=== PATIENT | male | born 1940 | race Caucasian/White ===

== ENCOUNTER → 2017-10-16 15:21 | Outpatient (CLI) | payer MEDICARE, OTHER, SELFPAY ==
--- NOTE | 2017-10-16 | DI.RAD.S_ITS ---
PROCEDURE: XR LUMBAR SPINE 2-3V INDICATIONS: LOW BACK PAIN TECHNIQUE: 3 views of the lumbar spine were acquired. COMPARISON: [facility], CT, THORAX WITHOUT CONTRAST, 01/26/2013, 11:38. FINDINGS: Bones: 5 nonrib-bearing, lumbar type vertebral bodies are seen. Grade 1 anterolisthesis is seen at the L5-S1 level, with associated bilateral pars defects are present moderate disc space narrowing seen at L4-L5 and at least moderate disc space narrowing at L5-S1. The other lumbar disc spaces are relatively well-preserved. Endplate irregularity and sclerosis are seen, which are most prominent at L4-L5 and L5-S1. Lower lumbar spine facet arthropathy is seen. Mild levoconvex scoliotic curvature is noted. No suspicious lytic or blastic lesions are seen. No displaced fractures are seen. Soft tissues: Overlying bowel gas pattern is normal. No suspicious soft tissue calcifications. IMPRESSION: Grade 1 anterolisthesis at L5-S1, with associated bilateral pars defects. Focal or lumbar spine degenerative changes. Dictated by: Emir Monteiro M.D. on 10/16/2017 at 15:01 Approved by: Emir Monteiro M.D. on 10/16/2017 at 15:04
== END ==
PROVIDERS: Family Provider Family Medicine; PCP Family Medicine; Visit Provider Chiropractor
DX: M43.17 Spondylolisthesis, lumbosacral region (principal); M54.5 Low back pain
CPT/HCPCS: 72100

== ENCOUNTER → 2018-02-17 13:58 | Outpatient (CLI) | payer MEDICARE, OTHER, SELFPAY | PROVIDERS: PCP Family Medicine; Visit Provider Internal Medicine Rheumatology | DX: E11.9 Type 2 diabetes mellitus without complications (principal); Z79.52 Long term (current) use of systemic steroids; Z87.891 Personal history of nicotine dependence | CPT/HCPCS: 77080 ==

== ENCOUNTER → 2018-10-07 08:36 | Outpatient (CLI) | payer MEDICARE, OTHER, SELFPAY | PROVIDERS: Family Provider Family Medicine; PCP Family Medicine; Visit Provider Ophthalmology | DX: E08.9 Diabetes mellitus due to underlying condition without complications (principal); M35.3 Polymyalgia rheumatica | CPT/HCPCS: 87070; 87077; 87186; 87205 ==

== ENCOUNTER → 2019-04-02 09:21 | Outpatient (CLI) | payer MEDICARE, OTHER, SELFPAY ==
--- NOTE | 2019-04-02 10:15 | DI.CT.S_ITS ---
PROCEDURE: CT ABDOMEN PELVIS W CON INDICATIONS: Nausea with vomiting TECHNIQUE: After the administration of oral and intravenous contrast, 5 mm thick sections acquired from the diaphragms to the symphysis. 5 mm thick coronal and sagittal reformats were performed. For radiation dose reduction, the following was used: automated exposure control, adjustment of mA and/or kV according to patient size. COMPARISON: None. FINDINGS: Image quality: Excellent. ABDOMEN: Lung bases: Lung bases are clear. Heart size is normal. Solid organs: Liver is normal in size and enhancement. Gallbladder is normal. Biliary system is non-dilated. Pancreas enhances normally. Spleen is normal in size and enhancement. No adrenal nodules. Kidneys are normal in size and enhancement, without hydronephrosis. Peritoneum and bowel: Stomach, small bowel, and colon loops are normal in caliber and wall thickness. No free fluid or air. Nodes and vessels: A few moderately prominent lymph nodes are present scattered base of the mesentery. No matted, clumped, or bulky adenopathy visible. No retroperitoneal adenopathy.. Aorta and inferior vena cava are normal in caliber. Moderate to heavy atheromatous changes. Miscellaneous: No ventral hernias. PELVIS: Genitourinary: Bladder wall thickness is normal. There is marked prostatomegaly which measures 4.9 x 5.1 x 6.3 cm. Miscellaneous: No inguinal hernias or adenopathy. Bones: Bilateral L5 pars defects and severe degenerative disc change at L5-S1 result in grade 1 anterolisthesis. No suspicious bony lesions. No vertebral body compression fractures. IMPRESSION: 1. No CT evidence of acute process. 2. Mildly prominent mesenteric lymph nodes are most likely reactive. No pathologic adenopathy identified. 3. Marked prostatomegaly. Dictated by: Scarlet Ricks M.D. on 04/02/2019 at 14:45 Approved by: Scarlet Ricks M.D. on 04/02/2019 at 14:54
== END ==
PROVIDERS: Family Provider Family Medicine; PCP Family Medicine; Visit Provider Family Medicine
DX: R11.2 Nausea with vomiting, unspecified (principal); N40.0 Benign prostatic hyperplasia without lower urinary tract symptoms
CPT/HCPCS: 74177; Q9967

== ENCOUNTER → 2019-11-18 13:48 | Outpatient (CLI) | payer MEDICARE, OTHER, SELFPAY ==
--- NOTE | 2019-11-18 | DI.MRI.S_ITS ---
PROCEDURE: MR LUMBAR SPINE WO CON INDICATIONS: Lumbago with sciatica, right side TECHNIQUE: Noncontrast sagittal T1 spin echo and T2 fast echo, sagittal STIR, axial T1 and T2 fast spin echo through the lumbar spine. In cases with scoliosis, additional coronal T2 fast spin echo may be performed. COMPARISON: [facility], CR, XR LUMBAR SPINE 2-3V, 10/16/2017, 15:28. FINDINGS: Image quality: Degraded by motion artifact. Alignment and Curvature: 5 lumbar type vertebral bodies are present by plain film. There is loss of normal lumbar lordosis. There is mild grade 1 retrolisthesis of L1 on L2, L2 on L3, L3 on L4, and L4 on L5. Mild grade 1 anterolisthesis of L5 on S1. Bone Marrow: Marrow is of normal overall signal. No acute vertebral body compression fractures. There are bilateral L5-S1 pars interarticularis defects. There is mild reactive signal within the endplates adjacent to the L1-L2, L2-L3, L3-L4, L4-L5, and L5-S1 intervertebral discs. Spinal Cord: Conus medullaris terminates at the upper L1 level. Visualized cord demonstrates normal signal and size. Paraspinous Soft Tissues: No paravertebral masses. L1-L2: Moderate disc desiccation. Mild disc height loss. Mild diffuse disc bulge. Mild facet and ligamentum flavum hypertrophy. Mild canal stenosis. Mild bilateral foraminal stenosis. L2-L3: Moderate disc height loss and desiccation. Mild diffuse disc bulge. Mild facet and ligamentum flavum hypertrophy. Mild epidural lipomatosis. Mild canal stenosis. Mild bilateral foraminal stenosis. L3-L4: Moderate disc desiccation. Moderate diffuse disc bulge. Mild facet and ligamentum flavum hypertrophy. Mild epidural lipomatosis. Severe canal stenosis. Moderate foraminal stenosis bilaterally. L4-L5: Moderate disc desiccation. Moderate diffuse disc bulge with superimposed right posterolateral protrusion. Moderate facet and ligamentum flavum hypertrophy. Moderate canal stenosis. Moderate left and severe right foraminal stenosis. Right L4 nerve root compression. L5-S1: Severe disc height loss and desiccation. Mild diffuse disc bulge. Mild bilateral facet hypertrophy. No significant canal stenosis. Severe bilateral foraminal stenosis with bilateral L5 nerve root compression. IMPRESSION: 1. Multilevel degenerative disc and facet disease, as well as ligamentum flavum hypertrophy and epidural lipomatosis. 2. Grade 1 isthmic spondylolisthesis at L5-S1. 3. Multilevel canal stenosis, worst at L3-L4 where there is severe canal stenosis. Moderate canal stenosis at L4-L5. 4. Multilevel foraminal stenoses, worst at L4-L5 and L5-S1 where there is associated intraforaminal nerve root compression. Recommend correlation with clinical symptoms to ascertain relevance of these findings. Dictated by: Jasen Carmichael M.D. on 11/18/2019 at 16:44 Approved by: Jasen Carmichael M.D. on 11/18/2019 at 16:48
== END ==
PROVIDERS: Family Provider Family Medicine; PCP Family Medicine; Referring Provider Family Medicine; Visit Provider Family Medicine
DX: M51.16 Intervertebral disc disorders with radiculopathy, lumbar region (principal); M51.17 Intervertebral disc disorders with radiculopathy, lumbosacral region; M43.17 Spondylolisthesis, lumbosacral region; M48.061 Spinal stenosis, lumbar region without neurogenic claudication; M48.07 Spinal stenosis, lumbosacral region; E88.2 Lipomatosis, not elsewhere classified
CPT/HCPCS: 72148

== ENCOUNTER 2019-11-19 10:17 | Inpatient (IN) | payer MEDICARE, OTHER, SELFPAY ==
[2019-11-19 10:35] VITALS: BP 120/75; PULSE 97; RESP 22; TEMP 36.2; O2SAT 94
[2019-11-19 10:45] VITALS: BMI 32.6
[2019-11-19 11:48] LABS: Add Manual Diff / Slide Review NO; Basophils Absolute Auto 0 /uL (0-100); Basophils Percent Auto 0.3 % (0-2); Eosinophils Absolute Auto 0 /uL (0-450); Eosinophils Percent Auto 0.2 % (2-4); Hemoglobin 15.7 g/dL (13.5-17.5); Lymphocytes Absolute Auto 600 /uL (1100-4500); Lymphocytes Percent Auto 4.7 % (25-40); Mean Corpuscular HGB Conc 33.5 % (30-36); Mean Corpuscular Hemoglobin 30.5 PG (26-34); Mean Corpuscular Volume 91.2 fL (80-100); Monocytes Absolute Auto 500 /uL (0-900); Monocytes Percent Auto 3.8 % (3-14); Neutrophils Absolute Auto 11600 /uL (1500-7000); Platelet Count 200 X10^3/uL (150-400); Red Blood Cell Count 5.16 X10^6/uL (4.5-5.9); Red Cell Distribution Width 14.5 % (11.6-14.8); White Blood Cell Count 12.7 X10^3/uL (4.5-11.0)
[2019-11-19 12:00] LABS: BUN Creatinine Ratio 21.3 (6-22); Blood Urea Nitrogen 27 mg/dL (9-20); Calcium 9.9 mg/dL (8.4-10.2); Carbon Dioxide 31 mmol/L (22-32); Chloride 96 mmol/L (98-107); Estimated Glomerular Filt Rate 54.7 mL/min (>60); Glucose 216 mg/dL (80-110); HEMOLYSIS 48 (0-50); Sodium 136 mmol/L (137-145)
[2019-11-19] MEDS: MORPHINE 2 MG/ML INJ IV ×2 (12:03→18:07)
[2019-11-19] MEDS: LACTATED RINGERS 500 ML 1000 ML IV (12:03)
[2019-11-19] MEDS: LACTATED RINGERS 1,000 ML 150 ML IV ×2 (13:20→19:46)
--- NOTE | 2019-11-19 13:26 | P.HP_ITS ---
History of Present Illness History of Present Illness Date Patient Seen: 11/19/19 Time Patient Seen: 13:26 Date of Onset of Symptoms: 11/19/19 Chief complaint: radicular back pain hypotention & dehydration Narrative: Patient is a 79-year-old male patient of mine well known to me who presents in clinic today in severe pain and hypotensive. He had an appointment for follow-up of MRI. Patient has been having history of pain for the last 6 weeks or so period is progressively getting worse. Progressing [place] not mobile while. Not eating period and becoming more and more immobile. Patient was seen last week in clinic and was with mildly low blood pressure but felt okay otherwise. At that time he had no definitive neurologic signs. He was having pain which was 8/10. Mostly in his right buttock down into his leg and around into the anterior leg. He had no other significant new changes. He had no bowel or bladder changes. No numbness. He had no motor changes but hurts so bad he would not move much period was becoming a little bit confused in that he was not drinking and tramadol did seem to be helping. At that time we had increased tramadol does and had been following period is had no fevers chills or other change. Patient continued similar findings his MRI showed multiple pinch nerves plus central canal stenosis. He has not made any progress he has not been drinking fluids. He is progressively uncontrolled pain and becoming less functional at home. In clinic today at a blood pressure of 85/60 and was diaphoretic. He had had no chest pain. No shortness of breath. He continued only with only complaint being buttock pain down his which was extended down his leg. Due to the fact that his pressure was so low he was clearly dehydrated and was otherwise not feeling functional he was brought to the hospital for evaluation. Patient was with history of diffuse pain which had responded secondary to prednisone has been diagnosed with polymyalgia rheumatica. Patient was tried on 40 mg of prednisone 2 weeks ago which made no difference. We had recently started weaning his prednisone. Patient had labs done last week which showed a mildly elevated white count probably secondary to his prednisone. Other lab function was normal. He has had no change in bowel movements no blood in his stool. No urinary frequency or urgency or change. No extremity numbness. No headaches. No visual symptoms. No shortness of breath no chest pain. Basically has not been doing much otherwise though. 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 Social history negative smoker, occasional alcohol mostly social Patient History Medical History Back pain (Acute) Diabetes mellitus (Acute) GERD (gastroesophageal reflux disease) (Acute) High cholesterol (Acute) Hypertension (Acute) PMR (polymyalgia rheumatica) (Acute) Surgical History History of appendectomy (Acute) Status post total left knee replacement (Acute) Family & Social History Social History: household members spouse Safety & Behavioral: Feels Safe in Current Yes Environment Been Physically Hurt or No Threatened By a Person Suicidal Ideation Description None Suicide Plan Description No Plan Tobacco & Substance use: Smoking Status Former smoker alcohol intake current alcohol intake frequency 3 or more drinks per day Substance Use Type does not use Meds Home Medications and Allergies Home Medications Medication Instructions Recorded Confirmed Type ASPIRIN (Aspirin Low Dose) 81 mg PO QDAY #0 02/24/10 11/19/19 History OMEPRAZOLE 20 mg PO QDAY #0 02/24/10 11/19/19 History Pravastatin Sodium (Pravachol) 20 mg PO PM #0 02/24/10 11/19/19 History doxazosin 8 mg PO DAILY 11/19/19 11/19/19 History insulin glargine [Lantus Solostar 15 unit SUBCUT BID 11/19/19 11/19/19 History U-100 Insulin] losartan 100 mg PO DAILY 11/19/19 11/19/19 History metoprolol tartrate 75 mg PO BEDTIME 11/19/19 11/19/19 History prednisone 15 mg PO DAILY 11/19/19 11/19/19 History tramadol 100 mg PO Q6H PRN 11/19/19 11/19/19 History Allergies Allergy/AdvReac Type Severity Reaction Status Date / Time No Known Drug Allergies Allergy Verified 11/19/19 11:24 Review of Systems Review of Systems ROS: Yes All systems reviewed with the patient and are negative except as otherwise documented Exam Vital Signs (past 8 hours): Oxygen Delivery Method Room Air Narrative Exam Narrative: Alert diaphoretic male lying in bed with right leg up because that is the only way he can get his back pain comfortable. Skin diaphoretic pale HEENT exam eyes appear normal. Mucous membranes dry neck supple without adenopathy. No JVD or bruits. Lungs are clear. Heart regular rate and rhythm without murmurs clicks rubs or gallops abdomen is soft positive bowel sounds nontender. Extremities show trace edema bilaterally. Good pulses. Negative straight leg raise. Neurologic exam shows cranial nerves 2-12 are intact motor is 5/5. Reflexes 1+ knee not obtainable ankle jerks bilaterally. Motor appears to be 5/5 otherwise difficult to get him to really do much with his lower extremities because of pain psychologically fatigued in appearance but otherwise no change. Objective Labs Result Diagrams: 11/19/19 10:45 11/19/19 10:45 Labs: Laboratory Results - last 24 hr 11/19/19 11/19/19 11/19/19 10:45 10:45 10:45 WBC 12.7 H RBC 5.16 Hgb 15.7 Hct 47.0 MCV 91.2 MCH 30.5 MCHC 33.5 RDW 14.5 Plt Count 200 Neut % (Auto) 91.0 H Lymph % (Auto) 4.7 L [place] % (Auto) 3.8 Eos % (Auto) 0.2 L Baso % (Auto) 0.3 Neut # (Auto) 72646 H Lymph # (Auto) 600 L [place] # (Auto) 500 Eos # (Auto) 0 Baso # (Auto) 0 Sodium 136 L Potassium 4.0 Chloride 96 L Carbon Dioxide 31 BUN 27 H Creatinine 1.27 H Estimated GFR 54.7 L BUN/Creatinine Ratio 21.3 Glucose 216 H Calcium 9.9 Nasal Screen MRSA (PCR) Negative for mrsa Assessment & Plan Assessment & Plan narrative: Back pain with radiculopathy. MRI shows pretty significant L4-L5 abnormality although he has multiple areas under impinged but that would sit mostly with his right side. He does have severe central canal stenosis. Discussed with Dr. Monroe. He was consulted. Due to the inability to control pain and severe disease on MRI may need surgical evaluation. Will see what Dr. Hansen feels. I did not feel like today would be a good day for that I would like him to get hydrated. Get some sugars and a little better control. I think otherwise his low to medium risk candidate mostly this with age. Will control pain with narcotics for now. Dehydration. Moderate. Will continue hydration recheck in 2-3 hours. Cert ainly improved after bolus. Will follow. Hypotension. Resolving. Probably secondary to dehydration and pain. Will follow. Hypertension. Medication seems to be doing well will make no change hopefully with treatment dehydration Type 2 diabetes. Will restart is 15 b.i.d. and sliding scale. Polymyalgia rheumatica. Patient has been on 15 mg for a few days of prednisone will go to 20 just for stress dose and restart wean after he is discharged. BPH continue usual medicine. History of CVA stable His code status full. GI prophylaxis already on PPI DVT prophylaxis is Lovenox. Disposition. Will correct dehydration and hypertension otherwise will leave up to Dr. Monroe in his discretions. Hopefully will get some treatment which will get us out of this [place] in which were in. Patient should not be here more than 2- 3 days
[2019-11-19 13:52] LABS: COVID19 -Nasal RAPID Negative (Negative)
[2019-11-19] MEDS: OXYCODONE/ACETAMINOPHEN 5/325 TABLET 2 TAB PO (14:30)
[2019-11-19] MEDS: ENOXAPARIN 40 MG/0.4 ML SYRINGE SUBCUT (14:31)
--- NOTE | 2019-11-19 15:16 | PC.ADMIT ---
[email or web address] [facility] Admission Note: The patient,Octavio Salmon,79 y/o, was given written information regarding hospital policies, unit procedures and contact persons. Patient's smoking status: Former smoker. Vital Signs - 8 hr 11/19/19 10:35 Temperature 97.2 F L Pulse Rate 97 H Respiratory Rate 22 Blood Pressure 120/75 Pulse Oximetry [address] Gallo's office. Rec'd pt to rm 230 at 1035 via w/c. Pt c/o back pain radiating to r leg 10/18. Completed admission assessment. Oriented pt and to room, routine, fall risk, use of call light. Instructed pt to wait for assist before getting OOB. He is AO x3 and making needs known with clear, logical speech. Called to Dr. Gallo and reported pain score, requesting orders. Orders received and implemented.
[2019-11-19 15:46] VITALS: BP 153/86; PULSE 96; RESP 20; TEMP 36.4; O2SAT 94
[2019-11-19] MEDS: PRAVASTATIN 20 MG TABLET PO (16:33)
[2019-11-19] MEDS: INSULIN ASPART 100 UNIT/ML INSULN PEN SUBCUT ×2 (16:33→20:28)
[2019-11-19] MEDS: ACETAMINOPHEN 325 MG TABLET 650 MG PO ×2 (17:29→23:53)
[2019-11-19 19:00] VITALS: BP 133/66; PULSE 91; RESP 17; TEMP 36.6; O2SAT 92
[2019-11-19] MEDS: INSULIN GLARGINE 100 UNIT/ML 3ML PEN 15 UNIT SUBCUT (20:28)
[2019-11-19 20:33] VITALS: BP 133/77; PULSE 98
[2019-11-19] MEDS: METOPROLOL IR 25 MG TABLET 75 MG PO (20:33)
--- NOTE | 2019-11-19 22:18 | PC.NURSE ---
Patient AO x3 throughout shift. Patient needing 1 PRN pain medication administration for pain in back which radiates to right leg. Patient up multiple times, ambulating to restroom with good urine output. Patient eating/drinking well, but understands he is NPO after midnight due to surgery in AM. Patient currently resting in bed, sleeping, in no distress.
[2019-11-20] VITALS (47 sets, daily range): BP systolic 77–183; BP diastolic 56–99; PULSE 81–152; RESP 8–38; TEMP 35.9–36.8; O2SAT 84–98; BMI 32.6
--- NOTE | 2019-11-20 | DI.RAD.S_ITS ---
PROCEDURE: XR LUMBAR SPINE 2-3V INDICATIONS: L45- MICRO D, L5-S1 TLIF TECHNIQUE: 2 views of the lumbar spine were acquired. COMPARISON: [facility], , XR LUMBAR SPINE 2-3V, 10/16/2017, 15:28. FINDINGS: Spot fluoroscopic intraoperative views demonstrating L5-S1 posterior spinal fixation with interbody cage graft. There is expected intraoperative alignment. Dictated by: Apollo Zimmer M.D. on 11/20/2019 at 12:29 Approved by: Apollo Zimmer M.D. on 11/20/2019 at 12:29
[2019-11-20] MEDS: LACTATED RINGERS 1,000 ML 125 ML IV ×2 (04:01→08:54)
[2019-11-20 05:20] LABS: BUN Creatinine Ratio 22.2 (6-22); Blood Urea Nitrogen 22 mg/dL (9-20); Calcium 9.5 mg/dL (8.4-10.2); Carbon Dioxide 38 mmol/L (22-32); Chloride 98 mmol/L (98-107); Estimated Glomerular Filt Rate > 60.0 mL/min (>60); Glucose 130 mg/dL (80-110); HEMOLYSIS < 15 (0-50); Potassium 3.9 mmol/L (3.4-5.1); Sodium 135 mmol/L (137-145)
[2019-11-20] MEDS: ACETAMINOPHEN 325 MG TABLET 650 MG PO (06:16)
[2019-11-20] MEDS: PANTOPRAZOLE 20 MG TABLET PO (06:16)
--- NOTE | 2019-11-20 07:23 | PM.PN.1 ---
Subjective Subjective Date Patient Seen: 11/20/19 Time Patient Seen: 07:23 Interval history: Feeling better this morning after hydration. Preparing for surgery. Uneventful night otherwise. Has been NPO. Exam Vital Signs (past 8 hours): - 11/20/19 00:00 11/20/19 00:15 11/20/19 04:44 Temperature 97.2 F L 97.7 F Pulse Rate 81 91 H Respiratory Rate 16 18 Blood Pressure 111/87 161/92 H Pulse Oximetry 97 97 97 11/20/19 07:13 Temperature 98.1 F Pulse Rate 86 Respiratory Rate 20 Blood Pressure 164/99 H Pulse Oximetry 95 Oxygen Delivery Method Room Air Oxygen Flow Rate 0 Narrative Exam Narrative: GENERAL: Alert and oriented, appearing stated age and lying with his right leg up as that is the only way to get his back into a comfortable position HEENT: Head normocephalic/atraumatic. Pupils equal, round, and reactive to light and accomodation. Extraocular muscles intact. Tympanic membranes clear. Nasal mucosa moist, septum midline. Oral mucosa moist, no lesions. Neck soft and supple, no lymphadenopathy. LUNGS: Clear to ausculation bilaterally, no wheezes, rhonchi or rales. CV: Normal S1 and S2 with regular rate and rhythm, no audible murmurs, rubs or gallops. ABDOMEN: Soft, non-tender, non-distended, no organomegaly. Positive bowel sounds. EXTREMITIES: Trace edema bilaterally. NEURO: Cranial nerves II through XII grossly intact. Strength difficult to assess secondary to pain. PSYCH: Alert and oriented x 3. SKIN: No concerning lesions. Dry, pale. Objective Labs Result Diagrams: 11/19/19 10:45 11/20/19 04:43 Labs: Laboratory Results - last 24 hr 11/19/19 11/19/19 11/19/19 10:45 10:45 10:45 WBC 12.7 H RBC 5.16 Hgb 15.7 Hct 47.0 MCV 91.2 MCH 30.5 MCHC 33.5 RDW 14.5 Plt Count 200 Neut % (Auto) 91.0 H Lymph % (Auto) 4.7 L [place] % (Auto) 3.8 Eos % (Auto) 0.2 L Baso % (Auto) 0.3 Neut # (Auto) 08696 H Lymph # (Auto) 600 L [place] # (Auto) 500 Eos # (Auto) 0 Baso # (Auto) 0 Sodium 136 L Potassium 4.0 Chloride 96 L Carbon Dioxide 31 BUN 27 H Creatinine 1.27 H Estimated GFR 54.7 L BUN/Creatinine Ratio 21.3 Glucose 216 H Calcium 9.9 Nasal Screen MRSA (PCR) Negative for mrsa COVID-19 PCR 11/19/19 11/20/19 13:20 04:43 WBC RBC Hgb Hct MCV MCH MCHC RDW Plt Count Neut % (Auto) Lymph % (Auto) [place] % (Auto) Eos % (Auto) Baso % (Auto) Neut # (Auto) Lymph # (Auto) [place] # (Auto) Eos # (Auto) Baso # (Auto) Sodium 135 L Potassium 3.9 Chloride 98 Carbon Dioxide 38 H BUN 22 H Creatinine 0.99 Estimated GFR > 60.0 BUN/Creatinine Ratio 22.2 H Glucose 130 H Calcium 9.5 Nasal Screen MRSA (PCR) COVID-19 PCR Negative Assessment & Plan Assessment & Plan narrative: HD#2 1. 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 -Dr. Monroe consulting. -Due to the inability to control pain and severe disease on MRI, needs surgical evaluation. PLAN: Neurosurgery and pain control. 2. Dehydration, moderate, improved. PLAN: Continue IVF. 3. Hypotension, resolved, likely secondary to dehydration and pain. 4. Hypertension, chronic PLAN: Continue home losartan and metoprolol. 5. Type 2 diabetes. PLAN: Continue insulin glargine 15 b.i.d. and sliding scale. 6. Polymyalgia rheumatica. PLAN: Continue prednisone 20 mg po qd and restart wean after he is discharged. 7. BPH PLAN: Continue usual medicine. 8. History of CVA, stable Code status full. GI prophylaxis already on PPI DVT prophylaxis is Lovenox. Disposition. Per Dr. Monroe depending on how surgery goes.
--- NOTE | 2019-11-20 07:31 | SUR.OPER ---
Prone on spine table, head in foam head support, padded chest and pelvic supports, gel pad at knees, lower legs supported by pillows; nipples, genitalia and toes free of pressure, arms secured on foam padded arm boards at <90 degrees abduction. Tape over blanket at thigh secured to table.
[2019-11-20] MEDS: LACTATED RINGERS 1,000 ML 42 ML IV ×2 (07:35→13:35)
[2019-11-20] MEDS: CEFAZOLIN 2 GM/100 ML FROZ.PIGGY IV ×2 (07:52→16:00)
--- NOTE | 2019-11-20 07:53 | PM.CN ---
History of Present Illness Consult details Date Patient Seen: 11/19/19 Time Patient Seen: 11:53 Chief complaint: radicular back pain hypotention & dehydration Reason for consult: progressive weakness to right leg, inability to walk or stand Requesting provider: Octavio Gallo Narrative: Mr. Salmon is a 79 yo M with chronic back pain and acute onset progressive pain and weakness to his right leg. He has been having difficulty standing and walking over the last week. Patient was admitted yesterday through the ED. He was found to have weakness to his RLE and poor balance and difficulty standing or walking. Orthopedics is consulted for additional treatment recommendation. Meds Home Medications and Allergies Home Medications Medication Instructions Recorded Confirmed Type ASPIRIN (Aspirin Low Dose) 81 mg PO QDAY #0 02/24/10 11/19/19 History OMEPRAZOLE 20 mg PO QDAY #0 02/24/10 11/19/19 History Pravastatin Sodium (Pravachol) 20 mg PO PM #0 02/24/10 11/19/19 History doxazosin 8 mg PO DAILY 11/19/19 11/19/19 History insulin glargine [Lantus Solostar 15 unit SUBCUT BID 11/19/19 11/19/19 History U-100 Insulin] losartan 100 mg PO DAILY 11/19/19 11/19/19 History metoprolol tartrate 75 mg PO BEDTIME 11/19/19 11/19/19 History prednisone 15 mg PO DAILY 11/19/19 11/19/19 History tramadol 100 mg PO Q6H PRN 11/19/19 11/19/19 History Allergies Allergy/AdvReac Type Severity Reaction Status Date / Time No Known Drug Allergies Allergy Verified 11/20/19 07:18 Review of Systems Review of Systems ROS: Yes All systems reviewed with the patient and are negative except as otherwise documented Exam Vital Signs (past 8 hours): - 11/20/19 00:00 11/20/19 00:15 11/20/19 04:44 Temperature 97.2 F L 97.7 F Pulse Rate 81 91 H Respiratory Rate 16 18 Blood Pressure 111/87 161/92 H Pulse Oximetry 97 97 97 11/20/19 07:13 Temperature 98.1 F Pulse Rate 86 Respiratory Rate 20 Blood Pressure 164/99 H Pulse Oximetry 95 Oxygen Delivery Method Room Air Oxygen Flow Rate 0 Neuro General: patient alert, patient awake and patient oriented x3 Other: Decreased motor strength 4-/5 in R TA, EHL, gastroc. 4+/5 in hip flexion, quadriceps. + straight leg raise to RLE. Sensiblity decreased to RLE in L4, L5 dermatome Objective Labs Result Diagrams: 11/19/19 10:45 11/20/19 04:43 Labs: Laboratory Results - last 24 hr 11/19/19 11/19/19 11/19/19 10:45 10:45 10:45 WBC 12.7 H RBC 5.16 Hgb 15.7 Hct 47.0 MCV 91.2 MCH 30.5 MCHC 33.5 RDW 14.5 Plt Count 200 Neut % (Auto) 91.0 H Lymph % (Auto) 4.7 L [place] % (Auto) 3.8 Eos % (Auto) 0.2 L Baso % (Auto) 0.3 Neut # (Auto) 82932 H Lymph # (Auto) 600 L [place] # (Auto) 500 Eos # (Auto) 0 Baso # (Auto) 0 Sodium 136 L Potassium 4.0 Chloride 96 L Carbon Dioxide 31 BUN 27 H Creatinine 1.27 H Estimated GFR 54.7 L BUN/Creatinine Ratio 21.3 Glucose 216 H Calcium 9.9 Nasal Screen MRSA (PCR) Negative for mrsa COVID-19 PCR 11/19/19 11/20/19 13:20 04:43 WBC RBC Hgb Hct MCV MCH MCHC RDW Plt Count Neut % (Auto) Lymph % (Auto) [place] % (Auto) Eos % (Auto) Baso % (Auto) Neut # (Auto) Lymph # (Auto) [place] # (Auto) Eos # (Auto) Baso # (Auto) Sodium 135 L Potassium 3.9 Chloride 98 Carbon Dioxide 38 H BUN 22 H Creatinine 0.99 Estimated GFR > 60.0 BUN/Creatinine Ratio 22.2 H Glucose 130 H Calcium 9.5 Nasal Screen MRSA (PCR) COVID-19 PCR Negative Assessment & Plan Assessment & Plan narrative: 79 yo M with chronic back pain, acute progressive weakness to his RLE with inability to walk or stand with high risk of falling due to significant right leg weakness. Patient's MRI shows L5-S1 spondylolisthesis, foramen stenosis, L4-5 shows herniated/extruded disc migrated cephalad with nerve root compression and significant central stenosis. I discussed risks and benefits of treatment options with patient and his . RIsks for surgery was discussed. Surgery risks include but not limited to bleeding, infection, nerve/dura/bladder/bowel/blood vessel injury, need for additional procedure, even . Pt understands and would like to proceed with surgery. I scheduled him for L5-S1 TLIF, L4-5 microdisectomy.
[2019-11-20] MEDS: BUPIVACAINE LIPOSOME 266 MG/20 ML VIAL INJ (08:34)
[2019-11-20] MEDS: BUPIVACAINE 0.25% W/ EPI 30 ML VIAL INJ (08:34)
--- NOTE | 2019-11-20 10:55 | PM.OP.1 ---
Operative Date/Time/Diagnoses Date of procedure: 11/20/19 Time of procedure: 08:04 Pre-op diagnosis: 1. L5-S1 spondylolisthesis 2. L4-5, L5-S1 spinal stenosis 3. Right leg radiculopathy Post-op diagnosis: same Procedure & Clinicians Procedure: 1. L5-S1 Postero-lateral and posterior interbody fusion 2. L5-S1 interbody cage placement. 3. L5-S1 decompressive laminectomy with bilateral facetecomies 4. L5-S1 Posterior non-segmental instrumentation 5. L4-5 hemilaminectomy and microdiscectomy 6. Edgar of bone marrow from iliac crest 7. Utilization of microsurgical technique and operating microscope Same procedure as scheduled: Yes Indications: Patient has been having chronic back pain and worsening lumbar radiculopathy. Patient has acute worsening of his radiculopathy and back pain started 6 weeks ago. Patient failed multiple conservative management with progressive weakness and inability to walk. After admitting through the emergency room and discussed the risks and benefits of treatment options patient was scheduled for urgent surgical treatment. Patient has been having difficulty performing activity of daily living. After discussing risks benefits of treatment options, patient elected proceed with surgery. Surgeon: Reji Monroe Cracking Still Operator: Salma Perez Click Yes if Unassisted: No Anesthesia Type: General Operative Notes Closure Type: primary Specimen(s): none sent Prosthetic devices, grafts, tissues, transplants, or devices: Globus revolve screws, Rise cage Applied: catheter Estimated Blood Loss (mL): 50 Blood products transfused: none Procedure in detail: Patient was seen in the preoperative area. Risks and benefits of the surgery was discussed with the patient. Informed consent was obtained from the patient and placed in the chart. Surgical site was marked. Patient was taken to the operative room. General anesthesia was administered. Prophylactic antibiotic was given to the patient less than 30 min before the incision was made. Patient was placed into a prone position on the Charles table. Patient's back was then prepped and draped in the sterile fashion. Time-out was performed at this time. Using AP and lateral C-arm imaging the interval between L4-5 L5-S1 was identified and marked on patient's back. A 2 inch incision 2 in from midline was made on the right side first. The fascia was incised in line with skin incision. Globus MARS retractors was placed inside the incision and docked onto the L5 lamina. Using microsurgical technique and operating microscope, a L5 laminectomy and L5-S1 facetectomy was performed using a Kerrison rongeur. The disc space at L5-S1 was identified. And a total diskectomy was performed at L5-S1 level. The endplates were decorticated using a rasp and shaver. The total diskectomy and decortication was performed at L5-S1 level in order to to accomplish a L5-S1 fusion. Patient was found have severe L5 nerve root compression due to significant foraminal stenosis which was fully decompressed after the laminectomy facetectomy was completed. L5-S1 level was found to be grossly unstable prior to the decompression was further destabilized after the laminectomy and facetectomy was completed and required a fusion procedure at the same time. The local bone from the laminectomy and facetectomy was saved for local bone grafting. After the total diskectomy and decortication was completed, Trifecta bone graft material was combined with local bone that was harvested earlier. At this time, a separate skin is incision was made over the iliac crest. A Jamshidi needle was inserted into the iliac crest through a separate skin incision. 5 cc of bone marrow aspiration was obtained through the separate skin incision using a Jamshidi needle from the iliac crest. The bone marrow aspiration was combined with local bone and the Trifecta bone grafting material. The bone grafting material was placed into the L5-S1 interbody space along with a expandable cage. The cage was expanded to its maximum height using the torque limiting screwdriver. At this time the MARS retractor was redirected over the L4 lamina. Using microsurgical technique and operating microscope, a L4-5 heminectomy was performed using the Kerrison rongeur. The ligamentum flavum was also resected at the side of the hemilaminectomy for further decompression of the epidural space. Patient was found have several pieces of large extruded disc fragment into the epidural space. The extruded disc fragments was causing severe central and lateral recess stenosis. The disc is also causing severe compression on to the right L4-L5 nerve roots. The disc fragments was removed using micro curette and micropituitary. After the microdiskectomy was completed the area of medial lateral superior inferior to the area of the hemilaminectomy was inspected. No other impinging structure was identified after the microdiskectomy was completed. At this time a mirror image incision was made on the left side. The fascia was incised in line with the skin incision. Globus MARS retractor was inserted and docked onto the L5-S1 posterolateral gutter. Using the power drill, posterior-lateral decortication was performed at L5-S1 level until bleeding cortical bone was identified. The remaining bone grafting material was placed into the L5-S1 posterior lateral gutter he order to accomplish posterolateral fusion at the L5-S1 level. Using the double C-arm technique, pedicle screws were placed into the L5 and S1 pedicles bilaterally. This was done by placing the Jamshidi needle into the pedicles, then placing the guidewires over the Jamshidi needle, and finally placing the cannulated screws over the guidewires bilaterally. After the pedicle screws were placed, 2 titanium rods was locked into the heads of the pedicle screws using locking caps and torque limiting screwdriver. Threaded well driller was used to reduce patient's spondylolisthesis. An adequate reduction was accomplished using the hardware and maintained using the hardware. After all the hardware was placed, and confirmed with AP and lateral C-arm imaging, the wound was then irrigated with sterile normal saline and packed with Ray-Orin gauze for 3 min to accomplish hemostasis. After the gauze was removed the deep fascia was closed with #1 Vicryl suture. The subcutaneous layer was closed with 2-0 Vicryl. The skin was closed with skin min. Patient tolerated the procedure well. There were no complications. Complications: none Post-operative Condition: stable Disposition: PACU Plan for aftercare: Admit to inpatient hospital
[2019-11-20] MEDS: fentaNYL 100 MCG/2 ML INJ IV ×2 (11:24→11:44)
--- NOTE | 2019-11-20 11:49 | SUR.PHASEI ---
Pt noted Afib with RVR. Denies chest pain and SOB. Dr Muñoz notified and at bedside. EKG done. Will update Dr Monroe. Report given to CHRIS Hernandez.
--- NOTE | 2019-11-20 12:05 | SUR.PHASEI ---
Addendum entered by Mary Arredondo R.N. 11/20/19 13:59: Patient taken up to room 230 in bed in stable condition and on monitors. Report given to receiving RN Apollo. Patient remains on amiodarone gtt per orders. Patient's in room with patient. Left patient in room with receiving RN and STRING LASTER at bedside and patient in stable condition. Addendum entered by Mary Arredondo R.N. 11/20/19 12:57: Rapid response called as patient continues to have heart rate in the 140's and no orders have been received. (see note by Alexa Willams RN for more details about calling physicians). PACU team, Pharmacy, RT and other teams present (see rapid response paperwork). Dr. Sosa (hospital liaison for Dr. Velasquez) and evaluated patient. Received orders for 150mg of amiodarone over 10 minutes, given per orders. Heart rate came down to low 100's after amiodarone. Received order for Nitro as needed for chest pain. Dr. Sosa ordered EKG for ten minutes after amiodarone completed. Amiodarone completed per orders (see emar) and EKG completed. Received order for patient to resume amiodarone protocol for the second and third doses. Started per orders. Patient stable in AFIB CVR. Medicated for pain per orders. Denies needs at this time. Continues to deny any chest pain or shortness of breath. Dr. Sosa states patient may resume amiodarone gtt on the floor and that she would check back with patient this evening. Original Note: Received patient from previous nurse Keyla. Patient resting peacefully in bed, but noted to be in AFIB RVR in the 130-140's. EKG already ordered by Dr. Jean Baptiste from previous nurse. EKG confirms AFIB RVR. Julee Willams RN showed Dr. Shin EKG and called Dr. Monroe for orders, was told to call Dr. Velasquez for orders. CHRIS Ladd attempting to call Dr. Velasquez at this time. Patient denies need for pain medication. Able to move all extremities.
--- NOTE | 2019-11-20 12:08 | SUR.PHASEI ---
This nurse provided Anesthesia with copy of EKG to receive orders for rapid Afib rate of 140s. Per anesthesiology, give IV labetalol if pt is not hypotensive. BP is 111 systolic. Nurse will hold labetalol for now. Contacted surgeon, Dr. Monroe, who tells this nurse to contact admitting hospitalist. Dr Monroe states, I'm just on consult. You need to contact the hospitalist. Asked Dr Monroe if nurse needed to contact hospitalist, and Dr Monroe states, yes. This nurse called Dr Joe, who is not personal lines account manager and then was told to call Dr. Sosa. This nurse called Dr Sosa's office, and Dr Sosa is involved in a procedure and is unavailable at this time and will call back. Notified PACU lead.
--- NOTE | 2019-11-20 12:27 | SUR.PHASEI ---
2605 Dr Sosa returning phone call from this nurse regarding afib with rate of 140s. Per Dr Sosa, apply cool cloths to patient to see if patient's HR will come down. Explained to Dr Sosa that nursing staff had already attempted vagal maneuvers with no change in rate. Dr Sosa will come to PACU. Notified primary nurse and lead nurse in PACU of conversation. Rapid Response team at side.
--- NOTE | 2019-11-20 12:29 | SUR.PHASEI ---
Dr العراقي to PACU.
[2019-11-20] MEDS: AMIODARONE 150 MG/100 ML PIGGYBACK 600 MG IV (12:35)
[2019-11-20] MEDS: OXYCODONE/ACETAMINOPHEN 5/325 TABLET 2 TAB PO (12:51)
[2019-11-20] MEDS: AMIODARONE 360 MG/200 ML PIGGYBACK 33.33 MG IV (13:03)
--- NOTE | 2019-11-20 13:14 | CM.DANOTE ---
Discharge Planning/Care Management DCP: assessment: Initiated: chart review only. Pt has not yet returned to the floor from PACU. Pt is a 79 year old male who admitted to care of Dr. Gallo: PCP. Payer: Medicare and [employer]. Dr. Gallo consulted orthopedic surgeon Dr. Monroe who took pt to surgery this morning after Dr. Gallo had medically cleared pt for same. L5-S1 TLIF and L4-5 microdistectomy were performed. A Rapid Response was called for pt as he was recovering in PACU with Dr. Monroe deferring to Dr. Gallo. Dr. Sosa, computer systems consultant for Dr. Gallo arrived and care is noted as per WASHING MACHINE STRIPER notes. Pt is expected to return sometime today to his room 230 in the ICU setting and is being treated for A-Fib. P: DCP team to follow up tomorrow to meet with pt and for continuation of the DCP assessment process. PT and OT will be ordered when pt is stable for these therapies. Advanced directive, confirm from FAMILY Start: 11/19/19 12:01 Freq: Q24H Status: Active Protocol: Document 11/19/19 12:01 JLN (Rec: 11/19/19 13:31 JLN [id number]) Advance Directive, confirm on record Time 11:00 Person contacted Niya Salmon Copy received No CM Discharge Assessment Start: 11/20/19 13:13 Freq: Status: Active Protocol: Document 11/20/19 13:13 ITV (Rec: 11/20/19 13:14 ITV [id number]) Discharge Planning Assessment Advance Directives on File No History Provided By Medical Record Household Members spouse Review Status In Process
[2019-11-20] MEDS: SODIUM CHLORIDE 0.9% 1,000 ML 100 ML IV (14:45)
--- NOTE | 2019-11-20 14:46 | PC.NURSE ---
Rec'd pt to 230 from PACU at 1350. Pt is drowsy but oriented and appears comfortable. Quickly dozes back to sleep with decreased stimuli. Afib on bedside monitor rates up to 120 on amio gtt infusing to RFA PIV. at bedside. Reoriented to room and routine. Pt is requesting something to eat/drink. BG 189. Noted transfer orders and previous orders for home meds and SS insulin were dc'd on transfer. Called to Dr. Sosa to request clarification of orders. Awaiting orders.
--- NOTE | 2019-11-20 15:30 | PT-IP ANOTE ---
checked with nurse and stated that pt is not ready for PT at this time and to check in tomorrow. stated that pt's HR is not stable at this time. also informed nurse that pt's bedrest order should be changed.
--- NOTE | 2019-11-20 18:04 | PM.EVENT ---
Event Note Date Patient Seen: 11/20/19 Time Patient Seen: 12:30 Event Note: Called to bedside by nurse after rapid response called status post neurosurgery. Patient had felt unwell, blood pressure was 90/60s and he went into new-onset Afib with RVR into the 130s. Initial vagal maneuvers were unsuccessful and patient was administered 150 mg of IV amiodorone at 12:35. Heart rate normalized but he remained in Afib. At this point, the unwell feeling had passed and he denied any dyspnea or chest pain. Pain was controlled. He finished his recovery in the PACU and was transferred back to the ICU. It is now 6:23 pm; over the last 3 hours, his blood pressure has been 122/64, 133/69, and 120/82. He remains in atrial fibrillation with a ventricular rate of 110 to 130. He is on 3 L of oxygen per nasal cannula. Denies dyspnea or chest pain. Had consult with Dr. Willingham, [facility] regarding patient's new-onset atrial fibrillation with rapid ventricular rate in setting of postoperative hypotension. Dr. Willingham was reassured that his pressure is now normal even though he continues in atrial fibrillation with rapid ventricular rate. He thinks that this is likely a postoperative change only and will resolve in the next few days. He advised continuing amiodrone drip, holding patient's home losartan, and restarting metoprolol but at a low dose of 12.5 mg and then titrate dose as needed. Recommended echo.
[2019-11-20] MEDS: OXYCODONE IR 5 MG TABLET PO (18:20)
[2019-11-20] MEDS: AMIODARONE 541 MG/300.56 ML PIGGYBACK 16.7 MG IV (18:54)
[2019-11-20] MEDS: METOPROLOL IR 25 MG TABLET 12.5 MG PO (19:24)
--- NOTE | 2019-11-20 20:20 | RT ---
PT APPEARS COMFORTABLE ON HOME CPAP W/ RA. O2 SAT NOTED AT 96%.
[2019-11-20] MEDS: HYDROMORPHONE 0.5 MG INJ IV (20:37)
[2019-11-20] MEDS: DOCUSATE 100 MG CAPSULE PO (20:37)
[2019-11-20] MEDS: hydrOXYzine pamoate 25 MG CAPSULE PO (20:37)
[2019-11-20] MEDS: SENNOSIDES 8.6 MG TABLET 17.2 MG PO (20:37)
[2019-11-20] MEDS: INSULIN ASPART 100 UNIT/ML INSULN PEN SUBCUT (20:44)
[2019-11-20] MEDS: INSULIN GLARGINE 100 UNIT/ML 3ML PEN 15 UNIT SUBCUT (20:47)
--- NOTE | 2019-11-20 22:08 | PC.NURSE ---
Pt remains in afib with RVR rate 120-140. Amiodarone drip continues as ordered. Medicated for pain x2 this shift, complains that cook cath is hurting him. Bladder scan done, 30cc of urine noted. Cook draining well. Ice bag placed to groin and pt states this helps. OOB to BSC x 1. Spoke with Dr. Sosa and Insulin reordered as prior to OR.
[2019-11-21] VITALS (110 sets, daily range): BP systolic 47–210; BP diastolic 32–108; PULSE 76–139; RESP 8–39; TEMP 36.1–37.3; O2SAT 21–100
[2019-11-21] MEDS: METOPROLOL IR 25 MG TABLET PO (00:24)
[2019-11-21] MEDS: CEFAZOLIN 2 GM/100 ML FROZ.PIGGY IV (00:24)
[2019-11-21] MEDS: SODIUM CHLORIDE 0.9% 1,000 ML 100 ML IV (00:25)
[2019-11-21] MEDS: HYDROMORPHONE 0.5 MG INJ IV (01:55)
[2019-11-21] MEDS: NALOXONE 0.4 MG/ML VIAL 0.2 MG IV (04:42)
[2019-11-21] MEDS: AMIODARONE 541 MG/300.56 ML PIGGYBACK 16.7 MG IV ×2 (04:57→17:42)
[2019-11-21 05:07] LABS: Add Manual Diff / Slide Review NO; Basophils Absolute Auto 0 /uL (0-100); Basophils Percent Auto 0.1 % (0-2); Eosinophils Absolute Auto 0 /uL (0-450); Eosinophils Percent Auto 0.1 % (2-4); Hematocrit 42.3 % (41-53); Hemoglobin 13.7 g/dL (13.5-17.5); Lymphocytes Absolute Auto 900 /uL (1100-4500); Lymphocytes Percent Auto 5.2 % (25-40); Mean Corpuscular HGB Conc 32.4 % (30-36); Mean Corpuscular Volume 92.7 fL (80-100); Monocytes Absolute Auto 1900 /uL (0-900); Monocytes Percent Auto 11.6 % (3-14); Neutrophils Absolute Auto 13600 /uL (1500-7000); Platelet Count 149 X10^3/uL (150-400); Red Blood Cell Count 4.56 X10^6/uL (4.5-5.9); Red Cell Distribution Width 14.3 % (11.6-14.8); White Blood Cell Count 16.4 X10^3/uL (4.5-11.0)
[2019-11-21 05:12] LABS: HCO3 ABG 32 mmol/L (22-26); Oxygen Saturation ABG 95 % (95-100); PCO2 ABG 60.3 mmHg (35-45); PO2 ABG 86 mmHg (80-100); TCO2 ABG 34 mmol/L (21-31); pH ABG 7.33 (7.35-7.45)
[2019-11-21 05:13] LABS: Fractionated Inspired Oxygen 50
--- NOTE | 2019-11-21 05:20 | PM.PN.1 ---
Subjective Subjective Date Patient Seen: 11/21/19 Time Patient Seen: 05:20 Interval history: Called to bedside by nurse after patient was nonresponsive to sternal rub after 0.5 mg of dilaudid. Cardiac telemetry and other vital signs were stable throughout. Patient did receive 0.5 mg of Dilaudid and oxycodone on previous shift with no ill affects. Pupils were fixed and dilated after the dilaudid dose. 0.2 mg of Narcan administered and patient did arouse and was able to answer questions but drifted in and out of the conversation. Patient does normally use CPAP at home and with his own machine and 8 L of oxygen blended in, was unable to keep his saturations up throughout the night. An oxy mask was placed instead and he is currently on 6 L with oxygen saturations between 94 to 97%. Bedside ABG showed a pH of 7.334, pCO2 60.3, PO2 86, base excess 6, bicarb 32.1, CO2 34 and O2 saturation 95%. EKG showed atrial fibrillation with a ventricular rate of 94 per minute and nonspecific T-wave abnormality. 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 CIWA score throughout the night was zero but after the narcan, patient has become more tremulous and agitated: trying to get up out of the bed, saying that he has to go to the bathroom even though he has a Reza catheter. When asked how many drinks he has in a night, he replies, not enough. Upon chart review, it does appear that he has more than 3 drinks per night. Ativan 1 mg IV x1 administered with good affect, patient is now sleeping comfortably. Exam Vital Signs (past 8 hours): - 11/20/19 21:30 11/20/19 22:00 11/20/19 22:30 Pulse Rate 129 H 132 H 133 H Respiratory Rate 16 14 15 Blood Pressure 164/79 H 155/67 H 150/66 H Pulse Oximetry 97 97 97 11/20/19 23:00 11/20/19 23:30 11/21/19 00:00 Pulse Rate 141 H 138 H 139 H Respiratory Rate 20 15 18 Blood Pressure 153/66 H 150/70 H 170/73 H Pulse Oximetry 97 97 80 L 11/21/19 00:05 11/21/19 00:13 11/21/19 00:30 Pulse Rate 132 H 128 H 119 H Respiratory Rate 19 18 20 Blood Pressure 187/79 H 170/83 H 148/96 H Pulse Oximetry 98 99 96 11/21/19 01:00 11/21/19 01:30 11/21/19 02:00 Pulse Rate 123 H 112 H 106 H Respiratory Rate 19 16 14 Blood Pressure 139/81 127/69 116/62 Pulse Oximetry 97 97 92 11/21/19 02:13 11/21/19 02:30 11/21/19 03:00 Pulse Rate 102 H 106 H Respiratory Rate 25 H 16 Blood Pressure 132/58 L 122/60 Pulse Oximetry 88 L 95 95 Oxygen Delivery Method Simple Mask Oxygen Flow Rate 7 Narrative Exam Narrative: GENERAL: Alert but disoriented. Able to answer questions but falls out of conversation easily. Tremulous. HEENT: Head normocephalic/atraumatic. Pupils equal, round, and reactive to light and accomodation. LUNGS: Clear to ausculation bilaterally, no wheezes, rhonchi or rales. CV: Normal S1 and S2 with regular rate and rhythm, no audible murmurs, rubs or gallops. ABDOMEN: Soft, non-tender, non-distended, no organomegaly. Positive bowel sounds. EXTREMITIES: No edema. SCDs in place. NEURO: Cranial nerves II through XII grossly intact. Tremulous in face and upper extremities. DTRs 2+ symmetric. PSYCH: Alert and oriented to person and place but not time. Drifting in and out of conversation. SKIN: No concerning lesions. Objective Labs Result Diagrams: 11/21/19 04:45 11/21/19 05:05 Labs: Laboratory Results - last 24 hr 11/20/19 11/21/19 11/21/19 04:43 04:45 05:05 WBC 16.4 H RBC 4.56 Hgb 13.7 Hct 42.3 MCV 92.7 MCH 30.0 MCHC 32.4 RDW 14.3 Plt Count 149 L Neut % (Auto) 83.0 H Lymph % (Auto) 5.2 L [place] % (Auto) 11.6 Eos % (Auto) 0.1 L Baso % (Auto) 0.1 Neut # (Auto) 52249 H Lymph # (Auto) 900 L [place] # (Auto) 1900 H Eos # (Auto) 0 Baso # (Auto) 0 ABG pH 7.33 L ABG pCO2 60.3 H ABG pO2 86 ABG HCO3 32 H ABG Total CO2 34 H ABG O2 Saturation 95 ABG Base Excess 6.0 H FiO2 50 Sodium 135 L Potassium 3.9 Chloride 98 Carbon Dioxide 38 H BUN 22 H Creatinine 0.99 Estimated GFR > 60.0 BUN/Creatinine Ratio 22.2 H Glucose 130 H Calcium 9.5 Assessment & Plan Assessment & Plan narrative: 1. 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 -Dr. Monroe, neurosurgery, consulting. -Status post L5-S1 spinal fusion, laminectomy, and facetectomies as well as L4-L5 hemilaminectomy and microdiskectomy on 11/20/2019 PLAN: Pain control. Patient did require Narcan this morning after minimal dose of Dilaudid. Will have to be very careful going forward. Will appreciate Dr. Monroe's input regarding postoperative neurosurgical pain control in this fragile patient. 2. Atrial fibrillation with rapid ventricular rate, new -Dr. Willingham, cardiology, has been consulted regarding new postoperative atrial fibrillation. Thinks that etiology secondary to surgery and will spontaneously resolve. Secondary to postoperative hypertension, amiodarone used for rhythm control, Dr. Willingham recommended continued amiodarone drip and titrated metoprolol for rate control as blood pressure allows. Dr. Willingham okay with rapid ventricular rate in the acute setting due to neurosurgery. PLAN: Will continue amiodarone drip and titrate metoprolol as tolerated, currently at 25 mg p.o. q.day. Echo today. 3. Delirium tremens secondary to suspected acute alcohol withdrawal PLAN: CIWA protocol, Ativan as needed. 4. Respiratory acidosis, acute on chronic with appropriate metabolic compensation -Respiratory acidosis secondary to hypoventilation from suspected underlying COPD, postsurgical opiates, and weakness over the last 10 weeks. PLAN: Patient will need pulmonary function testing as an outpatient to establish underlying lung disease such as COPD as well as an updated sleep study so that his CPAP can be titrated. Will continue to support him with supplemental oxygen to keep his saturations between 88 and 94% as he is metabolically compensating for his chronic respiratory acidosis (made acutely worse in the setting of his postoperative narcotic analgesia). Consult to RT for CPAP/BIPAP management in the interim. 5. Hypomagnesemia, new -1.3 on 11/21/19 PLAN: 2 g bolus now, repeat labs this pm, will replete again if needed. 6. Dehydration, moderate, resolved. -Patient with worsening hyponatremia, likely dilutional. -Urine light straw-colored overnight. PLAN: Hep-Lock IVF. 7. Hypertension, chronic -Hypotensive postoperatively. PLAN: Will continue to hold home losartan. Titrating metoprolol as noted above. 8. Type 2 diabetes. PLAN: Continue insulin glargine 15 b.i.d. and sliding scale. 9. Polymyalgia rheumatica. PLAN: Continue prednisone 20 mg po qd and restart wean after he is discharged. 10. BPH PLAN: Continue usual medicine. 11. History of CVA, stable Code status: Full GI prophylaxis: protonix DVT prophylaxis: SCDs Disposition. Per Dr. Monroe.
[2019-11-21 05:26] LABS: Alanine Aminotransferase 37 IU/L (<50); Albumin 3.5 g/dL (3.5-5.0); Albumin Globulin Ratio 1.4 (1.0-2.8); Alkaline Phosphatase 40 U/L (38-126); Aspartate Aminotransferase 46 IU/L (17-59); BUN Creatinine Ratio 14.7 (6-22); Bilirubin Total 0.7 mg/dL (0.2-1.3); Blood Urea Nitrogen 11 mg/dL (9-20); Calcium 9.2 mg/dL (8.4-10.2); Carbon Dioxide 31 mmol/L (22-32); Chloride 99 mmol/L (98-107); Estimated Glomerular Filt Rate > 60.0 mL/min (>60); Globulin 2.5 g/dL (1.7-4.1); Glucose 202 mg/dL (80-110); HEMOLYSIS 19 (0-50); Magnesium 1.3 mg/dL (1.6-2.3); Phosphorous 3.8 mg/dL (2.3-3.7); Potassium 4.3 mmol/L (3.4-5.1); Sodium 131 mmol/L (137-145)
[2019-11-21 05:35] LABS: NT-proBNP (BNP-Adult 18+) 343 pg/mL (<450)
--- NOTE | 2019-11-21 05:35 | PC.NURSE ---
Patient alert, oriented at the start of RN's shift. Patient requiring PRN pain medication at 0155 due to increase in back pain and pain at cook site. Patient slept from 0215 until 0400 when RN did her 0400 assessment. Patient at that time unresponsive, despite sternal rub. PRN Narcan 0.2 mg administered. Patient with no significant affect. Dr. Sosa notified immediately. Orders received for ABG. She stated she would be at bedside within a few minutes. Patient currently hypertensive, and remains in a fib with heart rate in 120's. 0445 Dr. Sosa at bedside evaluating patient. Patient presenting with twitching movements. 0540 Dr. Sosa requesting Ativan to be administered due to patient with increased confusion, twitching, and wanting to remove cords and tubes.
[2019-11-21] MEDS: LORazepam 2 MG/ML INJ 1 MG IV (05:51)
[2019-11-21] MEDS: MAGNESIUM SULFATE 2 GM/50 ML PIGGYBACK IV (06:20)
[2019-11-21] MEDS: INSULIN ASPART 100 UNIT/ML INSULN PEN SUBCUT ×3 (06:47→23:01)
[2019-11-21 07:05] LABS: Creatine Kinase 526 U/L (55-170)
[2019-11-21 07:18] LABS: Troponin I < 0.012 ng/mL (0.01-0.034)
[2019-11-21 07:21] LABS: CKMB % Relative Index 0.8 % (1.5-5.0)
--- NOTE | 2019-11-21 09:20 | OT.IPNOTE ---
Per nursing at this time not appropriate to see pt for OT eval.
--- NOTE | 2019-11-21 09:45 | DI.ECHO.S_ITS ---
Echocardiogram Report + + :Name: MITZI BAKER Study Date: 11/21/2019 Height: 67 in : :[facility] Weight: 208 lb : : Gender: Male BSA: 2.1 m2 : :: 1940 Age: 79 yrs BP: 128/61 mmHg: :Reason For Study: AFIB WITH RVE : :Ordering Physician: : :ANTHONYISTCINDY Performed By: Lola Cantu : :Referring: GWEN VELA : + + Interpretation Summary The left ventricle is normal in size. Left ventricular wall thickness is mildly increased. Left ventricular systolic function is low normal. The ejection fraction is estimated to be 50-55%. Diastolic function could not be accurately assessed due to atrial fibrillation. The right ventricle is normal size. Right ventricular systolic function is borderline reduced. The right ventricular systolic pressure is estimated to be at least 36 mmHg based on an estimated right atrial pressure of 15 mm Hg. The left atrium is moderately dilated. The right atrium is mild to moderately dilated. There is mild mitral annular calcification. There is mild mitral regurgitation. There is no other significant valvular heart disease. The ascending aorta is mildly enlarged. Procedure: A two-dimensional transthoracic echocardiogram with color flow and Doppler was performed. The study quality was technically adequate. There is no prior echocardiogram noted for this patient. The patient was in atrial fibrillation with heart rates between 74-86 bpm during the exam. Left Ventricle: The left ventricle is normal in size. Left ventricular wall thickness is mildly increased. Left ventricular systolic function is low normal. The ejection fraction is estimated to be 50-55%. Diastolic function could not be accurately assessed due to atrial fibrillation. Right Ventricle: The right ventricle is normal size. Right ventricular systolic function is borderline reduced. Atria: The left atrium is moderately dilated. The right atrium is mild to moderately dilated. There is no Doppler evidence for an interatrial shunt. Mitral Valve: The mitral valve is normal in structure and function. There is mild mitral annular calcification. The mitral valve leaflets are slightly calcified. There is mild mitral regurgitation. Aortic Valve: The aortic valve is not well visualized. The aortic valve is slightly calcified. There is no aortic valve stenosis. No aortic regurgitation is present. Tricuspid Valve: The tricuspid valve is normal in structure and function. There is mild tricuspid regurgitation. The right ventricular systolic pressure is estimated to be at least 36 mmHg based on an estimated right atrial pressure of 15 mm Hg. Pulmonic Valve: The pulmonic valve leaflets are thin and pliable; valve motion is normal. There is no pulmonic valvular regurgitation. There is no other significant valvular heart disease. Great Vessels: The aortic root is normal size. The ascending aorta is mildly enlarged. The IVC is dilated (diameter is greater than 2.1 cm) and it collapses less than 50% with a sniff. This suggests a high right atrial pressure of 15 mm Hg. Pericardium/ Pleura There is no pericardial effusion. There is no pleural effusion. MMode/2D Measurements & Calculations LVIDd: 4.1 cm LVOT diam: 2.2 cm LVIDs: 3.2 cm Ao root diam: 3.5 cm FS: 21.4 % asc Aorta Diam: 3.5 cm IVSd: 1.5 cm LVPWd: 1.0 cm LV teixeira. diameter/BSA (cm/m^2): 2.0 LV sys. diameter/BSA (cm/m^2): 1.6 LA A2 area: 26.3 cm2 RA long axis: 5.2 cm LA A4 area: 25.6 cm2 RA area: 22.5 cm2 LA length (vol): 6.1 cm RA vol: 82.8 ml LA vol: 94.3 ml RA : 40.3 ml/m2 LA vol index: 45.8 ml/m2 IVC diam: 2.1 cm RVD1 (basal): 3.9 cm TAPSE: 1.7 cm Doppler Measurements & Calculations Ao V2 max: 97.2 cm/sec LVOT Max Timothy: 75.1 cm/sec Ao V2 mean: 65.8 cm/sec LV V1 max P.3 mmHg Ao max P.8 mmHg LV V1 VTI: 14.0 cm Ao mean P.0 mmHg MADISON(I,D): 3.2 cm2 Ao V2 VTI: 17.4 cm MADISON(V,D): 3.1 cm2 sev ratio: 0.80 MADISON indexed to BSA (cm^2/m^2): 1.5 MV E max timothy: 90.7 cm/sec TR max timothy: 226.8 cm/sec MV A max timothy: 2.2 cm/sec TR max P.6 mmHg MV E/A: 41.2 PA V2 max: 59.1 cm/sec Med Peak E' Timothy: 7.6 cm/sec PA V2 mean: 38.4 cm/sec E/E' med: 12.0 PA mean P.70 mmHg Lat Peak E' Timothy: 8.2 cm/sec PA pr(Accel): 39.6 mmHg E/E' lat: 11.0 E/e' average: 11.5 MV dec time: 0.23 sec SV(LVOT): 55.2 ml Reading Physician:03:04 PM
--- NOTE | 2019-11-21 10:08 | P.PN_ITS ---
Subjective Subjective Date Patient Seen: 11/21/19 Time Patient Seen: 10:09 Interval history: Patient very sedated this morning and not responding to questions. Patient's is in the room answering questions for him. Also had a long discussion with his nurse. states patient was feeling better yesterday evening after surgery. She states her had noted less pain in his back after surgery compared to prior. Nurse states patient responding to questions earlier by nodding his head. Hospitalist responded to nurse call after patient was unresponsive to sternal rub. Patient had just received 0.5 mg of Dilaudid. Cardiac telemetry and other vital signs were stable throughout. Remainder of note reviewed from November 21, 2019 at 5:20 a.m.. Exam Vital Signs (past 8 hours): - 11/21/19 02:13 11/21/19 02:30 11/21/19 03:00 Temperature Pulse Rate 102 H 106 H Respiratory Rate 25 H 16 Blood Pressure 132/58 L 122/60 Pulse Oximetry 88 L 95 95 11/21/19 03:30 11/21/19 04:00 11/21/19 04:30 Temperature Pulse Rate 105 H 105 H 105 H Respiratory Rate 16 18 23 Blood Pressure 135/60 122/58 L 143/65 H Pulse Oximetry 96 98 99 11/21/19 04:55 11/21/19 05:00 11/21/19 05:30 Temperature Pulse Rate 120 H 119 H 102 H Respiratory Rate 25 H 23 21 Blood Pressure 149/108 H 152/72 H 131/68 Pulse Oximetry 98 98 97 11/21/19 05:41 11/21/19 06:00 11/21/19 06:27 Temperature Pulse Rate 99 H 98 H 95 H Respiratory Rate 31 H 20 18 Blood Pressure 128/61 128/61 128/61 Pulse Oximetry 88 L 91 11/21/19 07:00 11/21/19 08:00 11/21/19 08:05 Temperature 97.0 F L Pulse Rate 98 H 105 H 104 H Respiratory Rate 16 17 24 Blood Pressure 130/62 145/63 H Pulse Oximetry 93 91 93 11/21/19 09:00 Temperature Pulse Rate 82 Respiratory Rate 20 Blood Pressure 96/60 Pulse Oximetry 94 Oxygen Delivery Method Nasal Cannula Oxygen Flow Rate 6 Narrative Exam Narrative: 79-year-old male resting comfortably in bed, in no apparent distress. Patient undergoing echo at bedside. Both legs are warm and dry. Per nurse dressing was clean, dry and intact. Unable to check sensation and or motor function due to sedation. Objective Labs Result Diagrams: 11/21/19 04:45 11/21/19 05:05 Labs: Laboratory Results - last 24 hr 11/21/19 11/21/19 11/21/19 04:45 05:05 05:05 WBC 16.4 H RBC 4.56 Hgb 13.7 Hct 42.3 MCV 92.7 MCH 30.0 MCHC 32.4 RDW 14.3 Plt Count 149 L Neut % (Auto) 83.0 H Lymph % (Auto) 5.2 L [place] % (Auto) 11.6 Eos % (Auto) 0.1 L Baso % (Auto) 0.1 Neut # (Auto) 74932 H Lymph # (Auto) 900 L [place] # (Auto) 1900 H Eos # (Auto) 0 Baso # (Auto) 0 ABG pH 7.33 L ABG pCO2 60.3 H ABG pO2 86 ABG HCO3 32 H ABG Total CO2 34 H ABG O2 Saturation 95 ABG Base Excess 6.0 H FiO2 50 Sodium 131 L Potassium 4.3 Chloride 99 Carbon Dioxide 31 BUN 11 Creatinine 0.75 Estimated GFR > 60.0 BUN/Creatinine Ratio 14.7 Glucose 202 H Calcium 9.2 Phosphorus 3.8 H Magnesium 1.3 L Total Bilirubin 0.7 AST 46 ALT 37 Alkaline Phosphatase 40 Total Creatine Kinase CK-MB (CK-2) CK-MB (CK-2) Rel Index Troponin I NT-Pro-B Natriuret Pep 343 Total Protein 6.0 L Albumin 3.5 Globulin 2.5 Albumin/Globulin Ratio 1.4 11/21/19 06:25 WBC RBC Hgb Hct MCV MCH MCHC RDW Plt Count Neut % (Auto) Lymph % (Auto) [place] % (Auto) Eos % (Auto) Baso % (Auto) Neut # (Auto) Lymph # (Auto) [place] # (Auto) Eos # (Auto) Baso # (Auto) ABG pH ABG pCO2 ABG pO2 ABG HCO3 ABG Total CO2 ABG O2 Saturation ABG Base Excess FiO2 Sodium Potassium Chloride Carbon Dioxide BUN Creatinine Estimated GFR BUN/Creatinine Ratio Glucose Calcium Phosphorus Magnesium Total Bilirubin AST ALT Alkaline Phosphatase Total Creatine Kinase 526 H CK-MB (CK-2) 4.20 H CK-MB (CK-2) Rel Index 0.8 L Troponin I < 0.012 NT-Pro-B Natriuret Pep Total Protein Albumin Globulin Albumin/Globulin Ratio Assessment & Plan Post-op Postoperative Procedures: Procedures Operation Date: 11/20/19 07:45 Actual Procedures Side Surgeon p L5S1 TLIF, L4-5 hemilaminectomy and microdiscectomy Reji Monroe MD Postop day 1, 1. L5-S1 Postero-lateral and posterior interbody fusion 2. L5-S1 interbody cage placement. 3. L5-S1 decompressive laminectomy with bilateral facetecomies 4. L5-S1 Posterior non-segmental instrumentation 5. L4-5 hemilaminectomy and microdiscectomy 6. [place] of bone marrow from iliac crest 7. Utilization of microsurgical technique and operating microscope Plan: Discontinued hydroxyzine. Hold Dilaudid for severe pain. Oxycodone as needed for moderate to severe pain. PT/ OT eval at treat. Plan reviewed with Dr. Tejada. Appreciate hospitalist help managing other medical issues. Per Hospitalist 11/21/2019 Assessment & Plan narrative: 1. 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 -Dr. Monroe, neurosurgery, consulting. -Status post L5-S1 spinal fusion, laminectomy, and facetectomies as well as L4- L5 hemilaminectomy and microdiskectomy on 11/20/2019 PLAN: Pain control. Patient did require Narcan this morning after minimal dose of Dilaudid. Will have to be very careful going forward. Will appreciate Dr. Monroe's input regarding postoperative neurosurgical pain control in this fragile patient. 2. Atrial fibrillation with rapid ventricular rate, new -Dr. Willingham, cardiology, has been consulted regarding new postoperative atrial fibrillation. Thinks that etiology secondary to surgery and will spontaneously resolve. Secondary to postoperative hypertension, amiodarone used for rhythm control, Dr. Willingham recommended continued amiodarone drip and titrated metoprolol for rate control as blood pressure allows. Dr. Willingham okay with rapid ventricular rate in the acute setting due to neurosurgery. PLAN: Will continue amiodarone drip and titrate metoprolol as tolerated, currently at 25 mg p.o. q.day. Echo today. 3. Delirium tremens secondary to suspected acute alcohol withdrawal PLAN: CIWA protocol, Ativan as needed. 4. Respiratory acidosis, acute on chronic with appropriate metabolic compensation -Respiratory acidosis secondary to hypoventilation from suspected underlying COPD, postsurgical opiates, and weakness over the last 10 weeks. PLAN: Patient will need pulmonary function testing as an outpatient to establish underlying lung disease such as COPD as well as an updated sleep study so that his CPAP can be titrated. Will continue to support him with supplemental oxygen to keep his saturations between 88 and 94% as he is metabolically compensating for his chronic respiratory acidosis (made acutely worse in the setting of his postoperative narcotic analgesia). Consult to RT for CPAP/BIPAP management in the interim. 5. Hypomagnesemia, new -1.3 on 11/21/19 PLAN: 2 g bolus now, repeat labs this pm, will replete again if needed.
[2019-11-21] MEDS: INSULIN GLARGINE 100 UNIT/ML 3ML PEN 15 UNIT SUBCUT ×2 (11:01→23:02)
--- NOTE | 2019-11-21 11:50 | CM.DPC ---
Addendum entered by Jihan Doherty R.N. 11/21/19 15:51: in room, but patient is going through some withdraws. Will attempt to reach out to tomorrow, regarding discharge planning. Original Note: DCP Cont: Patient has been sedated today. was in earlier, did not yet have a chance to converse with her. Patient was noted to be going through DTs, and has a history of alcohol use. Patient has not yet been stable enough to work with therapy team. P: DCP to monitor closely. May attempt to meet with , Niya, later today, for she is not in the room at this time. Jihan Doherty RN/Toaster Operator
[2019-11-21] MEDS: LORazepam 2 MG/ML INJ IV ×4 (12:59→21:00)
[2019-11-21 14:42] LABS: Magnesium 1.8 mg/dL (1.6-2.3)
--- NOTE | 2019-11-21 15:03 | RT ---
Addendum entered by Narciso Austin, RT 11/21/19 15:04: PT NOT TOLERATING BIFLEX AND REQUESTS IT OFF. PT PLACED ON 6 LPM SIMPLE MASK. O2 SAT NOTED AT 96%. Original Note: PT PLACED ON HOSPITAL BIFLEX IN PLACE OF HOME CPAP PT'S HOME UNIT MASK IS BROKEN. RN UPDATED.
--- NOTE | 2019-11-21 15:22 | PT-IP ANOTE ---
Assisted nurse ~ 12 noon with pt due to pt restless and wanting to get up. attempted to see pt but pt is drowsy, confused, unable to follow directions. pt attempted to stand with eyes closed despite instructions to stay awake but uanble to hold FWW and hands just fall over. Informed nurse that pt is not safe to get up due to decrease level of alertness. Checked with nurse again at around 3pm and stated that pt continues to be not appropriate for PT at this time.
[2019-11-21] MEDS: MAGNESIUM SULFATE 2 GM, FOLIC ACID 1 MG, THIAMINE 100 MG, MULTIVITAMIN 10 ML in SODIUM ... IV (17:42)
--- NOTE | 2019-11-21 17:47 | RT ---
PT PLACED BACK ON HOSPITAL CPAP AFTER MODIFYING SETTINGS TO PT'S HOME UNIT SETTINGS OF 15 CMH2O PRESSURE, PER DOCTOR'S ORDER. PT'S HOME UNIT MASK IS BROKEN, AND THEREFORE REQUIRES USE OF HOSPITAL'S UNIT, AND NEEDS 15 CMH2O PRESSURE TO MAINTAIN PATENT AIRWAY WITH SLEEP. O2 SAT WITH 3 LPM BLEED-IN O2 NOTED AT 93%. RN UPDATED.
[2019-11-21] MEDS: METOPROLOL TARTRATE 5 MG/5 ML INJ IV ×2 (18:04→21:30)
[2019-11-21 18:19] LABS: NT-proBNP (BNP-Adult 18+) 652 pg/mL (<450)
[2019-11-21 20:39] LABS: pH ABG 7.33 (7.35-7.45)
[2019-11-21 20:40] LABS: Fractionated Inspired Oxygen 32; HCO3 ABG 35 mmol/L (22-26); Oxygen Saturation ABG 89 % (95-100); PCO2 ABG 66.8 mmHg (35-45); PO2 ABG 63 mmHg (80-100); TCO2 ABG 37 mmol/L (21-31)
--- NOTE | 2019-11-21 20:54 | PM.EVENT ---
Event Note Date Patient Seen: 11/21/19 Time Patient Seen: 20:54 Event Note: Called to bedside by nurse for concerns regarding abdominal breathing and worsening diaphoresis. CIWA scores have been 10 to 16 over the last 12 hours. Last 2 mg dose of Ativan approximately 90 minutes ago; has had a total of 4 mg today. Patient is going through alcohol withdrawal and has required Ativan throughout the day per CIWA protocol. Stat ABG showed a pH of 7.326, pCO2 66.8, bicarb 34.9, PO2 63, O2 saturation 89%. Sodium 136, potassium 4.3, hematocrit 39%, hemoglobin 13.3. This represents a worsening of his respiratory acidosis from this morning. RT is at the bedside, patient is on BiPAP. Anesthesia has been consulted and all parties are supportive of an intubation due to worsening respiratory acidosis with significant abdominal accessory muscle use in the setting of alcohol withdrawal, postoperative atrial fibrillation with rapid ventricular rate, uncontrolled hypertension, obesity, obstructive sleep apnea, age, etc. , Sylvia, has been contacted and she is in agreement to proceed with intubation. 21:00: Ativan 2 mg IV x 1 administered. 21:30: BP 210/86, metoprolol 5 mg IV x 1 administered. 21:41: Preparing for intubation 21:48: 2 mcg of fentanyl IV x1, 150 mg of propofol IV x1, 110 mg of succinylcholine IV x1 for rapid sequence intubation 21:49: Intubation 21:02: BP 47/32, 9 mg of vasopressin given in successive dosees over 7 minutes to bring pressure up to 77/52 21:54: BP 112/62, HR 81. Patient stable. Phenylephrine 100 micrograms/minute drip ordered to keep MAP greater than 65. Ativan drip ordered to keep RASS greater than -2. Greater than 124 minutes from 20:54 to 22:58 was spent [id number] with greater than 50% of the time directed towards stabilizing patient during critical care stabilization and intubation.
[2019-11-21] MEDS: fentaNYL 100 MCG/2 ML INJ 200 MCG (21:46)
[2019-11-21] MEDS: propofoL 200 MG/20 ML VIAL 150 MG IV (21:48)
[2019-11-21] MEDS: LIDOCAINE 2% INJ MDV 20 ML (21:48)
[2019-11-21] MEDS: SUCCINYLCHOLINE 100 MG/5 ML INJ 110 MG IV (21:48)
[2019-11-21] MEDS: PHENYLEPHRINE 10,000 MCG/ML VIAL 100 MCG IV ×2 (21:49→21:51)
--- NOTE | 2019-11-21 21:57 | DI.RAD.S_ITS ---
PROCEDURE: XR CHEST 1V INDICATIONS: confirm ET tube placement TECHNIQUE: One view of the chest was acquired. COMPARISON: [facility], , CHEST 2 VIEW, 11/05/2012, 7:55. FINDINGS: Surgical changes and devices: Endotracheal tube tip is about 2.5 cm from the antoinette, satisfactory position. Lungs and pleura: Low lung volumes. Bibasilar interstitial thickening. Asymmetric right hemidiaphragm elevation appears chronic. Associated right base atelectasis. No pneumothorax.. Mediastinum: Heart and mediastinal size is accentuated by low lung volumes and patient position. No significant central venous congestion. Bones and chest wall: No suspicious bony lesions. Overlying soft tissues appear unremarkable. IMPRESSION: 1. Adequate placement of endotracheal tube. 2. Diffuse interstitial thickening may indicate pneumonitis or edema. Dictated by: Scarlet Ricks M.D. on 11/22/2019 at 6:33 Approved by: Scarlet Ricks M.D. on 11/22/2019 at 6:35
[2019-11-21] MEDS: VASOPRESSIN 20 UNIT/ML VIAL IV (22:00)
--- NOTE | 2019-11-21 22:18 | PM.PROC.1 ---
Procedures Date/Time Date of procedure: 11/21/19 Time of procedure: 21:50 Intubation Time out performed: Yes Sedative: fentanyl (200mcg fentanyl, 150mg propofol) Paralytic: succinylcholine Mg given: 110 Laryngoscope: fiber optic video scope (Glidescope LoPro S4, easy grade 1 view, tube passed easily with direct visualization, +EtCO2) ET tube size: 8 ET tube uncuffed: No Tube secured depth (cm): 24 Tube secured location: teeth Tube placement confirmation: visualized tube passing through cords, equal breath sounds bilaterally and confirmation by capnometry Patient tolerated procedure: other (hypotension) Intubation complications: none Additional comments: hypotension, MAP to 40, improved with 500mcg phenylephrine, 9U vasopressin, to MAP high 50's.
[2019-11-21] MEDS: SODIUM CHLORIDE 0.9% 1,000 ML 1000 ML IV (22:30)
--- NOTE | 2019-11-21 23:36 | DI.RAD.S_ITS ---
PROCEDURE: XR CHEST 1V INDICATIONS: gtube placement TECHNIQUE: One view of the chest was acquired. COMPARISON: [facility], CR, XR CHEST 1V, 11/21/2019, 21:57. FINDINGS: Surgical changes and devices: Endotracheal tube is in stable position. New nasogastric tube is in place. The tip is off the inferior portion of the chest film and resides in the left upper quadrant of the abdomen. Lungs and pleura: Diffuse bilateral interstitial thickening. Asymmetric right hemidiaphragm elevation and associated atelectasis.. Mediastinum: Mild cardiomegaly, accentuated by low lung volumes. No central venous congestion. Bones and chest wall: No suspicious bony lesions. Overlying soft tissues appear unremarkable. IMPRESSION: 1. Adequate placement of nasogastric tube. 2. Diffuse interstitial thickening. 3. Stable cardiomegaly. Dictated by: Scarlet Ricks M.D. on 11/22/2019 at 6:35 Approved by: Scarlet Ricks M.D. on 11/22/2019 at 6:36
[2019-11-22] VITALS (72 sets, daily range): BP systolic 91–151; BP diastolic 50–85; PULSE 78–107; RESP 15–31; TEMP 36.7–37.4; O2SAT 86–100
--- NOTE | 2019-11-22 00:08 | PC.NURSE ---
Evening shift note Pt throwing pillows, pulling at lines, confused at the beginning of shift, dayshift nurse Shell scored pt at CIWA of 14, 2mg Ativan administered per protocol. Pt remains in Afib RVR (see vitals). Following CIWA for this nurse was 16 as charted in MAY. Pt rouses to pain, refuses to open eyes, and not able to swallow without choking. Dr. Sosa updated on pt status, pt desaturating to 78-85% on CPAP using pt home settings with 3L bleed in, HR 110-138 on 16.7 mL/hr Amiodarone gtt. New orders placed at this time will continue to follow and update provider as needed. 1955 Pt desaturating 78-88% on current CPAP, RT recommends placing pt on BiPap, called Dr Sosa and she agrees with RT assessment, placed pt on Bipap, will continue to monitor closely. 2029 Pt desaturating 78-88% on BiPap and has started abdominal breathing, remains in AFib RVR HR and BP elevated (see vitals). Pt is no longer rousing to light stimulus, he rouses slightly to sternal rub. Concerned for pt protecting airway, updated provider on pt status. Verbal orders received for stat ABG and provider to come to beside to consult on possible intubation of pt. 2100 Provider at bedside, verbal order to administer 2mg Ativan for elevated HR and BP (see vitals) 2130 5mg metoprolol administered per provider BP 210/[address] Sosa, Jasmeet Quintero RT at bedside to intubate pt, NS ordered to run wide open during intubation, VS 166/79 HR 120 2146 200 of Fentynl administerd bagged to 82% 2147 150 Propofol/100mg of lidocaine, 110 of Succs administered HR 97 BP 78/42 bagged to 97% 2148 Intubated, tube 8.0 at 24; 100mcg of phenylephrine administered 2150 100mcg phenylephrine administered BP 64/38 2151 repeat dose of phenylephrine per Dr. Ayon HR 89 RR11 BP 60/37 2153 repeat phenylephrine dose 200mcg 56/34 HR 91 RR10 2200 2 units Vasopressin administered 47/32 HR 85 2203 1 unit vasopressin administered 50/35 85 RR 20 2204 CXR for placement 2206 1 unit vasopressing 78/48 77 2208 Vassopressin 1 unit 75/46 2212 Vassopressin 2 units 73/46 75 RR 20 2216 Vassopressin 2 units 73/46 75 RR 20 2226 80/52 75 93% RR 20 Dr. Ayon satisfied with vitals [address] 2229 81/53 79 93% RR 20 urine output 650, new orders placed by provider for care of intubated pt. Bed low and locked, will continue to treat and monitor as ordered.
[2019-11-22 00:44] LABS: HCO3 ABG 28 mmol/L (22-26); PO2 ABG 98 mmHg (80-100); TCO2 ABG 29 mmol/L (21-31); pH ABG 7.47 (7.35-7.45)
[2019-11-22 00:45] LABS: Fractionated Inspired Oxygen 40; Oxygen Saturation ABG 98 % (95-100)
[2019-11-22] MEDS: PHENYLEPHRINE 20,000 MCG in DEXTROSE 5% IN WATER 250 ML 15.12 ML IV (00:48)
[2019-11-22] MEDS: LORazepam 20 MG in SODIUM CHLORIDE 0.9% 100 ML IV (00:50)
--- NOTE | 2019-11-22 01:45 | PC.NURSE ---
Addendum entered by Melany Davis R.N. 11/22/19 06:06: Patient has progressively become restless and agitated, lorazepam increased to 1mg/hr at 0400 to keep RASS -2. Medicated at 0545 with 0.5mg IV Dilaudid for RASS +2 and FLACC 7, is not opening eyes or following commands. Phenylephrine has been off since 0200, MAP continuously >65, see vital trends in [employer] and chart. Original Note: Coach Driver Notes-Resumed care of patient at 2300. He is sedated, ventilator set PRVC .40 FIO2 5 PEEP TV 450, RR 20, SpO2 >96%, ETCO2 around 30. LS CTA anteriorly, fine crackles in bases. OGT placed with no fluid returned, verified by CXR. ABG complete, see lab report. 1000ml NS bolus complete, Banana bag restarted as previously ordered. Amiodarone infusing at 16.7ml/hr per protocol. Lorazepam gtt started at 0.5mg/hr for sedation while on vent and alcohol withdraw as ordered, attempt to keep at minimal dosing. Phenylephrine gtt started to keep MAP >65, currently at minimal dosing of 20mcg/min as well. Soft wrist restraints on, see charting.
[2019-11-22 04:42] LABS: Add Manual Diff / Slide Review NO; Basophils Absolute Auto 0 /uL (0-100); Basophils Percent Auto 0.1 % (0-2); Eosinophils Absolute Auto 0 /uL (0-450); Hematocrit 35.9 % (41-53); Hemoglobin 11.9 g/dL (13.5-17.5); Lymphocytes Absolute Auto 600 /uL (1100-4500); Lymphocytes Percent Auto 5.5 % (25-40); Mean Corpuscular HGB Conc 33.2 % (30-36); Mean Corpuscular Hemoglobin 30.1 PG (26-34); Mean Corpuscular Volume 90.6 fL (80-100); Monocytes Absolute Auto 900 /uL (0-900); Monocytes Percent Auto 8.5 % (3-14); Neutrophils Absolute Auto 9500 /uL (1500-7000); Neutrophils Percent Auto 85.9 % (50-75); Platelet Count 142 X10^3/uL (150-400); Red Blood Cell Count 3.96 X10^6/uL (4.5-5.9); White Blood Cell Count 11.1 X10^3/uL (4.5-11.0)
[2019-11-22 04:50] LABS: Alanine Aminotransferase 37 IU/L (<50); Albumin Globulin Ratio 1.3 (1.0-2.8); Alkaline Phosphatase 71 U/L (38-126); Aspartate Aminotransferase 54 IU/L (17-59); BUN Creatinine Ratio 17.6 (6-22); Bilirubin Total 0.8 mg/dL (0.2-1.3); Blood Urea Nitrogen 15 mg/dL (9-20); Calcium 8.2 mg/dL (8.4-10.2); Carbon Dioxide 30 mmol/L (22-32); Chloride 101 mmol/L (98-107); Estimated Glomerular Filt Rate > 60.0 mL/min (>60); Globulin 2.4 g/dL (1.7-4.1); Glucose 200 mg/dL (80-110); HEMOLYSIS < 15 (0-50); Magnesium 1.9 mg/dL (1.6-2.3); Phosphorous 1.4 mg/dL (2.3-3.7); Potassium 3.6 mmol/L (3.4-5.1); Sodium 135 mmol/L (137-145); Total Protein 5.4 g/dL (6.3-8.2)
[2019-11-22 04:59] LABS: NT-proBNP (BNP-Adult 18+) 810 pg/mL (<450)
[2019-11-22] MEDS: PANTOPRAZOLE 20 MG TABLET PO (05:24)
[2019-11-22] MEDS: AMIODARONE 541 MG/300.56 ML PIGGYBACK 16.7 MG IV (05:25)
[2019-11-22] MEDS: HYDROMORPHONE 0.5 MG INJ IV ×2 (05:48→10:04)
--- NOTE | 2019-11-22 09:01 | P.PN_ITS ---
Subjective Subjective Date Patient Seen: 11/22/19 Time Patient Seen: 09:01 Interval history: Intubated last night, please see event note dated 11/21/19, required pressor support immediately following intubation. Thereafter, night was uneventful. Nursing reports that he has not needed any additional pressors. He has been on an ativan drip, RASS scores -2. RT at bedside, they have been able to turn down his FiO2, now at 30%, PEEP 5. RR 18-20. OG tube in place, has had PO oxycodone for pain control. Exam Vital Signs (past 8 hours): - 11/22/19 01:10 11/22/19 01:20 11/22/19 01:30 Temperature Pulse Rate 84 84 85 Respiratory Rate 20 20 20 Blood Pressure 116/57 L 115/61 116/56 L Pulse Oximetry 99 99 99 11/22/19 02:00 11/22/19 02:21 11/22/19 02:30 Temperature Pulse Rate 85 92 H 90 Respiratory Rate 20 20 20 Blood Pressure 117/61 117/61 111/55 L Pulse Oximetry 98 96 96 11/22/19 03:00 11/22/19 03:30 11/22/19 04:00 Temperature Pulse Rate 86 87 87 Respiratory Rate 20 20 20 Blood Pressure 110/60 115/63 127/64 Pulse Oximetry 97 97 97 11/22/19 04:30 11/22/19 05:00 11/22/19 05:30 Temperature Pulse Rate 90 94 H 91 H Respiratory Rate 20 20 20 Blood Pressure 125/58 L 130/66 132/61 Pulse Oximetry 97 97 96 11/22/19 05:53 11/22/19 06:00 11/22/19 06:30 Temperature Pulse Rate 91 H 92 H 93 H Respiratory Rate 20 20 20 Blood Pressure 132/61 104/54 L 113/56 L Pulse Oximetry 96 96 97 11/22/19 07:53 11/22/19 07:54 11/22/19 08:00 Temperature Pulse Rate 83 89 Respiratory Rate 20 20 Blood Pressure 119/65 124/65 Pulse Oximetry 97 97 97 11/22/19 08:38 Temperature 98.0 F Pulse Rate Respiratory Rate Blood Pressure Pulse Oximetry Fraction of Inspired Oxygen 40 Oxygen Delivery Method Mechanical Ventilation Oxygen Flow Rate 0 Narrative Exam Narrative: GENERAL: Intubated, sedated, OG tube in place, cook in place. HEENT: Head normocephalic/atraumatic. Pupils equal, round, and reactive to light and accomodation. LUNGS: Clear to ausculation bilaterally, no wheezes, rhonchi or rales. CV: Normal S1 and S2 with regular rate and rhythm, no audible murmurs, rubs or gallops. ABDOMEN: Soft, non-tender, non-distended, no organomegaly. Positive bowel sounds. EXTREMITIES: No edema. SCDs in place. NEURO: DTRs 2+ symmetric. PSYCH: Sedated. SKIN: No concerning lesions. Objective Labs Result Diagrams: 11/22/19 04:30 11/22/19 04:30 Labs: Laboratory Results - last 24 hr 11/21/19 11/21/19 11/21/19 14:30 14:30 20:26 WBC RBC Hgb Hct MCV MCH MCHC RDW Plt Count Neut % (Auto) Lymph % (Auto) [place] % (Auto) Eos % (Auto) Baso % (Auto) Neut # (Auto) Lymph # (Auto) [place] # (Auto) Eos # (Auto) Baso # (Auto) ABG pH 7.33 L ABG pCO2 66.8 H* ABG pO2 63 L ABG HCO3 35 H ABG Total CO2 37 H ABG O2 Saturation 89 L ABG Base Excess 9.0 H FiO2 32 Sodium Potassium Chloride Carbon Dioxide BUN Creatinine Estimated GFR BUN/Creatinine Ratio Glucose Calcium Phosphorus Magnesium 1.8 Total Bilirubin AST ALT Alkaline Phosphatase NT-Pro-B Natriuret Pep 652 H Total Protein Albumin Globulin Albumin/Globulin Ratio 11/22/19 11/22/19 11/22/19 00:10 04:30 04:30 WBC 11.1 H RBC 3.96 L Hgb 11.9 L Hct 35.9 L MCV 90.6 MCH 30.1 MCHC 33.2 RDW 14.0 Plt Count 142 L Neut % (Auto) 85.9 H Lymph % (Auto) 5.5 L [place] % (Auto) 8.5 Eos % (Auto) 0.0 L Baso % (Auto) 0.1 Neut # (Auto) 9500 H Lymph # (Auto) 600 L [place] # (Auto) 900 Eos # (Auto) 0 Baso # (Auto) 0 ABG pH 7.47 H ABG pCO2 39.0 ABG pO2 98 ABG HCO3 28 H ABG Total CO2 29 ABG O2 Saturation 98 ABG Base Excess 4.0 H FiO2 40 Sodium 135 L Potassium 3.6 Chloride 101 Carbon Dioxide 30 BUN 15 Creatinine 0.85 Estimated GFR > 60.0 BUN/Creatinine Ratio 17.6 Glucose 200 H Calcium 8.2 L Phosphorus 1.4 L D Magnesium 1.9 Total Bilirubin 0.8 AST 54 ALT 37 Alkaline Phosphatase 71 NT-Pro-B Natriuret Pep 810 H Total Protein 5.4 L Albumin 3.0 L Globulin 2.4 Albumin/Globulin Ratio 1.3 Assessment & Plan Assessment & Plan narrative: HD#3 1. Back pain with radiculopathy secondary to severe central canal stenosis -MRI showed significant L4-L5 abnormality -Dr. Monroe, neurosurgery, consulting. -Status post L5-S1 spinal fusion, laminectomy, and facetectomies as well as L4- L5 hemilaminectomy and microdiskectomy on 11/20/2019 PLAN: Pain control. Have discontinued dilaudid per neurosurgery's recommondation due to need for narcan yesterday. Will cautiously use PO oxycodone or IV morphine going forward, 1 mg IV q 2 hours, prn. Narcan as needed. 2. Atrial fibrillation with rapid ventricular rate, new -Dr. Willingham, cardiology, has been consulted regarding new postoperative atrial fibrillation. Thinks that etiology secondary to surgery and will spontaneously resolve. Secondary to postoperative hypertension, amiodarone used for rhythm control, Dr. Willingham recommended continued amiodarone drip and titrated metoprolol for rate control as blood pressure allows. Dr. Willingham okay with rapid ventricular rate in the acute setting due to neurosurgery. -Echo on 11/21/19, results pending. -Due to chronic alcohol use, atrial fibrillation may be paroxysmal for patient. PLAN: Will wean amiodarone drip and transition to 200 mg PO BID. Will continue to titrate metoprolol as needed. Cardiology workup as outpatient. 3. Delirium tremens secondary to acute alcohol withdrawal - reports heavy, chronic, alcohol use. She does not anticipate that he will be interested in sobriety. PLAN: Ativan drip to keep RASS less than -2. 4. Respiratory acidosis, acute on chronic with metabolic compensation, -Respiratory acidosis secondary to hypoventilation from suspected underlying COPD, JO, postsurgical opiates, weakness over the last 10 weeks, and complicated by acute alcohol withdrawal. -Worsening respiratory status on evening of 11/21/19 with abdominal breathing, diaphoresis, and worsening ABGs, patient intubated. PLAN: Ongoing intubation, ventilator. RT consulting. 5. Post-intubation hypotension, acute -Pressor support required (phenylephrine and vasopressin) at time of intubation. PLAN: Phenylephrine drip as needed to keep MAP > 65. 6. Hypomagnesemia, resolved status 2 g bolus x 2 on 11/21/19 -1.3 on 11/21/19 --> 1.9 on 11/22/19 PLAN: Will trend labs. 7. Hypophosphatemia -1.4 on 11/22/19 PLAN: KPhos 15 mmol IV replacement this morning, will recheck afternoon labs and replete again if needed. 8. Dehydration, moderate, resolved. PLAN: Maintenance IVF D5 1/2 NS + 20 KCl. 9. Acute protein calorie malnutrition -Albumin 3.5 on 11/21/19 --> 3.0 on 11/22/19 -NPO x 3 days, intubated x 1 day. -Increased risk for delayed healing from surgery. PLAN: Nutrition consult, anticipate starting tube feeding tomorrow per their orders once hypophosphatemia is corrected. 10. 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 PLAN: Treating underlying conditions. PT/OT when patient again able. Will need rehab program as outpatient with emphasis on weight loss and exercise. 11. Hypertension, chronic -Hypotensive postoperatively and post-intubation. PLAN: Will continue to hold home losartan. Titrating metoprolol as noted abo ve. 12. Type 2 diabetes. PLAN: Continue insulin glargine 15 b.i.d. and sliding scale. 13. Polymyalgia rheumatica. PLAN: Continue prednisone 20 mg daily, wean as an outpatient. 14. BPH PLAN: holding oral medicine. 15. History of CVA, stable 16. History of NH, no recurrence -Serial EKGs show no new ST changes. -Troponin I negative. PLAN: Will watch closely. Code status: Full GI prophylaxis: NPO. DVT prophylaxis: SCDs Disposition. Anticipate prolonged stay with several more days of intubation while this high-risk patient goes through alcohol withdrawal.
[2019-11-22] MEDS: INSULIN ASPART 100 UNIT/ML INSULN PEN SUBCUT ×3 (09:44→18:00)
[2019-11-22] MEDS: INSULIN GLARGINE 100 UNIT/ML 3ML PEN 15 UNIT SUBCUT ×2 (09:46→21:38)
[2019-11-22] MEDS: FOLIC ACID 1 MG TABLET PO (09:47)
[2019-11-22] MEDS: THIAMINE 100 MG TABLET PO (09:47)
[2019-11-22] MEDS: DOCUSATE ORAL LIQUID 100 MG/10 ML UDC PO ×2 (09:47→21:37)
[2019-11-22] MEDS: MULTIVITAMIN 1 TABLET 1 TAB PO (09:48)
[2019-11-22] MEDS: predniSONE 20 MG TABLET PO (09:48)
[2019-11-22] MEDS: OXYCODONE IR 5 MG TABLET PO (09:48)
[2019-11-22] MEDS: DEXTROSE 5%-0.45NS W/KCL 20MEQ 1,000 ML 100 MEQ IV (10:06)
[2019-11-22] MEDS: POTASSIUM PHOSPHATE 15 MMOL in DEXTROSE 5% IN WATER 250 ML 63.75 ML IV (10:07)
--- NOTE | 2019-11-22 10:53 | PM.PN.1 ---
Subjective Subjective Date Patient Seen: 11/22/19 Time Patient Seen: 10:53 Interval history: Developed progressive agitation yesterday and hypoventilation. He was intubated yesterday. He has been stable overnight. He is currently sedated and resting. He has been noted to move both of his arms and legs without restrictions. Exam Vital Signs (past 8 hours): - 11/22/19 03:00 11/22/19 03:30 11/22/19 04:00 Temperature Pulse Rate 86 87 87 Respiratory Rate 20 20 20 Blood Pressure 110/60 115/63 127/64 Pulse Oximetry 97 97 97 11/22/19 04:30 11/22/19 05:00 11/22/19 05:30 Temperature Pulse Rate 90 94 H 91 H Respiratory Rate 20 20 20 Blood Pressure 125/58 L 130/66 132/61 Pulse Oximetry 97 97 96 11/22/19 05:53 11/22/19 06:00 11/22/19 06:30 Temperature Pulse Rate 91 H 92 H 93 H Respiratory Rate 20 20 20 Blood Pressure 132/61 104/54 L 113/56 L Pulse Oximetry 96 96 97 11/22/19 07:53 11/22/19 07:54 11/22/19 08:00 Temperature Pulse Rate 83 89 Respiratory Rate 20 20 Blood Pressure 119/65 124/65 Pulse Oximetry 97 97 97 11/22/19 08:38 11/22/19 09:00 11/22/19 10:00 Temperature 98.0 F Pulse Rate 87 103 H Respiratory Rate 20 Blood Pressure 136/66 103/50 L Pulse Oximetry 92 93 Fraction of Inspired Oxygen 40 Oxygen Delivery Method Mechanical Ventilation Oxygen Flow Rate 0 Narrative Exam Narrative: Resting comfortably in bed, calves are soft bilaterally, mild drainage on his dressing, sedated and noncompliant with neurological exam Objective Labs Result Diagrams: 11/22/19 04:30 11/22/19 04:30 Labs: Laboratory Results - last 24 hr 11/21/19 11/21/19 11/21/19 14:30 14:30 20:26 WBC RBC Hgb Hct MCV MCH MCHC RDW Plt Count Neut % (Auto) Lymph % (Auto) [place] % (Auto) Eos % (Auto) Baso % (Auto) Neut # (Auto) Lymph # (Auto) [place] # (Auto) Eos # (Auto) Baso # (Auto) ABG pH 7.33 L ABG pCO2 66.8 H* ABG pO2 63 L ABG HCO3 35 H ABG Total CO2 37 H ABG O2 Saturation 89 L ABG Base Excess 9.0 H FiO2 32 Sodium Potassium Chloride Carbon Dioxide BUN Creatinine Estimated GFR BUN/Creatinine Ratio Glucose Calcium Phosphorus Magnesium 1.8 Total Bilirubin AST ALT Alkaline Phosphatase NT-Pro-B Natriuret Pep 652 H Total Protein Albumin Globulin Albumin/Globulin Ratio 11/22/19 11/22/19 11/22/19 00:10 04:30 04:30 WBC 11.1 H RBC 3.96 L Hgb 11.9 L Hct 35.9 L MCV 90.6 MCH 30.1 MCHC 33.2 RDW 14.0 Plt Count 142 L Neut % (Auto) 85.9 H Lymph % (Auto) 5.5 L [place] % (Auto) 8.5 Eos % (Auto) 0.0 L Baso % (Auto) 0.1 Neut # (Auto) 9500 H Lymph # (Auto) 600 L [place] # (Auto) 900 Eos # (Auto) 0 Baso # (Auto) 0 ABG pH 7.47 H ABG pCO2 39.0 ABG pO2 98 ABG HCO3 28 H ABG Total CO2 29 ABG O2 Saturation 98 ABG Base Excess 4.0 H FiO2 40 Sodium 135 L Potassium 3.6 Chloride 101 Carbon Dioxide 30 BUN 15 Creatinine 0.85 Estimated GFR > 60.0 BUN/Creatinine Ratio 17.6 Glucose 200 H Calcium 8.2 L Phosphorus 1.4 L D Magnesium 1.9 Total Bilirubin 0.8 AST 54 ALT 37 Alkaline Phosphatase 71 NT-Pro-B Natriuret Pep 810 H Total Protein 5.4 L Albumin 3.0 L Globulin 2.4 Albumin/Globulin Ratio 1.3 Assessment & Plan Assessment & Plan narrative: Status post emergent decompression of cauda equinus syndrome. Alcohol withdrawal issues. Currently intubated. Discussed his situation with the nurses are going to do a dressing change today. They are planning to keep him ventilated and lightly sedated today. Overall possible weaning from the ventilator tomorrow.
[2019-11-22] MEDS: ALBUTEROL HFA 200 PUFF/18 GM INH (COVID POS/VENT PTS) 8 PUFF INH ×4 (11:08→22:00)
[2019-11-22 11:32] LABS: Fractionated Inspired Oxygen 30; HCO3 ABG 29 mmol/L (22-26); Oxygen Saturation ABG 92 % (95-100); PCO2 ABG 35.2 mmHg (35-45); PO2 ABG 56 mmHg (80-100); TCO2 ABG 30 mmol/L (21-31); pH ABG 7.53 (7.35-7.45)
--- NOTE | 2019-11-22 14:11 | PT-IP ANOTE ---
Talked with nursing at rounds this AM and pt is still on hold for PT at this point. Recheck in with nursing Saturday AM to see if it is appropriate to begin PT
--- NOTE | 2019-11-22 15:03 | PC.NURSE ---
Addendum entered by Shell Salmeron R.N. 11/23/19 06:56: LATE ENTRY: SPOKE WITH DR. ZHANG RE: LACK OF ANTICOAGULATION- NO ORDERS RECEIVED AND SHE ENCOURAGED USE OF SCD'S AND FREQUENT REPOSITIONING - Original Note: PT STABLE ON VENTILATOR- PRESENT SETTINGS : 35%, 5 PEEP, 16 RATE, 450 TV. HE REMAINS RESTRAINED BILAT UPPER EXTREMITIES- GARCIA PRESENT WITH UOP 0F 300CC/H- OGT WITH APPROX 100 CLEARISH DRAINAGE - TURNED Q 2H, IV ACCESS X 2 PERIPHERAL SITES WITH IVF ( D51/2 + 20 MEQ KCL) AT 100CC/H, AND LORAZ GTT CONTINUES AT 1MG/H. UPDATE TO AT BEDSIDE- AMIODARONE CHANGED TO PO VIA OGT- LABS IN AM
[2019-11-22 15:43] LABS: Phosphorous 2.7 mg/dL (2.3-3.7)
[2019-11-22] MEDS: MORPHINE 2 MG/ML INJ 1 MG IV ×2 (16:18→20:00)
--- NOTE | 2019-11-22 16:44 | PC.NURSE ---
Evening shift note Pt stable on the ventilator, settings presently at 35%, PEEP 5, Rate 16, TV 450. Bilateral restraints to wrists, to prevent pulling at lines. Reza patent with clear, cipriano drainage. Turned Q2 hr, 2 PIV with IVF according to orders, Ativan currently infusing at 2mg/hr due to pt waking up RASS score of 0. Will continue to monitor and titrate ativan as needed for light sedation. 1mg Morphine administered for pain and HR of 120, current HR 94 at this time. RT at bedside suctioning pt, cream colored, thick secretions. OG to LIS, also to be used for PO medications as well. Bed low and locked, will continue to monitor.
[2019-11-22] MEDS: AMIODARONE 200 MG TABLET PO (17:10)
[2019-11-22] MEDS: LORazepam 20 MG in SODIUM CHLORIDE 0.9% 100 ML 10 ML IV (17:55)
[2019-11-22] MEDS: SENNOSIDES 8.6 MG TABLET 17.2 MG PO (21:37)
[2019-11-23] VITALS (36 sets, daily range): BP systolic 111–160; BP diastolic 56–82; PULSE 75–133; RESP 12–26; TEMP 35.7–37.2; O2SAT 94–99
[2019-11-23] MEDS: DEXTROSE 5%-0.45NS W/KCL 20MEQ 1,000 ML 100 MEQ IV ×2 (00:23→10:22)
[2019-11-23] MEDS: INSULIN ASPART 100 UNIT/ML INSULN PEN SUBCUT ×4 (00:25→18:08)
[2019-11-23] MEDS: ALBUTEROL HFA 200 PUFF/18 GM INH (COVID POS/VENT PTS) 8 PUFF INH ×7 (02:01→22:00)
[2019-11-23] MEDS: MORPHINE 2 MG/ML INJ 1 MG IV ×3 (02:07→08:28)
[2019-11-23] MEDS: LORazepam 20 MG in SODIUM CHLORIDE 0.9% 100 ML 15.593 ML IV (03:01)
[2019-11-23 05:01] LABS: Hematocrit 34.9 % (41-53); Mean Corpuscular HGB Conc 34.3 % (30-36); Mean Corpuscular Hemoglobin 31.5 PG (26-34); Mean Corpuscular Volume 91.7 fL (80-100); Platelet Count 139 X10^3/uL (150-400); Red Cell Distribution Width 14.1 % (11.6-14.8)
[2019-11-23 05:05] LABS: Add Manual Diff / Slide Review YES
[2019-11-23 05:09] LABS: Alanine Aminotransferase 29 IU/L (<50); Albumin Globulin Ratio 1.2 (1.0-2.8); Alkaline Phosphatase 61 U/L (38-126); Aspartate Aminotransferase 32 IU/L (17-59); BUN Creatinine Ratio 20.5 (6-22); Bilirubin Total 0.8 mg/dL (0.2-1.3); Blood Urea Nitrogen 16 mg/dL (9-20); Calcium 7.9 mg/dL (8.4-10.2); Carbon Dioxide 32 mmol/L (22-32); Chloride 99 mmol/L (98-107); Estimated Glomerular Filt Rate > 60.0 mL/min (>60); Globulin 2.5 g/dL (1.7-4.1); Glucose 197 mg/dL (80-110); HEMOLYSIS < 15 (0-50); Magnesium 1.7 mg/dL (1.6-2.3); Phosphorous 1.9 mg/dL (2.3-3.7); Potassium 3.7 mmol/L (3.4-5.1); Sodium 134 mmol/L (137-145); Total Protein 5.5 g/dL (6.3-8.2)
[2019-11-23 05:28] LABS: NT-proBNP (BNP-Adult 18+) 455 pg/mL (<450)
--- NOTE | 2019-11-23 06:21 | PC.NURSE ---
Patient remains on ventilator support, restrained. Patient with two episodes of restlessness, trying to reach for tubes. PRN Morphine administered due to FLACC score, and Lorazepam drip titrated as needed. Patient turned Q2 hours, as was oral care done. Patient's surgical site remains clean, dry, intact. Coccyx pink and blanchable. Patient with 50 mL out from OG tube, rust colored. Patient remains intubated, sedated and resting comfortably on ventilator. VSS throughout shift.
[2019-11-23] MEDS: AMIODARONE 200 MG TABLET PO ×2 (06:34→16:52)
[2019-11-23 06:42] LABS: Neutrophils Absolute Manual 7290 /uL (3000-5900); RBC Morphology Normal Morphology; Total Cells Counted 100
--- NOTE | 2019-11-23 06:44 | PC.NURSE ---
Addendum entered by Shell Salmeron R.N. 11/23/19 06:47: rate increased from 127-[address] Sosa-no orders received at this time Original Note: pt noted to have hr up to 146 bpm then steadied at 130's - remains afib - no prn orders at this time - crushed amiodarone and given per ogt early was scheduled at 0800
--- NOTE | 2019-11-23 08:13 | PM.PN.1 ---
Subjective Subjective Date Patient Seen: 11/23/19 Time Patient Seen: 08:13 Interval history: Patient minimally responsive but does respond to voice. Somewhat agitated still. Does complain of pain no other changes. Exam Vital Signs (past 8 hours): - 11/23/19 01:00 11/23/19 02:00 11/23/19 02:59 Temperature Pulse Rate 92 H 94 H 97 H Respiratory Rate 16 16 16 Blood Pressure 111/58 L 123/71 Pulse Oximetry 96 96 96 11/23/19 03:00 11/23/19 04:00 11/23/19 05:00 Temperature Pulse Rate 93 H 92 H 98 H Respiratory Rate 16 16 17 Blood Pressure 115/56 L 114/56 L 118/68 Pulse Oximetry 96 96 96 11/23/19 06:00 11/23/19 07:00 11/23/19 08:00 Temperature 97.5 F L Pulse Rate 133 H 124 H 126 H Respiratory Rate 23 26 H 19 Blood Pressure 129/76 152/62 H 144/66 H Pulse Oximetry 94 95 95 Fraction of Inspired Oxygen 37 Oxygen Delivery Method Mechanical Ventilation Oxygen Flow Rate 35 Narrative Exam Narrative: Intubated male agitated but responsive Lungs are clear. Heart irregular rhythm was elevated rate no murmurs clicks rubs or gallop. Abdomen soft obese positive bowel sounds extremities unremarkable he is moving all extremities Objective Labs Result Diagrams: 11/23/19 04:40 11/23/19 04:40 Labs: Laboratory Results - last 24 hr 11/22/19 11/22/19 11/23/19 11:18 15:25 04:40 WBC 9.0 RBC 3.80 L Hgb 12.0 L Hct 34.9 L MCV 91.7 MCH 31.5 MCHC 34.3 RDW 14.1 Plt Count 139 L Neut % (Auto) Not Reportable Lymph % (Auto) Not Reportable [place] % (Auto) Not Reportable Eos % (Auto) Not Reportable Baso % (Auto) Not Reportable Lymph # (Auto) Not Reportable [place] # (Auto) Not Reportable Baso # (Auto) Not Reportable Total Counted 100 Seg Neutrophils % 78.0 H Band Neutrophils % 3.0 Lymphocytes % (Manual) 15.0 L Monocytes % (Manual) 4.0 Neutrophils # (Manual) 7290 H RBC Morphology Normal morphology ABG pH 7.53 H ABG pCO2 35.2 ABG pO2 56 L ABG HCO3 29 H ABG Total CO2 30 ABG O2 Saturation 92 L ABG Base Excess 6.0 H FiO2 30 Sodium Potassium Chloride Carbon Dioxide BUN Creatinine Estimated GFR BUN/Creatinine Ratio Glucose Calcium Phosphorus 2.7 D Magnesium Total Bilirubin AST ALT Alkaline Phosphatase NT-Pro-B Natriuret Pep Total Protein Albumin Globulin Albumin/Globulin Ratio 11/23/19 04:40 WBC RBC Hgb Hct MCV MCH MCHC RDW Plt Count Neut % (Auto) Lymph % (Auto) [place] % (Auto) Eos % (Auto) Baso % (Auto) Lymph # (Auto) [place] # (Auto) Baso # (Auto) Total Counted Seg Neutrophils % Band Neutrophils % Lymphocytes % (Manual) Monocytes % (Manual) Neutrophils # (Manual) RBC Morphology ABG pH ABG pCO2 ABG pO2 ABG HCO3 ABG Total CO2 ABG O2 Saturation ABG Base Excess FiO2 Sodium 134 L Potassium 3.7 Chloride 99 Carbon Dioxide 32 BUN 16 Creatinine 0.78 Estimated GFR > 60.0 BUN/Creatinine Ratio 20.5 Glucose 197 H Calcium 7.9 L Phosphorus 1.9 L Magnesium 1.7 Total Bilirubin 0.8 AST 32 ALT 29 Alkaline Phosphatase 61 NT-Pro-B Natriuret Pep 455 H Total Protein 5.5 L Albumin 3.0 L Globulin 2.5 Albumin/Globulin Ratio 1.2 Assessment & Plan Assessment & Plan narrative: Respiratory acidosis acute on chronic with metabolic compensation currently intubated. Due the fact that I do not have that management will refer and consult Dr. martin who I discussed case with. She will take over management of all ICU based management. She is comfortable without. No other changes. Probably will need more aggressive management of issues regarding propofol fall use Atrial fibrillation. With RVR. Blood pressure is elevated. Will low Dr. Brar to make decision but probably can start management some will depend on whether not responds well to more adequate comfort measures. Will probably need IV medication. Will see how things go. Echo not available at this time. Delirium tremens. Probably the biggest issue. May need another 24 hours of treatment and then withdrawal. Hopefully that will get us through. No other changes. Hypotension. Post intubation. Seems to be stable at this time. Will follow with Dr. Brar. Back pain status post laminectomy be discussed me. Seems to be doing well the talked with . [place] surgery went well. Question with anticoagulation he prefer not to anticoagulate until patient gets out of intubated status and can respond. Does feel it is okay to do DVT prophylaxis. I think that would be adequate. At this time. Hypomagnesia will follow. Dehydration should be resolved. IV replacement. Acute protein male nutrition has had nutrition consult. Hypertension. As per marine engine mechanic. Disposition. Patient currently intubated and will be placed on Dr. Vega service. Will follow. I will discuss with today. Hopefully will be extubated in the next 24 hours but will see how things go.
[2019-11-23] MEDS: FOLIC ACID 1 MG TABLET PO (08:29)
[2019-11-23] MEDS: predniSONE 20 MG TABLET PO (08:29)
[2019-11-23] MEDS: MULTIVITAMIN 1 TABLET 1 TAB PO (08:29)
[2019-11-23] MEDS: THIAMINE 100 MG TABLET PO (08:29)
[2019-11-23] MEDS: ENOXAPARIN 40 MG/0.4 ML SYRINGE SUBCUT (08:29)
[2019-11-23] MEDS: DOCUSATE ORAL LIQUID 100 MG/10 ML UDC PO ×2 (08:29→20:44)
[2019-11-23] MEDS: ACETAMINOPHEN 325 MG TABLET 650 MG PO ×3 (08:30→20:45)
[2019-11-23] MEDS: INSULIN GLARGINE 100 UNIT/ML 3ML PEN 15 UNIT SUBCUT (08:30)
[2019-11-23 09:35] LABS: HCO3 ABG 30 mmol/L (22-26); Oxygen Saturation ABG 96 % (95-100); PCO2 ABG 37.7 mmHg (35-45); PO2 ABG 76 mmHg (80-100); TCO2 ABG 31 mmol/L (21-31)
[2019-11-23 09:36] LABS: Fractionated Inspired Oxygen 35
[2019-11-23] MEDS: LORazepam 20 MG in SODIUM CHLORIDE 0.9% 100 ML 15 ML IV (10:00)
--- NOTE | 2019-11-23 11:21 | PM.PNPO.1 ---
Subjective Subjective Date Patient Seen: 11/23/19 Time Patient Seen: 11:21 Interval history: No new complaints per nurse, stable overnight. Patient is intubated. He is currently sedated and resting. Exam Vital Signs (past 8 hours): - 11/23/19 04:00 11/23/19 05:00 11/23/19 06:00 Temperature Pulse Rate 92 H 98 H 133 H Respiratory Rate 16 17 23 Blood Pressure 114/56 L 118/68 129/76 Pulse Oximetry 96 96 94 11/23/19 07:00 11/23/19 08:00 11/23/19 09:00 Temperature 97.5 F L Pulse Rate 124 H 126 H 124 H Respiratory Rate 26 H 19 21 Blood Pressure 152/62 H 144/66 H Pulse Oximetry 95 95 95 11/23/19 10:00 Temperature Pulse Rate 107 H Respiratory Rate 12 Blood Pressure 126/61 Pulse Oximetry 98 Fraction of Inspired Oxygen 37 Oxygen Delivery Method Mechanical Ventilation Oxygen Flow Rate 35 Narrative Exam Narrative: Dressing intact, bilat. legs are warm and dry with good pulses. Unable to check motor function secondary to sedation. Objective Labs Result Diagrams: 11/23/19 04:40 11/23/19 04:40 Labs: Laboratory Results - last 24 hr 11/22/19 11/22/19 11/23/19 11:18 15:25 04:40 WBC 9.0 RBC 3.80 L Hgb 12.0 L Hct 34.9 L MCV 91.7 MCH 31.5 MCHC 34.3 RDW 14.1 Plt Count 139 L Neut % (Auto) Not Reportable Lymph % (Auto) Not Reportable [place] % (Auto) Not Reportable Eos % (Auto) Not Reportable Baso % (Auto) Not Reportable Lymph # (Auto) Not Reportable [place] # (Auto) Not Reportable Baso # (Auto) Not Reportable Total Counted 100 Seg Neutrophils % 78.0 H Band Neutrophils % 3.0 Lymphocytes % (Manual) 15.0 L Monocytes % (Manual) 4.0 Neutrophils # (Manual) 7290 H RBC Morphology Normal morphology ABG pH 7.53 H ABG pCO2 35.2 ABG pO2 56 L ABG HCO3 29 H ABG Total CO2 30 ABG O2 Saturation 92 L ABG Base Excess 6.0 H FiO2 30 Sodium Potassium Chloride Carbon Dioxide BUN Creatinine Estimated GFR BUN/Creatinine Ratio Glucose Calcium Phosphorus 2.7 D Magnesium Total Bilirubin AST ALT Alkaline Phosphatase NT-Pro-B Natriuret Pep Total Protein Albumin Globulin Albumin/Globulin Ratio 11/23/19 11/23/19 04:40 09:24 WBC RBC Hgb Hct MCV MCH MCHC RDW Plt Count Neut % (Auto) Lymph % (Auto) [place] % (Auto) Eos % (Auto) Baso % (Auto) Lymph # (Auto) [place] # (Auto) Baso # (Auto) Total Counted Seg Neutrophils % Band Neutrophils % Lymphocytes % (Manual) Monocytes % (Manual) Neutrophils # (Manual) RBC Morphology ABG pH 7.50 H ABG pCO2 37.7 ABG pO2 76 L ABG HCO3 30 H ABG Total CO2 31 ABG O2 Saturation 96 ABG Base Excess 7.0 H FiO2 35 Sodium 134 L Potassium 3.7 Chloride 99 Carbon Dioxide 32 BUN 16 Creatinine 0.78 Estimated GFR > 60.0 BUN/Creatinine Ratio 20.5 Glucose 197 H Calcium 7.9 L Phosphorus 1.9 L Magnesium 1.7 Total Bilirubin 0.8 AST 32 ALT 29 Alkaline Phosphatase 61 NT-Pro-B Natriuret Pep 455 H Total Protein 5.5 L Albumin 3.0 L Globulin 2.5 Albumin/Globulin Ratio 1.2 Assessment & Plan Post-op Postoperative Procedures: Procedures Operation Date: 11/20/19 07:45 Actual Procedures Side Surgeon p L5S1 TLIF, L4-5 hemilaminectomy and microdiscectomy Reji Monroe MD Post op day 3. Patient stable, intubated and sedated. Dr. Monroe talked with hospitalist about starting low dose lovenox qd.
--- NOTE | 2019-11-23 11:27 | DI.RAD.S_ITS ---
PROCEDURE: XR CHEST 1V INDICATIONS: intubated TECHNIQUE: One view of the chest was acquired. COMPARISON: [facility], CT, CT ABDOMEN PELVIS W CON, 04/02/2019, 10:20. [facility], CR, XR CHEST 1V, 11/21/2019, 23:40. [facility], CR, XR CHEST 1V, 11/21/2019, 21:57. FINDINGS: Surgical changes and devices: Endotracheal tube in the midtrachea. Enteric tube coursing into the stomach. Lungs and pleura: Low lung volumes. Mild streaky opacity at the lung bases. No consolidative opacity seen. No pleural effusions or pneumothorax. Mediastinum: Mediastinal contours appear unchanged. Heart size is difficult to evaluate but appears unchanged. Bones and chest wall: No suspicious bony lesions. Overlying soft tissues appear unremarkable. IMPRESSION: Endotracheal tube in the midtrachea. Enteric tube courses in the stomach. Low lung volumes and suspected bibasilar atelectasis. Dictated by: Justus Auguste M.D. on 11/23/2019 at 12:04 Approved by: Justus Auguste M.D. on 11/23/2019 at 12:09
--- NOTE | 2019-11-23 11:36 | PT-IP ANOTE ---
ANAT Tse talked with nursing at rounds this AM and pt is still on hold for PT at this point. Will check in again tomorrow.
--- NOTE | 2019-11-23 11:40 | CM.DPC ---
DCP Cont: Per MD, pt remains intubated and sedated with Ortho team following post TLIF and Dr. Gallo requested Hospitalist Consult with pt's comorbidities for today. Per RT, pt's blood gas levels look good and possibility of sedation vacation to be attempted today or tomorrow. PT/OT has been ordered and pending until pt able to be successfully extubated. SW met bedside with pt's spouse today and explained role and spouse somewhat tearful as his medical complications quite unexpected. Spouse confirms that pt has not had any hx of ETOH tx or counseling but states that pt has not been doing the best leading up to his admission and surgery as he was less independent and continuing to drink but did not expect such medical complications. SW discussed that once pt able to participate in discussion then options for ETOH resources if pt is willing and interested. SW discussed possible need for SNF at d/c prior to return home pending PT/OT eval and recommendations based on pt's progress once extubated vs HH. SW provided SNF/HH Choice List for spouse to review knowing that d/c needs currently unknown at this time with pt still intubated. Spouse appreciative and fully aware that SNF might be needed and willing to consider pending pt progress. Plan: SW to follow closely for possible sedation vacation today or tomorrow towards attempting extubation when pt more stable. SW to follow once pt more medically appropriate for PT/OT eval and recommendations towards likely SNF vs HH at d/c. SHERRIE Ramos
--- NOTE | 2019-11-23 11:57 | OT.IPNOTE ---
Pt is intubated and not yet ready for therapy. Will hold and continue to follow.
[2019-11-23] MEDS: POTASSIUM PHOSPHATE 15 MMOL in DEXTROSE 5% IN WATER 250 ML 63.75 ML IV (12:20)
--- NOTE | 2019-11-23 13:36 | PM.PN.1 ---
Subjective Subjective Date Patient Seen: 11/23/19 Interval history: Patient is a 79-year-old male who was admitted to the hospital for acute back pain secondary to multiple impinged nerves. He underwent lumbar laminectomy with T left without complications. Postoperatively the patient developed rapid atrial fibrillation which required treatment with IV amiodarone switched to oral amiodarone. Patient was also subsequently found to have acute alcohol withdrawal. Patient developed significant respiratory difficulty. He was found to have acute respiratory failure requiring intubation. Sensitive the. His aspect Sabino to take over care this patient while he is intubated in the ICU. Discussed the care with his nurse. Patient remains intubated and is minimally able to follow commands. Exam Vital Signs (past 8 hours): - 11/23/19 06:00 11/23/19 07:00 11/23/19 08:00 Temperature 97.5 F L Pulse Rate 133 H 124 H 126 H Respiratory Rate 23 26 H 19 Blood Pressure 129/76 152/62 H 144/66 H Pulse Oximetry 94 95 95 11/23/19 09:00 11/23/19 10:00 11/23/19 11:00 Temperature Pulse Rate 124 H 107 H 93 H Respiratory Rate 21 12 13 Blood Pressure 126/61 116/70 Pulse Oximetry 95 98 97 11/23/19 12:00 11/23/19 13:00 Temperature Pulse Rate 102 H 109 H Respiratory Rate 14 18 Blood Pressure 145/80 H 160/76 H Pulse Oximetry 96 96 Fraction of Inspired Oxygen 37 Oxygen Delivery Method Mechanical Ventilation Oxygen Flow Rate 35 Narrative Exam Narrative: Ill-appearing male intubated sedated on Ativan now arousable who does not appear to be any acute distress HEENT: Normocephalic atraumatic, eyes are closed ET tube in place, NG tube in place Lungs: Decreased breath sounds bilaterally no appreciable rhonchi crackles or wheezes Cardiac exam: Regular rate and rhythm normal S1-S2 Abdomen: Soft nontender nondistended Extremities: No edema appreciated Objective Labs Result Diagrams: 11/23/19 04:40 11/23/19 04:40 Labs: Laboratory Results - last 24 hr 11/22/19 11/23/19 11/23/19 15:25 04:40 04:40 WBC 9.0 RBC 3.80 L Hgb 12.0 L Hct 34.9 L MCV 91.7 MCH 31.5 MCHC 34.3 RDW 14.1 Plt Count 139 L Neut % (Auto) Not Reportable Lymph % (Auto) Not Reportable Wilkin % (Auto) Not Reportable Eos % (Auto) Not Reportable Baso % (Auto) Not Reportable Lymph # (Auto) Not Reportable Wilkin # (Auto) Not Reportable Baso # (Auto) Not Reportable Total Counted 100 Seg Neutrophils % 78.0 H Band Neutrophils % 3.0 Lymphocytes % (Manual) 15.0 L Monocytes % (Manual) 4.0 Neutrophils # (Manual) 7290 H RBC Morphology Normal morphology ABG pH ABG pCO2 ABG pO2 ABG HCO3 ABG Total CO2 ABG O2 Saturation ABG Base Excess FiO2 Sodium 134 L Potassium 3.7 Chloride 99 Carbon Dioxide 32 BUN 16 Creatinine 0.78 Estimated GFR > 60.0 BUN/Creatinine Ratio 20.5 Glucose 197 H Calcium 7.9 L Phosphorus 2.7 D 1.9 L Magnesium 1.7 Total Bilirubin 0.8 AST 32 ALT 29 Alkaline Phosphatase 61 NT-Pro-B Natriuret Pep 455 H Total Protein 5.5 L Albumin 3.0 L Globulin 2.5 Albumin/Globulin Ratio 1.2 11/23/19 09:24 WBC RBC Hgb Hct MCV MCH MCHC RDW Plt Count Neut % (Auto) Lymph % (Auto) Wilkin % (Auto) Eos % (Auto) Baso % (Auto) Lymph # (Auto) Wilkin # (Auto) Baso # (Auto) Total Counted Seg Neutrophils % Band Neutrophils % Lymphocytes % (Manual) Monocytes % (Manual) Neutrophils # (Manual) RBC Morphology ABG pH 7.50 H ABG pCO2 37.7 ABG pO2 76 L ABG HCO3 30 H ABG Total CO2 31 ABG O2 Saturation 96 ABG Base Excess 7.0 H FiO2 35 Sodium Potassium Chloride Carbon Dioxide BUN Creatinine Estimated GFR BUN/Creatinine Ratio Glucose Calcium Phosphorus Magnesium Total Bilirubin AST ALT Alkaline Phosphatase NT-Pro-B Natriuret Pep Total Protein Albumin Globulin Albumin/Globulin Ratio Assessment & Plan Assessment & Plan narrative: 1. Acute respiratory failure -patient remains intubated -chest x-ray reveals no infiltrate but rather bilateral atelectasis -will continue daily spontaneous breathing trial -will continue IV Ativan for possible alcohol withdrawal 2. Atrial fibrillation with rapid ventricular rate, improving -Dr. Willingham, cardiology, has been consulted regarding new postoperative atrial fibrillation. Thinks that etiology secondary to surgery and will spontaneously resolve. Secondary to postoperative hypertension, amiodarone used for rhythm control, Dr. Willingham recommended continued amiodarone drip and titrated metoprolol for rate control as blood pressure allows. Dr. Willingham okay with rapid ventricular rate in the acute setting due to neurosurgery. -Echo on 11/21/19, left ventricular ejection fraction 50%, left atrial enlargement noted, mild right usual enlargement right ventricular function within normal limits -continue oral amiodarone, defer anticoagulation at this time, 3. Delirium tremens -patient with an extensive history of alcohol use -CIWA protocol initially -will continue IV Ativan, will titrate for effect, consider adding propofol if the patient continues to be in withdrawal -if able to extubate would consider Librium and discontinuation of IV Ativan 4. -Status post L5-S1 spinal fusion, laminectomy, and facetectomies as well as L4-L5 hemilaminectomy and microdiskectomy on 11/20/2019 -pain medication per surgery 5. Post-intubation hypotension, acute, now resolved -Pressor support required (phenylephrine and vasopressin) at time of intubation. Blood pressure improved 6. Hypomagnesemia, resolved status 2 g bolus x 2 on 11/21/19 -1.3 on 11/21/19 --> 1.9 on 11/22/19 PLAN: Will trend labs. 7. Hypophosphatemia -1.4 on 11/22/19 PLAN: KPhos 15 mmol IV replacement this morning, will recheck afternoon labs and replete again if needed. 8. Dehydration, moderate, resolved. PLAN: Maintenance IVF D5 1/2 NS + 20 KCl. 9. Acute protein calorie malnutrition -Albumin 3.5 on 11/21/19 --> 3.0 on 11/22/19 -NPO x 3 days, intubated x 1 day. -Increased risk for delayed healing from surgery. PLAN: Nutrition consult, anticipate starting tube feeding tomorrow per their orders once hypophosphatemia is corrected. 10. 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 PLAN: Treating underlying conditions. PT/OT when patient again able. Will need rehab program as outpatient with emphasis on weight loss and exercise. 11. Hypertension, chronic -Hypotensive postoperatively and post-intubation. PLAN: Will continue to hold home losartan. Titrating metoprolol as noted above. 12. Type 2 diabetes. PLAN: Continue insulin glargine 15 b.i.d. and sliding scale. Will titrate glargine based on blood sugar given acute postoperative state goal will be to tight blood sugar control 13. Polymyalgia rheumatica. PLAN: Continue prednisone 20 mg daily, wean as an outpatient. 14. BPH PLAN: holding oral medicine. 15. History of CVA, stable 16. History of [place], no recurrence -Serial EKGs show no new ST changes. -Troponin I negative.
--- NOTE | 2019-11-23 13:52 | PC.NURSE ---
Addendum entered by Apollo Coyle R.N. 11/23/19 15:24: Pt did well on CPAP trial but remains somnolent, unable to consistently follow commands or open eyes. Discussed with Dr. Wynne. Reviewed ABG on CPAP settings. Plan to remain intubated overnight, sedation with propofol, and reassess in the AM with sedation vacation/SBT. Original Note: Rec'd pt in bed eyes closed restless, tachycardic, diaphoretic, difficult to redirect. Pt is not following commands. Nods head yes when asked if he can open eyes; however, he does not open his eyes. Nods head yes when asked if having pain. FLACC 6 and RASS +2. Administered PRN pain med and increased lorazepam gtt to achieve RASS -2 and FLACC 0. Hospitalist was consulted and rounded 1045. Discussed assessment findings and POC. Titrating sedation to off for sedation vacation and weaning trial. Sedation off at 1050. Pt is slowly waking up. Does not open eyes to command but intermittently following other commands. RT placed pt on CPAP trial at 1325.
[2019-11-23 14:32] LABS: Fractionated Inspired Oxygen 35; HCO3 ABG 29 mmol/L (22-26); Oxygen Saturation ABG 96 % (95-100); PCO2 ABG 42.4 mmHg (35-45); PO2 ABG 80 mmHg (80-100); TCO2 ABG 30 mmol/L (21-31); pH ABG 7.45 (7.35-7.45)
[2019-11-23] MEDS: propofoL 1,000 MG/100 ML VIAL 2.835 MG IV (14:34)
[2019-11-23] MEDS: KCL 20 MEQ IN NS 1,000 ML 84 MEQ IV (14:35)
[2019-11-23] MEDS: MAGNESIUM HYDROXIDE 30 ML UDC PO (14:36)
[2019-11-23] MEDS: OXYCODONE IR 5 MG TABLET PO ×2 (14:36→20:44)
--- NOTE | 2019-11-23 16:54 | P.PN_ITS ---
Exam Vital Signs (past 8 hours): - 11/23/19 09:00 11/23/19 10:00 11/23/19 11:00 Temperature Pulse Rate 124 H 107 H 93 H Respiratory Rate 21 12 13 Blood Pressure 126/61 116/70 Pulse Oximetry 95 98 97 11/23/19 12:00 11/23/19 13:00 11/23/19 13:25 Temperature 97.4 F L Pulse Rate 102 H 109 H Respiratory Rate 14 18 Blood Pressure 145/80 H 160/76 H Pulse Oximetry 96 96 97 11/23/19 14:00 11/23/19 15:30 11/23/19 16:00 Temperature 97.1 F L 97.1 F L Pulse Rate 111 H 92 H 83 Respiratory Rate 24 24 12 Blood Pressure 120/64 111/63 Pulse Oximetry 97 97 97 11/23/19 16:30 Temperature Pulse Rate 86 Respiratory Rate 12 Blood Pressure 111/63 Pulse Oximetry 98 Fraction of Inspired Oxygen 37 Oxygen Delivery Method Mechanical Ventilation Oxygen Flow Rate 35 Objective Labs Result Diagrams: 11/23/19 04:40 11/23/19 04:40 Labs: Laboratory Results - last 24 hr 11/23/19 11/23/19 11/23/19 04:40 04:40 09:24 WBC 9.0 RBC 3.80 L Hgb 12.0 L Hct 34.9 L MCV 91.7 MCH 31.5 MCHC 34.3 RDW 14.1 Plt Count 139 L Neut % (Auto) Not Reportable Lymph % (Auto) Not Reportable Crow[place] % (Auto) Not Reportable Eos % (Auto) Not Reportable Baso % (Auto) Not Reportable Lymph # (Auto) Not Reportable [place] # (Auto) Not Reportable Baso # (Auto) Not Reportable Total Counted 100 Seg Neutrophils % 78.0 H Band Neutrophils % 3.0 Lymphocytes % (Manual) 15.0 L Monocytes % (Manual) 4.0 Neutrophils # (Manual) 7290 H RBC Morphology Normal morphology ABG pH 7.50 H ABG pCO2 37.7 ABG pO2 76 L ABG HCO3 30 H ABG Total CO2 31 ABG O2 Saturation 96 ABG Base Excess 7.0 H FiO2 35 Sodium 134 L Potassium 3.7 Chloride 99 Carbon Dioxide 32 BUN 16 Creatinine 0.78 Estimated GFR > 60.0 BUN/Creatinine Ratio 20.5 Glucose 197 H Calcium 7.9 L Phosphorus 1.9 L Magnesium 1.7 Total Bilirubin 0.8 AST 32 ALT 29 Alkaline Phosphatase 61 NT-Pro-B Natriuret Pep 455 H Total Protein 5.5 L Albumin 3.0 L Globulin 2.5 Albumin/Globulin Ratio 1.2 11/23/19 14:13 WBC RBC Hgb Hct MCV MCH MCHC RDW Plt Count Neut % (Auto) Lymph % (Auto) [place] % (Auto) Eos % (Auto) Baso % (Auto) Lymph # (Auto) [place] # (Auto) Baso # (Auto) Total Counted Seg Neutrophils % Band Neutrophils % Lymphocytes % (Manual) Monocytes % (Manual) Neutrophils # (Manual) RBC Morphology ABG pH 7.45 ABG pCO2 42.4 ABG pO2 80 ABG HCO3 29 H ABG Total CO2 30 ABG O2 Saturation 96 ABG Base Excess 5.0 H FiO2 35 Sodium Potassium Chloride Carbon Dioxide BUN Creatinine Estimated GFR BUN/Creatinine Ratio Glucose Calcium Phosphorus Magnesium Total Bilirubin AST ALT Alkaline Phosphatase NT-Pro-B Natriuret Pep Total Protein Albumin Globulin Albumin/Globulin Ratio Assessment & Plan Assessment & Plan narrative: Mr. Salmon is POD#3 s/p L5-S1 TLIF and L4-5 microdiscectomy. Patient developed a-fib post operatively. Patient has progressively decreased mental status post operatively. Dr. Gallo is managing patient from medical standpoint. Per discussing with Dr. Gallo, the mental status change is combination of medication and EtOH withdraw contributed. Currently patient is intubated and sedated. Patient is not able to be assessed neurologically since patient is not responsive to verbal command. Continue medical management. We will start lovanox for anticoagulation to prevent DVT/PE along with mechanical SCD in his extremities. Patient may start PT once he is extubated and able to follow verbal command. Dressing clean dry intact.
--- NOTE | 2019-11-23 17:57 | PC.NURSE ---
Addendum entered by Marianela Arora R.N. 11/23/19 22:15: sedation medical leader and patient nods when asked if in pain. medicated with Oxycodone via OG tube. Repositioned q 1-2 hrs - HOB @ >35degrees. Propofol remains at 5mcg/kg/hr. Original Note: 1600 - Pt remains intubated and sedated, propofol at 5mcg/kg/hr - does not open eyes but responds to light pain. PERRLA, 4mm, OG tube to LIS, cook to bag draining clear cipriano urine. Monitor shows Afib with CVR rate 81. IV NS with 20KCL At 84ml/hr to L upper arm IV. Soft restraints in place ROM exercises done for patient,
[2019-11-23] MEDS: SENNOSIDES 8.6 MG TABLET 17.2 MG PO (20:43)
[2019-11-23] MEDS: INSULIN GLARGINE 100 UNIT/ML 3ML PEN 20 UNIT SUBCUT (20:49)
[2019-11-24] VITALS (48 sets, daily range): BP systolic 84–200; BP diastolic 51–125; PULSE 76–152; RESP 11–84; TEMP 28.8–36.4; O2SAT 93–99
[2019-11-24] MEDS: KCL 20 MEQ IN NS 1,000 ML 84 MEQ IV ×2 (01:38→13:32)
[2019-11-24] MEDS: ALBUTEROL HFA 200 PUFF/18 GM INH (COVID POS/VENT PTS) 8 PUFF INH ×3 (02:07→11:50)
[2019-11-24] MEDS: OXYCODONE IR 5 MG TABLET PO ×2 (03:47→08:25)
[2019-11-24 05:05] LABS: Add Manual Diff / Slide Review NO; Basophils Absolute Auto 0 /uL (0-100); Basophils Percent Auto 0.4 % (0-2); Eosinophils Absolute Auto 100 /uL (0-450); Eosinophils Percent Auto 1.2 % (2-4); Hematocrit 34.5 % (41-53); Hemoglobin 11.5 g/dL (13.5-17.5); Lymphocytes Absolute Auto 1300 /uL (1100-4500); Lymphocytes Percent Auto 18.1 % (25-40); Mean Corpuscular HGB Conc 33.4 % (30-36); Mean Corpuscular Hemoglobin 30.4 PG (26-34); Mean Corpuscular Volume 90.9 fL (80-100); Monocytes Absolute Auto 500 /uL (0-900); Monocytes Percent Auto 7.1 % (3-14); Neutrophils Absolute Auto 5300 /uL (1500-7000); Neutrophils Percent Auto 73.2 % (50-75); Platelet Count 150 X10^3/uL (150-400); Red Blood Cell Count 3.79 X10^6/uL (4.5-5.9); White Blood Cell Count 7.3 X10^3/uL (4.5-11.0)
[2019-11-24 05:13] LABS: Alanine Aminotransferase 28 IU/L (<50); Albumin 2.9 g/dL (3.5-5.0); Alkaline Phosphatase 54 U/L (38-126); Aspartate Aminotransferase 28 IU/L (17-59); BUN Creatinine Ratio 20.3 (6-22); Bilirubin Total 0.7 mg/dL (0.2-1.3); Blood Urea Nitrogen 13 mg/dL (9-20); Calcium 8.2 mg/dL (8.4-10.2); Carbon Dioxide 33 mmol/L (22-32); Chloride 101 mmol/L (98-107); Estimated Glomerular Filt Rate > 60.0 mL/min (>60); Globulin 2.8 g/dL (1.7-4.1); Glucose 108 mg/dL (80-110); HEMOLYSIS 18 (0-50); Magnesium 1.8 mg/dL (1.6-2.3); Phosphorous 2.9 mg/dL (2.3-3.7); Potassium 3.9 mmol/L (3.4-5.1); Sodium 138 mmol/L (137-145); Total Protein 5.7 g/dL (6.3-8.2)
[2019-11-24] MEDS: propofoL 1,000 MG/100 ML VIAL 8.505 MG IV (05:19)
[2019-11-24 05:21] LABS: NT-proBNP (BNP-Adult 18+) 523 pg/mL (<450)
--- NOTE | 2019-11-24 06:26 | PC.NURSE ---
Assistant Clinical Nurse Manager Note-Patient remains on ventilator, FIO2 .35 TV 450 PEEP 5 RR 12, does override vent during times of agitation. Propofol titrated 5-15mcg/min to keep RASS -2, medicated with 5mg oxycodone via OGT once for FLACC 6-effective. Afebrile, A-fib CVR/RVR rate 80s-110, BP stable, lowest 84/51(62) at 0600 r/t propofol, titrated back to 10mcg/min, see vital trends.
--- NOTE | 2019-11-24 07:33 | PM.PNPO.1 ---
Subjective Subjective Date Patient Seen: 11/24/19 Time Patient Seen: 07:33 Interval history: Patient is sedated and intubated. No new events overnight per nurse. Exam Vital Signs (past 8 hours): - 11/24/19 00:00 11/24/19 01:00 11/24/19 02:00 Temperature 96.6 F L Pulse Rate 77 77 101 H Respiratory Rate 12 12 18 Blood Pressure 105/60 124/66 Pulse Oximetry 98 98 94 11/24/19 03:00 11/24/19 04:00 11/24/19 05:00 Temperature 96.6 F L Pulse Rate 94 H 93 H 88 Respiratory Rate 16 14 24 Blood Pressure 126/66 129/64 119/70 Pulse Oximetry 95 96 95 11/24/19 07:00 Temperature Pulse Rate 85 Respiratory Rate 12 Blood Pressure 122/56 L Pulse Oximetry 97 Fraction of Inspired Oxygen 35 Oxygen Delivery Method Mechanical Ventilation Oxygen Flow Rate 35 Narrative Exam Narrative: 79-year-old male sedated and intubated. Patient in no apparent distress. SCDs on bilateral lower extremities. Both legs are warm and dry. Good pulses bilateral lower extremities. Objective Labs Result Diagrams: 11/24/19 04:35 11/24/19 04:35 Labs: Laboratory Results - last 24 hr 11/23/19 11/23/19 11/24/19 09:24 14:13 04:35 WBC 7.3 RBC 3.79 L Hgb 11.5 L Hct 34.5 L MCV 90.9 MCH 30.4 MCHC 33.4 RDW 14.0 Plt Count 150 Neut % (Auto) 73.2 Lymph % (Auto) 18.1 L [place] % (Auto) 7.1 Eos % (Auto) 1.2 L Baso % (Auto) 0.4 Neut # (Auto) 5300 Lymph # (Auto) 1300 [place] # (Auto) 500 Eos # (Auto) 100 Baso # (Auto) 0 ABG pH 7.50 H 7.45 ABG pCO2 37.7 42.4 ABG pO2 76 L 80 ABG HCO3 30 H 29 H ABG Total CO2 31 30 ABG O2 Saturation 96 96 ABG Base Excess 7.0 H 5.0 H FiO2 35 35 Sodium Potassium Chloride Carbon Dioxide BUN Creatinine Estimated GFR BUN/Creatinine Ratio Glucose Calcium Phosphorus Magnesium Total Bilirubin AST ALT Alkaline Phosphatase NT-Pro-B Natriuret Pep Total Protein Albumin Globulin Albumin/Globulin Ratio 11/24/19 04:35 WBC RBC Hgb Hct MCV MCH MCHC RDW Plt Count Neut % (Auto) Lymph % (Auto) [place] % (Auto) Eos % (Auto) Baso % (Auto) Neut # (Auto) Lymph # (Auto) [place] # (Auto) Eos # (Auto) Baso # (Auto) ABG pH ABG pCO2 ABG pO2 ABG HCO3 ABG Total CO2 ABG O2 Saturation ABG Base Excess FiO2 Sodium 138 Potassium 3.9 Chloride 101 Carbon Dioxide 33 H BUN 13 Creatinine 0.64 L Estimated GFR > 60.0 BUN/Creatinine Ratio 20.3 Glucose 108 Calcium 8.2 L Phosphorus 2.9 D Magnesium 1.8 Total Bilirubin 0.7 AST 28 ALT 28 Alkaline Phosphatase 54 NT-Pro-B Natriuret Pep 523 H Total Protein 5.7 L Albumin 2.9 L Globulin 2.8 Albumin/Globulin Ratio 1.0 Assessment & Plan Post-op Postoperative Procedures: Procedures Operation Date: 11/20/19 07:45 Actual Procedures Side Surgeon p L5S1 TLIF, L4-5 hemilaminectomy and microdiscectomy Reji Monroe MD Postop day 4 status post lumbar fusion. Hospitalist following patient, note reviewed from 11/23/2019. They will continue daily spontaneous breathing trials.
[2019-11-24] MEDS: MULTIVITAMIN 1 TABLET 1 TAB PO (08:24)
[2019-11-24] MEDS: DOCUSATE ORAL LIQUID 100 MG/10 ML UDC PO (08:24)
[2019-11-24] MEDS: FOLIC ACID 1 MG TABLET PO (08:24)
[2019-11-24] MEDS: ACETAMINOPHEN 325 MG TABLET 650 MG PO (08:25)
[2019-11-24] MEDS: THIAMINE 100 MG TABLET PO (08:25)
[2019-11-24] MEDS: ENOXAPARIN 40 MG/0.4 ML SYRINGE SUBCUT (08:25)
[2019-11-24] MEDS: predniSONE 20 MG TABLET PO (08:25)
[2019-11-24] MEDS: MAGNESIUM HYDROXIDE 30 ML UDC PO (08:25)
[2019-11-24] MEDS: AMIODARONE 200 MG TABLET PO (08:27)
--- NOTE | 2019-11-24 08:50 | OT.IPNOTE ---
Pt still intubated, hold from OT eval.
--- NOTE | 2019-11-24 09:29 | RT ---
WEANING TRIAL INITIATED PER DOCTOR'S ORDER patient placed on wean at 0920 5/5 and 35% Fio2 CHRIS Bustillos called me up to start the wean patient is more awake
[2019-11-24] MEDS: INSULIN GLARGINE 100 UNIT/ML 3ML PEN 20 UNIT SUBCUT ×2 (09:50→21:00)
--- NOTE | 2019-11-24 10:22 | PC.NURSE ---
Addendum entered by Apollo Coyle R.N. 11/24/19 14:22: 1340- Pt has been impulsive, anxious, agitated. Has been incontinent of stool x2. Reviewed with Dr. Wynne on rounds and Dr. Wynne states removal of cook catheter may be helpful. DC'd cook at 1400. Post cook dc, pt remains anxious, impulsive, irritable. HR 140s. HTN. 1420 Pt failed nursing bedside swallow. HR remains 140s Afib. BP 181/88. Called to Dr. Wynne and requested clarification of orders for PO toprol. Dr. Wynne states she will order IV lopressor. Addendum entered by Apollo Coyle R.N. 11/24/19 14:11: 1220- Called to Dr. Wynne. Reviewed pt assessment (see chart). Pt does not consistently follow commands. Intermittently somnolent; however doing well on CPAP trial. Requested Dr. Wynne to assess pt at bedside. Pt is noted to be anxious, irritable, agitated. Frequent thrashing in bed. Attempting to remove ETT. RT to bedside. VORB to extubate pt. Pt was extubated to bipap at 1225. Does not initially cough to command but is bringing hands up towards bipap. Afib RVR 150s. HTN. Dr. Wynne aware and states she will put in orders. Original Note: Sedation titrated to off at 0825. Pt is drowsy but attempting to open eyes and follow commands initially. Remains drowsy but able to open eyes briefly and follow simple commands with some delay. RT at bedside began SBT at 0920 35% FIO2 5/5. Pt tolerating well. Discussed with Dr. Wynne on team rounds at 0945. Reported pt tolerating CPAP trial, still drowsy but responsive and following commands. Maintaining SPO2 92-94% with RR 18-21. Dr. Wynne gave verbal order to obtain ABG in 10 minutes and plan for potential extubation pending ABG results. ABG obtained by RT and reported to Dr. Wynne. Instruction received to continue CPAP trial and obtain another ABG ~ an hour. RT increased FIO2 to 40%. Pt remains drowsy but following directions and briefly opening eyes to command. VSS. Afib 90s-110 on bedside monitor. Maintaining soft wrist restraints for airway/line protection.
[2019-11-24 10:51] LABS: Fractionated Inspired Oxygen 35; HCO3 ABG 31 mmol/L (22-26); Oxygen Saturation ABG 90 % (95-100); PO2 ABG 58 mmHg (80-100); TCO2 ABG 32 mmol/L (21-31); pH ABG 7.43 (7.35-7.45)
--- NOTE | 2019-11-24 11:59 | DIET.PN ---
Dietary Progress Note Assessment: 79y M admitted for radicular back pain and hypotension who was intubated s/p surgery for respiratory distress referred to nutrition for intubation status. Pt was on ventilator for 3d, is currently on sedation vacation, will be seen by SLT once less drowsy for bedside swallow evaluation. Pt receiving some kcals from dextrose and propafol, however, pts BG have been a bit erratic c several >200 despite NPO status. Provided pt [employer] TF this AM, received 11g in am and 11g prior to OG being pulled. HT: 170.1cm WT: 94.5kg UBW: not on file BMI: 32.6 Labs: Cr 0.64 L Nutrition Diagnosis: inadequate protein energy intake r/t inability to consume POs aeb pt NPO on ventilator x3d, pt on sedation vacation but too drowsy to consume POs. Interventions: 1. Will start pt on appropriate diet per SLT once safe to do so including ONS if POs below 75% EER. Diet Order: NPO EER: 2,300kcal (25g/kg), 95g PRO (1g/kg per post-surgical) Monitoring/Evaluations: following for SLT report once appropriate, following BGs
[2019-11-24] MEDS: ALBUTEROL 2.5 MG/3 ML NEB (ADULT) INH (12:30)
--- NOTE | 2019-11-24 12:38 | PT-IP ANOTE ---
Pt is currently still intubated and hold for PT. and D/C order until pt is medically stable.
--- NOTE | 2019-11-24 12:41 | OT.IPNOTE ---
Discharge OT orders until pt is medically appropriate to be seen.
[2019-11-24] MEDS: INSULIN ASPART 100 UNIT/ML INSULN PEN SUBCUT ×2 (13:32→18:48)
--- NOTE | 2019-11-24 13:32 | PM.PN.1 ---
Subjective Subjective Date Patient Seen: 11/24/19 Interval history: Patient was successfully extubated earlier today. He is now on BiPAP. Patient has known obstructive sleep apnea. In addition he very likely has obesity hypoventilation syndrome. Respiratory therapy has recommended trilogy, and would recommend evaluation while in the hospital to initiate trilogy therapy here in the hospital. He is somewhat lethargic but arousable. He had significant secretions requiring multiple suctioning. He is now on BiPAP maintaining his oxygenation well. He denies pain at this time. Exam Vital Signs (past 8 hours): - 11/24/19 06:00 11/24/19 07:00 11/24/19 08:00 Temperature 97.6 F Pulse Rate 86 85 88 Respiratory Rate 12 12 11 L Blood Pressure 84/51 L 122/56 L 111/82 Pulse Oximetry 95 97 97 11/24/19 09:00 11/24/19 09:22 11/24/19 10:00 Temperature Pulse Rate 93 H 114 H Respiratory Rate 17 21 Blood Pressure 125/68 121/69 Pulse Oximetry 95 93 94 11/24/19 11:00 11/24/19 11:50 11/24/19 12:16 Temperature Pulse Rate 104 H 146 H Respiratory Rate 11 L 31 H Blood Pressure 136/72 163/77 H Pulse Oximetry 94 97 94 11/24/19 12:33 Temperature Pulse Rate Respiratory Rate Blood Pressure 163/77 H Pulse Oximetry Fraction of Inspired Oxygen 60 Oxygen Delivery Method Mechanical Ventilation Oxygen Flow Rate 35 Narrative Exam Narrative: Pleasant obese male in no obvious distress Lungs: Decreased breath sounds without rhonchi crackles or wheeze Cardiac exam: Tachycardic irregularly irregular normal S1-S2 Abdomen: Obese, soft, nontender, nondistended Extremities: No edema Objective Labs Result Diagrams: 11/24/19 04:35 11/24/19 04:35 Labs: Laboratory Results - last 24 hr 11/23/19 11/24/19 11/24/19 14:13 04:35 04:35 WBC 7.3 RBC 3.79 L Hgb 11.5 L Hct 34.5 L MCV 90.9 MCH 30.4 MCHC 33.4 RDW 14.0 Plt Count 150 Neut % (Auto) 73.2 Lymph % (Auto) 18.1 L [place] % (Auto) 7.1 Eos % (Auto) 1.2 L Baso % (Auto) 0.4 Neut # (Auto) 5300 Lymph # (Auto) 1300 [place] # (Auto) 500 Eos # (Auto) 100 Baso # (Auto) 0 ABG pH 7.45 ABG pCO2 42.4 ABG pO2 80 ABG HCO3 29 H ABG Total CO2 30 ABG O2 Saturation 96 ABG Base Excess 5.0 H FiO2 35 Sodium 138 Potassium 3.9 Chloride 101 Carbon Dioxide 33 H BUN 13 Creatinine 0.64 L Estimated GFR > 60.0 BUN/Creatinine Ratio 20.3 Glucose 108 Calcium 8.2 L Phosphorus 2.9 D Magnesium 1.8 Total Bilirubin 0.7 AST 28 ALT 28 Alkaline Phosphatase 54 NT-Pro-B Natriuret Pep 523 H Total Protein 5.7 L Albumin 2.9 L Globulin 2.8 Albumin/Globulin Ratio 1.0 11/24/19 10:10 WBC RBC Hgb Hct MCV MCH MCHC RDW Plt Count Neut % (Auto) Lymph % (Auto) [place] % (Auto) Eos % (Auto) Baso % (Auto) Neut # (Auto) Lymph # (Auto) [place] # (Auto) Eos # (Auto) Baso # (Auto) ABG pH 7.43 ABG pCO2 47.0 H ABG pO2 58 L ABG HCO3 31 H ABG Total CO2 32 H ABG O2 Saturation 90 L ABG Base Excess 7.0 H FiO2 35 Sodium Potassium Chloride Carbon Dioxide BUN Creatinine Estimated GFR BUN/Creatinine Ratio Glucose Calcium Phosphorus Magnesium Total Bilirubin AST ALT Alkaline Phosphatase NT-Pro-B Natriuret Pep Total Protein Albumin Globulin Albumin/Globulin Ratio Assessment & Plan Assessment & Plan narrative: Assessment & Plan narrative: 1. Acute respiratory failure -patient remains intubated -chest x-ray reveals no infiltrate but rather bilateral atelectasis -patient successfully extubated -continue BiPAP for now -consult respiratory for trilogy therapy -propofol discontinued, Ativan use intermittently only if needed -patient has underlying obstructive sleep apnea, and likely obesity hypoventilation, he will require respiratory support at discharge and will likely need BiPAP/CPAP during his hospital stay -ABDPH 7.45, PCO 41, PO2 84, HCO3 28.2, Saturation 97% post extubation ( 1 hour of bipap) 2. Atrial fibrillation with rapid ventricular rate, improving -Dr. Willingham, cardiology, has been consulted regarding new postoperative atrial fibrillation. Thinks that etiology secondary to surgery and will spontaneously resolve. Secondary to postoperative hypertension, amiodarone used for rhythm control, Dr. Willingham recommended continued amiodarone drip and titrated metoprolol for rate control as blood pressure allows. Dr. Willingham okay with rapid ventricular rate in the acute setting due to neurosurgery. -Echo on 11/21/19, left ventricular ejection fraction 50%, left atrial enlargement noted, mild right usual enlargement right ventricular function within normal limits -continue oral amiodarone, defer anticoagulation at this time, -will start metoprolol given elevated heart rate and blood pressure. This was a prior medication. No further hypotension during the hospital stay 3. Delirium tremens -patient with an extensive history of alcohol use -CIWA protocol initially -propofol discontinued, would only use Ativan is needed intermittently. -consider Librium if withdrawal is a concern 4. -Status post L5-S1 spinal fusion, laminectomy, and facetectomies as well as L4-L5 hemilaminectomy and microdiskectomy on 11/20/2019 -pain medication per surgery 5. Post-intubation hypotension, acute, now resolved -Pressor support required (phenylephrine and vasopressin) at time of intubation. Blood pressure improved 6. Hypomagnesemia, resolved status 2 g bolus x 2 on 11/21/19 -1.3 on 11/21/19 --> 1.9 on 11/22/19 PLAN: Will trend labs. 7. Hypophosphatemia -1.4 on 11/22/19 PLAN: KPhos 15 mmol IV replacement this morning, will recheck afternoon labs and replete again if needed. 8. Dehydration, moderate, resolved. PLAN: Maintenance IVF D5 1/2 NS + 20 KCl. 9. Acute protein calorie malnutrition -Albumin 3.5 on 11/21/19 --> 3.0 on 11/22/19 -NPO x 3 days, intubated x 1 day. -Increased risk for delayed healing from surgery. PLAN: Nutrition consult, speech consult given recent intubation, advance diet per speech 10. 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 PLAN: Treating underlying conditions. PT/OT when patient again able. Will need rehab program as outpatient with emphasis on weight loss and exercise. 11. Hypertension, chronic -Hypotensive postoperatively and post-intubation. PLAN: Will continue to hold home losartan. Titrating metoprolol as noted above. 12. Type 2 diabetes. PLAN: Continue insulin glargine 20 b.i.d. and sliding scale. Will titrate glargine based on blood sugar given acute postoperative state goal will be to tight blood sugar control Dextrose in IV fluids discontinued 13. Polymyalgia rheumatica. PLAN: Continue prednisone 20 mg daily, wean as an outpatient. 14. BPH PLAN: holding oral medicine. 15. History of CVA, stable 16. History of [place], no recurrence -Serial EKGs show no new ST changes. -Troponin I negative. Patient managed by the Hospitalist team for Vent Management, Dr. Pitts/Partner to resume care in AM
--- NOTE | 2019-11-24 14:10 | DI.RAD.S_ITS ---
PROCEDURE: XR CHEST 1V INDICATIONS: INTUBATED TECHNIQUE: One view of the chest was acquired. COMPARISON: [facility], CR, XR CHEST 1V, 11/23/2019, 11:36. FINDINGS: Surgical changes and devices: Endotracheal tube tip is above the antoinette. Nasogastric tube tip is below the level of the film. Lungs and pleura: Lung volumes are low. There are bibasilar opacities and possible small bilateral effusions. No pneumothorax. Mediastinum: Mediastinal contours appear normal. Heart is partially obscured by the bibasilar opacity is, probably enlarged, but grossly stable compared to the prior day's study. Bones and chest wall: No suspicious bony lesions. Overlying soft tissues appear unremarkable. IMPRESSION: 1. Support tubes in adequate position. 2. Low lung volumes with bibasilar opacities, probably atelectasis and possible small bilateral effusions. Dictated by: Scarlet Ricks M.D. on 11/24/2019 at 8:27 Approved by: Scarlet Ricks M.D. on 11/24/2019 at 8:29
[2019-11-24 14:26] LABS: Fractionated Inspired Oxygen 40; HCO3 ABG 28 mmol/L (22-26); Oxygen Saturation ABG 97 % (95-100); PO2 ABG 84 mmHg (80-100); TCO2 ABG 29 mmol/L (21-31); pH ABG 7.45 (7.35-7.45)
--- NOTE | 2019-11-24 14:42 | SLP.IPNOTE ---
ST received orders and reviewed chart. This MANAGER STORY spoke with nursing who reported that patient was recently extubated but not appropriate to be seen for swallow evaluation at this time. Will re-attempt as able. Lola Corona MS, CF-MANAGER STORY
[2019-11-24] MEDS: METOPROLOL TARTRATE 5 MG/5 ML INJ IV ×2 (14:48→18:07)
[2019-11-24] MEDS: MORPHINE 2 MG/ML INJ 1 MG IV ×2 (15:51→20:21)
[2019-11-24] MEDS: LORazepam 2 MG/ML INJ 1 MG IV (18:11)
[2019-11-24] MEDS: ALBUTEROL/IPRATROPIUM 3 ML AMPUL INH (19:28)
[2019-11-24] MEDS: MORPHINE 2 MG/ML INJ IV (22:38)
[2019-11-25] VITALS (45 sets, daily range): BP systolic 143–200; BP diastolic 81–177; PULSE 93–141; RESP 11–41; TEMP 31–37.9; O2SAT 92–100
[2019-11-25] MEDS: ALBUTEROL 2.5 MG/3 ML NEB (ADULT) INH (00:11)
[2019-11-25] MEDS: MORPHINE 2 MG/ML INJ IV ×4 (00:54→16:56)
[2019-11-25] MEDS: KCL 20 MEQ IN NS 1,000 ML 84 MEQ IV (01:04)
--- NOTE | 2019-11-25 01:41 | PC.NURSE ---
Addendum entered by Francine Carroll R.N. 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 At 2400 FSBG was 73, administered 1 packet of honey, recheck of FSBG is now 103. Pt current BIPAP setting is 16/8 30%, pt continues to be able to make needs known by squeezing staff hands in response to yes/no questions. Currently pt is resting in bed with eyes closed, HR is 112, BP 198/87, O2 94%, will continue to treat and monitor as ordered. Original Note: Evening shift note Pt lying in bed with eyes closed, extubated today at 1225 pt placed on BIPAP settings 16/6 40% sat at 95%. Pt anxious, impulsive and agitated, thrashes in bed and pulls the BIPAP tube off. Current IVF NS/KCL 20meq infusing at 84mL/hr. Pt able to make some needs known by squeezing hand in answer to yes/no questions. Pt failed nursing swallow test for dayshift and this nurse, only rate control medication for AFib CVR/RVR is metoprolol IV, amlodipine medication is PO. Dr. Wynne states to use metoprolol prn for rate control. Unable to use PO pain medications for pain control, will ask for morphine to be given at 2mg(instead of the 1mg) Q 2hr. Ativan 1mg remains prn for agitation. Reza catheter discontinued today, pt is currently incontinent of stool and urine, will place a condom catheter to prevent skin breakdown from frequent brief changes. Pt has required pain medications Q2 hour as he is able to indicate he is in pain. He has required 1 dose of Metoprolol for BP of 190/110. Dressing to back was changed during dayshift today and is CDI. Bed low and locked, call light within reach, will continue to monitor.
[2019-11-25] MEDS: LORazepam 2 MG/ML INJ 1 MG IV ×2 (02:37→18:28)
[2019-11-25] MEDS: METOPROLOL TARTRATE 5 MG/5 ML INJ IV ×4 (04:09→16:40)
[2019-11-25 04:32] LABS: Add Manual Diff / Slide Review NO; Basophils Absolute Auto 0 /uL (0-100); Basophils Percent Auto 0.4 % (0-2); Eosinophils Absolute Auto 200 /uL (0-450); Eosinophils Percent Auto 2.6 % (2-4); Hematocrit 35.5 % (41-53); Hemoglobin 11.8 g/dL (13.5-17.5); Lymphocytes Absolute Auto 1100 /uL (1100-4500); Lymphocytes Percent Auto 16.2 % (25-40); Mean Corpuscular HGB Conc 33.2 % (30-36); Mean Corpuscular Hemoglobin 30.4 PG (26-34); Mean Corpuscular Volume 91.4 fL (80-100); Monocytes Absolute Auto 600 /uL (0-900); Monocytes Percent Auto 8.1 % (3-14); Neutrophils Absolute Auto 5000 /uL (1500-7000); Neutrophils Percent Auto 72.7 % (50-75); Platelet Count 193 X10^3/uL (150-400); Red Blood Cell Count 3.88 X10^6/uL (4.5-5.9); Red Cell Distribution Width 13.8 % (11.6-14.8); White Blood Cell Count 6.9 X10^3/uL (4.5-11.0)
[2019-11-25 04:35] LABS: Alanine Aminotransferase 35 IU/L (<50); Albumin 3.2 g/dL (3.5-5.0); Albumin Globulin Ratio 1.1 (1.0-2.8); Alkaline Phosphatase 60 U/L (38-126); Aspartate Aminotransferase 33 IU/L (17-59); BUN Creatinine Ratio 18.8 (6-22); Bilirubin Total 0.6 mg/dL (0.2-1.3); Blood Urea Nitrogen 13 mg/dL (9-20); Calcium 8.7 mg/dL (8.4-10.2); Carbon Dioxide 35 mmol/L (22-32); Chloride 101 mmol/L (98-107); Estimated Glomerular Filt Rate > 60.0 mL/min (>60); Globulin 2.9 g/dL (1.7-4.1); Glucose 63 mg/dL (80-110); HEMOLYSIS < 15 (0-50); Magnesium 1.9 mg/dL (1.6-2.3); Phosphorous 3.1 mg/dL (2.3-3.7); Sodium 137 mmol/L (137-145); Total Protein 6.1 g/dL (6.3-8.2)
[2019-11-25 04:44] LABS: NT-proBNP (BNP-Adult 18+) 1630 pg/mL (<450)
[2019-11-25] MEDS: ALBUTEROL/IPRATROPIUM 3 ML AMPUL INH ×3 (06:00→18:52)
--- NOTE | 2019-11-25 06:41 | PC.NURSE ---
Pt with signs of pain, Flacc score of 6-7/10, medicated with Morphine X2.
[2019-11-25] MEDS: ENOXAPARIN 40 MG/0.4 ML SYRINGE SUBCUT (08:27)
--- NOTE | 2019-11-25 08:55 | P.PN_ITS ---
Exam Vital Signs (past 8 hours): - 11/25/19 02:00 11/25/19 02:56 11/25/19 03:06 Temperature Pulse Rate 117 H 117 H Respiratory Rate 22 24 Blood Pressure 195/91 H 198/87 H 198/87 H Pulse Oximetry 95 11/25/19 04:00 11/25/19 06:00 11/25/19 06:30 Temperature Pulse Rate 93 H 103 H Respiratory Rate 23 27 H Blood Pressure 162/87 H 162/87 H 194/86 H Pulse Oximetry 92 93 11/25/19 08:00 Temperature 97.6 F Pulse Rate 129 H Respiratory Rate 24 Blood Pressure 164/84 H Pulse Oximetry 94 Fraction of Inspired Oxygen 0.3 Oxygen Delivery Method BiPAP Oxygen Flow Rate 35 Objective Labs Result Diagrams: 11/25/19 04:10 11/25/19 04:10 Labs: Laboratory Results - last 24 hr 11/24/19 11/24/19 11/25/19 10:10 13:31 04:10 WBC 6.9 RBC 3.88 L Hgb 11.8 L Hct 35.5 L MCV 91.4 MCH 30.4 MCHC 33.2 RDW 13.8 Plt Count 193 Neut % (Auto) 72.7 Lymph % (Auto) 16.2 L [place] % (Auto) 8.1 Eos % (Auto) 2.6 Baso % (Auto) 0.4 Neut # (Auto) 5000 Lymph # (Auto) 1100 [place] # (Auto) 600 Eos # (Auto) 200 Baso # (Auto) 0 ABG pH 7.43 7.45 ABG pCO2 47.0 H 41.0 ABG pO2 58 L 84 ABG HCO3 31 H 28 H ABG Total CO2 32 H 29 ABG O2 Saturation 90 L 97 ABG Base Excess 7.0 H 4.0 H FiO2 35 40 Sodium Potassium Chloride Carbon Dioxide BUN Creatinine Estimated GFR BUN/Creatinine Ratio Glucose Calcium Phosphorus Magnesium Total Bilirubin AST ALT Alkaline Phosphatase NT-Pro-B Natriuret Pep Total Protein Albumin Globulin Albumin/Globulin Ratio 11/25/19 04:10 WBC RBC Hgb Hct MCV MCH MCHC RDW Plt Count Neut % (Auto) Lymph % (Auto) [place] % (Auto) Eos % (Auto) Baso % (Auto) Neut # (Auto) Lymph # (Auto) [place] # (Auto) Eos # (Auto) Baso # (Auto) ABG pH ABG pCO2 ABG pO2 ABG HCO3 ABG Total CO2 ABG O2 Saturation ABG Base Excess FiO2 Sodium 137 Potassium 4.0 Chloride 101 Carbon Dioxide 35 H BUN 13 Creatinine 0.69 Estimated GFR > 60.0 BUN/Creatinine Ratio 18.8 Glucose 63 L Calcium 8.7 Phosphorus 3.1 Magnesium 1.9 Total Bilirubin 0.6 AST 33 ALT 35 Alkaline Phosphatase 60 NT-Pro-B Natriuret Pep 1630 H Total Protein 6.1 L Albumin 3.2 L Globulin 2.9 Albumin/Globulin Ratio 1.1 Assessment & Plan Assessment & Plan narrative: Patient seen and examined. Patient is POD#5 s/p L5-S1 TLIF and L4-5 microdiscectomy. Patient was intubated on POD#2 for worsening mental status and respiratory status. Patient was extubated yesterday currently on CPAP for ventilation and O2 Sat 99% during exam. Patient's dressing is clean dry intact. Per ICU nurse, patient will move his bilateral upper and lower extremities when able to be aroused on verbal command. Patient will follow command to move appropriate limbs when asked to do so, when able to be aroused. Patient is not responding to my verbal command this AM. Currently managed medically by medicine and his PCP, Dr. Gallo. He is placed on Lovenox 40mg SQ q day after our discussing for DVT prophalaxis. I will continue to follow his progress. He may mobilize and perform PT as tolerated from spine surgery perspective.
--- NOTE | 2019-11-25 10:31 | SLP.IPNOTE ---
Called nursing to see if pt's condition had improved. Nursing reported pt not alert enough for assessment Will try later.
[2019-11-25 10:56] LABS: Fractionated Inspired Oxygen 32; HCO3 ABG 31 mmol/L (22-26); Oxygen Saturation ABG 94 % (95-100); PCO2 ABG 47.8 mmHg (35-45); PO2 ABG 69 mmHg (80-100); TCO2 ABG 32 mmol/L (21-31); pH ABG 7.42 (7.35-7.45)
--- NOTE | 2019-11-25 12:10 | SLP.IPNOTE ---
Second attempt to see pt for swallowing evaluation. Pt was seated in bedside chair via franky lift. Pt was very somnolent. Pt's in his room. Attempted to arouse pt to open eyes with cool cloth face wipe, but was unsuccessful. No swallow eval was conducted due to pt's current status. Continue NPO
[2019-11-25] MEDS: DEXTROSE 50 % IN WATER 25 GM/50 ML SYRINGE (13:10)
--- NOTE | 2019-11-25 14:05 | DI.RAD.S_ITS ---
PROCEDURE: XR CHEST 1V INDICATIONS: hypoxemia TECHNIQUE: One view of the chest was acquired. COMPARISON: [facility], CR, XR CHEST 1V, 11/24/2019, 5:32. [facility], CR, XR CHEST 1V, 11/23/2019, 11:36. FINDINGS: Surgical changes and devices: None. Lungs and pleura: Lungs are clear. No pleural effusions or pneumothorax. Mediastinum: Mediastinal contours appear normal. Heart size is normal. Bones and chest wall: No suspicious bony lesions. Overlying soft tissues appear unremarkable. IMPRESSION: Prominent reduced inspiratory volume, previously the case also. This causes crowding of the bronchovascular markings. Mild pulmonary edema could be obscured. Heart size is not accurately assessed due to the degree of reduced inspiration but definite cardiomegaly is not seen. Dictated by: Brennon Fatima M.D. on 11/25/2019 at 15:45 Approved by: Brennon Fatima M.D. on 11/25/2019 at 15:45
[2019-11-25] MEDS: DEXTROSE 5%-NS W/KCL 20MEQ 1,000 ML 84 MEQ IV (14:28)
--- NOTE | 2019-11-25 16:34 | CM.DPC ---
DCP continued: EMR reviewed: CM/Rn met with patients at the bedside and explained role. patient was on bipap and was not alert or oriented. Patients current Dunbar coma scale total is 12. Patients and CM/Rn discussed patients condition at length and discussed patients about alcohol withdrawal. Patients states he usually drinks 3 to 5 drinks a day, usually wine and has for many years. Cm/Rn discussed D/C planning options. CM/RN explained Home with HH options as well as a SNF option. Patients would preferred to take the patient home at D/c with HH but states it will depend on how mobile he is at D/C. Patients stated if he is able to ambulate and transfer with little to no assistance that she will want to take him home but if he need more help then a SNF would be needed at that time. Cm/Rn explained that the patient progresses will make a big difference in his treatment and D/C planning. Patients is okay with the CM looking at SNF options now for possible admission acceptances for when the patient is ready. When asked about what would be the preferred facility patients stated she would prefer [facility]. CM/Rn called Alea at [facility] at [phone] and asked her to review patient for possible admission. Cm/RN will follow up with [facility] tomorrow to see about possible admission. CM will also follow up with patients to get preferred HH option as well. CM department will continue to follow that patient to assist with D/C planning as he gets closer to D/C. Echo Tejada RN
--- NOTE | 2019-11-25 18:48 | PM.PN.1 ---
Subjective Subjective Date Patient Seen: 11/25/19 Time Patient Seen: 18:48 Interval history: 70 minutes is spent with patient at bedside and on the floor with evaluating him and evaluating his history as well as consulting with pharmacy and Cardiology and Internal Medicine. This is a new patient to me. He is under the primary care of Dr. Gallo admitted by Dr. Gallo. He was brought in for a laminectomy and surgical spine surgery and postoperatively had atrial fibrillation with RVR and ended at due to difficulty hemodynamically and from a respiratory standpoint he ended up being intubated at approximately 9:00 p.m. on SaturdayNovember 20. He was extubated yesterday and put on BiPAP. He has been on BiPAP since then however was up in chair today on 3 L of nasal cannula oxygen. He has been on oral prednisone and oral amlodipine and has not received this for the last 24 hours because he does not have OG tube and is npo because of somnolence. He was intubated and on IV lorazepam drip for 3 days. Patient is currently able to respond to commands and answer questions from nurse. He has complained of pain in his back and asked for meds and having conversations. Reviewed past medical history, medications, allergies, past surgical history Review of systems: 8 bowel movements yesterday. Guaiac negative. This was related to no bowel movement prior to this and doing bowel care through the OG tube prior to this. He has not had any p.o. intake. He has been on normal saline. Exam Vital Signs (past 8 hours): - 11/25/19 12:00 11/25/19 12:20 11/25/19 14:00 Temperature 97.5 F L Pulse Rate 116 H 117 H 111 H Respiratory Rate 26 H 24 23 Blood Pressure 169/81 H 172/96 H Pulse Oximetry 96 93 95 11/25/19 14:57 11/25/19 16:00 11/25/19 18:00 Temperature 97.8 F 100.3 F H Pulse Rate 101 H 112 H Respiratory Rate 16 24 Blood Pressure 172/96 H 174/99 H 143/103 H Pulse Oximetry 98 96 11/25/19 18:27 Temperature Pulse Rate Respiratory Rate Blood Pressure 200/127 H Pulse Oximetry Fraction of Inspired Oxygen 45 Oxygen Delivery Method Nasal Cannula Oxygen Flow Rate 0 Narrative Exam Narrative: Patient is writhing in pain he appears uncomfortable. He is somnolent but able to follow commands. He has BiPAP in place. Blood pressures ranging from 160-200/140s. Heart rate 100s to 140s. Review blood gas and O2 sats. HEENT unremarkable other than BiPAP in place Neck: Large, no jugular venous distension, no bruit but difficult to auscultate due to BiPAP Chest: Decreased breath sounds bilateral bases but no wheezes no rhonchi Cor: Irregularly irregular rhythm at a rate of 120 Abdomen obese, protuberant, positive bowel sounds, no guarding Extremities: No edema, pulses intact. He moves his extremities purposefully and follows commands and no focal neurologic deficit Skin no rashes Objective Labs Result Diagrams: 11/25/19 04:10 11/25/19 04:10 Labs: Laboratory Results - last 24 hr 11/25/19 11/25/19 11/25/19 04:10 04:10 10:45 WBC 6.9 RBC 3.88 L Hgb 11.8 L Hct 35.5 L MCV 91.4 MCH 30.4 MCHC 33.2 RDW 13.8 Plt Count 193 Neut % (Auto) 72.7 Lymph % (Auto) 16.2 L [place] % (Auto) 8.1 Eos % (Auto) 2.6 Baso % (Auto) 0.4 Neut # (Auto) 5000 Lymph # (Auto) 1100 [place] # (Auto) 600 Eos # (Auto) 200 Baso # (Auto) 0 ABG pH 7.42 ABG pCO2 47.8 H ABG pO2 69 L ABG HCO3 31 H ABG Total CO2 32 H ABG O2 Saturation 94 L ABG Base Excess 6.0 H FiO2 32 Sodium 137 Potassium 4.0 Chloride 101 Carbon Dioxide 35 H BUN 13 Creatinine 0.69 Estimated GFR > 60.0 BUN/Creatinine Ratio 18.8 Glucose 63 L Calcium 8.7 Phosphorus 3.1 Magnesium 1.9 Total Bilirubin 0.6 AST 33 ALT 35 Alkaline Phosphatase 60 NT-Pro-B Natriuret Pep 1630 H Total Protein 6.1 L Albumin 3.2 L Globulin 2.9 Albumin/Globulin Ratio 1.1 Assessment & Plan Assessment & Plan narrative: 79-year-old male who had underwent laminectomy and cage placement as well as hemilaminectomy and developed postoperative atrial fibrillation with RVR Assessment 1. Atrial fibrillation with RVR Plan: He has been out his amiodarone for about 24 hours and is having an increase in his heart rate as well as his blood pressure. I did discuss with Dr. archuleta know who is on-call for Dr. Rosas was previously the case was discussed with. We will give a trial of diltiazem 10 mg IV and if he responds well to this will place him on a diltiazem drip. Thus far today and yesterday we have been giving as needed IV metoprolol. Reviewed his echo previously CK and troponins have been negative Assessment 2. Acute respiratory failure suspect multifactorial related to obstructive sleep apnea with cor compliance with CPAP and really need to intubate due to cardiovascular issues. He is extubated and continues to maintain oxygenation but still needs BiPAP. His ABG today showed mild CO2 retention. We will continue currently with BiPAP and continue with respiratory therapy and reviewed chest x-ray ordered today which is not a very good x-ray and not giving good information. We will continue to monitor for fluid overload and pulmonary edema. We will do a BNP in the morning. At this point there is no evidence of infection. We will monitor closely for this. Assessment 3. Infectious disease plan temperature 100?. Right now we will go ahead and do Tylenol. We will monitor. We will recheck labs in the morning. If he does have a fever of 100.4 or higher we will do blood cultures and urine culture as well as repeat chest x-ray. Assessment 4. Status post spine surgery Plan: Wound care per Ortho. PT when able. Will control pain with morphine. Assessment 5. 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 DVT prophylaxis Plan: Continue on Lovenox Assessment 7.: Type 2 diabetes currently on Lantus and receiving nothing by mouth and no IV nutrition with blood sugars in the 60s and 70s Plan: Will hold Lantus. Will continue sliding scale insulin. Will continue with blood sugar checks. Will add D5 carefully to his IV fluids. Will continue to monitor. Assessment 8. History of hypo magnesemia Plan: Will check magnesium with his next labs Assessment 9. Obstructive sleep apnea Plan: Continue BiPAP Assessment 10. Fluid electrolyte nutrition. If patient is not able to take p.o. tomorrow he will likely need TPN. At this point we will do D5 normal saline with potassium will recheck labs in the morning. Time Spent With Patient Time with patient: Greater than 35 minutes
[2019-11-25] MEDS: dilTIAZem 5 MG/ML SDV 10 MG IV (19:06)
[2019-11-25] MEDS: MORPHINE 4 MG/ML INJ 3 MG IV (19:56)
[2019-11-25] MEDS: ACETAMINOPHEN 650 MG SUPP PR (19:57)
[2019-11-25] MEDS: DILTIAZEM 125 MG/125 ML PIGGYBACK IV (20:51)
--- NOTE | 2019-11-25 21:16 | DI.RAD.S_ITS ---
PROCEDURE: XR CHEST 1V INDICATIONS: fever TECHNIQUE: One view of the chest was acquired. COMPARISON: [facility], CR, XR CHEST 1V, 11/25/2019, 15:27. FINDINGS: Surgical changes and devices: None. Lungs and pleura: Lungs are difficult to accurately assess due to prominently reduced inspiratory volume, somewhat greater on the right than the left.. No pleural effusions or pneumothorax. Mediastinum: Mediastinal contours appear normal. Heart size is normal. Bones and chest wall: No suspicious bony lesions. Overlying soft tissues appear unremarkable. IMPRESSION: Prominently reduced inspiratory volume, no definite acute disease when this is taken into account. However, pneumonia at either lung base could be easily obscured by the reduced inspiratory volume. Two view chest may be warranted. Alternatively, noncontrast CT could be obtained. Dictated by: Brennon Fatima M.D. on 11/26/2019 at 8:21 Approved by: Brennon Fatima M.D. on 11/26/2019 at 8:24
--- NOTE | 2019-11-25 21:19 | P.PN_ITS ---
Subjective Subjective Date Patient Seen: 11/25/19 Time Patient Seen: 20:05 Interval history: Mr. Octavio Salmon this is a 79-year-old male patient with a past medical history significant for back pain, insulin-dependent type 2 diabetes, hypertension, GERD, hyperlipidemia and polymyalgia rheumatica who is postop day 5 following L5-S1 TLIF and L4-5 micro diskectomy. Patient's surgery was uncomplicated however his postoperative course has been complicated by developm ent of atrial fibrillation with RVR treated with amiodarone and alcohol withdrawals and placed on CIWA protocol. Patient's respiratory status deteriorated likely secondary to his obesity and hypoventilation syndrome in the setting of obstructive sleep apnea and sedation with Ativan prompting the need for intubation. At that time the hospitalist team was asked to consult to assist with ventilation management. The patient was extubate on 11/24/2019 and is now on BiPAP ventilatory support with goal of resumption of care by primary team. At the time evaluation the patient is laying in bed on BiPAP support response to tactile stimulation with a history of difficulty hearing. The patient continues to be stuporous today to the extent that speech therapy could not perform a swallow evaluation the patient remains NPO. He was transfer to a chair via Senait lift. He was taken off BiPAP while in the chair placed on nasal cannula oxygen at 3 liters/minute maintaining adequate oxygenation. On morning labs the patient's CBC remains stable. Electrolytes are within normal range with potassium 4.0 and magnesium 1.9. Of note is glucose is 63 and had been receiving his Lantus without nutritional support since extubation and removal of the OG tube. He also has an elevated proBNP at 1630. Albumin is further decreased from 3.5-3.2. He has been hypertensive through the day with increasing heart rate has not received his oral dose of amiodarone due to swallowing impairment. Exam Vital Signs (past 8 hours): - 11/25/19 14:00 11/25/19 14:57 11/25/19 16:00 Temperature 97.8 F Pulse Rate 111 H 101 H Respiratory Rate 23 16 Blood Pressure 172/96 H 172/96 H 174/99 H Pulse Oximetry 95 98 11/25/19 18:00 11/25/19 18:27 11/25/19 18:52 Temperature 100.3 F H Pulse Rate 112 H Respiratory Rate 24 Blood Pressure 143/103 H 200/127 H 200/129 H Pulse Oximetry 96 11/25/19 18:57 11/25/19 19:06 11/25/19 20:00 Temperature 99.6 F Pulse Rate 103 H 109 H 99 H Respiratory Rate 24 32 H Blood Pressure 181/98 H 200/177 H 199/96 H Pulse Oximetry 94 11/25/19 20:40 Temperature 99.8 F H Pulse Rate Respiratory Rate Blood Pressure Pulse Oximetry Fraction of Inspired Oxygen 45 Oxygen Delivery Method Nasal Cannula Oxygen Flow Rate 0 Narrative Exam Narrative: GENERAL APPEARANCE: well developed, obese male on BiPAP support responsive to tactile and verbal stimulus. HEENT: Normocephalic, PERRLA, conjunctiva clear, BiPAP mask in place, mucous mem branes are pink as visualized NECK/THYROID: neck supple, trachea midline. LYMPH NODES: no cervical or supraclavicular lymphadenopathy. SKIN: [place], warm and dry, the rash over perineum under taper, rash at the inferior margin of the surgical dressing and perirectal area. HEART: Irregularly irregular rhythm, S1-S2, no murmur, no rubs or gallops, brisk capillary refill, trace bilateral lower extremity edema edema LUNGS: Breath sounds diminished bibasilar without coarseness crackles or wheezing, no cough. CHEST: Symmetrical movement, ventilatory support with BiPAP. ABDOMEN: Soft round, nontender to palpation, no organomegaly, hyperactive bowel tones. BACK: Normal curvature, lumbar surgical incisions are clean without redness or drainage. EXTREMITIES: Spontaneous moves all extremities, strength is 4/5 BUE, 3/5 BLE and symmetrical, no deformities or joint effusions. NEUROLOGIC: Responds to tactile and verbal stimulus, no focal or lateralizing neurologic deficits. PSYCH: Restless when stimulated Objective Labs Result Diagrams: 11/25/19 04:10 11/25/19 04:10 Labs: Laboratory Results - last 24 hr 11/25/19 11/25/19 11/25/19 04:10 04:10 10:45 WBC 6.9 RBC 3.88 L Hgb 11.8 L Hct 35.5 L MCV 91.4 MCH 30.4 MCHC 33.2 RDW 13.8 Plt Count 193 Neut % (Auto) 72.7 Lymph % (Auto) 16.2 L [place] % (Auto) 8.1 Eos % (Auto) 2.6 Baso % (Auto) 0.4 Neut # (Auto) 5000 Lymph # (Auto) 1100 [place] # (Auto) 600 Eos # (Auto) 200 Baso # (Auto) 0 ABG pH 7.42 ABG pCO2 47.8 H ABG pO2 69 L ABG HCO3 31 H ABG Total CO2 32 H ABG O2 Saturation 94 L ABG Base Excess 6.0 H FiO2 32 Sodium 137 Potassium 4.0 Chloride 101 Carbon Dioxide 35 H BUN 13 Creatinine 0.69 Estimated GFR > 60.0 BUN/Creatinine Ratio 18.8 Glucose 63 L Calcium 8.7 Phosphorus 3.1 Magnesium 1.9 Total Bilirubin 0.6 AST 33 ALT 35 Alkaline Phosphatase 60 NT-Pro-B Natriuret Pep 1630 H Total Protein 6.1 L Albumin 3.2 L Globulin 2.9 Albumin/Globulin Ratio 1.1 Assessment & Plan Assessment & Plan narrative: This is an 9-year-old male patient who is postop day 5 following L5-S1 TLIF and L4-[address] Hansen. Postoperatively the patient developed atrial fibrillation with RVR is admitted to the ICU for problem the patient subse quently developed acute respiratory failure with hypoxia and CO2 retention requiring intubation. The patient has since been extubated on 11/23 and transitioned to BiPAP ventilatory support. 1. Acute respiratory failure, acute, active -the patient remains on BiPAP ventilatory support at 20/8 with an FiO2 of 30% saturating 96%. Patient is arousable with tactile stimulation and intermittently follows commands. -arterial blood gas obtained this morning at 10:45 a.m. reveals a pH of 7.42, pCO2 of 47.8, PO2 of 69, bicarbonate of 31 in base excess of 6 on 32% FiO2. -while intubated the patient received approximately 60 mg of Ativan IV sedation over 17 hour. In addition to 8 mg administered and CIWA protocol on 11/21/2019. -advanced sedation was transitioned to propofol sedation and then subsequently extubated the morning of 11/24/2019 and placed on BiPAP post extubation related to obesity hypoventilation syndrome and JO. -OG tube was removed at the time of extubation and patient failed bedside swallow evaluation. -elevated BNP over last 24 hours rising from 523 to 1630, patient with decreased bibasilar breath sounds and trace peripheral edema. Morning chest x-ray suggest mild pulmonary edema without overt cardiomyopathy. -plan is to continue BiPAP ventilatory support, turn patient every 2 hours, increase mobility, check BMP in the morning and closely monitor for pulmonary infection. 2. Atrial fibrillation with rapid ventricular rate, active -Dr. Willingham, cardiology, initially consulted regarding new postoperative atrial fibrillation and believes that etiology secondary to surgery and will spontaneously resolve. Secondary to postoperative hypertension, amiodarone used for rhythm control, Dr. Willingham recommended continued amiodarone drip and titrated metoprolol for rate control as blood pressure allows. Dr. Willingham okay with rapid ventricular rate in the acute setting due to neurosurgery. -Echo on 11/21/19, left ventricular ejection fraction 50%-55%, left atrial enl argement noted, mild right usual enlargement right ventricular function within normal limits -IV amiodarone transition to p.o. administered through the OG tube. Following discontinue the OG tube the patient has not received amiodarone for approximately 24 hours and manifests return of AFib with rapid ventricular response. -Dr. Guzman has spoken with Dr. Huntley who recommended diltiazem in the setting of hypertension. The patient has received diltiazem 10 mg IV will be started on infusion targeting rate control less than 100. 3. Development of fever, active -the patient developed a temperature of 100.6?. He has not received antibiotic therapy. -patient received Tylenol p.r. -ordered blood cultures, urinalysis and chest x-ray. 4. Delirium tremens, stable -patient with an extensive history of alcohol use and placed on CIWA protocol postoperatively. -of patient received 8 mg of Ativan under CIWA protocol is started on Ativan drip when intubated. The patient subsequently received 60 mg of IV Ativan. -in the setting of large dose of Ativan and have life of 14 hours will hold furt her doses of Ativan. Would recommend Librium should the patient develop further withdrawal symptoms once patient becomes responsive. 5. Postop day #5, status post L5-S1 spinal fusion, laminectomy, and facetectomies as well as L4-L5 hemilaminectomy and microdiskectomy. -evaluation, management per surgery -morphine sulfate 2-3 mg IV every 2 hours as needed. 6. Essential hypertension with post-intubation hypotension, active. -Pressor support required (phenylephrine and vasopressin) at time of intubation. -patient is now hypertensive blood pressure in the 190s to 200s systolic. Patient being started on diltiazem infusion will monitor blood pressure response. -patient has been receiving metoprolol 5 mg IV as needed for heart rate management. -order reduced dose of hydralazine at 5 mg IV every 6 hours for sustained systolic blood pressure greater than 190 or diastolic greater than 100 cons idering the patient's previous hypotension. 7. Type 2 diabetes, insulin-dependent, active -patient takes Lantus at home medication 15 units twice daily. -patient continued receive Lantus without nutritional support after NG tube was discontinued, blood sugar on morning labs was 63. -Dr. jeffery is discontinued Lantus and change IV fluid to D5 NS. -will continue fingerstick glucose checks every 6 hours and treat with correctional insulin medium range. 8. GERD, chronic -patient chronically takes omeprazole at home and is on steroid therapy. -ordered Protonix 40 mg daily. 9. Hypomagnesemia, resolved -magnesium of 1.9 on today's labs. -will continue monitoring electrolyte levels 10. Hypophosphatemia, resolved -phosphate level 3.1 on this morning's labs. -will continue to trend is indicated 11. Left Dehydration, moderate, resolved. -patient with elevated BNP and trace peripheral edema. -IV infusing of D5 NS with 20 mEq of KCl at 84 mL per hour 12. Acute protein calorie malnutrition -low albumin at 3.2 on today's labs. -patient failed bedside swallow evaluation and has been NPO, speech therapy is attempted to perform swallow evaluation but was unable to proceed due to patient's level of somnolence. Patient remains NPO. -Increased risk for delayed healing from surgery. -holding patient's sedation due to persistent long half-life with expectation for increasing responsiveness. -will re-attempt to swallow evaluation if fails may consider need for PPN. 13. Obesity with deconditioning, BMI 32.6 -decreased mobility though out bed today with Senait lift. -patient has developed a rash in his back discussed with nursing in regard to turning patient lateral for both pulmonary and skin therapy. -PT and OT when patient more arousable 14. Polymyalgia rheumatica, chronic -patient's home medication is prednisone 15 mg daily. -patient remains NPO and has not received steroids for over 24 hours. -Dr. Guzman ordered methylprednisolone 40 mg every 12 hours. 15. BPH, chronic. -patient is she spontaneously urinating using initially a diaper and developing skin rash, condom catheter applied with improved hygiene -nystatin topical powder ordered twice daily as needed 16. History of NC, no recurrence -patient remains in atrial fibrillation with the returned RVR lacking control with amiodarone. Patient unable to describe or localized pain well and has elevated BNP. -recheck troponin. 17. History of CVA, stable -no lateralizing symptoms patient moving all extremities. DVT prophylaxis: Enoxaparin 40 mg daily. IV fluid: D5 NS at 84 mL per hour. Diet: NPO Code status: Full code. Thank you for allowing us to participate in the care of this gentleman, we will continue to follow.
[2019-11-25 22:57] LABS: Bacteria Urine None Seen; WBC Urine None Seen (0-5/HPF)
[2019-11-25 23:13] LABS: Appearance Urine UA CLEAR; Bilirubin Urine UA NEGATIVE (NEGATIVE); Color Urine UA YELLOW; Glucose Urine UA NEGATIVE (Negative); Ketones Urine UA NEGATIVE (NEGATIVE); Leukocyte Esterase Urine UA NEGATIVE (NEGATIVE); Nitrite Urine UA NEGATIVE (Negative); Occult Blood Urine UA TRACE-INTACT (Negative); Protein Urine UA NEGATIVE (Negative); Specific Gravity Urine UA 1.015 (1.000-1.035); Urobilinogen Urine UA 0.2 E.U./dL (0.2)
[2019-11-25 23:21] LABS: Culture Indicated Urine Cult Not Indicated; RBC Urine 1-5/HPF (0-5/HPF)
--- NOTE | 2019-11-25 23:29 | PC.NURSE ---
Evening shift note Pt has been able to communicate during this shift, able to move in the bed preferring to be on back no matter where he is placed. Dr. Guzman at bedside, updated on pt status, new orders placed for Dilt gtt to start at 5mL/hr titrate per protocol. Pt able to express pain 5-8/10. Extremely agitated, anxious, and thrashes in bed, pulling at BIPAP tubing. BiPAP currently at 16/8 30% pt sats at 91-94%. IVF infusing as ordered, codom catheter and brief use for incontinence of stool and urine. Pt slightly febrile at 100.5, tylenol sup ordered and administered. Pt has a the rash over perineum under taper, rash at the inferior margin of the surgical dressing and perirectal area, hospitalist Jas Willett, [employer] notified and at bedside to visualize, new orders placed. Bed low and locked, call light within reach, will continue to treat and monitor as ordered until report is given to oncoming NOC shift nurse.
[2019-11-26] VITALS (36 sets, daily range): BP systolic 108–201; BP diastolic 58–93; PULSE 79–111; RESP 14–43; TEMP 31–36.6; O2SAT 92–99
[2019-11-26] MEDS: PANTOPRAZOLE 40 MG VIAL IV ×2 (00:30→09:16)
[2019-11-26] MEDS: MORPHINE 4 MG/ML INJ 3 MG IV ×2 (00:50→05:53)
[2019-11-26] MEDS: DEXTROSE 5%-NS W/KCL 20MEQ 1,000 ML 84 MEQ IV (01:39)
[2019-11-26] MEDS: HYDRALAZINE 20 MG/ML VIAL 5 MG IV ×2 (01:50→02:37)
[2019-11-26] MEDS: NYSTATIN POWDER 15GM 1 APPLIC TOP (01:50)
[2019-11-26] MEDS: METOPROLOL TARTRATE 5 MG/5 ML INJ IV (02:36)
[2019-11-26] MEDS: HALOPERIDOL 5 MG/ML VIAL 2 MG IV (03:48)
[2019-11-26 04:43] LABS: Add Manual Diff / Slide Review NO; Basophils Absolute Auto 100 /uL (0-100); Basophils Percent Auto 0.8 % (0-2); Eosinophils Absolute Auto 0 /uL (0-450); Eosinophils Percent Auto 0.1 % (2-4); Hematocrit 36.7 % (41-53); Hemoglobin 12.5 g/dL (13.5-17.5); Lymphocytes Absolute Auto 100 /uL (1100-4500); Lymphocytes Percent Auto 1.9 % (25-40); Mean Corpuscular HGB Conc 33.9 % (30-36); Mean Corpuscular Hemoglobin 30.7 PG (26-34); Mean Corpuscular Volume 90.6 fL (80-100); Monocytes Absolute Auto 100 /uL (0-900); Monocytes Percent Auto 1.5 % (3-14); Neutrophils Absolute Auto 7100 /uL (1500-7000); Neutrophils Percent Auto 95.7 % (50-75); Platelet Count 209 X10^3/uL (150-400); Red Blood Cell Count 4.06 X10^6/uL (4.5-5.9); Red Cell Distribution Width 13.8 % (11.6-14.8); White Blood Cell Count 7.4 X10^3/uL (4.5-11.0)
[2019-11-26 04:50] LABS: Alanine Aminotransferase 41 IU/L (<50); Albumin 3.3 g/dL (3.5-5.0); Albumin Globulin Ratio 1.1 (1.0-2.8); Alkaline Phosphatase 61 U/L (38-126); Aspartate Aminotransferase 40 IU/L (17-59); BUN Creatinine Ratio 22.2 (6-22); Bilirubin Total 0.9 mg/dL (0.2-1.3); Blood Urea Nitrogen 12 mg/dL (9-20); Calcium 8.8 mg/dL (8.4-10.2); Carbon Dioxide 30 mmol/L (22-32); Chloride 97 mmol/L (98-107); Estimated Glomerular Filt Rate > 60.0 mL/min (>60); Globulin 2.9 g/dL (1.7-4.1); Glucose 208 mg/dL (80-110); HEMOLYSIS 16 (0-50); Magnesium 1.6 mg/dL (1.6-2.3); Phosphorous 4.2 mg/dL (2.3-3.7); Potassium 4.6 mmol/L (3.4-5.1); Sodium 134 mmol/L (137-145); Total Protein 6.2 g/dL (6.3-8.2)
[2019-11-26 04:59] LABS: NT-proBNP (BNP-Adult 18+) 2000 pg/mL (<450)
[2019-11-26 05:02] LABS: Troponin I < 0.012 ng/mL (0.01-0.034)
[2019-11-26] MEDS: INSULIN ASPART 100 UNIT/ML INSULN PEN SUBCUT ×4 (06:07→21:00)
[2019-11-26 06:24] LABS: Fractionated Inspired Oxygen 30; HCO3 ABG 30 mmol/L (22-26); Oxygen Saturation ABG 94 % (95-100); PCO2 ABG 46.7 mmHg (35-45); PO2 ABG 73 mmHg (80-100); TCO2 ABG 31 mmol/L (21-31); pH ABG 7.41 (7.35-7.45)
--- NOTE | 2019-11-26 06:54 | PC.NURSE ---
Patient has been very restless, disoriented, and agitated throughout shift. Patient has pulled out IV catheters, condom catheter, and has tried removing BIPAP multiple times. Patient requiring restrains and medications to assist with behavior (haldol). Patient currently resting in bed on BIPAP at 30% FI02, restrained. Patient also remains on diltiazem drip, which was titrated down to 7 mg/hr. Patient is also incontinent with multiple episodes throughout the night. NOLAN Chua has been by the bedside multiple times throughout the shift.
[2019-11-26] MEDS: ALBUTEROL/IPRATROPIUM 3 ML AMPUL INH ×2 (08:53→14:54)
--- NOTE | 2019-11-26 08:58 | P.PN_ITS ---
Subjective Subjective Date Patient Seen: 11/26/19 Interval history: Overnight: The patient was confused and delirious. He was combative, removing BiPAP mask and throwing it across the room. He received Haldol which helped him to sleep. Patient is resting in bed comfortably. He is somewhat somnolent but easily arousable. He is is alert oriented to person and place. He is mildly confused but mentation seems to be clearing. Physical therapy is in the room and patient will was able to sit to stand at edge of bed for approximately 1 minute. He has generalized weakness and right side seems to be weaker than left likely due to residual deficit from previous CVA. He has been titrated off a diltiazem gtt to oral diltiazem. His home medications have been restarted. Plan to give Seroquel at bedtime to avoid sundowning and/or delirium. Plan to use CPAP tonight rather than BiPAP. Exam Vital Signs (past 8 hours): - 11/26/19 14:00 11/26/19 14:54 11/26/19 15:00 Temperature Pulse Rate 103 H 81 84 Respiratory Rate 26 H 14 18 Blood Pressure Pulse Oximetry 94 99 11/26/19 15:23 11/26/19 15:25 11/26/19 16:00 Temperature 97.4 F L Pulse Rate 106 H 101 H 90 Respiratory Rate 25 H 20 18 Blood Pressure 181/81 H 178/81 H Pulse Oximetry 93 92 93 11/26/19 17:00 11/26/19 18:00 11/26/19 21:00 Temperature 96.3 F L Pulse Rate 87 110 H 88 Respiratory Rate 19 24 19 Blood Pressure 153/79 H Pulse Oximetry 95 92 96 Fraction of Inspired Oxygen 30 Oxygen Delivery Method Nasal Cannula Oxygen Flow Rate 0 Narrative Exam Narrative: General: Elderly male lying in bed and in no acute distress, mildly somnolent but easily arousable, well-developed, well-nourished, mild confusion but appropriately interactive. HEENT: Normocephalic, atraumatic. External ears without defect. Pupils equal, round, and reactive to light. Anicteric sclerae, moist conjunctivae, and no lid lag. Oropharynx free of erythema and cobble stoning with moist mucosa. Neck: Supple with full range of motion. No jugular venous distension.No lymphadenopathy or thyromegaly. Cardiovascular: Irregularly irregular without murmurs, rubs, or gallops appreciated. Pulmonary: Diminished throughout but clear to auscultation bilaterally in all lung coyle. Normal respiratory effort with no use of accessory muscles. Abdomen: Soft, bowel sounds present, nontender, nondistended. No hepatosp lenomegaly or masses appreciated. Extremities: No clubbing or cyanosis. Trace edema to ankles bilaterally. Skin: Normal temperature, turgor, and texture; no rash, ulcers, or subcutaneous nodules appreciated. Neurological: Cranial nerves grossly intact. Generalized weakness with slight right-sided deficit which is chronic and related to previous CVA. Psychiatric: Normal mood and affect. Alert and oriented to person and place. Mild confusion likely due to significant amount of sedation he received previous days. Objective Labs Result Diagrams: 11/27/19 04:35 11/27/19 04:35 Labs: Laboratory Results - last 24 hr 11/25/19 11/26/19 11/26/19 20:45 04:25 04:25 WBC 7.4 RBC 4.06 L Hgb 12.5 L Hct 36.7 L MCV 90.6 MCH 30.7 MCHC 33.9 RDW 13.8 Plt Count 209 Neut % (Auto) 95.7 H D Lymph % (Auto) 1.9 L [place] % (Auto) 1.5 L Eos % (Auto) 0.1 L Baso % (Auto) 0.8 Neut # (Auto) 7100 H Lymph # (Auto) 100 L [place] # (Auto) 100 Eos # (Auto) 0 Baso # (Auto) 100 ABG pH ABG pCO2 ABG pO2 ABG HCO3 ABG Total CO2 ABG O2 Saturation ABG Base Excess FiO2 Sodium 134 L Potassium 4.6 Chloride 97 L Carbon Dioxide 30 BUN 12 Creatinine 0.54 L Estimated GFR > 60.0 BUN/Creatinine Ratio 22.2 H Glucose 208 H D Hemoglobin A1c Calcium 8.8 Phosphorus 4.2 H D Magnesium 1.6 Total Bilirubin 0.9 AST 40 ALT 41 Alkaline Phosphatase 61 Troponin I NT-Pro-B Natriuret Pep 2000 H Total Protein 6.2 L Albumin 3.3 L Globulin 2.9 Albumin/Globulin Ratio 1.1 Urine Color Yellow Urine Appearance Clear Urine pH 7.0 Ur Specific [place] 1.015 Urine Protein Negative Urine Glucose (UA) Negative Urine Ketones Negative Urine Occult Blood Trace-intact Urine Nitrate Negative Urine Bilirubin Negative Urine Urobilinogen 0.2 Ur Leukocyte Esterase Negative Urine RBC 1-5/hpf Urine WBC None seen Urine Bacteria None seen Ur Culture Indicated? Cult not indicated 11/26/19 11/26/19 11/26/19 04:25 04:25 06:15 WBC RBC Hgb Hct MCV MCH MCHC RDW Plt Count Neut % (Auto) Lymph % (Auto) [place] % (Auto) Eos % (Auto) Baso % (Auto) Neut # (Auto) Lymph # (Auto) [place] # (Auto) Eos # (Auto) Baso # (Auto) ABG pH 7.41 ABG pCO2 46.7 H ABG pO2 73 L ABG HCO3 30 H ABG Total CO2 31 ABG O2 Saturation 94 L ABG Base Excess 5.0 H FiO2 30 Sodium Potassium Chloride Carbon Dioxide BUN Creatinine Estimated GFR BUN/Creatinine Ratio Glucose Hemoglobin A1c 8.2 H Calcium Phosphorus Magnesium Total Bilirubin AST ALT Alkaline Phosphatase Troponin I < 0.012 NT-Pro-B Natriuret Pep Total Protein Albumin Globulin Albumin/Globulin Ratio Urine Color Urine Appearance Urine pH Ur Specific [place] Urine Protein Urine Glucose (UA) Urine Ketones Urine Occult Blood Urine Nitrate Urine Bilirubin Urine Urobilinogen Ur Leukocyte Esterase Urine RBC Urine WBC Urine Bacteria Ur Culture Indicated? Assessment & Plan Assessment & Plan narrative: Octavio Salmon is a 79-year-old male who is postop day #6 following L5-S1 TLIF and L4-[address] Hansen. Postoperatively the patient developed atrial fibrillation with RVR transferred ICU and developed hypoxemic and hypercarbic respiratory failure requiring intubation. The patient has since been extubated on 11/23 and transitioned to BiPAP ventilatory support. Medicine team was consulted initially for management of ventilator and signed off once patient was extubated. Medicine team was reconsulted for help with management of delerium. 1. Postop day #5, status post L5-S1 spinal fusion, laminectomy, and facetectomies as well as L4-L5 hemilaminectomy and microdiskectomy. -Continue postoperative management per Orthopedic surgery. -Continue pain control with acetaminophen 975 mg 3 times daily, oxycodone 5 mg every 3 hours as needed for moderate pain and morphine 2 mg every 2 hours as needed for severe breakthrough pain. 2. Acute hypoxemic and hypercarbic respiratory failure, not present on admission. Resolved. -Patient developed hypoxemic and hypercarbic respiratory failure likely due to sedation from pain medications and Ativan for treatment of alcohol withdrawal with DTs. Patient was subsequently intubated and later successfully extubated on 11/24/2019. Patient remained on BiPAP status post extubation. Patient now maintaining oxygen saturation in low 90s off oxygen. Continue to use supplemental oxygen as necessary to maintain oxygen saturations 88-92%. Continue CPAP with auto titration at night for JO. -Elevated proBNP over last 24 hours rising from 523 to 2000. Chest x-ray suggest mild pulmonary edema without overt cardiomyopathy. No overt signs of fluid overload but could consider diuresis if patient develops edema or recurrent hypoxemia. 3. Atrial fibrillation with rapid ventricular rate, not present on admission. RVR resolved. -Patient developed atrial fibrillation with RVR postoperatively likely due to stressing event of surgery. Patient had hypotension likely due to sedation and amiodarone gtt for rhythm control and switch to oral amiodarone 200 mg twice daily via NG tube. Once NG tube was discontinued patient was unable to swallow and has had missed several doses of amiodarone. Patient continued to have high heart rate in the 120s and diltiazem gtt was started to help control rate. -Patient now able to swallow effectively. Started diltiazem CD 120 mg daily and restarted amiodarone 200 mg twice daily. Titrated off of diltiazem gtt. Heart rate remains controlled in 80s to 90s. 4. Acute alcohol withdrawal with DTs, not present on admission. Resolved. -Patient with an extensive history of alcohol use and placed on CIWA protocol postoperatively. -Patient received 8 mg of Ativan under CIWA protocol prior to intubation. The patient subsequently received 60 mg total of IV Ativan while on Ativan gtt for sedation. Patient likely has some confusion and somnolence secondary to large quantity of Ativan which has a 14 hour half-life and will be eliminated over 3-5 past lives approximately 72 hours and recommend holding off on further doses of Ativan. If the patient should show further signs of alcohol withdrawal would recommend Librium and if has further agitation would recommend Seroquel at bedtime. 5. Hypertension, chronic present on admission. Stable. -Restarted home losartan 100 mg daily and started diltiazem CD 120 mg daily for rate control. Could consider restarting home metoprolol tartrate and with change dose to 50 mg twice daily. 6. Diabetes mellitus type 2, insulin using, present on admission. Stable. -Hemoglobin A1c 8.2% indicative of fair glycemic control. -Patient takes Lantus at home medication 15 units twice daily which was continued without nutritional support after NG tube was discontinued and and blood glucose trended low on morning labs at 63. Held Lantus. -Continue ACHS blood glucose checks and medium dose correctional scale insulin. Once taking in adequate PO intake could consider restarting Lantus. -Continue dysphagia mechanical and heart healthy/carbohydrate consistent diet. 7. GERD, chronic present on admission. Stable. -Continue Protonix 40 mg daily. 8. Hypomagnesemia, resolved. -Magnesium 1.6. Ordered magnesium sulfate 2 g IV x1. Goal magnesium > 2.0 due to atrial fibrillation. -Continue to monitor magnesium and replete as necessary. 9. Hypophosphatemia, resolved. -Phosphate was low due to lack of PO intake. Phosphate now slightly elevated at 4.2. -Continue to monitor phosphate is indicated. 10. Acute protein calorie malnutrition, not present on admission. Active. -Patient was NPO due to being intubated and then status post extubation due to somnolence ad not able to pass swallow eval. Patient now able to swallow effectively. -Consulted dietitian and we appreciate her time and recommendations. 11. Obesity with generalized weakness and deconditioning, present on admission. Stable. -BMI 32.6 -Patient has developed a likely heat rash on his back which is resolving. Continue to turn frequently. -Continue physical and occupational therapy evaluation and treatment. -Consulted dietitian and we appreciate her time and recommendations. 12. Polymyalgia rheumatica, chronic, present on admission. Stable. -Discontinued methylprednisolone and restarted home prednisone 50 mg daily. 13. BPH, chronic, present on admission. Stable -Continue home doxazosin 8 mg daily. 14. History of CVA and CAD status post MO. -No complaints of chest pain and no focal neurological deficits other than residual right-sided weakness. -Continue home aspirin 81 mg daily and pravastatin 20 mg daily at bedtime. Code status: Full code DVT prophylaxis: Enoxaparin Thank you for this most interesting consult. We will sign off at this time but feel free to contact us for any further needs.
[2019-11-26] MEDS: FOLIC ACID 1 MG TABLET PO (09:15)
[2019-11-26] MEDS: ENOXAPARIN 40 MG/0.4 ML SYRINGE SUBCUT (09:15)
[2019-11-26] MEDS: MULTIVITAMIN 1 TABLET 1 TAB PO (09:16)
[2019-11-26] MEDS: DILTIAZEM 125 MG/125 ML PIGGYBACK 10 MG IV (10:12)
[2019-11-26] MEDS: AMIODARONE 200 MG TABLET PO ×2 (10:12→20:59)
[2019-11-26] MEDS: dilTIAZem CD 120 MG CAP PO (10:12)
--- NOTE | 2019-11-26 10:14 | P.PN_ITS ---
Subjective Subjective Date Patient Seen: 11/26/19 Time Patient Seen: 10:14 Interval history: POD #6 s/p L4-5 hemilaminectomy and microdiscectomy, and L5-S1 TLIF with Dr. Monroe. Patient was intubated on POD#2 for worsening mental status and respiratory status. Patient was extubated POD #4. Per ICU nurse, patient will move his bilateral upper and lower extremities when able to be aroused on verbal command. Patient will follow command to move appropriate limbs when asked to do so. Patient was able to follow commands and roll over today. Per nursing he is doing much better today. Currently managed medically by medicine and his PCP, Dr. Gallo. Exam Vital Signs (past 8 hours): - 11/26/19 02:37 11/26/19 03:00 11/26/19 03:21 Temperature Pulse Rate 110 H 88 91 H Respiratory Rate 17 Blood Pressure 201/91 H 182/87 H 175/82 H Pulse Oximetry 96 11/26/19 04:41 11/26/19 05:00 11/26/19 06:00 Temperature 97.3 F L Pulse Rate 84 81 79 Respiratory Rate 17 15 Blood Pressure 170/79 H 108/61 113/58 L Pulse Oximetry 96 95 11/26/19 07:00 11/26/19 08:00 11/26/19 08:53 Temperature 97.1 F L Pulse Rate 87 99 H Respiratory Rate 36 H 20 Blood Pressure 141/87 H 174/87 H 174/87 H Pulse Oximetry 98 96 11/26/19 09:00 11/26/19 09:46 Temperature Pulse Rate 85 93 H Respiratory Rate 32 H 19 Blood Pressure 163/92 H Pulse Oximetry 96 95 Fraction of Inspired Oxygen 30 Oxygen Delivery Method Nasal Cannula Oxygen Flow Rate 2 Narrative Exam Narrative: Patient lying in bed in no acute distress. He is able to roll over and checked dressing which is CDI. He does have some skin irritation where Medipore tape was superiorly and inferiorly. Objective Labs Result Diagrams: 11/26/19 04:25 11/26/19 04:25 Labs: Laboratory Results - last 24 hr 11/25/19 11/25/19 11/26/19 10:45 20:45 04:25 WBC 7.4 RBC 4.06 L Hgb 12.5 L Hct 36.7 L MCV 90.6 MCH 30.7 MCHC 33.9 RDW 13.8 Plt Count 209 Neut % (Auto) 95.7 H D Lymph % (Auto) 1.9 L [place] % (Auto) 1.5 L Eos % (Auto) 0.1 L Baso % (Auto) 0.8 Neut # (Auto) 7100 H Lymph # (Auto) 100 L [place] # (Auto) 100 Eos # (Auto) 0 Baso # (Auto) 100 ABG pH 7.42 ABG pCO2 47.8 H ABG pO2 69 L ABG HCO3 31 H ABG Total CO2 32 H ABG O2 Saturation 94 L ABG Base Excess 6.0 H FiO2 32 Sodium Potassium Chloride Carbon Dioxide BUN Creatinine Estimated GFR BUN/Creatinine Ratio Glucose Calcium Phosphorus Magnesium Total Bilirubin AST ALT Alkaline Phosphatase Troponin I NT-Pro-B Natriuret Pep Total Protein Albumin Globulin Albumin/Globulin Ratio Urine Color Yellow Urine Appearance Clear Urine pH 7.0 Ur Specific [place] 1.015 Urine Protein Negative Urine Glucose (UA) Negative Urine Ketones Negative Urine Occult Blood Trace-intact Urine Nitrate Negative Urine Bilirubin Negative Urine Urobilinogen 0.2 Ur Leukocyte Esterase Negative Urine RBC 1-5/hpf Urine WBC None seen Urine Bacteria None seen Ur Culture Indicated? Cult not indicated 11/26/19 11/26/19 11/26/19 04:25 04:25 06:15 WBC RBC Hgb Hct MCV MCH MCHC RDW Plt Count Neut % (Auto) Lymph % (Auto) [place] % (Auto) Eos % (Auto) Baso % (Auto) Neut # (Auto) Lymph # (Auto) [place] # (Auto) Eos # (Auto) Baso # (Auto) ABG pH 7.41 ABG pCO2 46.7 H ABG pO2 73 L ABG HCO3 30 H ABG Total CO2 31 ABG O2 Saturation 94 L ABG Base Excess 5.0 H FiO2 30 Sodium 134 L Potassium 4.6 Chloride 97 L Carbon Dioxide 30 BUN 12 Creatinine 0.54 L Estimated GFR > 60.0 BUN/Creatinine Ratio 22.2 H Glucose 208 H D Calcium 8.8 Phosphorus 4.2 H D Magnesium 1.6 Total Bilirubin 0.9 AST 40 ALT 41 Alkaline Phosphatase 61 Troponin I < 0.012 NT-Pro-B Natriuret Pep 2000 H Total Protein 6.2 L Albumin 3.3 L Globulin 2.9 Albumin/Globulin Ratio 1.1 Urine Color Urine Appearance Urine pH Ur Specific [place] Urine Protein Urine Glucose (UA) Urine Ketones Urine Occult Blood Urine Nitrate Urine Bilirubin Urine Urobilinogen Ur Leukocyte Esterase Urine RBC Urine WBC Urine Bacteria Ur Culture Indicated? Assessment & Plan Post-op Postoperative Procedures: Procedures Operation Date: 11/20/19 07:45 Actual Procedures Side Surgeon p L5S1 TLIF, L4-5 hemilaminectomy and microdiscectomy Reji Monroe MD He may mobilize and perform PT as tolerated from spine surgery perspective. Appreciated medicine and PCP following closely. Will continue to monitor patients progress.
--- NOTE | 2019-11-26 11:44 | ST.IPCSEOM ---
Visit Care Team Role Provider Type Reji Monroe MD Other Providers Physician Specialty: Orthopedic Surgery Address: [address] [place] [address], [place], [address] Email: [email or web address] Octavio Gallo MD Admit Provider Physician Attending Provider Family Provider Primary Care Provider Referring Provider Specialty: Family Practice Address: [address] [place] [address], [facility], [place], [address] Email: [email or web address] Current Diagnoses Hypotension, unspecified (11/19/19) Spinal stenosis, lumbar region without neurogenic claudication (11/19/19) Past Medical History (Last Reviewed 11/19/19 @ 13:32 by Octavio Gallo MD) Back pain (Acute Medical) started about 6 weeks ago Diabetes mellitus (Acute Medical) GERD (gastroesophageal reflux disease) (Acute Medical) High cholesterol (Acute Medical) Hypertension (Acute Medical) PMR (polymyalgia rheumatica) (Acute Medical) Speech-Language Pathology Swallow Evaluation [employer] Clinical Swallow Evaluation Start: 11/26/19 09:21 Freq: Status: Active Protocol: Document 11/26/19 09:23 LNK (Rec: 11/26/19 09:31 LNK [id number]) Clinical Swallow Evaluation Session Time Visit Start Date 11/26/19 Visit Start Time 08:30 Visit Stop Time 09:00 Total Visit Minutes [address] Velasquez Reason for Referral dysphagia Setting Assessment Location Acute Care Visit Type Note Type Initial evaluation Patient Information Identification Type Name,Wristband History Per MD note: Pt was brought in for a laminectomy and surgical spine surgery and postoperatively had atrial fibrillation with RVR and ended at due to difficulty hemodynamically and from a respiratory standpoint he ended up being intubated at approximately 9:00 p.m. on SaturdayNovember 20. He was extubated yesterday and put on BiPAP. He has been on BiPAP since then however was up in chair today on 3 L of nasal cannula oxygen. He has been on oral prednisone and oral amlodipine and has not received this for the last 24 hours because he does not have OG tube and is npo because of somnolence. He was intubated and on IV lorazepam drip for 3 days. Subjective Observations Pt was more alert this morning . Was answering questions and following directions appropriately. Pt still sleepy, but was able to open eyes when asked. He indicated he wanted to eat. Reported by Patient Current Diet Nothing by mouth Baseline Feeding Method Dependent for feeding Patient Questionnaire No Objective Assessment Mental Status Lethargic Dentition Missing teeth Lip Function Within normal limits Observations of Jaw at Rest Within normal limits Jaw Opening Within normal limits Phonation Within normal limits Respiratory Sufficiency Severe impairment Comment OME was not completed due to pt lethargy. Observation for PO trials appeared to be WFL. No oral stasis following food trials. Pt unable to swallow pills whole. Pt stated his throat is not as sore today. Food and Liquid Trials Position During Assessment Upright (90 degrees) Liquids Trialed Ice chips,Thin Solids Trialed Puree,Dysphagia Mechanical Administration Type Tea spoon,Cup single sip,Straw ,Needs some assistance, Dependent feeding Oral Impairment Within functional limits Pharyngeal Impairment Within functional limits Pharyngeal Phase Comments WFL Hyolaryngeal elevation was WFL via palpation. No cough/choke observed. Voice dry/clear following swallows. Fatigue/Endurance Severe fatigue Findings Swallowing Function Dysphagia unspecified Swallowing Function Comments Suspect dysphagia secondary to lethargy. Contributing Factors to Swallow Reduced alertness or attention Impairment ,Difficulty following directions Prognosis Good Comments Pt will need assisted feeding until alert enough to feed self. Recommendations Instrumental Assessment No Swallowing Treatment Yes Frequency while inpatient Recommended Solids Dysphagia Mechanical Recommended Liquids Thin Other Recommendations Advance diet as mentation improves and as safely tolerated Safety Precautions/Swallowing 1 to 1 close supervision,Feed Recommendations only when alert,Remain upright (90 degrees) during all oral intake,Upright position at least 30 minutes after meals, Small bites and sips when eating,Slow rate; swallow between bites,Multiple swallows,Set-up assistance,1 to 1 feeding assistance,Family assistance/supervision,Check for pocketing Medication Recommendations Crushed in Carrier Discharge Recommendations senior care facility,Home with Home Health Education Patient/Caregiver Education Described results of evaluation,Patient requires further education/training, Family/caregivers require further education/training Goals Short-term Goals Pt's diet texture will be advanced as safely tolerated and as mentation improves. Long-term Goals Pt will safely tolerate PO intake to meet hydration/ nutrition needs without s/sx aspiration.
--- NOTE | 2019-11-26 13:08 | PM.PN.1 ---
Subjective Subjective Date Patient Seen: 11/26/19 Time Patient Seen: 13:08 Interval history: Patient with difficulty of agitation last night and received IV Haldol. He also continued to have elevated blood pressures and received 2 doses of metoprolol and 2 doses of hydralazine to bring his blood pressure down. He was placed on diltiazem drip which gave him good rate control and has been doing much better today more awake and alert. He admits that he does not know what happened and remembers coming in for back pain but that is about it. When told that he had problems of alcohol withdrawal he said that he had had that previously. He passed his swallow eval this morning is now on a regular diabetic diet. He is not having great p.o. intake but market improvement. He is having good urine output. He unfortunately sustained a fall he slid out of his chair when he was up in his chair but denies any pain. He is now on p.o. diltiazem 120 mg CD. He has not had any further fevers. He did have blood cultures x2 and a urine which are negative preliminary. Exam Vital Signs (past 8 hours): - 11/26/19 06:00 11/26/19 07:00 11/26/19 08:00 Temperature 97.1 F L Pulse Rate 79 87 99 H Respiratory Rate 15 36 H 20 Blood Pressure 113/58 L 141/87 H 174/87 H Pulse Oximetry 95 98 96 11/26/19 08:53 11/26/19 09:00 11/26/19 09:46 Temperature Pulse Rate 85 93 H Respiratory Rate 32 H 19 Blood Pressure 174/87 H 163/92 H Pulse Oximetry 96 95 11/26/19 10:24 Temperature Pulse Rate 99 H Respiratory Rate 28 H Blood Pressure 153/82 H Pulse Oximetry 94 Fraction of Inspired Oxygen 30 Oxygen Delivery Method Nasal Cannula Oxygen Flow Rate 2 Narrative Exam Narrative: Patient is maintaining oxygenation in the upper 90s with 1 L nasal cannula oxygen. He is sitting upright in his bed and he is drowsy but awakens and answers questions appropriately and follows commands. Afebrile. Heart rate in the upper 90s to 100. Blood pressure 140s to 170s over 80s. Neck: Supple without adenopathy or jugular venous distension Chest: Decreased breath sounds bibasilar but no wheezes rhonchi or crackles Cor: Irregularly irregular rhythm at 98 with distant S1-S2 Abdomen: Positive bowel sounds, soft, obese, nontender Extremities: No edema: Moves all extremities well Neurologic exam nonfocal Objective Labs Result Diagrams: 11/26/19 04:25 11/26/19 04:25 Labs: Laboratory Results - last 24 hr 11/25/19 11/26/19 11/26/19 20:45 04:25 04:25 WBC 7.4 RBC 4.06 L Hgb 12.5 L Hct 36.7 L MCV 90.6 MCH 30.7 MCHC 33.9 RDW 13.8 Plt Count 209 Neut % (Auto) 95.7 H D Lymph % (Auto) 1.9 L [place] % (Auto) 1.5 L Eos % (Auto) 0.1 L Baso % (Auto) 0.8 Neut # (Auto) 7100 H Lymph # (Auto) 100 L [place] # (Auto) 100 Eos # (Auto) 0 Baso # (Auto) 100 ABG pH ABG pCO2 ABG pO2 ABG HCO3 ABG Total CO2 ABG O2 Saturation ABG Base Excess FiO2 Sodium 134 L Potassium 4.6 Chloride 97 L Carbon Dioxide 30 BUN 12 Creatinine 0.54 L Estimated GFR > 60.0 BUN/Creatinine Ratio 22.2 H Glucose 208 H D Calcium 8.8 Phosphorus 4.2 H D Magnesium 1.6 Total Bilirubin 0.9 AST 40 ALT 41 Alkaline Phosphatase 61 Troponin I NT-Pro-B Natriuret Pep 2000 H Total Protein 6.2 L Albumin 3.3 L Globulin 2.9 Albumin/Globulin Ratio 1.1 Urine Color Yellow Urine Appearance Clear Urine pH 7.0 Ur Specific [place] 1.015 Urine Protein Negative Urine Glucose (UA) Negative Urine Ketones Negative Urine Occult Blood Trace-intact Urine Nitrate Negative Urine Bilirubin Negative Urine Urobilinogen 0.2 Ur Leukocyte Esterase Negative Urine RBC 1-5/hpf Urine WBC None seen Urine Bacteria None seen Ur Culture Indicated? Cult not indicated 11/26/19 11/26/19 04:25 06:15 WBC RBC Hgb Hct MCV MCH MCHC RDW Plt Count Neut % (Auto) Lymph % (Auto) [place] % (Auto) Eos % (Auto) Baso % (Auto) Neut # (Auto) Lymph # (Auto) [place] # (Auto) Eos # (Auto) Baso # (Auto) ABG pH 7.41 ABG pCO2 46.7 H ABG pO2 73 L ABG HCO3 30 H ABG Total CO2 31 ABG O2 Saturation 94 L ABG Base Excess 5.0 H FiO2 30 Sodium Potassium Chloride Carbon Dioxide BUN Creatinine Estimated GFR BUN/Creatinine Ratio Glucose Calcium Phosphorus Magnesium Total Bilirubin AST ALT Alkaline Phosphatase Troponin I < 0.012 NT-Pro-B Natriuret Pep Total Protein Albumin Globulin Albumin/Globulin Ratio Urine Color Urine Appearance Urine pH Ur Specific [place] Urine Protein Urine Glucose (UA) Urine Ketones Urine Occult Blood Urine Nitrate Urine Bilirubin Urine Urobilinogen Ur Leukocyte Esterase Urine RBC Urine WBC Urine Bacteria Ur Culture Indicated? Assessment & Plan Assessment & Plan narrative: 35 minutes spent with patient and on floor and coordinating care 79-year-old male admitted for back pain underwent a an emergent laminectomy and had postoperative AFib with rapid ventricular rate. He was intubated for 48 hours for hypoventilation syndrome and has now been extubated for 48 hours. Assessment 1. Hypoventilation syndrome improving with use of CPAP and as Ativan clears his system and he becomes more more awake. Plan: Will continue to monitor. At this point no evidence of congestive heart failure or infectious process involving the respiratory system. We will continue to monitor BNP but I suspect elevated due to AFib with RVR Assessment 2. AFib with RVR improved with diltiazem. Plan: We will continue on the p.o. diltiazem. He received oral amiodarone today. We will recheck BnP in a.m.. We will continue to monitor his fluid status Assessment 3. Hypertension with exacerbation yesterday. He was placed on diltiazem drip and given metoprolol given hydralazine and now has had improved blood pressures Plan: Will continue at this point the diltiazem and likely need to increase that dose but we will monitor for now. We will use hydralazine as needed showed his blood pressure increased. We will go ahead and restart his outpatient losartan Assessment 4. Spine disease status post surgery. Pain appears to be well controlled Plan: Continue with current pain management. Wound postop follow-up per Orthopedics Assessment 5. Type 2 diabetes now eating and also on Solu-Medrol at increased dose with rise in his blood sugars Plan: Will continue monitoring blood sugars. Will be on a diabetic diet. Will stop the D5. Will start Lantus 20 units b.i.d. which is what he was on previously Assessment 6. Infectious disease with 1 temperature elevated no further abnormal temperature is and cultures pending but no evidence of infection at this time Plan: Will continue to monitor Assessment 7. Obstructive sleep apnea Plan: Continue BiPAP in the evening Assessment 8. Alcohol withdrawal syndrome with delirium tremens seems to have resolved Plan: Will continue with Ativan as needed. Patient does exhibit evidence of sundowning syndrome so we will give Seroquel at HS. Assessment 9. Polymyalgia rheumatica without current symptoms Plan: Continue on Solu-Medrol 40 mg IV q.12 if he continues to take p.o. well then we can switch him back to prednisone tomorrow Assessment 10. GI prophylaxis Plan: Continue on PPI Assessment 11. DVT prophylaxis Plan: Continue on Lovenox Assessment 12. Hypomagnesemia with normal magnesium level today Plan: Will monitor Disposition: Patient will need detention facility and currently looking at [facility] for this.
--- NOTE | 2019-11-26 13:10 | PT.IIE ---
Current Diagnoses Hypotension, unspecified (11/19/19) Spinal stenosis, lumbar region without neurogenic claudication (11/19/19) Surgery Performed Operation Date: 11/20/19 07:45 Actual Procedures p L5S1 TLIF, L4-5 hemilaminectomy and microdiscectomy - Reji Monroe MD Surgical History (Last Reviewed 11/19/19 @ 13:32 by Octavio Gallo MD) History of appendectomy (Acute) Status post total left knee replacement (Acute) Medical History (Last Reviewed 11/19/19 @ 13:32 by Octavio Gallo MD) Back pain (Acute) Diabetes mellitus (Acute) GERD (gastroesophageal reflux disease) (Acute) High cholesterol (Acute) Hypertension (Acute) PMR (polymyalgia rheumatica) (Acute) Physical Therapy Inpatient Evaluation/Re-Eval M1 PT/OT-IP Prior Functional Status Start: 11/23/19 09:08 Freq: NEEDED Status: Active Protocol: Document 11/26/19 13:10 AB (Rec: 11/26/19 13:59 AB [id number]) Medical Review Prior Functional Status Medical History Reviewed Yes Communication pt is very drowsy and requires increase time to answer questions; requires frequent cues to open his eyes Mobility and Gait pt stated that he is modified independent with all mobilities and ambulation using 4WW but occasionally uses a SPC Social History Household Members spouse Number of Floors (Floors) Two Floors Number of Stairs To Enter/Railing? 4 steps to enter with R rail 2 steps to bedroom level with R rail Home Environment High Toilet,Walk in Shower Home Equipment Four Wheel Walker,Straight Cane,Hand Held Shower,Grab Bars Near Toilet,Grab Bars In Shower M2 PT-IP Current Condition Start: 11/23/19 09:08 Freq: NEEDED Status: Active Protocol: Document 11/26/19 13:10 AB (Rec: 11/26/19 13:59 AB [id number]) Physical Therapy Current Condition Current Condition Evaluation Date 11/26/19 Treatment Diagnosis s/p L5S1 TLIF; L4-5 micro disckectomy; difficulty in walking Onset Date 11/19/19 Precautions Lumbar Precautions Log Roll,No Twisting,Limit Bending,Lifting Restriction of 10 lbs,Gait Belt above Incisional Area Other Precautions Falls M3 PT-IP Subjective Start: 11/23/19 09:08 Freq: NEEDED Status: Active Protocol: Document 11/26/19 13:10 AB (Rec: 11/26/19 13:59 AB [id number]) Subjective Physical Therapy Visit Type Type Initial Evaluation Visit Start Time 13:10 Visit Stop Time 13:38 Total Visit Minutes 28 Number of UNIT SECRETARY Visits 0 Physical Therapy Visit Comments Patient Comments pt is very drowsy but agreed to move with PT M4 PT-IP Mobility and Gait Start: 11/23/19 09:08 Freq: NEEDED Status: Active Protocol: Document 11/26/19 13:10 AB (Rec: 11/26/19 13:59 AB [id number]) PT-Bed Mobility Assessment Rolling Type of Rolling Log Rolling Level of Assist Maximal Assistance,2 Person Assistance Supine to Sit Supine to Sit Maximum Assistance,2 Person Assistance,Bedrails Sit to Supine Sit to Supine 2 Person Assistance,Bedrails Scooting Scooting to Edge of Bed Dependent Scooting Up and Down in Bed Dependent PT-Transfer Assessment Sit to and From Stand Sit to and from Stand Total Assistance,2 Person Assistance,Use of Upper Extremities Equipment Transfer Assistive Device Gait Belt,Front Wheeled Walker Comments Mobility Comments pt requires max cues with all tasks and to stay awake. able to answer questions but inconsistently and requires increase time to respond. educated on back precautions and log roll bed mobility. pt completed supine to sit max A x 2 and max cues. pt requires max A x 1-2 to maintain sitting balance on EOB. increase lateral trunk lean to the R and posterior LOB. completed sit to stand max A x 3 and max cues. pt unable to fully stand. increase bilateral knee flexion R>L. assisted pt to sit max A x 3 and max cues. dependent with bed mobility sit to supine. positioned in bed dependent. call light and table placed within reach. Gait Assessment Comments Gait Comments unable at this time PT-Balance Assessment Sitting Balance and Reactions Static Sitting Balance Ability Poor Dynamic Sitting Balance Ability Poor Standing Balance and Reactions Static Standing Balance Ability Poor Dynamic Standing Balance Ability Poor Device Used FWW M5 PT-IP Objective Assessments Start: 11/23/19 09:08 Freq: NEEDED Status: Active Protocol: Document 11/26/19 13:10 AB (Rec: 11/26/19 13:59 AB [id number]) Orientation Orientation/Cognition Level of Alertness Lethargic Orientation Name Safety Awareness Decreased Safety Awareness Memory Description Short Term Impaired Gross Range of Motion Lower Extremity ROM Assessment Within Functional Limits Strength Lower Extremity Strength Assessment Bilaterally Impaired Comments Strength Comments LLE: 3+/5 RLE 3-/5 M6 PT-IP Treatment Start: 11/23/19 09:08 Freq: NEEDED Status: Active Protocol: Document 11/26/19 13:10 AB (Rec: 11/26/19 13:59 AB [id number]) Physical Therapy Treatment Education Education Provided Precautions,Post-Op Packet, Safety M7 PT-IP Assessment and Plan Start: 11/23/19 09:08 Freq: NEEDED Status: Active Protocol: Document 11/26/19 13:10 AB (Rec: 11/26/19 13:59 AB [id number]) PT Summary Assessment and Plan Potential Rehabilitation Potential Fair Status of Condition at Evaluation Evolving Summary Impairments Pain,ROM,Strength,Balance, Coordination,Sensation,Tone, Cognition,Bed Mobility, Transfers,Gait,Activity Tolerance Assessment Summary pt requiring total A x 3 with mobility and unable to ambulate at this time. pt is drowsy but able to follow one step instructions although inconsistently. pt will require SNF rehab to improve strength and mobility. Goals Bed Mobility Goal Moderate Assistance Transfer Goal Moderate Assistance,Front Wheeled Walker Gait Goal Moderate Assistance,Front Wheel Walker Gait Distance 100 Days to Meet Goals 10 Frequency of Treatment Frequency Of Treatment Twice a Day Treatment Plan Physical Therapy Treatment Plan Bed Mobility Training,Transfer Training,Gait Training, Therapeutic Exercise,Balance Retraining,Post Op Education, Discharge Planning,Hot or Cold Pack,Neuromuscular Re-ed, Coordination Retraining,Manual Therapy Other Recommendations and Next Treatment transfers Focus Recommendations To Nursing Amount of Assist Needed Mechanical Lift Discharge Recommendations PT Discharge Recommendations SNF Rehab Transportation Needs at Discharge Wheelchair/Cabulance,Stretcher /Ambulance
[2019-11-26] MEDS: SODIUM CHLORIDE 0.9% FLUSH 10 ML IV ×2 (14:33→21:04)
[2019-11-26] MEDS: LOSARTAN 50 MG TABLET 100 MG PO (14:38)
--- NOTE | 2019-11-26 14:50 | PC.NURSE ---
PT INITIALLY ON BIPAP THIS AM- HE WAS BECOMING RESTLESS AND ATTEMPTING TO REMOVE MASK - PLACED 3L NC AND SAT UP ON BEDS EDGE WITH STAFF ASSISTANCE - TORSO WEAK AND WEAK - LEANS TO THE RIGHT. PT ABLE TO PASS SWALLOW EVAL AND TOOK SMALL AMOUNT OF PO - DID TAKE FULL GLUCERNA WITH ASSIST- REMAINS INCONT OF URINE AND STOOL - DILT GTT TURNED TO OFF AND STARTED PO -REMAINS RATE CONTROLLED AFIB RATE IN THE 80'S- LUNGS DIM BUT CLEAR AND O2 DECREASED TO 1.5L NC FOR SPO2 93%- PT SLIPPED TO FLOOR FROM CHAIR AND DENIED HITTING HIS HEAD AND REPORTED NO NEW PAIN- AND EXPLAINED HE WAS TRYING TO PEE UPDATE TO MD AND FAMILY- SLEEPING COMFORTABLY AT PRESENT-
[2019-11-26 16:47] LABS: Hemoglobin A1C% w Est Avg Glu 8.2 % (4.0-6.0)
--- NOTE | 2019-11-26 18:48 | RT ---
HOSPITAL BIFLEX SETTING CHANGED TO CPAP AND SET TO 15 CMH2O TO MATCH PT'S HOME SETTING, PER VERBAL ORDER BY DR. GIBSON. LARGE, FULL-FACE MASK APPEARS W/ GOOD FIT. PT IS ON RA W/ O2 SAT OF 93%. O2 BLEED-IN LINE ATTACHED TO FLOW METER FOR FUTURE USE IF NEEDED.
[2019-11-26] MEDS: INSULIN GLARGINE 100 UNIT/ML 3ML PEN 20 UNIT SUBCUT (21:01)
[2019-11-26] MEDS: QUETIAPINE 25 MG TABLET PO (21:01)
--- NOTE | 2019-11-26 21:50 | PC.NURSE ---
Evening shift note Pt sitting up in bed with at bedside, able to make conversation and answers questions appropriately. Passed swallow test today, diet is mech soft and meds crushed in carrier. Pt remains in AFib RVR/CVR HR ranges from 98-120, able to administer PO amiodarone, dilt gtt has been discontinued. Pt still incontinent of urine and stool. After 2099 pt has become increasingly confused, agitated, attempting to get out of bed. He doesn't believe he is in the hospital, we called and talked to his , but he remains confused, but not combative. He just wants to go to bed downstairs with his dogs. This nurse has attempted to reorient him, he states he understands but continues to try to get out of bed and pull at lines. Pt has refused to have his CPAP on (set using his home CPAP settings), he is currently on no O2 and saturating at 92%, so I am currently allowing him not to wear the CIPAP as it seems to aggravate him. Bed is low and locked, this nurse is sitting outside his room to make sure he doesn't remove any of the lines or get out of bed. Will continue to monitor.
[2019-11-26] MEDS: MAGNESIUM SULFATE 2 GM/50 ML PIGGYBACK IV (22:36)
[2019-11-27] VITALS (12 sets, daily range): BP systolic 109–162; BP diastolic 57–90; PULSE 85–119; RESP 18–25; TEMP 35.9–36.5; O2SAT 88–97
[2019-11-27 05:09] LABS: Add Manual Diff / Slide Review NO; Basophils Absolute Auto 0 /uL (0-100); Basophils Percent Auto 0.1 % (0-2); Eosinophils Absolute Auto 0 /uL (0-450); Hematocrit 37.6 % (41-53); Hemoglobin 12.6 g/dL (13.5-17.5); Lymphocytes Absolute Auto 400 /uL (1100-4500); Lymphocytes Percent Auto 4.4 % (25-40); Mean Corpuscular HGB Conc 33.4 % (30-36); Mean Corpuscular Hemoglobin 30.4 PG (26-34); Mean Corpuscular Volume 90.9 fL (80-100); Monocytes Absolute Auto 600 /uL (0-900); Monocytes Percent Auto 6.1 % (3-14); Neutrophils Absolute Auto 8200 /uL (1500-7000); Neutrophils Percent Auto 89.4 % (50-75); Platelet Count 240 X10^3/uL (150-400); Red Blood Cell Count 4.14 X10^6/uL (4.5-5.9); Red Cell Distribution Width 13.8 % (11.6-14.8); White Blood Cell Count 9.2 X10^3/uL (4.5-11.0)
--- NOTE | 2019-11-27 05:19 | PC.NURSE ---
Addendum entered by Milli Bell R.N. 11/27/19 06:38: Patient currently sitting up in chair with assistance of ceiling lift. Patient oriented to name and place but needs reorientation and occasional reminders. Original Note: hourly shift manager note: Patient slept majority of the night. Patient initially refusing to wear CPAP machine, however, at 0100, patient allowed RT to place CPAP on. Patient has been turned q2 hours and has had multiple incontinent episodes requiring brief and pad change. Patient has not required any PRN pain medication and has denied pain when RN has asked. Patient originally confused, but has become more lucid as shift has progressed. Patient following commands, still slightly disoriented and less restless and impulsive than previous encounters. Patient has remained in atrial fibrillation, heart rate between 80's - 110's. Blood pressure stable, afebrile. Upon initial assessment, surgical site dressing was saturated. RN changed dressing to 4x4 gauze and hypafix tape. Currently patient is resting in bed, sleeping on CPAP machine with pressure of 15 cm H20, and 2L bled into machine.
[2019-11-27 05:22] LABS: Alanine Aminotransferase 46 IU/L (<50); Albumin 3.3 g/dL (3.5-5.0); Albumin Globulin Ratio 1.2 (1.0-2.8); Alkaline Phosphatase 68 U/L (38-126); Aspartate Aminotransferase 35 IU/L (17-59); BUN Creatinine Ratio 26.6 (6-22); Bilirubin Total 0.6 mg/dL (0.2-1.3); Blood Urea Nitrogen 17 mg/dL (9-20); Calcium 9.4 mg/dL (8.4-10.2); Carbon Dioxide 36 mmol/L (22-32); Chloride 100 mmol/L (98-107); Estimated Glomerular Filt Rate > 60.0 mL/min (>60); Globulin 2.8 g/dL (1.7-4.1); Glucose 220 mg/dL (80-110); HEMOLYSIS < 15 (0-50); Magnesium 2.2 mg/dL (1.6-2.3); Phosphorous 3.7 mg/dL (2.3-3.7); Potassium 4.3 mmol/L (3.4-5.1); Sodium 139 mmol/L (137-145); Total Protein 6.1 g/dL (6.3-8.2)
[2019-11-27 05:30] LABS: NT-proBNP (BNP-Adult 18+) 836 pg/mL (<450)
[2019-11-27] MEDS: INSULIN ASPART 100 UNIT/ML INSULN PEN SUBCUT ×5 (06:04→20:21)
--- NOTE | 2019-11-27 07:08 | PM.PN.1 ---
Subjective Subjective Date Patient Seen: 11/27/19 Time Patient Seen: 07:08 Interval history: Patient had an uneventful night, no further elevated temperatures. Blood pressure was elevated last evening but he is hypotensive this morning. Reports pain is well controlled. Has started to eat and is tolerating a dysphagia diet. His insulin has been restarted. Remains in A fib but rate now controlled. Participating in PT/OT, feeling weak. He is deconditioned. No further DTs in the last 24 hours. No agitation overnight. Exam Vital Signs (past 8 hours): - 11/27/19 00:04 11/27/19 00:28 11/27/19 04:10 Temperature 97.0 F L 96.7 F L Pulse Rate 102 H 86 Respiratory Rate 21 18 Blood Pressure 155/71 H 109/57 L Pulse Oximetry 93 88 L 97 Fraction of Inspired Oxygen 30 Oxygen Delivery Method Room Air Oxygen Flow Rate 2 Narrative Exam Narrative: GENERAL: Alert and oriented. HEENT: Head normocephalic/atraumatic. Pupils equal, round, and reactive to light and accomodation. LUNGS: Clear to ausculation bilaterally, no wheezes, rhonchi or rales. CV: Normal S1 and S2 with regular rate and rhythm, no audible murmurs, rubs or gallops. ABDOMEN: Soft, non-tender, non-distended, no organomegaly. Positive bowel sounds. EXTREMITIES: No edema. SCDs in place. NEURO: Cranial nerves II through XII grossly intact. DTRs 2+ symmetric. PSYCH: Alert and oriented. SKIN: No concerning lesions. Objective Labs Result Diagrams: 11/27/19 04:35 11/27/19 04:35 Labs: Laboratory Results - last 24 hr 11/26/19 11/27/19 11/27/19 04:25 04:35 04:35 WBC 9.2 RBC 4.14 L Hgb 12.6 L Hct 37.6 L MCV 90.9 MCH 30.4 MCHC 33.4 RDW 13.8 Plt Count 240 Neut % (Auto) 89.4 H Lymph % (Auto) 4.4 L [place] % (Auto) 6.1 Eos % (Auto) 0.0 L Baso % (Auto) 0.1 Neut # (Auto) 8200 H Lymph # (Auto) 400 L [place] # (Auto) 600 Eos # (Auto) 0 Baso # (Auto) 0 Sodium 139 Potassium 4.3 Chloride 100 Carbon Dioxide 36 H BUN 17 Creatinine 0.64 L Estimated GFR > 60.0 BUN/Creatinine Ratio 26.6 H Glucose 220 H Hemoglobin A1c 8.2 H Calcium 9.4 Phosphorus 3.7 Magnesium 2.2 Total Bilirubin 0.6 AST 35 ALT 46 Alkaline Phosphatase 68 NT-Pro-B Natriuret Pep 836 H Total Protein 6.1 L Albumin 3.3 L Globulin 2.8 Albumin/Globulin Ratio 1.2 Assessment & Plan Assessment & Plan narrative: 79-year-old male admitted for back pain underwent an emergent laminectomy and had postoperative AFib with rapid ventricular rate. He was intubated for 48 hours for hypoventilation syndrome and has now been extubated for 3 days. 1. Hypoventilation syndrome, improving with use of BIPAP Plan: Will continue to monitor. At this point no evidence of congestive heart failure or infectious process involving the respiratory system. We will continue to monitor BNP, elevated likely due to AFib with RVR. 2. AFib with RVR, improved with diltiazem. -BNP trending down. Plan: Continue p.o. diltiazem and amiodorone. Plan for wean of amiodorone and titration of diltiazem prior to discharge. 3. Hypertension, labile -Back on home losartan. -Using diltiazem instead of home metoprolol. -Recent exacerbation requiring diltiazem drip and hydralazine, now on oral diltiazem. -History of severe hypotension requiring pressors, post-op and post-intubation. Plan: Will proceed cautiously. Will continue PO diltiazam and losartan today with plan to up-titrate diltiazem tomorrow if trend indicates need. 4. Severe central canal stenosis, status post neurosurgery. Pain appears to be well controlled Plan: Continue with current pain management. Wound postop follow-up per orthopedics 5. Type 2 diabetes Plan: Will continue monitoring blood sugars. Diabetic diet. Continue home Lantus 20 units b.i.d. 6. Risk of infectious disease with one elevated temperature and no further abnormal temperature. -Cultures pending but no evidence of infection at this time Plan: Will continue to monitor 7. Obstructive sleep apnea Plan: Continue BiPAP in the evening. 8. Alcohol withdrawal syndrome with delirium tremens, seems to have resolved Plan: Will continue with Ativan as needed. Patient does exhibit evidence of sundowning syndrome so we will continue Seroquel at HS. 9. Polymyalgia rheumatica without current symptoms Plan: Will switch back to prednisone today. 10. GI prophylaxis Plan: Continue on PPI 11. DVT prophylaxis Plan: Continue on Lovenox Disposition: Patient will need residential facility and currently looking at [facility] for this, anticipate that patient will continue inpatient stay through the weekend.
[2019-11-27] MEDS: ALBUTEROL/IPRATROPIUM 3 ML AMPUL INH ×3 (07:27→19:15)
--- NOTE | 2019-11-27 07:37 | PM.PNPO.1 ---
Subjective Subjective Date Patient Seen: 11/27/19 Time Patient Seen: 07:37 Interval history: POD #7 s/p L4-5 hemilaminectomy and microdiscectomy, and L5-S1 TLIF with Dr. Monroe. Patient was intubated on POD#2 for worsening mental status and respiratory status. Patient was extubated POD #4. Per ICU nurse, patient will move his bilateral upper and lower extremities when able to be aroused on verbal command. Patient is sitting in bedside chair today. Working with respiratory therapy. He was able to follow commands and respond to questions today. He is doing significantly better than yesterday. Still requiring [place] lift to get into chair. Currently managed medically by medicine and his PCP, Dr. Gallo. Exam Vital Signs (past 8 hours): - 11/27/19 00:04 11/27/19 00:28 11/27/19 04:10 Temperature 97.0 F L 96.7 F L Pulse Rate 102 H 86 Respiratory Rate 21 18 Blood Pressure 155/71 H 109/57 L Pulse Oximetry 93 88 L 97 Fraction of Inspired Oxygen 30 Oxygen Delivery Method Room Air Oxygen Flow Rate 2 Narrative Exam Narrative: Patient is sitting at bedside chair no acute distress. Sensation intact light touch throughout bilateral lower extremities. Able to actively dorsiflex and plantar flex. 5/5 lower extremity strength. Dressing on back was changed last night and CDI. Objective Labs Result Diagrams: 11/27/19 04:35 11/27/19 04:35 Labs: Laboratory Results - last 24 hr 11/26/19 11/27/19 11/27/19 04:25 04:35 04:35 WBC 9.2 RBC 4.14 L Hgb 12.6 L Hct 37.6 L MCV 90.9 MCH 30.4 MCHC 33.4 RDW 13.8 Plt Count 240 Neut % (Auto) 89.4 H Lymph % (Auto) 4.4 L [place] % (Auto) 6.1 Eos % (Auto) 0.0 L Baso % (Auto) 0.1 Neut # (Auto) 8200 H Lymph # (Auto) 400 L [place] # (Auto) 600 Eos # (Auto) 0 Baso # (Auto) 0 Sodium 139 Potassium 4.3 Chloride 100 Carbon Dioxide 36 H BUN 17 Creatinine 0.64 L Estimated GFR > 60.0 BUN/Creatinine Ratio 26.6 H Glucose 220 H Hemoglobin A1c 8.2 H Calcium 9.4 Phosphorus 3.7 Magnesium 2.2 Total Bilirubin 0.6 AST 35 ALT 46 Alkaline Phosphatase 68 NT-Pro-B Natriuret Pep 836 H Total Protein 6.1 L Albumin 3.3 L Globulin 2.8 Albumin/Globulin Ratio 1.2 Assessment & Plan Post-op Postoperative Procedures: Procedures Operation Date: 11/20/19 07:45 Actual Procedures Side Surgeon p L5S1 TLIF, L4-5 hemilaminectomy and microdiscectomy Reji Monroe MD Patient will continue with physical therapy. From an orthopedic standpoint patient is cleared to go to SNF. He will follow up with our office as scheduled. Anticipated discharge to SNF by PCP.
[2019-11-27] MEDS: DOXAZOSIN 4 MG TABLET 8 MG PO (07:57)
[2019-11-27] MEDS: ACETAMINOPHEN 325 MG TABLET 975 MG PO (08:02)
[2019-11-27] MEDS: MULTIVITAMIN 1 TABLET 1 TAB PO (08:04)
[2019-11-27] MEDS: DOCUSATE 100 MG CAPSULE PO ×2 (08:04→20:20)
[2019-11-27] MEDS: LOSARTAN 50 MG TABLET 100 MG PO (08:04)
[2019-11-27] MEDS: ENOXAPARIN 40 MG/0.4 ML SYRINGE SUBCUT (08:05)
[2019-11-27] MEDS: PANTOPRAZOLE 40 MG VIAL IV (08:05)
[2019-11-27] MEDS: FOLIC ACID 1 MG TABLET PO (08:05)
[2019-11-27] MEDS: predniSONE 5 MG TABLET 15 MG PO (08:06)
[2019-11-27] MEDS: AMIODARONE 200 MG TABLET PO ×2 (08:07→20:20)
[2019-11-27] MEDS: dilTIAZem CD 120 MG CAP PO (08:07)
[2019-11-27] MEDS: INSULIN GLARGINE 100 UNIT/ML 3ML PEN 20 UNIT SUBCUT ×2 (08:08→20:23)
[2019-11-27] MEDS: SODIUM CHLORIDE 0.9% FLUSH 10 ML IV (08:10)
[2019-11-27] MEDS: METOPROLOL TARTRATE 5 MG/5 ML INJ IV (09:20)
[2019-11-27] MEDS: METOPROLOL IR 25 MG TABLET 75 MG PO ×2 (09:22→20:20)
--- NOTE | 2019-11-27 09:26 | ST.IPDYTX ---
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 Pt still confuses and disoriented Treatment Liquids Trialed Thin Administration Type Tea Spoon,Cup Consecutive Sips ,Straw,Self-Feeding Oral Strategies Upright at 90 degrees,Lingual Sweep Pharyngeal Strategies Sitting Upright (90 deg) Treatment Activities Pt is safely tolerating current diet. No pocketing observed. No cough/choke observed. Trial advance with dysphagia advanced texture safely tolerated without cuing for tongue sweep. Pt remains confused and disoriented. More alert this morning Assessment Rehab Potential Good Diet Recommendations Recommendations Upgrade Diet Order Liquids Order Thin Diet Order Dysphagia Advanced Medication Recommendations As Tolerated Aspiration Precautions Recommended Precautions Upright at 90 Degrees,Lingual Sweep,Check for Pocketing Treatment Plan Placement Recommendation after Discharge Jail Facility Appropriate for Continued Therapy Yes Therapy Recommendations Continue inpatient ST for diet tolerance/safe diet advance as indicated Dysphagia Goals Pt will safely tolerate the highest diet texture without S /SX aspiration.
[2019-11-27 10:00] LABS: TSH w/ Reflex to FT4 0.82 uIU/mL (0.47-4.68)
--- NOTE | 2019-11-27 11:25 | PT.IPTN ---
Current Diagnoses Hypotension, unspecified (11/19/19) Spinal stenosis, lumbar region without neurogenic claudication (11/19/19) Surgery Performed Operation Date: 11/20/19 07:45 Actual Procedures p L5S1 TLIF, L4-5 hemilaminectomy and microdiscectomy - Reji Monroe MD Physical Therapy Treatment Note M2 PT-IP Current Condition Start: 11/23/19 09:08 Freq: NEEDED Status: Active Protocol: Document 11/26/19 13:10 AB (Rec: 11/26/19 13:59 AB [id number]) Physical Therapy Current Condition Current Condition Evaluation Date 11/26/19 Treatment Diagnosis s/p L5S1 TLIF; L4-5 micro disckectomy; difficulty in walking Onset Date 11/19/19 Precautions Lumbar Precautions Log Roll,No Twisting,Limit Bending,Lifting Restriction of 10 lbs,Gait Belt above Incisional Area Other Precautions Falls M3 PT-IP Subjective Start: 11/23/19 09:08 Freq: NEEDED Status: Active Protocol: Document 11/27/19 11:25 AB (Rec: 11/27/19 13:21 AB [id number]) Subjective Physical Therapy Visit Type Type Treatment Note Visit Start Time 11:25 Visit Stop Time 11:51 Total Visit Minutes 26 Number of STATE'S ATTORNEY Visits 0 Physical Therapy Visit Comments Patient Comments pt is agreeable to do PT Therapy Pain Assessment Pain Present Pain Present Denied Pain M4 PT-IP Mobility and Gait Start: 11/23/19 09:08 Freq: NEEDED Status: Active Protocol: Document 11/27/19 11:25 AB (Rec: 11/27/19 13:21 AB [id number]) PT-Transfer Assessment Sit to and From Stand Sit to and from Stand Maximum Assistance,2 Person Assistance,Use of Upper Extremities Equipment Transfer Assistive Device Gait Belt,Front Wheeled Walker Orthotic/Prosthetic Devices or Brace: No Comments Mobility Comments pt found sitting on chair. spouse in room with pt. pt agreed to do PT. pt completed sit to stand from chair max A x 2 and max cues. instructed pt for upright standing and posture as pt tends to lean more on R side. pt sat to rest. pt able to follow instructions better today compared to yesterdays. completed sit to stand again max A x 2 and max cues and ambulated ~ 3ft using FWW max A x 2 and cues. (+) RLE buckling requiring max A to stabilize. pt rested again. completed sit to stand again max A x 2 and max cues and was able to maintain standing max A x 1-2 and max cues while nurse assisted with brief change. pt ambulated again ~ 4 ft max A x 2 and max cues. continues to have R knee buckling but able to control better than first ambulation. positioned pt back on chair. call light and table placed within reach. informed spouse regarding pt's current mobility level and recommendation of SNF rehab at this time. Gait Assessment Gait Gait Assistance Required: Maximum Assistance,2 Person Assist Distance (Feet) 4 Able to Maintain Weight Bearing Status Yes During Gait Assistive Devices Assistive Device Gait Belt,Front Wheeled Walker Orthotic/Prosthetic Devices or Brace: No Gait Deviations General Gait Pattern Antalgic,Decreased Stride Length,Decreased Feet Clearance,Step-to Gait Factors Limiting Gait Function Factors Limiting Gait Function Decreased Activity Tolerance, Decreased Sensation,Decreased Strength,Difficulty Following Directions,Limited Range of Motion,Poor Balance,Poor Safety Awareness Comments Gait Comments pls refer to mobility section for details M5 PT-IP Objective Assessments Start: 11/23/19 09:08 Freq: NEEDED Status: Active Protocol: Document 11/26/19 13:10 AB (Rec: 11/26/19 13:59 AB [id number]) Orientation Orientation/Cognition Level of Alertness Lethargic Orientation Name Safety Awareness Decreased Safety Awareness Memory Description Short Term Impaired Gross Range of Motion Lower Extremity ROM Assessment Within Functional Limits Strength Lower Extremity Strength Assessment Bilaterally Impaired Comments Strength Comments LLE: 3+/5 RLE 3-/5 M6 PT-IP Treatment Start: 11/23/19 09:08 Freq: NEEDED Status: Active Protocol: Document 11/27/19 11:25 AB (Rec: 11/27/19 13:21 AB [id number]) Physical Therapy Treatment Education Education Provided Precautions,Safety M7 PT-IP Assessment and Plan Start: 11/23/19 09:08 Freq: NEEDED Status: Active Protocol: Document 11/27/19 11:25 AB (Rec: 11/27/19 13:21 AB [email or web address]) PT Summary Assessment and Plan Potential Rehabilitation Potential Fair Summary Impairments Pain,ROM,Strength,Balance, Coordination,Sensation,Tone, Cognition,Bed Mobility, Transfers,Gait,Activity Tolerance Progress Towards Goals Slow Progress due to Medical Issues,Slow Progress due to Activity Tolerance Assessment Summary pt requiring 2 person max A with mobility using FWW and with (+) R knee buckling during ambulation. pt continues to have confusion but able to follow directions better today compared to yesterday and is more alert today. will continue to assess progress but pt will require SNF rehab at this time . Goals Bed Mobility Goal Moderate Assistance Transfer Goal Moderate Assistance,Front Wheeled Walker Gait Goal Moderate Assistance,Front Wheel Walker Gait Distance 100 Days to Meet Goals 10 Frequency of Treatment Frequency Of Treatment Twice a Day Treatment Plan Physical Therapy Treatment Plan Bed Mobility Training,Transfer Training,Gait Training, Therapeutic Exercise,Balance Retraining,Post Op Education, Discharge Planning,Hot or Cold Pack,Neuromuscular Re-ed, Coordination Retraining,Manual Therapy Other Recommendations and Next Treatment transfers Focus Recommendations To Nursing Amount of Assist Needed Mechanical Lift Discharge Recommendations PT Discharge Recommendations SNF Rehab Transportation Needs at Discharge Wheelchair/Cabulance,Stretcher /Ambulance
--- NOTE | 2019-11-27 11:31 | CM.DPC ---
Addendum entered by Annita Sepulveda LPN 11/27/19 13:52: August/[facility] says her team reviewed case and noted the complexity of his care and needs. They will re-look at him Saturday morning with likely acceptance is pt is stable at that time. August notes that team can see that he seems to have turned the corner and is beginning to improve and stablize, both medically and from a behavior standpoint. Original Note: DCP: continued: Case received, EMR for last few days reviewed. Conferred with CHRIS Lara, caring for pt today. Met then with pt and his Niya. Confirmed that [facility] is choice as is the only facility in [place]. Alea/[facility] confirmed that pt was on their possible list and said she would do a deeper review now that he was approaching readiness for d/c. Dr. Sosa has an nursing manager progress note in for today in draft. States that she expects need for snf setting at d/c and that she anticpates pt will be here through the weekend. Ortho HARSH Ross was here and her note states that, orthopedically, pt is stable for snf level care. Dr. Brewer's note of yesterday states that hospitalist have signed off at this time, deferring to Dr. Gallo and partners for rest of the care going forward. Pt is agreeable to the snf plan, as much as he can understand of it. Niya says he seems like he is about 75% of his usual mental capacity. She states she is hopeful that pt will be able to go home at d/c but she agrees that at this point he is far from baseline. Discussed hiring caregivers as one option once pt is able to progress to a one person assist but that without the benefit for snf rehab he will not likely reach that point. Explained the snf level COVID restrictions. Also explained the benefits but also the limitations of Home Health He is currently a heavy 2+ transfer and primarily using overhead lift for transfers. OT/PT/NOVELTIES SALES REPRESENTATIVE are following. At this time plan is for d/c to [facility] in next few days pending their final acceptance. Will be following. CHRIS Goff is updated and will work also with pt's so that she is able to see what pt can and cannot do at this point.
--- NOTE | 2019-11-27 12:16 | OT.IP.EVAL ---
Current Diagnoses Hypotension, unspecified (11/19/19) Spinal stenosis, lumbar region without neurogenic claudication (11/19/19) Surgery Performed Operation Date: 11/20/19 07:45 Actual Procedures p L5S1 TLIF, L4-5 hemilaminectomy and microdiscectomy - Reji Monroe MD Past Medical History (Last Reviewed 11/19/19 @ 13:32 by Octavio Gallo MD) Back pain (Acute) Diabetes mellitus (Acute) GERD (gastroesophageal reflux disease) (Acute) High cholesterol (Acute) Hypertension (Acute) PMR (polymyalgia rheumatica) (Acute) Surgical History (Last Reviewed 11/19/19 @ 13:32 by Octavio Gallo MD) History of appendectomy (Acute) Status post total left knee replacement (Acute) Occupational Therapy Inpatient Evaluation/Re-Eval M1 PT/OT-IP Prior Functional Status Start: 11/27/19 16:40 Freq: NEEDED Status: Active Protocol: Document 11/27/19 11:27 [facility] (Rec: 11/27/19 17:20 [facility] [id number]) Medical Review Prior Functional Status Medical History Reviewed Yes Communication pt is very drowsy and requires increase time to answer questions; requires frequent cues to open his eyes Mobility and Gait pt stated that he is modified independent with all mobilities and ambulation using 4WW but occasionally uses a SPC Activities of Daily Living and IADL's Pt's states prior able to do all his ADl's, drives and cooks. Social History Household Members spouse Number of Floors (Floors) Two Floors Number of Stairs To Enter/Railing? 4 steps to enter with R rail 2 steps to bedroom level with R rail Home Environment High Toilet,Walk in Shower Home Equipment Four Wheel Walker,Straight Cane,Hand Held Shower,Grab Bars Near Toilet,Grab Bars In Shower M2 OT-IP Current Condition Start: 11/27/19 16:40 Freq: Status: Active Protocol: Document 11/27/19 11:27 [facility] (Rec: 11/27/19 17:20 [facility] [id number]) Occupational Therapy Current Condition Current Condition Evaluation Date 11/27/19 Treatment Diagnosis s/p L5-S1 TLIF, L4-5 microdisckectomy, altered mental status Diagnosis Onset Date 11/19/19 Post Operative Precautions Lumbar Precautions Log Roll,No Twisting,Limit Bending,Lifting Restriction of 10 lbs,Gait Belt above Incisional Area M3 OT- IP Subjective and Pain Start: 11/27/19 16:40 Freq: Status: Active Protocol: Document 11/27/19 11:27 [facility] (Rec: 11/27/19 17:20 [facility] [email or web address]) OT- Subjective Occupational Therapy Visit Type Type Initial Evaluation Visit Start Time 11:27 Visit Stop Time 12:16 Total Visit Minutes 49 Occupational Therapy Visit Comments Patient Comments Pt sitting in the recliner, present and PT there as pt needing extensive assist for mobility needs. Patient/Caregiver Goals To get better. OT Pain Assessment Pain When Pain Assessed During Mobility Pain Present Pain Present Pain Reported M4 OT- IP ADL's Start: 11/27/19 16:40 Freq: Status: Active Protocol: Document 11/27/19 11:27 [facility] (Rec: 11/27/19 17:20 [facility] [id number]) OT [id number] Comments OT Self-Feeding Comments Pt needing two hands to hold the cup to bring to his mouth. OT ADL-Grooming General Evaluation Grooming Ability Standby Assistance Comments OT Grooming Comments Pt needing set-up assist and vc to stay on task. OT ADL-Oral Care General Eval Oral Care Ability Standby Assistance Comments Oral Care Comments VC for orientation of items in front of him. OT ADL-Dressing General Eval Lower Body Dressing Ability Total Assistance Areas Needing Assistance Underpants/Brief Comments OT Dressing Comments Pt dependent for brief change, MAX A X2 with FWW to stand and nursing able to do hygiene and brief management needs. OT ADL-Toileting General Evaluation Toileting Ability Total Assistance Areas Needing Assistance Manage Clothing,Perform Perineal Hygiene Comments OT Toileting Comments Pt dependent for brief change, MAX X2 with FWW to stand and nursing able to do hygiene and brief management needs. OT ADL-Bathing Comments OT Bathing Comments Not at this time. M5 OT- IP IADL's Start: 11/27/19 16:40 Freq: Status: Active Protocol: Document 11/27/19 11:27 [facility] (Rec: 11/27/19 17:20 [facility] [email or web address]) OT-Instrumental Activities of Daily Living Home Safety Awareness Awareness of Need for Assistance at Home Decreased Awareness Ability to Problem Solve Emergency Unable to Problem Solve Situations Home Safety Comments Pt very confused at this time and and did not recognize his in the room. M6 OT- IP Functional Cognition Start: 11/27/19 16:40 Freq: Status: Active Protocol: Document 11/27/19 11:27 [facility] (Rec: 11/27/19 17:20 [facility] [id number]) Cognitive Factors Limiting Selfcare Function Cognitive Ability Level of Alertness Alert,Confusional State Patient Orientation Name Attention Span Ability Capable of Focused Attention, Unable to Sustain Attention Ability to Follow Commands Able to Follow One Step Commands with Increased Time, Able to Follow One Step Commands with Repetition Memory Description Short Term Impaired,Manager Care Management Impaired,Working Impaired Problem Solving Ability Unable to Identify Errors, Needs Assist to Identify Solutions Cognitive Comments Cognitive Assessment Comments Pt very confused and not able to recognize his , not aware of what happened or where his is. Pt needing step by step instructions to help for completeness of tasks. M7 OT- IP Mobility and Balance Start: 11/27/19 16:40 Freq: Status: Active Protocol: Document 11/27/19 11:27 [facility] (Rec: 11/27/19 17:20 [facility] [email or web address]) OT-Transfer Assessment Sit to and From Stand Sit to and from Stand Maximum Assistance,2 Person Assistance Devices Transfer Assistive Devices Gait Belt,Front Wheeled Walker Comments Mobility Comments Pt needing MAX AX2 to stand with FWW and tends to lean to the right and right knee esme. Pt needs assist with weight shifting, balance , and vc to push down on the FWW with his arms. OT- Balance Assessment Sitting Balance and Reactions Static Sitting Balance Ability Poor Standing Balance and Reactions Static Standing Balance Ability Poor M8 OT- IP Objective Assessments Start: 11/27/19 16:40 Freq: Status: Active Protocol: Document 11/27/19 11:27 [facility] (Rec: 11/27/19 17:20 [facility] [email or web address]) OT Gross Range of Motion Upper Extremity Range of Motion Assessment Within Functional Limits OT- Coordination Assessment Comments Coordination Comments Decreased coordination with right hand and having difficulty to open package for the tooth brush and brush. OT-Muscle Tone Assessment Muscle Tone WNL Yes M9 OT- IP Assessment and Plan Start: 11/27/19 16:40 Freq: Status: Active Protocol: Document 11/27/19 11:27 [facility] (Rec: 11/27/19 17:20 [facility] [email or web address]) OT Summary Assessment and Plan Potential Rehabilitation Potential Fair Analytic Complexity at Evaluation Low Summary OT Impairments Pain,Balance,Coordination, Functional Cognition, Functional Mobility,Self- Feeding,Grooming,Dressing, Toileting,Bathing,Toilet Transfers,Shower Transfers, Activity Tolerance Progress Towards Goals Slow Progress due to Pain,Slow Progress due to Medical Issues,Slow Progress due to Activity Tolerance,Slow Progress due to Cognition Assessment Summary Pt MOD complexity s/p L5-S1 TLIF, L4-5 microdiskectomy and developed hypoxemic and hypercarbonic respiratory failure requiring intubation and extubated on 11/24/19. Pt now dependent for all mobility needs and needing 2-3 person assist and vc to help sequence for completeness for grooming needs. Pt far from baseline and and will benefit from skilled rehab. Goals Grooming Goal Independent Dressing Goal Independent Toileting Goal Independent Bathing Goal Independent Toilet Transfer Goal Independent Shower Transfer Goal Independent Patient/Caregiver Education Goal Demonstrate Post-Op Precautions Days to Meet Goals 25 Frequency of Treatment Frequency Of Treatment Once a Day Treatment Plan OT Treatment Plan ADL Training,Functional Cognition Training,Functional Mobility,Patient/Family Education,Discharge Planning Other Treatment Recommendations and Next Pt able to do self feed on his Treatment Focus own after initial set-up. Discharge Recommendations OT Discharge Recommendations SNF Rehab Transportation Needs at Discharge Wheelchair/Cabulance
--- NOTE | 2019-11-27 14:09 | PT.IPTN ---
Current Diagnoses Hypotension, unspecified (11/19/19) Spinal stenosis, lumbar region without neurogenic claudication (11/19/19) Surgery Performed Operation Date: 11/20/19 07:45 Actual Procedures p L5S1 TLIF, L4-5 hemilaminectomy and microdiscectomy - Reji Monroe MD Physical Therapy Treatment Note M2 PT-IP Current Condition Start: 11/23/19 09:08 Freq: NEEDED Status: Active Protocol: Document 11/26/19 13:10 AB (Rec: 11/26/19 13:59 AB [id number]) Physical Therapy Current Condition Current Condition Evaluation Date 11/26/19 Treatment Diagnosis s/p L5S1 TLIF; L4-5 micro disckectomy; difficulty in walking Onset Date 11/19/19 Precautions Lumbar Precautions Log Roll,No Twisting,Limit Bending,Lifting Restriction of 10 lbs,Gait Belt above Incisional Area Other Precautions Falls M3 PT-IP Subjective Start: 11/23/19 09:08 Freq: NEEDED Status: Active Protocol: Document 11/27/19 14:09 AB (Rec: 11/27/19 15:25 AB [id number]) Subjective Physical Therapy Visit Type Type Treatment Note Visit Start Time 14:09 Visit Stop Time 14:34 Total Visit Minutes 25 Number of SOUND ENGINEER Visits 0 Physical Therapy Visit Comments Patient Comments pt is agreeable to do PT Therapy Pain Assessment Pain Present Pain Present Denied Pain M4 PT-IP Mobility and Gait Start: 11/23/19 09:08 Freq: NEEDED Status: Active Protocol: Document 11/27/19 14:09 AB (Rec: 11/27/19 15:25 AB [id number]) PT-Bed Mobility Assessment Rolling Type of Rolling Log Rolling Level of Assist Maximal Assistance Supine to Sit Supine to Sit Maximum Assistance,1 Person Assistance,2 Person Assistance Sit to Supine Sit to Supine Maximum Assistance,1 Person Assistance,2 Person Assistance ,Bedrails PT-Transfer Assessment Sit to and From Stand Sit to and from Stand Maximum Assistance,2 Person Assistance,Use of Upper Extremities Equipment Transfer Assistive Device Gait Belt,Front Wheeled Walker Orthotic/Prosthetic Devices or Brace: No Comments Mobility Comments completed supine to sit log roll max A x 1-2 and max cues. required mod A to max A for sitting on EOB. pt with increase lateral R side lean but able assist with correcting midline position mod to max A. completed sit to stand max A x 2 and max cues and ambulated ~ 7 ft mod to max A x 2 and max cues. pt agreed to ambulate again and completed 7 ft mod to max A x 2 and max cues. continues to have R knee buckling during ambulation but with better control this tx session with max cues needed. completed sit to supine max A x 2 and max cues. positioned in bed. call light and table placed within reach. Gait Assessment Gait Gait Assistance Required: Maximum Assistance,2 Person Assist Distance (Feet) 7 Able to Maintain Weight Bearing Status Yes During Gait Assistive Devices Assistive Device Gait Belt,Front Wheeled Walker Orthotic/Prosthetic Devices or Brace: No Gait Deviations General Gait Pattern Antalgic,Decreased Stride Length,Decreased Feet Clearance,Flexed Trunk,Lateral Trunk Lean,Step-to Gait Factors Limiting Gait Function Factors Limiting Gait Function Decreased Activity Tolerance, Decreased Strength,Difficulty Following Directions,Limited Range of Motion,Poor Balance, Poor Safety Awareness Comments Gait Comments pls refer to mobility section for details M5 PT-IP Objective Assessments Start: 11/23/19 09:08 Freq: NEEDED Status: Active Protocol: Document 11/26/19 13:10 AB (Rec: 11/26/19 13:59 AB [id number]) Orientation Orientation/Cognition Level of Alertness Lethargic Orientation Name Safety Awareness Decreased Safety Awareness Memory Description Short Term Impaired Gross Range of Motion Lower Extremity ROM Assessment Within Functional Limits Strength Lower Extremity Strength Assessment Bilaterally Impaired Comments Strength Comments LLE: 3+/5 RLE 3-/5 M6 PT-IP Treatment Start: 11/23/19 09:08 Freq: NEEDED Status: Active Protocol: Document 11/27/19 14:09 AB (Rec: 11/27/19 15:25 AB [id number]) Physical Therapy Treatment Education Education Provided Precautions,Safety M7 PT-IP Assessment and Plan Start: 11/23/19 09:08 Freq: NEEDED Status: Active Protocol: Document 11/27/19 14:09 AB (Rec: 11/27/19 15:25 AB [id number]) PT Summary Assessment and Plan Potential Rehabilitation Potential Fair Summary Impairments Pain,ROM,Strength,Balance, Coordination,Sensation,Tone, Cognition,Bed Mobility, Transfers,Gait,Activity Tolerance Progress Towards Goals Slow Progress due to Medical Issues,Slow Progress due to Activity Tolerance Assessment Summary pt continues to require 2 person assist with mobility using FWW. pt will require SNF rehab to improve strength and function. Goals Bed Mobility Goal Moderate Assistance Transfer Goal Moderate Assistance,Front Wheeled Walker Gait Goal Moderate Assistance,Front Wheel Walker Gait Distance 100 Days to Meet Goals 10 Frequency of Treatment Frequency Of Treatment Twice a Day Treatment Plan Physical Therapy Treatment Plan Bed Mobility Training,Transfer Training,Gait Training, Therapeutic Exercise,Balance Retraining,Post Op Education, Discharge Planning,Hot or Cold Pack,Neuromuscular Re-ed, Coordination Retraining,Manual Therapy Other Recommendations and Next Treatment transfers Focus Recommendations To Nursing Amount of Assist Needed 2 Person Assist Discharge Recommendations PT Discharge Recommendations SNF Rehab Transportation Needs at Discharge Wheelchair/Cabulance,Stretcher /Ambulance
[2019-11-27] MEDS: QUETIAPINE 25 MG TABLET PO (20:20)
[2019-11-28] VITALS (18 sets, daily range): BP systolic 125–177; BP diastolic 67–105; PULSE 84–120; RESP 14–33; TEMP 35.9–37; O2SAT 90–96
[2019-11-28] MEDS: SODIUM CHLORIDE 0.9% FLUSH 10 ML IV ×3 (00:21→22:27)
[2019-11-28] MEDS: OXYCODONE IR 5 MG TABLET PO ×3 (00:30→12:25)
--- NOTE | 2019-11-28 01:22 | PC.NURSE ---
Addendum entered by Milli Bell R.N. 11/28/19 06:22: Patient still has not slept throughout entire shift. Patient remains confused, pulling at cables and wires. Sitter present at bedside. Blood glucose on AM labs is 63. This RN checked finger stick, which read 62. [place] juice, crackers and peanut butter given to patient, per patient request. RN rechecked blood glucose 15 minutes later, blood sugar increased to 83. Patient still eating crackers/peanut butter at this time. Patient currently resting in bed, disoriented x4, in a fib on monitor technician. Addendum entered by Milli Bell R.N. 11/28/19 02:49: Notified coordinator, Bethany regarding patient's status and up on all 4s again, in bed. I informed her patient needs a sitter. BRAND ADVISOR, Michelle, at bedside with patient now. Addendum entered by Milli Bell R.N. 11/28/19 02:40: Patient currently still very confused, restless, trying to get out of bed. Both BRAND ADVISOR and RN constantly at bedside repositioning, changing, and offering sips of fluid to patient. Patient still also complaining of pain everywhere. PRN Tylenol administered. Original Note: Patient with multiple attempts to get up out of bed, and pull off CPAP mask. RT notified, CPAP mask removed from patient due to agitation. Patient has attempted to be reoriented, but unsuccessful. He states he wants to walk home. [id number] patient on all 4s in bed, patient agitated demanding to get up. BRAND ADVISOR sitting with patient at bedside while this RN calls Dr. Reyna Braun physician supervisor electronics processing. 0108 Dr. Braun paged, waiting return call. 0125 Dr. Reyna Braun returned call, order received for 1x dose of Haldol 2mg.
[2019-11-28] MEDS: HALOPERIDOL 5 MG/ML VIAL 2 MG IV ×3 (01:36→23:32)
[2019-11-28] MEDS: ACETAMINOPHEN 650 MG SUPP PR (02:24)
[2019-11-28] MEDS: METOPROLOL TARTRATE 5 MG/5 ML INJ IV (04:32)
[2019-11-28 05:30] LABS: Alanine Aminotransferase 54 IU/L (<50); Albumin 3.4 g/dL (3.5-5.0); Albumin Globulin Ratio 1.2 (1.0-2.8); Alkaline Phosphatase 65 U/L (38-126); Aspartate Aminotransferase 43 IU/L (17-59); BUN Creatinine Ratio 23.5 (6-22); Bilirubin Total 0.6 mg/dL (0.2-1.3); Blood Urea Nitrogen 20 mg/dL (9-20); Calcium 9.6 mg/dL (8.4-10.2); Carbon Dioxide 36 mmol/L (22-32); Chloride 101 mmol/L (98-107); Estimated Glomerular Filt Rate > 60.0 mL/min (>60); Globulin 2.8 g/dL (1.7-4.1); Glucose 63 mg/dL (80-110); HEMOLYSIS < 15 (0-50); Magnesium 1.7 mg/dL (1.6-2.3); Phosphorous 3.7 mg/dL (2.3-3.7); Potassium 3.4 mmol/L (3.4-5.1); Sodium 140 mmol/L (137-145); Total Protein 6.2 g/dL (6.3-8.2)
[2019-11-28 05:32] LABS: Add Manual Diff / Slide Review NO; Basophils Absolute Auto 0 /uL (0-100); Basophils Percent Auto 0.3 % (0-2); Eosinophils Absolute Auto 100 /uL (0-450); Hematocrit 36.8 % (41-53); Hemoglobin 12.4 g/dL (13.5-17.5); Lymphocytes Absolute Auto 1300 /uL (1100-4500); Lymphocytes Percent Auto 14.5 % (25-40); Mean Corpuscular HGB Conc 33.6 % (30-36); Mean Corpuscular Hemoglobin 30.4 PG (26-34); Mean Corpuscular Volume 90.6 fL (80-100); Monocytes Absolute Auto 700 /uL (0-900); Monocytes Percent Auto 7.9 % (3-14); Neutrophils Absolute Auto 6900 /uL (1500-7000); Neutrophils Percent Auto 76.3 % (50-75); Platelet Count 258 X10^3/uL (150-400); Red Blood Cell Count 4.07 X10^6/uL (4.5-5.9); White Blood Cell Count 9.1 X10^3/uL (4.5-11.0)
[2019-11-28 05:37] LABS: NT-proBNP (BNP-Adult 18+) 381 pg/mL (<450)
[2019-11-28] MEDS: ALBUTEROL/IPRATROPIUM 3 ML AMPUL INH ×3 (06:09→19:18)
[2019-11-28] MEDS: PANTOPRAZOLE 40 MG TABLET PO (06:12)
--- NOTE | 2019-11-28 08:12 | P.PN_ITS ---
Subjective Subjective Date Patient Seen: 11/28/19 Time Patient Seen: 08:12 Interval history: Patient had acromion night last night. Patient had a significant amount of delirium agitation. Trying to get out of bed confused disoriented. Requiring assistance of 2 nurses and as well as full-time 1 on 1. Required also some chemical restraints. Maybe a little bit better still obviously disoriented. Because of his agitation is quite tachycardic. Still in atrial fibrillation heart rates have been into the 120s to 130s. Has not been hypotensive. Tolerated a limited amount of diet. Discussed care with nursing staff. Patient has a small rash on his back. Reviewed hospital care up to this point. All previous notes were reviewed imaging x-rays laboratory values and tests of. Reviewed extensively is medications that he is currently on. Patient responds to voice. He is agitated in bed he thinks is 1980. He is moving all extremities. He is asking for his in his cell phone. He does not believe he is in [place] he [place]. Exam Vital Signs (past 8 hours): - 11/28/19 00:14 11/28/19 00:49 11/28/19 01:02 Temperature 98.1 F Pulse Rate 84 85 Respiratory Rate 18 33 H Blood Pressure 158/88 H Pulse Oximetry 96 95 96 11/28/19 03:15 11/28/19 04:00 11/28/19 05:06 Temperature 96.7 F L Pulse Rate 92 H 99 H 98 H Respiratory Rate 14 18 22 Blood Pressure 176/94 H 177/84 H Pulse Oximetry 92 94 94 11/28/19 06:09 11/28/19 07:40 Temperature 98.3 F Pulse Rate 90 120 H Respiratory Rate 16 25 H Blood Pressure 165/86 H Pulse Oximetry 94 93 Fraction of Inspired Oxygen 30 Oxygen Delivery Method Room Air Oxygen Flow Rate 0 Narrative Exam Narrative: Gen.: Patient is alert arousable his confused disoriented and agitated. HEENT: Pupils equal round and reactive. Oral mucosa is moist neck is supple. Cardio: S1-S2 irregular rate and rhythm tachycardic Respiratory: Normal respiratory effort. Abdomen: Soft nontender no rebound no guarding Extremities: Moving all of extremities without difficulty Objective Labs Result Diagrams: 11/28/19 04:39 11/28/19 04:39 Labs: Laboratory Results - last 24 hr 11/27/19 11/28/19 11/28/19 04:35 04:39 04:39 WBC 9.1 RBC 4.07 L Hgb 12.4 L Hct 36.8 L MCV 90.6 MCH 30.4 MCHC 33.6 RDW 14.0 Plt Count 258 Neut % (Auto) 76.3 H Lymph % (Auto) 14.5 L [place] % (Auto) 7.9 Eos % (Auto) 1.0 L Baso % (Auto) 0.3 Neut # (Auto) 6900 Lymph # (Auto) 1300 [place] # (Auto) 700 Eos # (Auto) 100 Baso # (Auto) 0 Sodium 140 Potassium 3.4 Chloride 101 Carbon Dioxide 36 H BUN 20 Creatinine 0.85 Estimated GFR > 60.0 BUN/Creatinine Ratio 23.5 H Glucose 63 L D Calcium 9.6 Phosphorus 3.7 Magnesium 1.7 Total Bilirubin 0.6 AST 43 ALT 54 H Alkaline Phosphatase 65 NT-Pro-B Natriuret Pep 381 Total Protein 6.2 L Albumin 3.4 L Globulin 2.8 Albumin/Globulin Ratio 1.2 TSH 0.82 Assessment & Plan Assessment & Plan narrative: Severe metabolic encephalopathy due to underlying strong history of alcohol use concerning for delirium tremors. Also can be hypoxic related due to having to be reintubated after his surgical procedure. I would like to proceed with a CT scan of his brain to make sure there is no hypoxic injury to the brain. Also could be Wernicke is related due to alcohol use so will make sure he is on vitamin B12 and folic acid. He has got severe agitation requiring 1 on 1 nursing. Do not think he is still going through alcohol withdrawal at this point. Will go ahead and schedule Seroquel doses with increased dose at night and a little bit in the morning to see if we can not keep his agitation under control and continue with direction and reorientation of the patient. This is compounding his long-term hospital stay and seems to be 1 of the major contributing factors at this point for his ongoing hospitalization. Atrial fibrillation with rapid ventricular response appears on his medical record that he is on amiodarone beta-irma both oral and IV and oral cardia exam. He had an echocardiogram which showed atrial fibrillation with no significant valvular disease and normal ejection fraction of his heart his elevation of his BNP just probably due to his underlying heart failure. Will work on better management of his rate control. In a stop his oral Cardizem. Will adjust his metoprolol dosing to be better adequate beta-blockade. I guess we will keep him on his amiodarone but were going to go ahead and decrease the dose from 200 mg twice a day to 200 mg once a day. Hopefully as his agitation clears his heart rate will improve. Hypoventilation syndrome requiring re-intubation after his lumbar spine surgeries currently using on BiPAP at night. Patient has a long history of sleep apnea. His last ABG and CO2 on blood work was within the normal range. Diabetes type 2. Fairly labile blood sugars sometimes hyperglycemic and sometimes hypoglycemic street a normal range this morning. Will continue with monitoring of blood sugars but avoid tight control. Lumbar spine surgery. Postoperatively being followed by his orthopedic group. Question is is when we can restart him back on look anticoagulation for his atrial fibrillation because of concerns of stroke risk. Alcohol misuse with alcohol withdrawal here in the hospital contributing to his ongoing hospitalization. Polymyalgia rheumatica. Patient on long-term prednisone suppressive therapy. Do not think we need to increase his prednisone for stress doses at this point has a not seeing signs of adrenal hypofunction. Nutrition. Patient nutrition is poor although he is eating nutritional intake by mouth at is limited. Will have a nutrition consultation. Point DVT and GI prophylaxis disposition and plan. Will require some hospitalization for a few more days.
--- NOTE | 2019-11-28 08:31 | DI.CT.S_ITS ---
PROCEDURE: CT HEAD/BRAIN WO CON INDICATIONS: confusion and delerium s/p surgery TECHNIQUE: Noncontrast 4.5 mm thick angled axial sections acquired from the foramen magnum to the vertex, with coronal and sagittal reformats. For radiation dose reduction, the following was used: automated exposure control, adjustment of mA and/or kV according to patient size. COMPARISON: None. FINDINGS: Image quality: Excellent. CSF spaces: Basal cisterns are patent. No extra-axial fluid collections. Ventricles are normal in size and shape. Brain: Remote left cerebellar hemisphere infarct. Global cerebral volume loss with chronic microvascular ischemic changes, overall moderate. Santiago-white matter differentiation is maintained with no evidence of acute infarct. No findings of mass effect or midline shift. No acute intracranial hemorrhage. Skull and face: Calvarium and visualized facial bones are intact, without suspicious lesions. Sinuses: Visualized sinuses and mastoids are clear. IMPRESSION: No acute intracranial abnormality. Dictated by: Wyatt Singh M.D. on 11/28/2019 at 10:00 Approved by: Wyatt Singh M.D. on 11/28/2019 at 10:01
[2019-11-28] MEDS: AMIODARONE 200 MG TABLET PO (09:00)
[2019-11-28] MEDS: CYANOCOBALAMIN (VITAMIN B-12) 500 MCG TABLET 1000 MCG PO (09:01)
[2019-11-28] MEDS: DOXAZOSIN 4 MG TABLET 8 MG PO (09:01)
[2019-11-28] MEDS: DOCUSATE 100 MG CAPSULE PO ×2 (09:01→21:37)
[2019-11-28] MEDS: ENOXAPARIN 40 MG/0.4 ML SYRINGE SUBCUT (09:01)
[2019-11-28] MEDS: MULTIVITAMIN 1 TABLET 1 TAB PO (09:02)
[2019-11-28] MEDS: LOSARTAN 50 MG TABLET PO (09:02)
[2019-11-28] MEDS: FOLIC ACID 1 MG TABLET PO (09:02)
[2019-11-28] MEDS: METOPROLOL IR 50 MG TABLET 100 MG PO ×3 (09:02→21:37)
[2019-11-28] MEDS: predniSONE 5 MG TABLET 15 MG PO (09:03)
[2019-11-28] MEDS: LORazepam 2 MG/ML INJ 1 MG IV (09:03)
[2019-11-28] MEDS: INSULIN GLARGINE 100 UNIT/ML 3ML PEN 20 UNIT SUBCUT (10:01)
[2019-11-28] MEDS: QUETIAPINE 25 MG TABLET PO (10:03)
--- NOTE | 2019-11-28 10:43 | P.PN_ITS ---
Subjective Subjective Date Patient Seen: 11/28/19 Time Patient Seen: 10:44 Interval history: POD #8 s/p L4-5 hemilaminectomy and microdiscectomy, and L5-S1 TLIF with Dr. Monroe. Patient was intubated on POD#2 for worsening mental status and respiratory status. Patient was extubated POD #4. Patient will move his bilateral upper and lower extremities when able to be regina used on verbal command. Working with respiratory therapy. He has been waxing/waning in his ability to follow directions and respond appropriately to questions. Per ICU nurse he has been incontinent but this is improving. Currently managed medically by medicine and his PCP, Dr. Gallo who ordered a head CT this morning. Exam Vital Signs (past 8 hours): - 11/28/19 03:15 11/28/19 04:00 11/28/19 05:06 Temperature 96.7 F L Pulse Rate 92 H 99 H 98 H Respiratory Rate 14 18 22 Blood Pressure 176/94 H 177/84 H Pulse Oximetry 92 94 94 11/28/19 06:09 11/28/19 06:42 11/28/19 07:40 Temperature 98.3 F Pulse Rate 90 99 H 120 H Respiratory Rate 16 14 25 H Blood Pressure 165/86 H Pulse Oximetry 94 93 93 11/28/19 09:02 11/28/19 09:57 11/28/19 09:58 Temperature Pulse Rate 119 H 98 H 96 H Respiratory Rate 24 20 Blood Pressure 165/86 H 131/67 131/67 Pulse Oximetry 90 L Fraction of Inspired Oxygen 30 Oxygen Delivery Method CPAP Oxygen Flow Rate 0 Narrative Exam Narrative: Dressing over lumbar spine is CDI. Patient able to move all extremities. Objective Labs Result Diagrams: 11/28/19 04:39 11/28/19 04:39 Labs: Laboratory Results - last 24 hr 11/28/19 11/28/19 04:39 04:39 WBC 9.1 RBC 4.07 L Hgb 12.4 L Hct 36.8 L MCV 90.6 MCH 30.4 MCHC 33.6 RDW 14.0 Plt Count 258 Neut % (Auto) 76.3 H Lymph % (Auto) 14.5 L [place] % (Auto) 7.9 Eos % (Auto) 1.0 L Baso % (Auto) 0.3 Neut # (Auto) 6900 Lymph # (Auto) 1300 [place] # (Auto) 700 Eos # (Auto) 100 Baso # (Auto) 0 Sodium 140 Potassium 3.4 Chloride 101 Carbon Dioxide 36 H BUN 20 Creatinine 0.85 Estimated GFR > 60.0 BUN/Creatinine Ratio 23.5 H Glucose 63 L D Calcium 9.6 Phosphorus 3.7 Magnesium 1.7 Total Bilirubin 0.6 AST 43 ALT 54 H Alkaline Phosphatase 65 NT-Pro-B Natriuret Pep 381 Total Protein 6.2 L Albumin 3.4 L Globulin 2.8 Albumin/Globulin Ratio 1.2 Assessment & Plan Assessment & Plan narrative: Patient will continue with physical therapy. From an orthopedic standpoint patient is cleared to go to SNF. He will follow up with our office as scheduled. Anticipated discharge to SNF by PCP once he is medically stable.
--- NOTE | 2019-11-28 10:49 | PT.IPTN ---
Current Diagnoses Hypotension, unspecified (11/19/19) Spinal stenosis, lumbar region without neurogenic claudication (11/19/19) Surgery Performed Operation Date: 11/20/19 07:45 Actual Procedures p L5S1 TLIF, L4-5 hemilaminectomy and microdiscectomy - Reji Monroe MD Physical Therapy Treatment Note M2 PT-IP Current Condition Start: 11/23/19 09:08 Freq: NEEDED Status: Active Protocol: Document 11/26/19 13:10 AB (Rec: 11/26/19 13:59 AB [id number]) Physical Therapy Current Condition Current Condition Evaluation Date 11/26/19 Treatment Diagnosis s/p L5S1 TLIF; L4-5 micro disckectomy; difficulty in walking Onset Date 11/19/19 Precautions Lumbar Precautions Log Roll,No Twisting,Limit Bending,Lifting Restriction of 10 lbs,Gait Belt above Incisional Area Other Precautions Falls M3 PT-IP Subjective Start: 11/23/19 09:08 Freq: NEEDED Status: Active Protocol: Document 11/28/19 10:30 KS (Rec: 11/28/19 12:19 KS [id number]) Subjective Physical Therapy Visit Type Type Treatment Note Visit Start Time 10:30 Visit Stop Time 10:49 Total Visit Minutes 19 Notes Co-treat w/ OT. Number of SENIOR MECHANICAL PROJECT ENGINEER Visits 1 Physical Therapy Visit Comments Patient Comments pt is agreeable to do PT M4 PT-IP Mobility and Gait Start: 11/23/19 09:08 Freq: NEEDED Status: Active Protocol: Document 11/28/19 10:30 KS (Rec: 11/28/19 12:19 KS [id number]) PT-Bed Mobility Assessment Rolling Type of Rolling Log Rolling Level of Assist Moderate Assistance,2 Person Assistance Supine to Sit Supine to Sit Moderate Assistance,2 Person Assistance Scooting Scooting to Edge of Bed Moderate Assistance PT-Transfer Assessment Sit to and From Stand Sit to and from Stand Moderate Assistance,Maximum Assistance,2 Person Assistance ,Use of Upper Extremities Equipment Transfer Assistive Device Gait Belt,Front Wheeled Walker Orthotic/Prosthetic Devices or Brace: No Transfers Transfer Destination Chair Transfer Technique Stand Step Pivot Transfer Ability Level of Assist Maximum Assistance,2 Person Assistance Comments Mobility Comments Pt in bed upon arrival from therapy. Pt had trouble following commands and needed verbal and tactile cues to stay positioned on his side rather than rolling to stomach . Mod A x2 for sidelying<>sit. Pt showed increased ability to maintain seated balance, but as he fatigued he needed Min A and cues to maintain. Mod-Max x2 and cues for sit<> stand. Upon standing TRANSPORTATION ATTENDANT assisted pt use urinal, pt needed fequenct verbal and tactile cues for quad activation and upright posture , and needed Mod-Max x2 to maintain standing. Pt then stand<>sit Mod x2 for slow descent. Pt then sit<>stand Mod Max x2 and performed stand step pivot transfer to chair Max A 2-3 w/ verbal and tactile cues for upright posture, quad activation, hand placement and sequencing. Pt then sit<>stand Mod MAx x2 and ambulated ~5 ft/ w/ FWW and Max x2 and chair follow by TRANSPORTATION ATTENDANT. Pt leaned heavily to R during ambulation even with Max Ax 2. Stand<>sit Max x2. Pt left in chair w/ OT and TRANSPORTATION ATTENDANT . Gait Assessment Gait Gait Assistance Required: Maximum Assistance,2 Person Assist Distance (Feet) 5 Able to Maintain Weight Bearing Status Yes During Gait Assistive Devices Assistive Device Gait Belt,Front Wheeled Walker Orthotic/Prosthetic Devices or Brace: No Gait Deviations General Gait Pattern Antalgic,Decreased Stride Length,Decreased Feet Clearance,Flexed Trunk,Lateral Trunk Lean,Step-to Gait Factors Limiting Gait Function Factors Limiting Gait Function Decreased Activity Tolerance, Decreased Strength,Difficulty Following Directions,Limited Range of Motion,Poor Balance, Poor Safety Awareness Comments Gait Comments pls refer to mobility section for details PT-Balance Assessment Sitting Balance and Reactions Static Sitting Balance Ability Poor Dynamic Sitting Balance Ability Poor Standing Balance and Reactions Static Standing Balance Ability Poor Dynamic Standing Balance Ability Poor Device Used FWW M5 PT-IP Objective Assessments Start: 11/23/19 09:08 Freq: NEEDED Status: Active Protocol: Document 11/26/19 13:10 AB (Rec: 11/26/19 13:59 AB [id number]) Orientation Orientation/Cognition Level of Alertness Lethargic Orientation Name Safety Awareness Decreased Safety Awareness Memory Description Short Term Impaired Gross Range of Motion Lower Extremity ROM Assessment Within Functional Limits Strength Lower Extremity Strength Assessment Bilaterally Impaired Comments Strength Comments LLE: 3+/5 RLE 3-/5 M6 PT-IP Treatment Start: 11/23/19 09:08 Freq: NEEDED Status: Active Protocol: Document 11/28/19 10:30 KS (Rec: 11/28/19 12:19 KS [id number]) Physical Therapy Treatment Education Education Provided Precautions,Safety M7 PT-IP Assessment and Plan Start: 11/23/19 09:08 Freq: NEEDED Status: Active Protocol: Document 11/28/19 10:30 KS (Rec: 11/28/19 12:19 KS [id number]) PT Summary Assessment and Plan Potential Rehabilitation Potential Fair Summary Impairments Pain,ROM,Strength,Balance, Coordination,Sensation,Tone, Cognition,Bed Mobility, Transfers,Gait,Activity Tolerance Progress Towards Goals Slow Progress due to Medical Issues,Slow Progress due to Activity Tolerance Assessment Summary Pt continues to require 2 PA for bed mobility and 2-3 PA for transfers and ambulation w / FWW. Pt showed improvement w / seated balance, but required Min A upon becoming fatigued. Mod to Max x2 for sit<>stand w/ frequent verbal and tactile cues. Max A x2-3 for transfers and ambulation w/ FWW. Pt ambulated ~5 ft w/ chair follow and FWW Max x2 w/ heavy lean to R side and unable to maintain quad activation. Pt will require SNF to improve strength, tolerance for activity, and functional mobility. Goals Bed Mobility Goal Moderate Assistance Transfer Goal Moderate Assistance,Front Wheeled Walker Gait Goal Moderate Assistance,Front Wheel Walker Gait Distance 100 Days to Meet Goals 10 Frequency of Treatment Frequency Of Treatment Twice a Day Treatment Plan Physical Therapy Treatment Plan Bed Mobility Training,Transfer Training,Gait Training, Therapeutic Exercise,Balance Retraining,Post Op Education, Discharge Planning,Hot or Cold Pack,Neuromuscular Re-ed, Coordination Retraining,Manual Therapy Other Recommendations and Next Treatment transfers, ambulation Focus Recommendations To Nursing Amount of Assist Needed 2 Person Assist Discharge Recommendations PT Discharge Recommendations SNF Rehab Transportation Needs at Discharge Wheelchair/Cabulance,Stretcher /Ambulance
--- NOTE | 2019-11-28 10:51 | OT.IP.TRT ---
Current Diagnoses Hypotension, unspecified (11/19/19) Spinal stenosis, lumbar region without neurogenic claudication (11/19/19) Surgery Performed Operation Date: 11/20/19 07:45 Actual Procedures p L5S1 TLIF, L4-5 hemilaminectomy and microdiscectomy - Reji Monroe MD Occupational Therapy Treatment Note M2 OT-IP Current Condition Start: 11/27/19 16:40 Freq: Status: Active Protocol: Document 11/27/19 11:27 [facility] (Rec: 11/27/19 17:20 [facility] [id number]) Occupational Therapy Current Condition Current Condition Evaluation Date 11/27/19 Treatment Diagnosis s/p L5-S1 TLIF, L4-5 microdisckectomy, altered mental status Diagnosis Onset Date 11/19/19 Post Operative Precautions Lumbar Precautions Log Roll,No Twisting,Limit Bending,Lifting Restriction of 10 lbs,Gait Belt above Incisional Area M3 OT- IP Subjective and Pain Start: 11/27/19 16:40 Freq: Status: Active Protocol: Document 11/28/19 11:26 [facility] (Rec: 11/28/19 11:40 [facility] [id number]) OT- Subjective Occupational Therapy Visit Type Type Treatment Note Visit Start Time 10:31 Visit Stop Time 10:51 Total Visit Minutes 20 Occupational Therapy Visit Comments Patient Comments Pt wanting to get up to use the bathroom, SALES TRADER and CAKE CUTTER MACHINE present due to pt needing extensive assist for mobility needs. OT Pain Assessment Pain When Pain Assessed At Rest Pain Present Pain Present Denied Pain M4 OT- IP ADL's Start: 11/27/19 16:40 Freq: Status: Active Protocol: Document 11/28/19 11:26 [facility] (Rec: 11/28/19 11:40 [facility] [id number]) OT [id number] Comments OT Self-Feeding Comments Not at meal time. OT ADL-Grooming General Evaluation Grooming Ability Standby Assistance Comments OT Grooming Comments Pt ablet o wash his face after set-up of wash cloth. OT ADL-Dressing General Eval Lower Body Dressing Ability Total Assistance Areas Needing Assistance Underpants/Brief Comments OT Dressing Comments Pt dependent for brief change, MAX A X2 with FWW to stand and nursing able to do hygiene and brief management needs. OT ADL-Toileting General Evaluation Toileting Ability Total Assistance Areas Needing Assistance Manage Clothing,Perform Perineal Hygiene Comments OT Toileting Comments Pt dependent for brief change, holding urinal in place and MAX X2 with FWW to stand as nursing assist with toileting needs. OT ADL-Bathing Comments OT Bathing Comments Not at this time. M5 OT- IP IADL's Start: 11/27/19 16:40 Freq: Status: Active Protocol: Document 11/27/19 11:27 [facility] (Rec: 11/27/19 17:20 [facility] [id number]) OT-Instrumental Activities of Daily Living Home Safety Awareness Awareness of Need for Assistance at Home Decreased Awareness Ability to Problem Solve Emergency Unable to Problem Solve Situations Home Safety Comments Pt very confused at this time and and did not recognize his in the room. M6 OT- IP Functional Cognition Start: 11/27/19 16:40 Freq: Status: Active Protocol: Document 11/28/19 11:26 [facility] (Rec: 11/28/19 11:40 [facility] [id number]) Cognitive Factors Limiting Selfcare Function Cognitive Ability Level of Alertness Alert,Confusional State Patient Orientation Name Attention Span Ability Capable of Focused Attention, Unable to Sustain Attention Ability to Follow Commands Able to Follow One Step Commands with Increased Time, Able to Follow One Step Commands with Repetition Memory Description Short Term Impaired,Intermediate Impaired,Working Impaired Problem Solving Ability Unable to Identify Errors, Needs Assist to Identify Solutions Cognitive Comments Cognitive Assessment Comments Pt still confused but able to follow simple concrete directions given vc, tactile cues and hand over hand assist especially to help reach back to the bed or arm rest of the recliner to sit. Pt still mainly just orientated to his name.At the end of the session pt states I will have to tell my son that I rode a horse. M7 OT- IP Mobility and Balance Start: 11/27/19 16:40 Freq: Status: Active Protocol: Document 11/28/19 11:26 [facility] (Rec: 11/28/19 11:40 [facility] [id number]) OT- Bed Mobility Assessment Rolling Type of Rolling Roll to Left Level of Assistance Moderate Assistance,1 Person Assistance,2 Person Assistance Supine to Sit Supine to Sit Assist Moderate Assistance,2 Person Assistance OT-Transfer Assessment Sit to and From Stand Sit to and from Stand Moderate Assistance,Maximum Assistance,2 Person Assistance Transfers Transfer Ability Maximum Assistance,2 Person Assistance Devices Transfer Assistive Devices Gait Belt,Front Wheeled Walker Comments Mobility Comments Pt needing from MODA X 2 to stand to FWW to MAX AX 2 to stand to FWW as pt fatigues and when having increased leaning to the right. Transfer MAX Ax2-3 as pt tires, assist to keep pt's right knee from buckling, FWW management and hold keep pt's trunk upright. Pt needing constant cues for safety. OT- Gait Assessment Comments Gait Ability Comments MAX AX 2 with FWW for 5 ft with close chair follow from CAKE CUTTER MACHINE. Pt tends to increase his lean to the right as he tires. OT- Balance Assessment Sitting Balance and Reactions Static Sitting Balance Ability Fair Standing Balance and Reactions Static Standing Balance Ability Poor Comments Other Balance Tests/Deviations/Treatment Noted improvement with : sitting to midline and not leaning to the right but at times slight lean to the left. Pt able to sit on his own after assist with positioning to CGA. M8 OT- IP Objective Assessments Start: 11/27/19 16:40 Freq: Status: Active Protocol: Document 11/27/19 11:27 [facility] (Rec: 11/27/19 17:20 [facility] [id number]) OT Gross Range of Motion Upper Extremity Range of Motion Assessment Within Functional Limits OT- Coordination Assessment Comments Coordination Comments Decreased coordination with right hand and having difficulty to open package for the tooth brush and brush. OT-Muscle Tone Assessment Muscle Tone WNL Yes M9 OT- IP Assessment and Plan Start: 11/27/19 16:40 Freq: Status: Active Protocol: Document 11/28/19 11:26 [facility] (Rec: 11/28/19 11:40 [facility] [id number]) OT Summary Assessment and Plan Potential Rehabilitation Potential Fair Analytic Complexity at Evaluation Low Summary OT Impairments Pain,Balance,Coordination, Functional Cognition, Functional Mobility,Self- Feeding,Grooming,Dressing, Toileting,Bathing,Toilet Transfers,Shower Transfers, Activity Tolerance Progress Towards Goals Progressing Toward Goals,Slow Progress due to Activity Tolerance,Slow Progress due to Cognition Assessment Summary Pt showing improvements for mobility needs on being able to sit to midline initially, able to take a few steps and transfer with FWW. However pt still needing from 2-3 assist for all needs due to decreased balance, safety awareness, activity tolerance, and cognition. When medically stable pt will benefit from skilled rehab. Goals Grooming Goal Independent Dressing Goal Independent Toileting Goal Independent Bathing Goal Independent Toilet Transfer Goal Independent Shower Transfer Goal Independent Patient/Caregiver Education Goal Demonstrate Post-Op Precautions Days to Meet Goals 24 Frequency of Treatment Frequency Of Treatment Once a Day Treatment Plan OT Treatment Plan ADL Training,Functional Cognition Training,Functional Mobility,Patient/Family Education,Discharge Planning Other Treatment Recommendations and Next Pt able to do self feed on his Treatment Focus own after initial set-up. Discharge Recommendations OT Discharge Recommendations SNF Rehab Transportation Needs at Discharge Wheelchair/Cabulance
--- NOTE | 2019-11-28 11:15 | PC.NURSE ---
Patient's arrived at 11:00.
[2019-11-28] MEDS: INSULIN ASPART 100 UNIT/ML INSULN PEN SUBCUT (12:25)
--- NOTE | 2019-11-28 12:44 | PT.IPTN ---
Current Diagnoses Hypotension, unspecified (11/19/19) Spinal stenosis, lumbar region without neurogenic claudication (11/19/19) Surgery Performed Operation Date: 11/20/19 07:45 Actual Procedures p L5S1 TLIF, L4-5 hemilaminectomy and microdiscectomy - Reji Monroe MD Physical Therapy Treatment Note M2 PT-IP Current Condition Start: 11/23/19 09:08 Freq: NEEDED Status: Active Protocol: Document 11/26/19 13:10 [facility] (Rec: 11/26/19 13:59 [facility] [id number]) Physical Therapy Current Condition Current Condition Evaluation Date 11/26/19 Treatment Diagnosis s/p L5S1 TLIF; L4-5 micro disckectomy; difficulty in walking Onset Date 11/19/19 Precautions Lumbar Precautions Log Roll,No Twisting,Limit Bending,Lifting Restriction of 10 lbs,Gait Belt above Incisional Area Other Precautions Falls M3 PT-IP Subjective Start: 11/23/19 09:08 Freq: NEEDED Status: Active Protocol: Document 11/28/19 12:34 [facility] (Rec: 11/28/19 15:23 [facility] [id number]) Subjective Physical Therapy Visit Type Type Treatment Note Visit Start Time 12:34 Visit Stop Time 12:44 Total Visit Minutes 10 Notes RADIATOR SPECIALIST present to assist treatment. Number of INSTRUMENT CHECKER Visits 2 Physical Therapy Visit Comments Patient Comments pt is agreeable to do PT M4 PT-IP Mobility and Gait Start: 11/23/19 09:08 Freq: NEEDED Status: Active Protocol: Document 11/28/19 12:34 [facility] (Rec: 11/28/19 15:23 [facility] [id number]) PT-Bed Mobility Assessment Rolling Type of Rolling Log Rolling Level of Assist Moderate Assistance,2 Person Assistance Sit to Supine Sit to Supine Maximum Assistance,2 Person Assistance PT-Transfer Assessment Sit to and From Stand Sit to and from Stand Maximum Assistance,2 Person Assistance,Use of Upper Extremities Equipment Transfer Assistive Device Gait Belt,Front Wheeled Walker Orthotic/Prosthetic Devices or Brace: No Transfers Transfer Destination Chair Transfer Technique Stand Step Pivot Transfer Ability Level of Assist Maximum Assistance,2 Person Assistance Comments Mobility Comments Pt in chair upon arrival from therapy and RADIATOR SPECIALIST present. Pt requesting to transfer from chair to bed. Pt Max A x2 and max cues for sit<>stand w/ FWW . Pt unable to maintain quad activation for full stance and needed MAx x2 and max verbal and tactile cues for stand step pivot trasnfer to bed. Pt Max A for stand<>sit and Max x 2 gina sit<>sup and logroll back into bed. Attempted to complete LE strengthening exercises, however pt unable to keep eyes open or follow instruction. Gait Assessment Gait Gait Assistance Required: Maximum Assistance,2 Person Assist Able to Maintain Weight Bearing Status Yes During Gait Comments Gait Comments stand step pivot only PT-Balance Assessment Sitting Balance and Reactions Static Sitting Balance Ability Poor Dynamic Sitting Balance Ability Poor Standing Balance and Reactions Static Standing Balance Ability Poor Dynamic Standing Balance Ability Poor Device Used FWW M5 PT-IP Objective Assessments Start: 11/23/19 09:08 Freq: NEEDED Status: Active Protocol: Document 11/26/19 13:10 [facility] (Rec: 11/26/19 13:59 [facility] [id number]) Orientation Orientation/Cognition Level of Alertness Lethargic Orientation Name Safety Awareness Decreased Safety Awareness Memory Description Short Term Impaired Gross Range of Motion Lower Extremity ROM Assessment Within Functional Limits Strength Lower Extremity Strength Assessment Bilaterally Impaired Comments Strength Comments LLE: 3+/5 RLE 3-/5 M6 PT-IP Treatment Start: 11/23/19 09:08 Freq: NEEDED Status: Active Protocol: Document 11/28/19 12:34 [facility] (Rec: 11/28/19 15:23 [facility] [id number]) Physical Therapy Treatment Exercises Exercises Ankle Pumps M7 PT-IP Assessment and Plan Start: 11/23/19 09:08 Freq: NEEDED Status: Active Protocol: Document 11/28/19 12:34 [facility] (Rec: 11/28/19 15:23 [facility] [id number]) PT Summary Assessment and Plan Potential Rehabilitation Potential Fair Summary Impairments Pain,ROM,Strength,Balance, Coordination,Sensation,Tone, Cognition,Bed Mobility, Transfers,Gait,Activity Tolerance Progress Towards Goals Slow Progress due to Medical Issues,Slow Progress due to Activity Tolerance Assessment Summary Pt only able to tolerate sit<> stand and stand step pivot from chair to bed w/ Max x2 and max verbal and tactile cues. Pt also required Max x2 for sit<>sup in bed. Pt will require SNF to improve functional mobility. Goals Bed Mobility Goal Moderate Assistance Transfer Goal Moderate Assistance,Front Wheeled Walker Gait Goal Moderate Assistance,Front Wheel Walker Gait Distance 100 Days to Meet Goals 10 Frequency of Treatment Frequency Of Treatment Twice a Day Treatment Plan Physical Therapy Treatment Plan Bed Mobility Training,Transfer Training,Gait Training, Therapeutic Exercise,Balance Retraining,Post Op Education, Discharge Planning,Hot or Cold Pack,Neuromuscular Re-ed, Coordination Retraining,Manual Therapy Other Recommendations and Next Treatment transfers, ambulation Focus Recommendations To Nursing Amount of Assist Needed 2 Person Assist Discharge Recommendations PT Discharge Recommendations SNF Rehab Transportation Needs at Discharge Wheelchair/Cabulance,Stretcher /Ambulance
--- NOTE | 2019-11-28 15:18 | PC.NURSE ---
Dayshift Note: Pt remains confused, oriented to self-only. Pt with active hallucinations. Given 0.5 [address] iv [address] for CT scan. Pt is asking for beer. Seroquel 25 mg PO given this am. Pt with FLACC score of 4, given oxycodone 5 mg PO, but with little relief of symptoms. Pt denies pain, symptoms may be delerium vs. pain. This information reported to oncmartín RN. Pt is impulsive, attempting unsafe ambulation. Actively resists staff by pushing away from them when trying to get OOB. Pt initially a-fib RVR, HR up to 130s. Metoprolol PO increased to 100 mg PO TID with HR now 80s to low 100s. Pt's to bedside, aware of pts status. Pt helped OOB by PT OT, up to chair for ~ 1.5 hours. Pt restless and confused in chair, helped back to bed and remains restless and confused. Report given to pranav PEREZ.
--- NOTE | 2019-11-28 17:43 | PC.NURSE ---
1745, pt confused and hallucinating trying to get out of bed. BP 175/105, HR 115. Dr. Braun contacted and orders received for IV Haldol.
[2019-11-28] MEDS: QUETIAPINE 25 MG TABLET 50 MG PO (21:36)
[2019-11-28] MEDS: INSULIN GLARGINE 100 UNIT/ML 3ML PEN 10 UNIT SUBCUT (21:51)
--- NOTE | 2019-11-28 22:33 | PC.NURSE ---
end of shift note: Pt has been less agitated since Haldol dose. HR 106 and BP down to 157/74. Dr. Braun notified re BG of 138 and order received to give only 10 U Glargine at 2100. Resume regular dose in AM.
[2019-11-29] VITALS (11 sets, daily range): BP systolic 114–156; BP diastolic 58–96; PULSE 84–98; RESP 16–24; TEMP 36.2–36.8; O2SAT 92–97
[2019-11-29] MEDS: MORPHINE 2 MG/ML INJ IV (02:14)
[2019-11-29] MEDS: HALOPERIDOL 5 MG/ML VIAL 2 MG IV (04:12)
[2019-11-29 05:20] LABS: BUN Creatinine Ratio 19.8 (6-22); Blood Urea Nitrogen 16 mg/dL (9-20); Calcium 9.2 mg/dL (8.4-10.2); Carbon Dioxide 35 mmol/L (22-32); Chloride 97 mmol/L (98-107); Estimated Glomerular Filt Rate > 60.0 mL/min (>60); Glucose 195 mg/dL (80-110); HEMOLYSIS < 15 (0-50); Potassium 3.4 mmol/L (3.4-5.1); Sodium 138 mmol/L (137-145)
[2019-11-29] MEDS: PANTOPRAZOLE 40 MG TABLET PO (06:16)
[2019-11-29] MEDS: ALBUTEROL/IPRATROPIUM 3 ML AMPUL INH ×2 (06:27→13:11)
--- NOTE | 2019-11-29 06:39 | PC.NURSE ---
Patient very restless, confused, agitated at the beginning of shift. 1:1 sitter present with patient. Patient was administered PRN Haldol x2 throughout the shift for confusion, agitation, and pulling at tubes/wires. Patient remains disoriented x3, incontinent of urine. Around 0108 patient became diaphoretic, with increased restlessness. Blood glucose checked, patient's sugar was 60. Patient was given orange juice, crackers, peanut butter, and some yogurt. Patient all entirety of food/drinks. Blood sugar rechecked at 0135, blood sugar up to 83. Blood sugar was further checked again about an hour later in which it was 162. Patient fell asleep after eating and has slept the remainder of the shift. RN placed home CPAP on patient due to episodes of apnea. RT also notified due to sats dropping. RT bled in 3L into CPAP. Patient currently resting in bed, sleeping. Patient has remained in a fib, however, VSS throughout shift.
--- NOTE | 2019-11-29 08:18 | P.PN_ITS ---
Subjective Subjective Date Patient Seen: 11/29/19 Time Patient Seen: 08:19 Interval history: Patient is resting comfortably this morning. Significant agitation again last night. Requiring 2 doses of Haldol. Still significant delirium confusional state. Which is ongoing. Little bit too far out be continued alcohol withdrawal. I wonder if there sinus long-term sequela from alcohol potential warning keys. Worse is hypoxic encephalopathy due to requiring re-intubation. Currently requires Haldol to keep him safe as he is agitated trying to get out of bed climbing out of the bed and a harm to himself. Some point along the line were enough to decrease his medication and see where he is at. Will continue to make changes for this. When gets agitated upset his heart rate to climbs and his blood pressure climbs as well. And makes it more difficult to control his atrial fibrillation. Still having some blood sugar variability as well. Occurring 1 on 1 nursing support at this point. Exam Vital Signs (past 8 hours): - 11/29/19 00:54 11/29/19 02:37 11/29/19 03:45 Temperature 98.3 F Pulse Rate 91 H 92 H Respiratory Rate 18 24 Blood Pressure 156/96 H 114/58 L Pulse Oximetry 94 97 11/29/19 06:26 Temperature Pulse Rate Respiratory Rate Blood Pressure Pulse Oximetry 96 Fraction of Inspired Oxygen 32 Oxygen Delivery Method CPAP Oxygen Flow Rate 3 Narrative Exam Narrative: Gen.: Resting comfortably CPAP is on HEENT: Oral mucosa is moist. NC/AT Cardio: S1-S2 irregular rate and rhythm Respiratory: Normal breath sounds bilaterally Abdomen: Soft nontender no rebound or guarding no liver spleen enlargement no appreciable hernias Extremities: No edema well perfused Objective Labs Result Diagrams: 11/28/19 04:39 11/29/19 04:40 Labs: Laboratory Results - last 24 hr 11/29/19 04:40 Sodium 138 Potassium 3.4 Chloride 97 L Carbon Dioxide 35 H BUN 16 Creatinine 0.81 Estimated GFR > 60.0 BUN/Creatinine Ratio 19.8 Glucose 195 H D Calcium 9.2 Assessment & Plan Assessment & Plan narrative: Severe toxic metabolic encephalopathy CT scan of head normal yesterday. Potential possibilities include worn Achilles after alcohol use versus hypoxic encephalopathy due to re-intubation although do not see that on his ABGs. Still quite severe requiring 1 on 1 interventions and chemical restraint as he tries to climb out of bed harm himself potentially. Wound he is quite agitated his atrial fibrillation becomes quite out of control as well as his heart rate. Continue to make adjustment. Decrease his Haldol dosing today stop the Seroquel as that is it did not seem to help. Ultimately these medications are going to be need to stop. Atrial fibrillation with rapid ventricular response. Made changes to his medication. Decrease his amiodarone to 200 mg once a day ultimately will probably need to stop this. Stop his oral cardia is am increased his beta- irma dosing which has helped. When he is not anxious or agitated his blood pressure is 1 20 to 130s his heart rates 180s so we can have a better control of his heart rate I will increase his beta-irma today. Hypoventilation syndrome requiring re-intubation after his lumbar spine s urgeries currently using on BiPAP at night. Patient has a long history of sleep apnea. His last ABG and CO2 on blood work was within the normal range. Diabetes type 2. On insulin and insulin sliding scale. Blood sugars consistently are in a good range. Although he has had a couple hypoglycemic episodes some blood sugars above 200. Lumbar spine surgery. Postoperatively being followed by his orthopedic group. Question is is when we can restart him back on look anticoagulation for his atri al fibrillation because of concerns of stroke risk. 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 Polymyalgia rheumatica. Patient on long-term prednisone suppressive therapy. Do not think we need to increase his prednisone for stress doses at this point has a not seeing signs of adrenal hypofunction. Nutrition. Patient nutrition is poor although he is eating nutritional intake by mouth at is limited. Will have a nutrition consultation. Point DVT and GI prophylaxis disposition and plan. Will require some hospitalization for a few more days.
--- NOTE | 2019-11-29 09:28 | CM.DPC ---
Addendum entered by Annita Sepulveda LPN 11/29/19 15:56: ANAT Tse reports she was able to work with pt today and that he did remarkedly well with her, moving at a one person assist. Case was discussed in Team Rounds and with team suggesting perhaps a psychiatric consult for better medication management of the ongoing delirium. Team in place tomorrow is hoping to discuss this with the provider. Some ? of ongoing CIWA protocol but CHRIS Bustillos confirms that this is not being done anymore and has not been done since 11/20. Pt is currently at 10 day LOS. Original Note: DCP: continued: EMR reviewed and including night RN notes. Pt has been more agitated again, especially during the marcos/night hours and Dr. Braun has been ordering IV Haldol to assist with this. CIWA is no longer being checked with last check of 0 noted on 11/20. Alea/Evelio is reviewing this case but clearly pt will not be considered as stable for their setting with the 03/11 sitter and the IV Haldol management.
[2019-11-29] MEDS: INSULIN GLARGINE 100 UNIT/ML 3ML PEN 20 UNIT SUBCUT ×2 (09:46→20:59)
[2019-11-29] MEDS: METOPROLOL IR 50 MG TABLET 100 MG PO ×3 (09:46→20:57)
[2019-11-29] MEDS: FOLIC ACID 1 MG TABLET PO (09:46)
[2019-11-29] MEDS: CYANOCOBALAMIN (VITAMIN B-12) 500 MCG TABLET 1000 MCG PO (09:46)
[2019-11-29] MEDS: ENOXAPARIN 40 MG/0.4 ML SYRINGE SUBCUT (09:46)
[2019-11-29] MEDS: DOCUSATE 100 MG CAPSULE PO ×2 (09:46→20:57)
[2019-11-29] MEDS: MULTIVITAMIN 1 TABLET 1 TAB PO (09:46)
[2019-11-29] MEDS: LOSARTAN 50 MG TABLET PO (09:46)
[2019-11-29] MEDS: predniSONE 5 MG TABLET 15 MG PO (09:47)
[2019-11-29] MEDS: DOXAZOSIN 4 MG TABLET 8 MG PO (09:47)
[2019-11-29] MEDS: SODIUM CHLORIDE 0.9% FLUSH 10 ML IV ×2 (09:47→20:59)
[2019-11-29] MEDS: AMIODARONE 200 MG TABLET PO (09:47)
--- NOTE | 2019-11-29 09:50 | PM.PNPO.1 ---
Subjective Subjective Date Patient Seen: 11/29/19 Time Patient Seen: 09:50 Interval history: Interval history: POD #9 s/p L4-5 hemilaminectomy and microdiscectomy, and L5-S1 TLIF with Dr. Monroe. Patient was intubated on POD#3 for worsening mental status and respiratory status. Patient was extubated POD #5 id cc of Sivakumar Shaver and T12 hip the hip was low blood via [facility] physical therapy will not work with her until her H&H is higher up their protocol consistent with. Patient will move his bilateral upper and lower extremities when able to be aroused on verbal command. Working with respiratory therapy. He has been waxing/waning in his ability to follow directions and respond appropriately to questions. Per ICU nurse he has been incontinent but this is improving. Currently managed medically by medicine and his PCP, Dr. Gallo who ordered a head CT this morning. Exam Vital Signs (past 8 hours): - 11/29/19 02:37 11/29/19 03:45 11/29/19 06:26 Temperature 98.3 F Pulse Rate 91 H 92 H Respiratory Rate 18 24 Blood Pressure 114/58 L Pulse Oximetry 94 97 96 11/29/19 09:00 Temperature 97.5 F L Pulse Rate 92 H Respiratory Rate 18 Blood Pressure 123/62 Pulse Oximetry 96 Fraction of Inspired Oxygen 32 Oxygen Delivery Method Nasal Cannula,CPAP Oxygen Flow Rate 3 Objective Labs Result Diagrams: 11/28/19 04:39 11/29/19 04:40 Labs: Laboratory Results - last 24 hr 11/29/19 04:40 Sodium 138 Potassium 3.4 Chloride 97 L Carbon Dioxide 35 H BUN 16 Creatinine 0.81 Estimated GFR > 60.0 BUN/Creatinine Ratio 19.8 Glucose 195 H D Calcium 9.2 Assessment & Plan Post-op Postoperative Procedures: Procedures Operation Date: 11/20/19 07:45 Actual Procedures Side Surgeon p L5S1 TLIF, L4-5 hemilaminectomy and microdiscectomy Reji Monroe MD Postoperative plan narrative: Patient can be discharged to SNF when medically cleared. Time Spent With Patient Time with patient: less than 15 minutes
--- NOTE | 2019-11-29 10:28 | PC.NURSE ---
Addendum entered by Apollo Coyle R.N. 11/29/19 14:44: Pt remained up to chair until 1245 and was then assisted to BSC and back to bed 2PA/walker/gait belt. Pt is quite drowsy. Able to rest with CPAP/RA. Original Note: Woke pt at 0945 for meal/meds. Removed CPAP and placed on RA. Pt agreeable to get OOB to chair for breakfast. Tells me his name/. Tells me is on the ch in room 230. Confused to date/time/situation. He easily reorients with a few verbal cues. He is drowsy but able to maintain eye opening. Has no complaints at this time. Able to get to EOB with 1PA. Performed sit/stand x3 at bedside. Able to maintain upright position to void per urinal. Transferred with 1PA, gait belt, fww with RN standing by in case of need for 2PA. Pt took AM meds whole with water. No s/s of dysphagia. Provided set up assist with meal. Chair alarm on. 1:1 sitter for safety at this time but will reassess after meal and continue PRN.
--- NOTE | 2019-11-29 10:42 | PT.IPTN ---
Current Diagnoses Hypotension, unspecified (11/19/19) Spinal stenosis, lumbar region without neurogenic claudication (11/19/19) Surgery Performed Operation Date: 11/20/19 07:45 Actual Procedures p L5S1 TLIF, L4-5 hemilaminectomy and microdiscectomy - Reji Monroe MD Physical Therapy Treatment Note M2 PT-IP Current Condition Start: 11/23/19 09:08 Freq: NEEDED Status: Active Protocol: Document 11/26/19 13:10 AB (Rec: 11/26/19 13:59 AB [id number]) Physical Therapy Current Condition Current Condition Evaluation Date 11/26/19 Treatment Diagnosis s/p L5S1 TLIF; L4-5 micro disckectomy; difficulty in walking Onset Date 11/19/19 Precautions Lumbar Precautions Log Roll,No Twisting,Limit Bending,Lifting Restriction of 10 lbs,Gait Belt above Incisional Area Other Precautions Falls M3 PT-IP Subjective Start: 11/23/19 09:08 Freq: NEEDED Status: Active Protocol: Document 11/29/19 10:42 CLB (Rec: 11/29/19 12:24 CLB [id number]) Subjective Physical Therapy Visit Type Type Treatment Note Visit Start Time 10:42 Visit Stop Time 11:00 Total Visit Minutes 18 Notes ASPHALT MACHINE OPERATOR present to assist treatment. Physical Therapy Visit Comments Patient Comments pt is agreeable to do PT Therapy Pain Assessment Pain Present Pain Present Denied Pain M4 PT-IP Mobility and Gait Start: 11/23/19 09:08 Freq: NEEDED Status: Active Protocol: Document 11/29/19 10:42 CLB (Rec: 11/29/19 12:24 CLB [id number]) PT-Transfer Assessment Sit to and From Stand Sit to and from Stand Contact Guard Assistance, Minimal Assistance,1 Person Assistance,Use of Upper Extremities Equipment Transfer Assistive Device Gait Belt,Front Wheeled Walker Orthotic/Prosthetic Devices or Brace: No Transfers Transfer Destination Chair,Bedside Commode Transfer Technique Stand Step Pivot Transfer Ability Level of Assist Contact Guard Assistance, Minimal Assistance,1 Person Assistance,Use of Upper Extremities Comments Mobility Comments Pt in chair upon arrival, ASPHALT MACHINE OPERATOR requesting assist with transfer to BS. Pt scooted to edge of chair and stood requiring Min A and cues for hand placement for push off and safety. Pt trasferred with step pivot to [facility] CGA and was able to manage walker. Pt sat requiring Min A as pt was quick to sit w/o using UE's to slow descent. Pt stood from BS requiring CGA and pt requiring CGA for standing balance during pericare. Pt requiring CGA for transfer back to chair. After brief rest break pt stood CGA with cues for hand placement and ambulated ~6ft w/FWW/CGA and chair follow. Pt sate in chair with cues for hand placement and good control. Pt performe LE knee ext/flx and ankle pumps, pt with LE weakness L>R . Pt was left in chair with alarm on and ASPHALT MACHINE OPERATOR present. Gait Assessment Gait Gait Assistance Required: Contact Guard Assist,1 Person Assist Able to Maintain Weight Bearing Status Yes During Gait Assistive Devices Assistive Device Gait Belt,Front Wheeled Walker Orthotic/Prosthetic Devices or Brace: No Gait Deviations General Gait Pattern Antalgic,Decreased Stride Length,Decreased Feet Clearance,Flexed Trunk,Step-to Gait Factors Limiting Gait Function Factors Limiting Gait Function Decreased Activity Tolerance, Decreased Strength,Difficulty Following Directions,Limited Range of Motion,Poor Balance, Poor Safety Awareness Comments Gait Comments Pt ambulated ~6ft w/FWW/CGA with ASPHALT MACHINE OPERATOR following with chair. Pt uses step to gait pattern leading with LLE. PT-Balance Assessment Sitting Balance and Reactions Static Sitting Balance Ability Poor Dynamic Sitting Balance Ability Poor Standing Balance and Reactions Static Standing Balance Ability Poor Dynamic Standing Balance Ability Poor Device Used FWW M5 PT-IP Objective Assessments Start: 11/23/19 09:08 Freq: NEEDED Status: Active Protocol: Document 11/26/19 13:10 AB (Rec: 11/26/19 13:59 AB [id number]) Orientation Orientation/Cognition Level of Alertness Lethargic Orientation Name Safety Awareness Decreased Safety Awareness Memory Description Short Term Impaired Gross Range of Motion Lower Extremity ROM Assessment Within Functional Limits Strength Lower Extremity Strength Assessment Bilaterally Impaired Comments Strength Comments LLE: 3+/5 RLE 3-/5 M6 PT-IP Treatment Start: 11/23/19 09:08 Freq: NEEDED Status: Active Protocol: Document 11/29/19 10:42 CLB (Rec: 11/29/19 12:24 CLB [id number]) Physical Therapy Treatment Exercises Exercises Ankle Pumps,Seated Knee Flexion/Extension M7 PT-IP Assessment and Plan Start: 11/23/19 09:08 Freq: NEEDED Status: Active Protocol: Document 11/29/19 10:42 CLB (Rec: 11/29/19 12:24 CLB [id number]) PT Summary Assessment and Plan Potential Rehabilitation Potential Fair Summary Impairments Pain,ROM,Strength,Balance, Coordination,Sensation,Tone, Cognition,Bed Mobility, Transfers,Gait,Activity Tolerance Progress Towards Goals Slow Progress due to Medical Issues,Slow Progress due to Activity Tolerance Assessment Summary Pt improving with sit<>stand, transfers and gait. Pt ambulated ~6ft with requiring CGa with FWW and chair follow, Pt cooperative with therapy today wanting to improve mobility and was agreeable to ambulation. Pt will benefit from SNF rehab to improve strength, activity tolerance for functional mobility. Goals Bed Mobility Goal Moderate Assistance Transfer Goal Moderate Assistance,Front Wheeled Walker Gait Goal Moderate Assistance,Front Wheel Walker Gait Distance 100 Days to Meet Goals 10 Frequency of Treatment Frequency Of Treatment Twice a Day Treatment Plan Physical Therapy Treatment Plan Bed Mobility Training,Transfer Training,Gait Training, Therapeutic Exercise,Balance Retraining,Post Op Education, Discharge Planning,Hot or Cold Pack,Neuromuscular Re-ed, Coordination Retraining,Manual Therapy Other Recommendations and Next Treatment transfers, ambulation Focus Recommendations To Nursing Amount of Assist Needed 2 Person Assist Discharge Recommendations PT Discharge Recommendations SNF Rehab Transportation Needs at Discharge Wheelchair/Cabulance,Stretcher /Ambulance
[2019-11-29] MEDS: INSULIN ASPART 100 UNIT/ML INSULN PEN SUBCUT ×3 (12:18→20:58)
[2019-11-29] MEDS: ACETAMINOPHEN 325 MG TABLET 650 MG PO (12:21)
--- NOTE | 2019-11-29 13:17 | PT.IPTN ---
Current Diagnoses Hypotension, unspecified (11/19/19) Spinal stenosis, lumbar region without neurogenic claudication (11/19/19) Surgery Performed Operation Date: 11/20/19 07:45 Actual Procedures p L5S1 TLIF, L4-5 hemilaminectomy and microdiscectomy - Reji Monroe MD Physical Therapy Treatment Note M2 PT-IP Current Condition Start: 11/23/19 09:08 Freq: NEEDED Status: Active Protocol: Document 11/26/19 13:10 AB (Rec: 11/26/19 13:59 AB [id number]) Physical Therapy Current Condition Current Condition Evaluation Date 11/26/19 Treatment Diagnosis s/p L5S1 TLIF; L4-5 micro disckectomy; difficulty in walking Onset Date 11/19/19 Precautions Lumbar Precautions Log Roll,No Twisting,Limit Bending,Lifting Restriction of 10 lbs,Gait Belt above Incisional Area Other Precautions Falls M3 PT-IP Subjective Start: 11/23/19 09:08 Freq: NEEDED Status: Active Protocol: Document 11/29/19 13:05 CLB (Rec: 11/29/19 13:44 CLB [id number]) Subjective Physical Therapy Visit Type Type Treatment Note Visit Start Time 13:05 Visit Stop Time 13:17 Total Visit Minutes 12 Notes ASSISTANT GOLF COACH present Number of OFFICE ASST Visits 4 Physical Therapy Visit Comments Patient Comments pt needing to transfer to [facility] Therapy Pain Assessment Pain Present Pain Present Denied Pain M4 PT-IP Mobility and Gait Start: 11/23/19 09:08 Freq: NEEDED Status: Active Protocol: Document 11/29/19 13:05 CLB (Rec: 11/29/19 13:44 CLB [id number]) PT-Bed Mobility Assessment Rolling Type of Rolling Log Rolling,Roll to Left Level of Assist Minimal Assistance,1 Person Assistance Supine to Sit Supine to Sit Minimal Assistance,1 Person Assistance,Head of Bed Elevated Sit to Supine Sit to Supine Minimal Assistance,1 Person Assistance Scooting Scooting Up and Down in Bed Moderate Assistance PT-Transfer Assessment Sit to and From Stand Sit to and from Stand Contact Guard Assistance,1 Person Assistance,Use of Upper Extremities Equipment Transfer Assistive Device Gait Belt,Front Wheeled Walker Orthotic/Prosthetic Devices or Brace: No Transfers Transfer Destination Bed,Bedside Commode Transfer Technique Stand Step Pivot Transfer Ability Level of Assist Contact Guard Assistance, Minimal Assistance,1 Person Assistance,Use of Upper Extremities Comments Mobility Comments Pt in bed requiring Min a for LR and sidelying to sit. Pt then stood [facility] and transferred to [facility] CGA. Pt stood from [facility] but had posterior LOB during brief being pulled up which was corrected by OFFICE ASST using GB. Pt then transferred back to bed requiring CGA and cues to side step towards HOB. Pt sat CGA then required Min A of LE's onto bed. Pt required Mod A x2 with cues to bend knees and push through heels to assit to HOB. Left pt in bed with all needs within reach and ASSISTANT GOLF COACH present. Gait Assessment Gait Gait Assistance Required: Contact Guard Assist,Minimum Assistance,1 Person Assist Distance (Feet) 2 Able to Maintain Weight Bearing Status Yes During Gait Assistive Devices Assistive Device Gait Belt,Front Wheeled Walker Orthotic/Prosthetic Devices or Brace: No Gait Deviations General Gait Pattern Antalgic,Decreased Stride Length,Decreased Feet Clearance,Flexed Trunk,Step-to Gait Factors Limiting Gait Function Factors Limiting Gait Function Decreased Activity Tolerance, Decreased Strength,Difficulty Following Directions,Limited Range of Motion,Poor Balance, Poor Safety Awareness Comments Gait Comments see mobility comments M5 PT-IP Objective Assessments Start: 11/23/19 09:08 Freq: NEEDED Status: Active Protocol: Document 11/26/19 13:10 AB (Rec: 11/26/19 13:59 AB [id number]) Orientation Orientation/Cognition Level of Alertness Lethargic Orientation Name Safety Awareness Decreased Safety Awareness Memory Description Short Term Impaired Gross Range of Motion Lower Extremity ROM Assessment Within Functional Limits Strength Lower Extremity Strength Assessment Bilaterally Impaired Comments Strength Comments LLE: 3+/5 RLE 3-/5 M6 PT-IP Treatment Start: 11/23/19 09:08 Freq: NEEDED Status: Active Protocol: Document 11/29/19 10:42 CLB (Rec: 11/29/19 12:24 CLB [id number]) Physical Therapy Treatment Exercises Exercises Ankle Pumps,Seated Knee Flexion/Extension M7 PT-IP Assessment and Plan Start: 11/23/19 09:08 Freq: NEEDED Status: Active Protocol: Document 11/29/19 13:05 CLB (Rec: 11/29/19 13:44 CLB [id number]) PT Summary Assessment and Plan Potential Rehabilitation Potential Fair Summary Impairments Pain,ROM,Strength,Balance, Coordination,Sensation,Tone, Cognition,Bed Mobility, Transfers,Gait,Activity Tolerance Progress Towards Goals Slow Progress due to Medical Issues,Slow Progress due to Activity Tolerance Assessment Summary Pt with increased lathargy this afternoon but needed to transfer to [facility]. Pt required Min A for bed mobility and CGA -Min A for sit<>stand and transfers. Pt improving with following directions during treatment session but has difficulty with carryover to next tx. Goals Bed Mobility Goal Moderate Assistance Transfer Goal Moderate Assistance,Front Wheeled Walker Gait Goal Moderate Assistance,Front Wheel Walker Gait Distance 100 Days to Meet Goals 10 Frequency of Treatment Frequency Of Treatment Twice a Day Treatment Plan Physical Therapy Treatment Plan Bed Mobility Training,Transfer Training,Gait Training, Therapeutic Exercise,Balance Retraining,Post Op Education, Discharge Planning,Hot or Cold Pack,Neuromuscular Re-ed, Coordination Retraining,Manual Therapy Other Recommendations and Next Treatment transfers, ambulation Focus Recommendations To Nursing Amount of Assist Needed 2 Person Assist Discharge Recommendations PT Discharge Recommendations SNF Rehab Transportation Needs at Discharge Wheelchair/Cabulance,Stretcher /Ambulance
[2019-11-30] VITALS (34 sets, daily range): BP systolic 79–195; BP diastolic 47–120; PULSE 72–100; RESP 16–20; TEMP 36–36.7; O2SAT 84–98
[2019-11-30 05:28] LABS: Carbon Dioxide 36 mmol/L (22-32); Chloride 100 mmol/L (98-107); HEMOLYSIS < 15 (0-50); Potassium 3.7 mmol/L (3.4-5.1); Sodium 138 mmol/L (137-145)
[2019-11-30] MEDS: PANTOPRAZOLE 40 MG TABLET PO (06:32)
--- NOTE | 2019-11-30 07:43 | P.PN_ITS ---
Subjective Subjective Date Patient Seen: 11/30/19 Time Patient Seen: 07:43 Interval history: POD #10 s/p L4-5 hemilaminectomy and microdiscectomy, and L5- S1 TLIF with Dr. Monroe. Patient was intubated on POD#2 for worsening mental status and respiratory status. Patient was extubated POD #4. POD #[address] scan yesterday. Patient is sitting in bedside chair this morning. He was able to follow commands and respond to questions today. Currently managed medically by medicine and his PCP, Dr. Gallo. Exam Vital Signs (past 8 hours): - 11/30/19 01:08 11/30/19 04:20 11/30/19 04:35 Temperature 97.1 F L 98.1 F Pulse Rate 78 90 89 Respiratory Rate 18 16 Blood Pressure 171/92 H 184/88 H 152/96 H Pulse Oximetry 91 90 L Fraction of Inspired Oxygen 0.21 Oxygen Delivery Method Room Air,CPAP Oxygen Flow Rate 0 Narrative Exam Narrative: Patient sitting in bedside chair in NAD. He is able to follow all commands for lower extremity strength which is 5/5 throughout. Back dressing is CDI. SILT throughout BLE. DP 2+ symmetrical. Objective Labs Result Diagrams: 11/28/19 04:39 11/30/19 04:41 Labs: Laboratory Results - last 24 hr 11/30/19 04:41 Sodium 138 Potassium 3.7 Chloride 100 Carbon Dioxide 36 H Assessment & Plan Post-op Postoperative Procedures: Procedures Operation Date: 11/20/19 07:45 Actual Procedures Side Surgeon p L5S1 TLIF, L4-5 hemilaminectomy and microdiscectomy Reji Monroe MD Patient can continue to work with PT. Patient is still in AFIB, no restrictionns to any type of anticoagulant use at this point in regards to his spine surgery. Patient seems to get most agitated at night. From an orthopedic standpoint patient has been stable.
[2019-11-30] MEDS: ACETAMINOPHEN 325 MG TABLET 650 MG PO (08:17)
[2019-11-30] MEDS: DOCUSATE 100 MG CAPSULE PO (08:17)
[2019-11-30] MEDS: LOSARTAN 50 MG TABLET PO (08:18)
[2019-11-30] MEDS: FOLIC ACID 1 MG TABLET PO (08:18)
[2019-11-30] MEDS: CYANOCOBALAMIN (VITAMIN B-12) 500 MCG TABLET 1000 MCG PO (08:18)
[2019-11-30] MEDS: ENOXAPARIN 40 MG/0.4 ML SYRINGE SUBCUT (08:18)
[2019-11-30] MEDS: METOPROLOL IR 50 MG TABLET 100 MG PO ×2 (08:18→21:39)
[2019-11-30] MEDS: MULTIVITAMIN 1 TABLET 1 TAB PO (08:18)
[2019-11-30] MEDS: INSULIN GLARGINE 100 UNIT/ML 3ML PEN 20 UNIT SUBCUT ×2 (08:19→21:39)
[2019-11-30] MEDS: predniSONE 5 MG TABLET 15 MG PO (08:20)
[2019-11-30] MEDS: AMIODARONE 200 MG TABLET PO (08:20)
[2019-11-30] MEDS: DOXAZOSIN 4 MG TABLET 8 MG PO (08:20)
[2019-11-30] MEDS: SODIUM CHLORIDE 0.9% FLUSH 10 ML IV ×2 (08:21→21:41)
--- NOTE | 2019-11-30 08:44 | P.PN_ITS ---
Subjective Subjective Date Patient Seen: 11/30/19 Time Patient Seen: 08:44 Interval history: Patient is upright sitting in chair eating breakfast. He is alert and oriented x3. He is able to answer questions. He is concerned about the rash on his back that is itchy. He is not having significant incisional pain and has just been given Tylenol this morning which seems to control his pain. He is stable on room air. He denies any chest pain or shortness of adrian th or headaches. Review of systems is negative other than HPI Reviewed his chart notes over Saturday. Exam Vital Signs (past 8 hours): - 11/30/19 01:08 11/30/19 04:20 11/30/19 04:35 Temperature 97.1 F L 98.1 F Pulse Rate 78 90 89 Respiratory Rate 18 16 Blood Pressure 171/92 H 184/88 H 152/96 H Pulse Oximetry 91 90 L 11/30/19 07:54 Temperature Pulse Rate 72 Respiratory Rate 16 Blood Pressure Pulse Oximetry 97 Fraction of Inspired Oxygen 0.21 Oxygen Delivery Method Room Air Oxygen Flow Rate 0 Narrative Exam Narrative: Alert and oriented x3 Vital signs are stable except for slightly elevated blood pressure HEENT: Unremarkable Neck: Supple without jugular venous distention or masses Chest: Clear to auscultation without wheezes rhonchi or crackles. Decreased breath sounds bilateral bases Cor: Regular rate and rhythm without murmur Abdomen: Positive bowel sound, soft, nontender Extremities: No edema Incision with bandage in place clean and dry Skin: Erythematous macules midback consistent with contact dermatitis Objective Labs Result Diagrams: 11/28/19 04:39 11/30/19 04:41 Labs: Laboratory Results - last 24 hr 11/30/19 04:41 Sodium 138 Potassium 3.7 Chloride 100 Carbon Dioxide 36 H Assessment & Plan Assessment & Plan narrative: 79-year-old male Assessment 1. Status post laminectomy with well-controlled pain Plan: Continue per orthopedics. Continue with PT and OT. Continue with Tyl enol for pain Assessment 2. Hypoventilation syndrome with respiratory failure and intubation now stable on room air without signs or symptoms of infection Assessment 3. Atrial fibrillation with rapid ventricular rate now under control with metoprolol 100 mg t.i.d. and amiodarone 200 mg daily Plan: Will continue the same. Assessment number 4. Hypertension not back to baseline Plan: Continue metoprolol. Continue on losartan which was recently started. Will continue to monitor Assessment 5. Type 2 diabetes on Lantus with good blood sugars Plan: Continue outpatient Lantus Assessment 6. Polymyalgia rheumatica stable on slight increase from outpatient prednisone Plan: Continue the same Assessment 7. Alcohol withdrawal with delirium tremens and persistent sundowning which seems to have improved Plan: Will continue to hold any type of sedating medication. Will stop the Haldol. Assessment 8. GI prophylaxis Plan: Continue with proton pump inhibitor Disposition I think the family refer for to have him back home and I think it is quite possible that tomorrow or the following day he could potentially go home with home health PT and OT.
[2019-11-30] MEDS: TRIAMCINOLONE 0.1% CREAM 1 APPLIC TOP (11:58)
--- NOTE | 2019-11-30 11:58 | PT-IP ANOTE ---
Attempted to work with pt this morning but pt had BP 81/54 and RN requested pt not get up with therapy. No charge.
[2019-11-30] MEDS: INSULIN ASPART 100 UNIT/ML INSULN PEN SUBCUT ×2 (11:59→16:58)
--- NOTE | 2019-11-30 12:19 | ST.IPDYTX ---
Visit Care Team Role Provider Type Reji Monroe MD Other Providers Physician Specialty: Orthopedic Surgery Address: [address] [place] [address], [place], [address] Email: [email or web address] Octavio Gallo MD Admit Provider Physician Attending Provider Family Provider Primary Care Provider Referring Provider Specialty: Family Practice Address: [address] [place] [address], [facility] [place], [address] Email: [email or web address] MANAGER MONEY Dysphagia Treatment MANAGER MONEY Dysphagia Treatment Start: 11/27/19 09:18 Freq: Status: Active Protocol: Document 11/30/19 12:11 [email or web address] (Rec: 11/30/19 12:18 RL [id number]) Dysphagia Treatment Session Time Visit Start Time 11:30 Visit Stop Time 11:55 Total Visit Minutes 20 Setting Assessment Location Acute Care Visit Type Note Type Treatment Note Patient Information Identification Type Name,ID Wristband Subjective Observations Pt up in bedside with present in room. Pt greeted this MANAGER MONEY and introduced . Treatment Liquids Trialed Thin Solids Trialed Regular Administration Type Cup Single Sip,Self-Feeding Oral Strategies Upright at 90 degrees,Lingual Sweep Pharyngeal Strategies Sitting Upright (90 deg) Treatment Activities Pt was receptive to MANAGER MONEY and trial of regular texture and thin liquids. Pt self fed trial of cookie with coffee. Pt safely tolerated trials without overt s/sx aspiration. Mild pocketing left side and able to tongue sweep successfully. Speech clear. No cough/choke or wet voicing post swallows were observed. Will advance pt's diet to Regular texture with thin liquids. Will d/c ST at this time Assessment Rehab Potential Good Diet Recommendations Recommendations Upgrade Diet Order Liquids Order Thin Diet Order Regular Medication Recommendations As Tolerated Aspiration Precautions Recommended Precautions Upright at 90 Degrees,Lingual Sweep,Check for Pocketing Treatment Plan Placement Recommendation after Discharge Nursing Home Facility Appropriate for Continued Therapy No: Discharge Dysphagia Goals Pt will safely tolerate the highest diet texture without S /SX aspiration.
--- NOTE | 2019-11-30 12:43 | PC.NURSE ---
0730 Rec'd pt in bed requesting OOB to BR. 1PA/CGA with FWW and gait belt to BR. Pt was incontinent of lg amount urine prior to getting to BR and was unable to void. Assisted to chair for breakfast. Pt is awake, alert, and mentating much better than previous days. He is asking appropriate questions re plan of care/hospitalization. He does have some memory loss and unable to recall most events of this hospitalization. At this time is making needs known with clear logical speech. 1210 Pt sitting up to chair in no distress BP 81/54 (64) HR 91 A fib. Denies dizziness/lightheadedness at rest or with activity. Called to Dr. Guzman. Reported BP. Reviewed cardiac meds. Orders received and entered. Updated pt and , both verbalize understanding.
--- NOTE | 2019-11-30 15:15 | CM.DPC ---
Addendum entered by Echo Tejada R.N. 11/30/19 15:29: Cm placed Face 2 Face placed in patients red chart and needs to be signed by Provider for HH services. Cm/Rn will follow up with patient and patients tomorrow about HH services. Echo Tejada Rn Original Note: DCP continued: EMR reviewed: Cm/Rn called [facility] to see if they can accept patient at D/C. August is reviewing [phone] and will determine if they can accept patient when he is ready for D/C. Cm called patients to discuss d/c plan LVM and will attempt to contact patients again at a later time. Cm/Rn met with patient at the bedside and patient stated he wanted to go home but is open to going to SNF if it is needed. Cm/Rn will check with PT and OT to see D/C recommendations and plan for HH vs SNF D/C possibly tomorrow. need F2F or PASRR done when D/C plan is finalized. ANNA/Rn talked with patients nurse and she stated that patient is doing much better today Echo Tejada RN
--- NOTE | 2019-11-30 15:48 | PT-IP ANOTE ---
Pt just got back to bed and does not want to get up at this time. Will check back with pt tomorrow.
--- NOTE | 2019-11-30 16:31 | OT.IP.TRT ---
Current Diagnoses Hypotension, unspecified (11/19/19) Spinal stenosis, lumbar region without neurogenic claudication (11/19/19) Surgery Performed Operation Date: 11/20/19 07:45 Actual Procedures p L5S1 TLIF, L4-5 hemilaminectomy and microdiscectomy - Reji Monroe MD Occupational Therapy Treatment Note M2 OT-IP Current Condition Start: 11/27/19 16:40 Freq: Status: Active Protocol: Document 11/27/19 11:27 [facility] (Rec: 11/27/19 17:20 [facility] [id number]) Occupational Therapy Current Condition Current Condition Evaluation Date 11/27/19 Treatment Diagnosis s/p L5-S1 TLIF, L4-5 microdisckectomy, altered mental status Diagnosis Onset Date 11/19/19 Post Operative Precautions Lumbar Precautions Log Roll,No Twisting,Limit Bending,Lifting Restriction of 10 lbs,Gait Belt above Incisional Area M3 OT- IP Subjective and Pain Start: 11/27/19 16:40 Freq: Status: Active Protocol: Document 11/30/19 16:29 [facility] (Rec: 11/30/19 16:31 [facility] [id number]) OT- Subjective Occupational Therapy Visit Type Type Administrative Note Notes Attempted to see pt for OT services. Pt declined activity at this time as he just had a stomach issue and returned to bed. Will hold and check back in AM tomorrow. M4 OT- IP ADL's Start: 11/27/19 16:40 Freq: Status: Active Protocol: Document 11/28/19 11:26 [facility] (Rec: 11/28/19 11:40 [facility] [id number]) OT [id number] Comments OT Self-Feeding Comments Not at meal time. OT ADL-Grooming General Evaluation Grooming Ability Standby Assistance Comments OT Grooming Comments Pt ablet o wash his face after set-up of wash cloth. OT ADL-Dressing General Eval Lower Body Dressing Ability Total Assistance Areas Needing Assistance Underpants/Brief Comments OT Dressing Comments Pt dependent for brief change, MAX A X2 with FWW to stand and nursing able to do hygiene and brief manaegment needs. OT ADL-Toileting General Evaluation Toileting Ability Total Assistance Areas Needing Assistance Manage Clothing,Perform Perineal Hygiene Comments OT Toileting Comments Pt dependent for brief change, holding urinal in place and MAX X2 with FWW to stand as nuring asisst with toileting needs. OT ADL-Bathing Comments OT Bathing Comments Not at this time. M5 OT- IP IADL's Start: 11/27/19 16:40 Freq: Status: Active Protocol: Document 11/27/19 11:27 [facility] (Rec: 11/27/19 17:20 [facility] [id number]) OT-Instrumental Activities of Daily Living Home Safety Awareness Awareness of Need for Assistance at Home Decreased Awareness Ability to Problem Solve Emergency Unable to Problem Solve Situations Home Safety Comments Pt very confused at this time and and did not recognize his in the room. M6 OT- IP Functional Cognition Start: 11/27/19 16:40 Freq: Status: Active Protocol: Document 11/28/19 11:26 [facility] (Rec: 11/28/19 11:40 [facility] [id number]) Cognitive Factors Limiting Selfcare Function Cognitive Ability Level of Alertness Alert,Confusional State Patient Orientation Name Attention Span Ability Capable of Focused Attention, Unable to Sustain Attention Ability to Follow Commands Able to Follow One Step Commands with Increased Time, Able to Follow One Step Commands with Repetition Memory Description Short Term Impaired,Manager Mac Impaired,Working Impaired Problem Solving Ability Unable to Identify Errors, Needs Assist to Identify Solutions Cognitive Comments Cognitive Assessment Comments Pt still confused but able to follow direction given vc, tacile cues and hand over hand assist especially to help reach back to the bed or arm rest of the recliner to sit. At ther end of the session pt states I will have to tell my son that I rode a horse. M7 OT- IP Mobility and Balance Start: 11/27/19 16:40 Freq: Status: Active Protocol: Document 11/28/19 11:26 [facility] (Rec: 11/28/19 11:40 [facility] [id number]) OT- Bed Mobility Assessment Rolling Type of Rolling Roll to Left Level of Assistance Moderate Assistance,1 Person Assistance,2 Person Assistance Supine to Sit Supine to Sit Assist Moderate Assistance,2 Person Assistance OT-Transfer Assessment Sit to and From Stand Sit to and from Stand Moderate Assistance,Maximum Assistance,2 Person Assistance Transfers Transfer Ability Maximum Assistance,2 Person Assistance Devices Transfer Assistive Devices Gait Belt,Front Wheeled Walker Comments Mobility Comments Pt needing from MODA X 2 to stand to FWW to MAX AX 2 to stand to FWW as pt fatigues and when having increased leanign to the right. Transfer MAX Ax2-3 as pt tires, assist to keep pt's right knee from buckling, FWW management and hold keep pt;'s trunk upright. Pt needing constant cues for safety. OT- Gait Assessment Comments Gait Ability Comments MAX AX 2 with FWWfor 5 ft with close chair follow. Pt tend to increase his lean to the right as he tires. OT- Balance Assessment Sitting Balance and Reactions Static Sitting Balance Ability Fair Standing Balance and Reactions Static Standing Balance Ability Poor Comments Other Balance Tests/Deviations/Treatment NOted mouch improvement with : sitting to midline and not leaning to the right but at times slight lean to the left. Pt able to sit on his own after assist with positioning to CGA. M8 OT- IP Objective Assessments Start: 11/27/19 16:40 Freq: Status: Active Protocol: Document 11/27/19 11:27 [facility] (Rec: 11/27/19 17:20 [facility] [id number]) OT Gross Range of Motion Upper Extremity Range of Motion Assessment Within Functional Limits OT- Coordination Assessment Comments Coordination Comments Decreased coordination with right hand and having difficulty to open package for the tooth brush and brush. OT-Muscle Tone Assessment Muscle Tone WNL Yes M9 OT- IP Assessment and Plan Start: 11/27/19 16:40 Freq: Status: Active Protocol: Document 11/28/19 11:26 [facility] (Rec: 11/28/19 11:40 [facility] [id number]) OT Summary Assessment and Plan Potential Rehabilitation Potential Fair Analytic Complexity at Evaluation Low Summary OT Impairments Pain,Balance,Coordination, Functional Cognition, Functional Mobility,Self- Feeding,Grooming,Dressing, Toileting,Bathing,Toilet Transfers,Shower Transfers, Activity Tolerance Progress Towards Goals Progressing Toward Goals,Slow Progress due to Activity Tolerance,Slow Progress due to Cognition Assessment Summary Pt showing improvements for mobility needs on being able to sit to midline initially, able to take a few steps and transfer with FWW. However pt still needing from 2-3 assist for all needs due to decreased balance, safety awareness, activity tolerance, and cognition. When medically stable pt will benefit from skilled rehab. Goals Grooming Goal Independent Dressing Goal Independent Toileting Goal Independent Bathing Goal Independent Toilet Transfer Goal Independent Shower Transfer Goal Independent Patient/Caregiver Education Goal Demonstrate Post-Op Precautions Days to Meet Goals 24 Frequency of Treatment Frequency Of Treatment Once a Day Treatment Plan OT Treatment Plan ADL Training,Functional Cognition Training,Functional Mobility,Patient/Family Education,Discharge Planning Other Treatment Recommendations and Next Pt able to do self feed on his Treatment Focus own after initial set-up. Discharge Recommendations OT Discharge Recommendations SNF Rehab Transportation Needs at Discharge Wheelchair/Cabulance
--- NOTE | 2019-11-30 16:52 | PM.PN.1 ---
Exam Vital Signs (past 8 hours): - 11/30/19 12:10 11/30/19 14:45 11/30/19 15:30 Temperature 96.8 F L 97.5 F L Pulse Rate 91 H 81 86 Respiratory Rate 16 20 Blood Pressure 81/54 L 92/57 L 107/60 Pulse Oximetry 94 93 Fraction of Inspired Oxygen 0.21 Oxygen Delivery Method Room Air Oxygen Flow Rate 0 Objective Labs Result Diagrams: 11/28/19 04:39 11/30/19 04:41 Labs: Laboratory Results - last 24 hr 11/30/19 04:41 Sodium 138 Potassium 3.7 Chloride 100 Carbon Dioxide 36 H Assessment & Plan Assessment & Plan narrative: S/p Lumbar fusion and microdiscectomy. Prolonged hospital stay due to medical issues including newly onset A-fib and decreased mental status. Improved significantly over the last two days. Patient is communicating appropriately today. On exam, dressing clean dry intact. Patient is neuro intact on exam. Patient is receiving lovenox 40 mg q day for DVT prophalaxis. Continue medical management and PT/OT for mobility training.
--- NOTE | 2019-11-30 23:53 | PC.NURSE ---
Evening shift note: Pt sitting up in bed with at bedside, A/Ox3 is able to answer questions appropriately. VSS with the exception of his cardiac rate is still in AFib CVR. Pt is able to ambulate to bathroom with assistance, but does have occasions of incontinence both stool and urine. Behavior is appropriate, has some occasional confusion, but able to reorient with no difficulty. Pt ate most of his dinner with little difficulty, able to take medications in a carrier with no difficulty. Blood glucose readings have been high 254 and 189, educated pt on watching what he eats. Bed low and locked, alarm on for safety, call light within reach, will continue to monitor.
[2019-12-01] VITALS (22 sets, daily range): BP systolic 85–144; BP diastolic 53–81; PULSE 76–92; RESP 16–19; TEMP 36.4–36.8; O2SAT 84–96
[2019-12-01 05:29] LABS: Add Manual Diff / Slide Review NO; Basophils Absolute Auto 0 /uL (0-100); Basophils Percent Auto 0.4 % (0-2); Eosinophils Absolute Auto 200 /uL (0-450); Eosinophils Percent Auto 2.3 % (2-4); Hematocrit 40.3 % (41-53); Hemoglobin 13.7 g/dL (13.5-17.5); Lymphocytes Absolute Auto 1500 /uL (1100-4500); Lymphocytes Percent Auto 20.9 % (25-40); Mean Corpuscular Hemoglobin 30.8 PG (26-34); Mean Corpuscular Volume 90.6 fL (80-100); Monocytes Absolute Auto 600 /uL (0-900); Monocytes Percent Auto 8.2 % (3-14); Neutrophils Absolute Auto 5000 /uL (1500-7000); Neutrophils Percent Auto 68.2 % (50-75); Platelet Count 298 X10^3/uL (150-400); Red Blood Cell Count 4.45 X10^6/uL (4.5-5.9); Red Cell Distribution Width 13.8 % (11.6-14.8); White Blood Cell Count 7.4 X10^3/uL (4.5-11.0)
[2019-12-01 05:48] LABS: BUN Creatinine Ratio 19.8 (6-22); Blood Urea Nitrogen 19 mg/dL (9-20); Calcium 9.3 mg/dL (8.4-10.2); Carbon Dioxide 36 mmol/L (22-32); Chloride 100 mmol/L (98-107); Estimated Glomerular Filt Rate > 60.0 mL/min (>60); Glucose 99 mg/dL (80-110); HEMOLYSIS < 15 (0-50); Potassium 3.5 mmol/L (3.4-5.1); Sodium 139 mmol/L (137-145)
[2019-12-01] MEDS: PANTOPRAZOLE 40 MG TABLET PO (05:59)
[2019-12-01] MEDS: ACETAMINOPHEN 325 MG TABLET 650 MG PO ×2 (05:59→20:41)
--- NOTE | 2019-12-01 06:49 | PC.NURSE ---
[id number] Pt remains A/o x2-3 Forgetful. [place]. BA active for impulsive ambulation. 1PA FWW. Reports mild pain when asked about wincing, APAP given. CPAP in place over night. PIV SL. Rash to back r/t dressing, no active drainage. Itches if you touch at it Declined anything for itch. Call light in reach.
--- NOTE | 2019-12-01 07:39 | PM.PNPO.1 ---
Subjective Subjective Date Patient Seen: 12/01/19 Time Patient Seen: 07:39 Interval history: POD #11 s/p L4-5 hemilaminectomy and microdiscectomy, and L5-S1 TLIF with Dr. Monroe. Patient was intubated on POD#2 for worsening mental status and respiratory status. Patient was extubated POD #4. POD #[address] scan. Patient is lying in bed this morning. He was able to follow commands and respond to questions today. Per nursing he had a much better night last night. Currently managed medically by medicine and his PCP, Dr. Gallo. Exam Vital Signs (past 8 hours): - 12/01/19 00:11 12/01/19 04:51 Temperature 97.9 F 97.8 F Pulse Rate 85 88 Respiratory Rate 16 16 Blood Pressure 120/81 144/78 H Pulse Oximetry 94 94 Fraction of Inspired Oxygen 0.21 Oxygen Delivery Method Room Air Oxygen Flow Rate 0 Narrative Exam Narrative: Patient sitting in bedside chair in NAD. He is able to follow all commands for lower extremity strength which is 5/5 throughout. Back dressing is CDI. SILT throughout BLE. DP 2+ symmetrical. Objective Labs Result Diagrams: 12/01/19 04:43 12/01/19 04:43 Labs: Laboratory Results - last 24 hr 12/01/19 12/01/19 04:43 04:43 WBC 7.4 RBC 4.45 L Hgb 13.7 Hct 40.3 L MCV 90.6 MCH 30.8 MCHC 34.0 RDW 13.8 Plt Count 298 Neut % (Auto) 68.2 Lymph % (Auto) 20.9 L [place] % (Auto) 8.2 Eos % (Auto) 2.3 Baso % (Auto) 0.4 Neut # (Auto) 5000 Lymph # (Auto) 1500 [place] # (Auto) 600 Eos # (Auto) 200 Baso # (Auto) 0 Sodium 139 Potassium 3.5 Chloride 100 Carbon Dioxide 36 H BUN 19 Creatinine 0.96 Estimated GFR > 60.0 BUN/Creatinine Ratio 19.8 Glucose 99 Calcium 9.3 Assessment & Plan Post-op Postoperative Procedures: Procedures Operation Date: 11/20/19 07:45 Actual Procedures Side Surgeon p L5S1 TLIF, L4-5 hemilaminectomy and microdiscectomy Reji Monroe MD Patient doing well this morning. Orthopedically patient remains stable since surgery.
--- NOTE | 2019-12-01 08:37 | CM.DANOTE ---
DCP/continued: Received verbal referral from Dr. Gallo that patient will be medically stable for discharge tomorrow 12-02-19. Current plan is for patient to d/c home with HH. Dr. Gallo spoke with spouse and this d/c plan has been chosen. Therefore, obtained F2F and had signed by Dr. Gallo. Order also placed in EMR for HH services. Dr. Gallo spoke with spouse at length re: HH agency choice, no preference so [facility] [employer] called [facility]. Spoke with Rm and referral accepted. Faxed face sheet, and F2F. 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 P: Home tomorrow with [facility]. CM team will need to verify with [facility] that all information has been received. [facility] brochure provided to RN to give to patient/spouse. SHERRIE Sam
[2019-12-01] MEDS: INSULIN GLARGINE 100 UNIT/ML 3ML PEN 20 UNIT SUBCUT ×2 (08:48→20:42)
[2019-12-01] MEDS: AMIODARONE 200 MG TABLET PO (08:49)
[2019-12-01] MEDS: SODIUM CHLORIDE 0.9% FLUSH 10 ML IV ×2 (08:49→21:00)
[2019-12-01] MEDS: DOXAZOSIN 4 MG TABLET PO (08:51)
[2019-12-01] MEDS: APIXABAN 5 MG TABLET 2.5 MG PO ×2 (08:51→20:40)
[2019-12-01] MEDS: CYANOCOBALAMIN (VITAMIN B-12) 500 MCG TABLET 1000 MCG PO (08:51)
[2019-12-01] MEDS: ENOXAPARIN 40 MG/0.4 ML SYRINGE SUBCUT (08:52)
[2019-12-01] MEDS: MULTIVITAMIN 1 TABLET 1 TAB PO (08:52)
[2019-12-01] MEDS: LOSARTAN 50 MG TABLET PO (08:52)
[2019-12-01] MEDS: FOLIC ACID 1 MG TABLET PO (08:52)
[2019-12-01] MEDS: METOPROLOL IR 50 MG TABLET 100 MG PO ×2 (08:52→20:41)
[2019-12-01] MEDS: predniSONE 5 MG TABLET 15 MG PO (08:52)
--- NOTE | 2019-12-01 10:15 | OT.IP.TRT ---
Current Diagnoses Hypotension, unspecified (11/19/19) Spinal stenosis, lumbar region without neurogenic claudication (11/19/19) Surgery Performed Operation Date: 11/20/19 07:45 Actual Procedures p L5S1 TLIF, L4-5 hemilaminectomy and microdiscectomy - Reji Monroe MD Occupational Therapy Treatment Note M2 OT-IP Current Condition Start: 11/27/19 16:40 Freq: Status: Active Protocol: Document 11/27/19 11:27 [facility] (Rec: 11/27/19 17:20 [facility] [id number]) Occupational Therapy Current Condition Current Condition Evaluation Date 11/27/19 Treatment Diagnosis s/p L5-S1 TLIF, L4-5 microdisckectomy, altered mental status Diagnosis Onset Date 11/19/19 Post Operative Precautions Lumbar Precautions Log Roll,No Twisting,Limit Bending,Lifting Restriction of 10 lbs,Gait Belt above Incisional Area M3 OT- IP Subjective and Pain Start: 11/27/19 16:40 Freq: Status: Active Protocol: Document 12/01/19 11:47 [facility] (Rec: 12/01/19 11:59 [facility] [id number]) OT- Subjective Occupational Therapy Visit Type Type Progress Note Visit Start Time 09:22 Visit Stop Time 10:15 Total Visit Minutes 53 Notes pt requesting to get up for shower. OT Pain Assessment Pain When Pain Assessed At Rest Pain Present Pain Present Denied Pain M4 OT- IP ADL's Start: 11/27/19 16:40 Freq: Status: Active Protocol: Document 12/01/19 11:47 [facility] (Rec: 12/01/19 11:59 [facility] [id number]) OT [id number] Comments OT Self-Feeding Comments not performed OT ADL-Grooming General Evaluation Grooming Ability Independent Areas Needing Assistance Combing/Brushing Hair Comments OT Grooming Comments seated in chair OT ADL-Oral Care Comments Oral Care Comments not performed OT ADL-Dressing General Eval Upper Body Dressing Ability Minimal Assistance Lower Body Dressing Ability Minimal Assistance Areas Needing Assistance Socks Comments OT Dressing Comments Hospital gown and socks seated . Pt was able to bring ankle to knee for LB dressing with mod verbal cues. Pt needs max verbal cues for back precautions. OT ADL-Toileting General Evaluation Toileting Ability Independent Comments OT Toileting Comments seated on toielt for urination OT ADL-Bathing Bathing Type Bathing Type Shower General Evaluation Bathing Ability Minimal Assistance Areas Needing Assistance Retrieving/Setting Up Items, Wash/Dry Back,Wash/Dry Lower Extremities Devices Bathing Equipment Hand Held Shower Sprayer, Shower Chair with Arms,Grab Bars Comments OT Bathing Comments Pt sat in shower for bathing. Pt needed VC to initiate cleaning but performed most without assist. M5 OT- IP IADL's Start: 11/27/19 16:40 Freq: Status: Active Protocol: Document 11/27/19 11:27 [facility] (Rec: 11/27/19 17:20 [facility] [id number]) OT-Instrumental Activities of Daily Living Home Safety Awareness Awareness of Need for Assistance at Home Decreased Awareness Ability to Problem Solve Emergency Unable to Problem Solve Situations Home Safety Comments Pt very confused at this time and and did not recognize his in the room. M6 OT- IP Functional Cognition Start: 11/27/19 16:40 Freq: Status: Active Protocol: Document 12/01/19 11:47 [facility] (Rec: 12/01/19 11:59 [facility] [id number]) Cognitive Factors Limiting Selfcare Function Cognitive Ability Level of Alertness Alert,Confusional State Patient Orientation Name,Birthday,Day of Week, Place,Situation Attention Span Ability Capable of Focused Attention, Capable of Sustained Attention Ability to Follow Commands Able to Follow One Step Commands with Increased Time, Able to Follow One Step Commands with Repetition Cognitive Tests SLUMS Pt participated in a SLUMS assessment today scoring a 17/ 30. Pt was unable to say the year, stated 11 animals in 1 minute, was able to recall 1 of the 5 objects for short term memory, had difficulty repeating numbers backwards, was able to number the clock but unable to correctly label the time, and remembered 2 answers of 4 from the listening comprehension. A score of 17/30 puts the pt into the category of dementia. M7 OT- IP Mobility and Balance Start: 11/27/19 16:40 Freq: Status: Active Protocol: Document 12/01/19 11:47 [facility] (Rec: 12/01/19 11:59 [facility] [id number]) OT- Bed Mobility Assessment Rolling Level of Assistance Standby Assistance Supine to Sit Supine to Sit Assist Minimal Assistance Scooting Scooting to Edge of Bed Standby Assistance OT-Transfer Assessment Sit to and From Stand Sit to and from Stand Contact Guard Assistance Transfers Transfer Ability Contact Guard Assistance Technique Transfer Destination Bed,Chair,Shower Stall,Toilet Transfer Technique Stand Step Pivot Devices Transfer Assistive Devices Gait Belt,Front Wheeled Walker Comments Mobility Comments CGA for all mobility. OT- Balance Assessment Sitting Balance and Reactions Static Sitting Balance Ability Good Dynamic Sitting Balance Ability Fair M8 OT- IP Objective Assessments Start: 11/27/19 16:40 Freq: Status: Active Protocol: Document 11/27/19 11:27 [facility] (Rec: 11/27/19 17:20 [facility] [id number]) OT Gross Range of Motion Upper Extremity Range of Motion Assessment Within Functional Limits OT- Coordination Assessment Comments Coordination Comments Decreased coordination with right hand and having difficulty to open package for the tooth brush and brush. OT-Muscle Tone Assessment Muscle Tone WNL Yes M9 OT- IP Assessment and Plan Start: 11/27/19 16:40 Freq: Status: Active Protocol: Document 12/01/19 11:47 [facility] (Rec: 12/01/19 11:59 [facility] [id number]) OT Summary Assessment and Plan Potential Rehabilitation Potential Fair Analytic Complexity at Evaluation Low Summary OT Impairments Pain,Balance,Coordination, Functional Cognition, Functional Mobility,Self- Feeding,Grooming,Dressing, Toileting,Bathing,Toilet Transfers,Shower Transfers, Activity Tolerance Progress Towards Goals Progressing Toward Goals,Slow Progress due to Activity Tolerance,Slow Progress due to Cognition Assessment Summary Pt is progressing with therapy however, pt's cognition is poor scoring a 17/30 on the SLUMS indicating that pt has dementia. Pt is unable to recall his back precautions and needs max vc to perform activities while maintaining back precautions. Pt will benefit from continued therapy services. If discharging home pt will need close 24/7 supervision/assist. Goals Grooming Goal Independent Dressing Goal Independent Toileting Goal Independent Bathing Goal Independent Toilet Transfer Goal Independent Shower Transfer Goal Independent Patient/Caregiver Education Goal Demonstrate Post-Op Precautions Days to Meet Goals 20 Frequency of Treatment Frequency Of Treatment Once a Day Treatment Plan OT Treatment Plan ADL Training,Functional Cognition Training,Functional Mobility,Patient/Family Education,Discharge Planning Other Treatment Recommendations and Next back precautions, adls Treatment Focus standing Discharge Recommendations OT Discharge Recommendations SNF Rehab Other Discharge Recommendations recommendation at this time is for SNF vs home with close 24 /7 supervion/assist. Pt would likely benefit from a SNF stay for safety given his cognition. Transportation Needs at Discharge Private Vehicle
--- NOTE | 2019-12-01 11:30 | PT-IP ANOTE ---
Pt with BP of 93/54 in sitting, informed RN, RN took BP on left arm BP 88/55. Will check back with pt in a few hours per RN. No charge.
--- NOTE | 2019-12-01 13:00 | P.PN_ITS ---
Subjective Subjective Date Patient Seen: 12/01/19 Time Patient Seen: 08:00 Interval history: Patient overall feeling better this morning. Diarrhea yesterday but has not had some sense period urine seems to be better. Did have a hypotensive episode yesterday. Heart rate is been control. Is not been started on any type of treatment. For anticoagulation. No other changes. No chest pain. No headaches. Breathing better. Energy level slowly improving. Apparently drink 5 drinks a day. Otherwise no change. Back pain feels great Exam Vital Signs (past 8 hours): - 12/01/19 08:00 12/01/19 12:00 Temperature 98.2 F 97.8 F Pulse Rate 88 76 Respiratory Rate 19 18 Blood Pressure 120/65 86/55 L Pulse Oximetry 93 95 Fraction of Inspired Oxygen 0.21 Oxygen Delivery Method Room Air Oxygen Flow Rate 0 Narrative Exam Narrative: Alert elderly male sitting in bed no acute distress. Lungs are clear. Heart regular rate and rhythm. Abdomen is soft positive bowel sounds nontender. Patient is weak but moving all extremities having no other changes. Positive reflux negative straight leg raise moving all extremities mostly tired but otherwise appropriate Objective Labs Result Diagrams: 12/01/19 04:43 12/01/19 04:43 Labs: Laboratory Results - last 24 hr 12/01/19 12/01/19 04:43 04:43 WBC 7.4 RBC 4.45 L Hgb 13.7 Hct 40.3 L MCV 90.6 MCH 30.8 MCHC 34.0 RDW 13.8 Plt Count 298 Neut % (Auto) 68.2 Lymph % (Auto) 20.9 L [place] % (Auto) 8.2 Eos % (Auto) 2.3 Baso % (Auto) 0.4 Neut # (Auto) 5000 Lymph # (Auto) 1500 [place] # (Auto) 600 Eos # (Auto) 200 Baso # (Auto) 0 Sodium 139 Potassium 3.5 Chloride 100 Carbon Dioxide 36 H BUN 19 Creatinine 0.96 Estimated GFR > 60.0 BUN/Creatinine Ratio 19.8 Glucose 99 Calcium 9.3 Assessment & Plan Assessment & Plan narrative: Hypoventilation syndrome with respiratory failure status post intubation seems to be stable and doing well. Needs to make sure he has a CPAP machine which seems to be working well. Will consider sleep study re-evaluation as outpatient. Atrial fibrillation he with rapid ventricular rate. Better control with metoprolol on amiodarone. Will continue. Probably will need to see supervisor veneer as outpatient. Will start anticoagulation today. Hypertension. Patient has been having some low blood pressures would like to make sure stable today. He has not had symptoms today we did recently had his Cardura back secondary to his BPH and will have to see if the stable stable today to go home tomorrow. Diarrhea. Etiology is unclear seems to be resolved but will follow today. Will test if recurs. Type 2 diabetes. Stable at this time. Will go back to usual control. Polymyalgia rheumatica. On 50 mg of prednisone will continue. Alcohol withdrawal. Long discussion about treatment options seems to be much improved. Patient was hoping he will be able to decrease outpatient alcohol intake will see how it goes. GI prophylaxis on PPI. Disposition. If stable today blood pressure stable urinations stable and feeling well will discharge in a.m.. Home health set up.
--- NOTE | 2019-12-01 14:16 | PT.IPTN ---
Current Diagnoses Hypotension, unspecified (11/19/19) Spinal stenosis, lumbar region without neurogenic claudication (11/19/19) Surgery Performed Operation Date: 11/20/19 07:45 Actual Procedures p L5S1 TLIF, L4-5 hemilaminectomy and microdiscectomy - Reji Monroe MD Physical Therapy Treatment Note M2 PT-IP Current Condition Start: 11/23/19 09:08 Freq: NEEDED Status: Active Protocol: Document 11/26/19 13:10 AB (Rec: 11/26/19 13:59 AB [id number]) Physical Therapy Current Condition Current Condition Evaluation Date 11/26/19 Treatment Diagnosis s/p L5S1 TLIF; L4-5 micro disckectomy; difficulty in walking Onset Date 11/19/19 Precautions Lumbar Precautions Log Roll,No Twisting,Limit Bending,Lifting Restriction of 10 lbs,Gait Belt above Incisional Area Other Precautions Falls M3 PT-IP Subjective Start: 11/23/19 09:08 Freq: NEEDED Status: Active Protocol: Document 12/01/19 13:52 CLB (Rec: 12/01/19 15:13 CLB [id number]) Subjective Physical Therapy Visit Type Type Treatment Note Visit Start Time 13:52 Visit Stop Time 14:16 Total Visit Minutes 24 Number of PHARMACY SERVICES REPRESENTATIVE Visits 5 Physical Therapy Visit Comments Patient Comments Pt willing to participate with therapy. Therapy Pain Assessment Pain Present Pain Present Denied Pain M4 PT-IP Mobility and Gait Start: 11/23/19 09:08 Freq: NEEDED Status: Active Protocol: Document 12/01/19 13:52 CLB (Rec: 12/01/19 15:13 CLB [id number]) PT-Bed Mobility Assessment Rolling Type of Rolling Log Rolling,Roll to Left Level of Assist Standby Assistance Supine to Sit Supine to Sit Minimal Assistance Sit to Supine Sit to Supine Contact Guard Assistance PT-Transfer Assessment Sit to and From Stand Sit to and from Stand Contact Guard Assistance,1 Person Assistance,Use of Upper Extremities Equipment Transfer Assistive Device Gait Belt,Front Wheeled Walker Orthotic/Prosthetic Devices or Brace: No Transfers Transfer Destination Chair Transfer Technique Stand Step Pivot Transfer Ability Level of Assist Contact Guard Assistance,1 Person Assistance,Use of Upper Extremities Comments Mobility Comments Pt in bed upon arrival. Pt rolled to left SBA, pt required Min A from sidelying to sitting. Pt stood requiring CGA, pt then ambulated in collaoz ~150ft with small step thru gait pattern with cues for staying inside walker during right turns. Pt returned to room sitting in chair CGA. Platform step was brought to room, pt able to climb platform step x2 with FWW/CGA. Pt will stay in lower level of home once home. Gait Assessment Gait Gait Assistance Required: Contact Guard Assist,1 Person Assist Distance (Feet) 150 Able to Maintain Weight Bearing Status Yes During Gait Assistive Devices Assistive Device Gait Belt,Front Wheeled Walker Orthotic/Prosthetic Devices or Brace: No Gait Deviations General Gait Pattern Decreased Stride Length, Decreased Feet Clearance,Wide Based Gait Factors Limiting Gait Function Factors Limiting Gait Function Decreased Activity Tolerance, Decreased Strength,Difficulty Following Directions,Limited Range of Motion,Poor Balance, Poor Safety Awareness Comments Gait Comments Pt ambulated in collazo ~150ft requiring CGA. Pt required verbal cues to stay inside walker during turns. Stair Climbing Assessment Evaluation Level of Assist On Stairs Contact Guard Assistance,1 Person Assistance Devices Stair Climbing Assistive Devices Front Wheel Walker Technique/Endurance Stair Climbing Direction Ascend and Descend Stair Climbing Technique Step to Step Number of Steps Climbed 1 Stair Climbing Set # Repetitions (reps) 2 Comments Stair Climbing Comments Pt able to climb steps with FWW/CGA. M5 PT-IP Objective Assessments Start: 11/23/19 09:08 Freq: NEEDED Status: Active Protocol: Document 11/26/19 13:10 AB (Rec: 11/26/19 13:59 AB [id number]) Orientation Orientation/Cognition Level of Alertness Lethargic Orientation Name Safety Awareness Decreased Safety Awareness Memory Description Short Term Impaired Gross Range of Motion Lower Extremity ROM Assessment Within Functional Limits Strength Lower Extremity Strength Assessment Bilaterally Impaired Comments Strength Comments LLE: 3+/5 RLE 3-/5 M6 PT-IP Treatment Start: 11/23/19 09:08 Freq: NEEDED Status: Active Protocol: Document 11/29/19 10:42 CLB (Rec: 11/29/19 12:24 CLB [id number]) Physical Therapy Treatment Exercises Exercises Ankle Pumps,Seated Knee Flexion/Extension M7 PT-IP Assessment and Plan Start: 11/23/19 09:08 Freq: NEEDED Status: Active Protocol: Document 12/01/19 13:52 CLB (Rec: 12/01/19 15:13 CLB [id number]) PT Summary Assessment and Plan Potential Rehabilitation Potential Fair Summary Impairments Pain,ROM,Strength,Balance, Coordination,Sensation,Tone, Cognition,Bed Mobility, Transfers,Gait,Activity Tolerance Progress Towards Goals Progressing Toward Goals Assessment Summary Pt is requiring Min A for bed mobility and CGA for sit<> stand, gait and stair climbing . Pt able to ambulate in collazo ~150ft with cues to stay inside walker during turns to right. Pt will require CG training for bed mobility and stairs. Pt progressing with all mobility and may be safe to d/c home with to assist / when medically stable. Goals Bed Mobility Goal Moderate Assistance Transfer Goal Moderate Assistance,Front Wheeled Walker Gait Goal Moderate Assistance,Front Wheel Walker Gait Distance 100 Days to Meet Goals 10 Frequency of Treatment Frequency Of Treatment Twice a Day Treatment Plan Physical Therapy Treatment Plan Bed Mobility Training,Transfer Training,Gait Training, Therapeutic Exercise,Balance Retraining,Post Op Education, Discharge Planning,Hot or Cold Pack,Neuromuscular Re-ed, Coordination Retraining,Manual Therapy Other Recommendations and Next Treatment CG training in AM, stairs and Focus bed mobility. Recommendations To Nursing Amount of Assist Needed 1 Person Assist Discharge Recommendations PT Discharge Recommendations Home with 01/10 Assist,Home Health Transportation Needs at Discharge Private Vehicle
[2019-12-01] MEDS: INSULIN ASPART 100 UNIT/ML INSULN PEN SUBCUT (16:30)
[2019-12-01] MEDS: OXYCODONE IR 5 MG TABLET PO (20:39)
[2019-12-02 00:32] VITALS: BP 122/64; PULSE 74; RESP 18; TEMP 36.1; O2SAT 95
[2019-12-02 04:15] VITALS: BP 119/72; PULSE 82; RESP 16; TEMP 36.2; O2SAT 96
[2019-12-02 08:00] VITALS: BP 103/62; PULSE 81; RESP 19; TEMP 36.7; O2SAT 95
[2019-12-02] MEDS: APIXABAN 5 MG TABLET 2.5 MG PO (08:08)
[2019-12-02] MEDS: AMIODARONE 200 MG TABLET PO (08:08)
[2019-12-02] MEDS: PANTOPRAZOLE 40 MG TABLET PO (08:08)
[2019-12-02] MEDS: DOXAZOSIN 4 MG TABLET PO (08:09)
[2019-12-02] MEDS: CYANOCOBALAMIN (VITAMIN B-12) 500 MCG TABLET 1000 MCG PO (08:09)
[2019-12-02] MEDS: FOLIC ACID 1 MG TABLET PO (08:10)
[2019-12-02] MEDS: ENOXAPARIN 40 MG/0.4 ML SYRINGE SUBCUT (08:10)
[2019-12-02] MEDS: INSULIN GLARGINE 100 UNIT/ML 3ML PEN 20 UNIT SUBCUT (08:11)
[2019-12-02] MEDS: ACETAMINOPHEN 325 MG TABLET 650 MG PO (08:12)
[2019-12-02] MEDS: SODIUM CHLORIDE 0.9% FLUSH 10 ML IV (08:12)
[2019-12-02] MEDS: predniSONE 5 MG TABLET 15 MG PO (08:12)
[2019-12-02] MEDS: METOPROLOL IR 50 MG TABLET 100 MG PO (08:12)
[2019-12-02] MEDS: MULTIVITAMIN 1 TABLET 1 TAB PO (08:12)
--- NOTE | 2019-12-02 08:29 | PM.DS.1 ---
History of Present Illness History of Present Illness Chief complaint: radicular back pain hypotention & dehydration Narrative: Patient is a 79-year-old male patient of mine well known to me who presents in clinic today in severe pain and hypotensive. He had an appointment for follow-up of MRI. Patient has been having history of pain for the last 6 weeks or so period is progressively getting worse. Progressing Winifred not mobile while. Not eating period and becoming more and more immobile. Patient was seen last week in clinic and was with mildly low blood pressure but felt okay otherwise. At that time he had no definitive neurologic signs. He was having pain which was 8/10. Mostly in his right buttock down into his leg and around into the anterior leg. He had no other significant new changes. He had no bowel or bladder changes. No numbness. He had no motor changes but hurts so bad he would not move much period was becoming a little bit confused in that he was not drinking and tramadol did seem to be helping. At that time we had increased tramadol does and had been following period is had no fevers chills or other change. Patient continued similar findings his MRI showed multiple pinch nerves plus central canal stenosis. He has not made any progress he has not been drinking fluids. He is progressively uncontrolled pain and becoming less functional at home. In clinic today at a blood pressure of 85/60 and was diaphoretic. He had had no chest pain. No shortness of breath. He continued only with only complaint being buttock pain down his which was extended down his leg. Due to the fact that his pressure was so low he was clearly dehydrated and was otherwise not feeling functional he was brought to the hospital for evaluation. Patient was with history of diffuse pain which had responded secondary to prednisone has been diagnosed with polymyalgia rheumatica. Patient was tried on 40 mg of prednisone 2 weeks ago which made no difference. We had recently started weaning his prednisone. Patient had labs done last week which showed a mildly elevated white count probably secondary to his prednisone. Other lab function was normal. He has had no change in bowel movements no blood in his stool. No urinary frequency or urgency or change. No extremity numbness. No headaches. No visual symptoms. No shortness of breath no chest pain. Basically has not been doing much otherwise though. 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 Social history negative smoker, occasional alcohol mostly social Discharge Providers Provider Date of admission: 11/19/19 10:17 Discharge Date: 12/02/19 Primary care physician: Octavio Gallo MD Consults: 11/19/19 11:41 Consult to Orthopedic Surgery Routine Comment: Consulting Provider: Reji Monroe Reason for consultation: back pain Has provider been notified: Yes 11/20/19 14:03 Consult to Occupational Therapy Evaluate & Treat Comment: Physician Instructions: Evaluate and treat Consult to Physical Therapy Evaluate & Treat Comment: Physician Instructions: Evaluate and Treat 11/21/19 15:18 Consult to Respiratory Therapy Evaluate & Treat Comment: OK TO USE CPAP ([facility]) BI-FLEX FOR JO Physician Instructions: Evaluate and treat 11/21/19 22:36 Consult to Dietitian, Adult Routine Comment: Reason For Exam: diabetes 11/23/19 16:46 Consult to Dietitian, Adult Routine Comment: Reason For Exam: intubated 11/24/19 13:41 Consult to Speech Therapy Evaluate & Treat Comment: swallow eval after extubation Physician Instructions: Evaluate and treat 11/24/19 13:42 Consult to Respiratory Therapy Evaluate & Treat Comment: consult for Trilogy Physician Instructions: Evaluate and treat 11/26/19 10:11 Consult to Occupational Therapy Evaluate & Treat Comment: Physician Instructions: Evaluate and treat Consult to Physical Therapy Evaluate & Treat Comment: Physician Instructions: Evaluate and Treat 12/01/19 08:24 Consult to Home Health Routine Comment: DX: Laminectomy Reason For Exam: 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 Primary reason for admission was patient was in such pain he is unable to ambulate and move and mobilize period and secondary that he had developed dehydration and was failing at home. was consulted and on day 2 of admission was taken to the operative theater and had a laminectomy and microdiskectomy. Patient did well from that. Had no complications. And was followed closely by orthopedist. But he was completely pain free was feeling well on discharge. He be followed up as scheduled. Acute hypoxic and hypercapnic respiratory failure. On day 3 of admission status post 1 day after surgery patient began to be noticed with alcohol withdrawal and with pain control started having increasing issues with ventilation. Also was having with a combination of his withdrawal was getting large amounts of Ativan. Due to that fact he was intubated and did well over the course of the next few days. He had no evidence of pneumonia he was maintained on a ventilator through the . No signs of other issues were noted. It was felt to be a combination of his withdrawal of his medication use for pain and his Ativan and hypoventilation syndrome secondary to his sleep apnea. Patient was extubated was maintained on CPAP until 2 days prior to discharge and then was on room air doing well. During this period Dr. martin was consulted and had managed until extubated. Atrial fibrillation with rapid ventricular rate. Patient developed atrial fibrillation during his period of hypoventilation and status post surgery 1 day. It was noted that he was in rapid ventricular rate. Verbal consult with motor coach bus driver felt that he could be managed with amiodarone and beta-blockers. Echo showed no significant abnormality. It was felt to be secondary to the stress of his surgery and respiratory compromise. He will be managed on his beta-irma and that no further evidence of treatment needs to be done. He had no evidence of coronary artery disease or ischemic disease and tolerated well. He will be discharged home on amiodarone and beta-blockers he was started on anticoagulant 2 days prior to discharge and will be followed as an outpatient. Hopefully once on anticoagulation for 6 weeks we can consider cardioversion but will have to see how he does. No other changes. Dehydration. Patient was initially dehydrated. He has been managed with IV fluids over the course of the 1st 24 hours and was felt to be secondary to his pain. It was completely resolved over the course of the 1st 24 hours. Acute alcohol withdrawal. Patient was not openly drinking enough for this to be an issue. No one clearly understood the volume. He noted 5 light drinks a day. Did not feel like it was a significant amount but developed withdrawal on day 2. Required large amount Ativan which did not help with his ventilation status. He was treated with usual CICT protocol and eventually was requiring intubation. By the time he was off of intubation he was not requiring any further medication and was doing well. At this point he admits that he was probably drinking more than he thought period and that he will be following last drinks during the day. We discussed possible treatment he is not interested in that at this time. Hypertension. Patient was on his usual losartan and diltiazem for rate control of his AFib which was not working as well he was switched to beta-blockers which seemed to do well. He was started back on his usual or start in beta-irma amiodarone and his alpha-irma for BPH and had periods of low blood pressure. We discontinued his losartan for now in the fact that he hopefully will get off of his beta-irma and amiodarone but at this point still requires some for rate control. Will follow his blood pressures an outpatient. Eventually will need cardiology support and they can address this. Type 2 diabetes. Patient with adequate control during the time he was an inpatient. He did have some low blood sugars secondary to poor intake during his intubation stage. Otherwise he has been stable. We have been working on this as an outpatient will continue to adjust to improve control. GERD. Patient was stable in on his usual treatment throughout the course of this Low magnesium. Stable. No other changes. Was replaced and doing well Hypophosphatemia. Was replaced and no major issues were is followed. Obesity. Probably had some impact on his ability to mobilize later in the course of his admission and certainly had an impact on his hypo ventilation syndrome. This is an issue that we have been discussing his outpatient will continue to follow but no change at this time. Polymyalgia rheumatica. Will continue his prednisone at 15 mg a day. BPH chronic he was discontinued on his doxazosin during is middle part of his treatment course urine was fine he did have a Reza for a brief period of time doing well now urinating well without issues. History of CVA and coronary artery disease. Completely stable throughout the course of his admission. Will follow. 1 hours spent on discharge and coordinating care Status at Discharge Cognitive/behavioral status at discharge: oriented Functional status at discharge: uses cane/walker Overall status at discharge: patient is progressing back to baseline Exam Vital Signs (past 8 hours): - 12/02/19 00:32 12/02/19 04:15 12/02/19 08:00 Temperature 96.9 F L 97.2 F L 98.0 F Pulse Rate 74 82 81 Respiratory Rate 18 16 19 Blood Pressure 122/64 119/72 103/62 Pulse Oximetry 95 96 95 Fraction of Inspired Oxygen 0.21 Oxygen Delivery Method Room Air Oxygen Flow Rate 0 Narrative Exam Narrative: Alert mildly fatigued male much brighter in the last 2 days in no acute distress. Mucous membranes moist. Neck supple without adenopathy. Lungs are clear. Heart irregular rate and rhythm with no murmurs clicks rubs or gallops. Abdomen is soft positive bowel sounds nontender. Extremities without cyanosis clubbing edema. Neurologic exam is nonfocal with good reflexes. Back was not evaluated. Psychologically alert appropriate interactive Objective Labs Result Diagrams: 12/01/19 04:43 12/01/19 04:43 Discharge Assessment & Plan Assessment and Plan Assessment: Complicated admission for original back pain. Now doing much better. Not quite back to baseline will discharge home with nursing and physical therapy as an outpatient home health. Will follow-up with me in 1 week. Medications as shown. Plan of Treatment: Discharge home Discharge Plan Discharge Plan Patient Disposition: Home Discharge comment: with home health Discharge orders & Medications Prescriptions: New amiodarone 200 mg Tablet 200 mg PO DAILY Qty: 30 RF: 1 metoprolol tartrate 50 mg Tablet 100 mg PO BID Qty: 60 RF: 2 Eliquis 5 mg Tablet 2.5 mg PO BID Qty: 60 RF: 2 Continued aspirin 81 mg Tablet,Delayed Release (Dr/Ec) 81 mg PO DAILY Qty: 0 RF: 0 omeprazole 20 mg Capsule,Delayed Release(Dr/Ec) 20 mg PO DAILY Qty: 0 RF: 0 pravastatin 20 mg Tablet 20 mg PO BEDTIME Qty: 0 RF: 0 prednisone 10 mg Tablet 15 mg PO DAILY RF: 0 tramadol 50 mg Tablet 100 mg PO Q6H PRN (Reason: Pain (Scale Score 1-3)) RF: 0 doxazosin 8 mg tablet 8 mg PO DAILY RF: 0 Lantus Solostar U-100 Insulin 100 unit/mL (3 mL) Insulin Pen 15 unit SUBCUT BID RF: 0 Discontinued losartan 100 mg tablet 100 mg PO DAILY RF: 0 metoprolol tartrate 75 mg Tablet 75 mg PO BEDTIME RF: 0 Follow up/Referrals: Reji Monroe MD [Physician] - 2 Weeks Octavio Gallo MD [Primary Care Provider] - 1 Week (please call for appointment) Discharge Health Status Multidrug resistant organism: No MDRO Diet/Activity/Treatments Diet: Diet as Tolerated and Carb-consistent/Diabetic Activity: No excessive bending, lifting, or twisting Other treatments: use cpap at night Skin/Wound/Dressing Care Report to your healthcare provider any signs of infection, such as:: chills, fever, night sweats and increased pain Visit Report/Discharge Packet Instructions: DI for Transforaminal Lumbar Interbody Fusion Visit Report Forms: Patient Portal/API, Stroke Signs & Symptoms Discharge Data Primary Care Provider: Octavio Gallo
--- NOTE | 2019-12-02 09:17 | PT.IPTN ---
Current Diagnoses Hypotension, unspecified (11/19/19) Spinal stenosis, lumbar region without neurogenic claudication (11/19/19) Surgery Performed Operation Date: 11/20/19 07:45 Actual Procedures p L5S1 TLIF, L4-5 hemilaminectomy and microdiscectomy - Reji Monroe MD Physical Therapy Treatment Note M2 PT-IP Current Condition Start: 11/23/19 09:08 Freq: NEEDED Status: Discharge Protocol: Document 11/26/19 13:10 AB (Rec: 11/26/19 13:59 AB [id number]) Physical Therapy Current Condition Current Condition Evaluation Date 11/26/19 Treatment Diagnosis s/p L5S1 TLIF; L4-5 micro disckectomy; difficulty in walking Onset Date 11/19/19 Precautions Lumbar Precautions Log Roll,No Twisting,Limit Bending,Lifting Restriction of 10 lbs,Gait Belt above Incisional Area Other Precautions Falls M3 PT-IP Subjective Start: 11/23/19 09:08 Freq: NEEDED Status: Discharge Protocol: Document 12/02/19 09:00 SP (Rec: 12/02/19 17:26 SP [email or web address]) Subjective Physical Therapy Visit Type Type Treatment Note Visit Start Time 09:00 Visit Stop Time 09:17 Total Visit Minutes 17 Notes present for and completed caregiver training with physical assist requried during mobility. Number of [employer] PRESIDENT Visits 6 Physical Therapy Visit Comments Patient Comments Pt willing to participate with therapy. Patient Goals Pt goals to return home with to assist him. Therapy Pain Assessment Pain Present Pain Present Denied Pain M4 PT-IP Mobility and Gait Start: 11/23/19 09:08 Freq: NEEDED Status: Discharge Protocol: Document 12/02/19 09:00 SP (Rec: 12/02/19 17:26 SP [email or web address]) PT-Transfer Assessment Sit to and From Stand Sit to and from Stand Contact Guard Assistance,1 Person Assistance,Use of Upper Extremities Equipment Transfer Assistive Device Gait Belt,Front Wheeled Walker Orthotic/Prosthetic Devices or Brace: No Transfers Transfer Destination Wheelchair Transfer Technique Stand Step Pivot Transfer Ability Level of Assist Contact Guard Assistance,1 Person Assistance,Use of Upper Extremities Comments Mobility Comments Pt was sitting up in w/c when arrived, in room awaiting discharge plan. Pt agreeable to working with PT and stated has 2 PF step to get in to house with no rails then on main floor but at some point wants to go up stairs but doesn't need to right now, 2- 4 step flights and landing which has a couch to sit and rest if needed. Wheeled patient down to PF step/ stairs. Sit<> stand CGA by , ascend/descend 1 PF step x2 using FWW CGA provided by and cuing for sequencing FWW, step to BLE and proper positioning with success. Ascend/ descend 3 stairs only tolerated using L HR and [employer] on RUE to assimulate stair mgt wide rails has to another level, LOB at bottom of step with Min A recovery to stabilize through gait belt by and [employer] CGA. Pt able to ambulate further distance in hallway approx 150 ft using FWW and w/c follow secondary to decreased activity tolerance, intermittent cuing for upright posture and increased foot clearance RLE, noted caught slightly on floor x1 during advancement, CGA provided by . Cued to fully under hand grasp gait belt for safety with good carryover. Pt was wheeled back to room staying up in w/c requested. Call light and all need in reach and in room before left. [employer] notified nursing that patient is able to return home with 24/7 assist from when medically stable to DC. Recommending HHPT to improve strength and activity tolerance Gait Assessment Gait Gait Assistance Required: Contact Guard Assist,1 Person Assist Distance (Feet) 150 Able to Maintain Weight Bearing Status Yes During Gait Assistive Devices Assistive Device Gait Belt,Front Wheeled Walker Orthotic/Prosthetic Devices or Brace: No Gait Deviations General Gait Pattern Decreased Stride Length, Decreased Feet Clearance,Wide Based Gait Factors Limiting Gait Function Factors Limiting Gait Function Decreased Activity Tolerance, Decreased Strength,Difficulty Following Directions,Limited Range of Motion,Poor Balance, Poor Safety Awareness Comments Gait Comments See mobility comments for details. Stair Climbing Assessment Evaluation Level of Assist On Stairs Contact Guard Assistance,1 Person Assistance Devices Stair Climbing Assistive Devices Front Wheel Walker Technique/Endurance Stair Climbing Direction Ascend and Descend Stair Climbing Technique Step to Step Number of Steps Climbed 1 Stair Climbing Set # Repetitions (reps) 2 Comments Stair Climbing Comments Pt able to climb steps with FWW/CGA and ascend/descend 3 stairs CGA- Min A of step to patterning L HR and [employer] OPERATOR on R, suggested using SPC on R for self support. PT-Balance Assessment Sitting Balance and Reactions Static Sitting Balance Ability Good Dynamic Sitting Balance Ability Fair Standing Balance and Reactions Static Standing Balance Ability Fair Dynamic Standing Balance Ability Fair Device Used FWW M5 PT-IP Objective Assessments Start: 11/23/19 09:08 Freq: NEEDED Status: Discharge Protocol: Document 11/26/19 13:10 AB (Rec: 11/26/19 13:59 AB [id number]) Orientation Orientation/Cognition Level of Alertness Lethargic Orientation Name Safety Awareness Decreased Safety Awareness Memory Description Short Term Impaired Gross Range of Motion Lower Extremity ROM Assessment Within Functional Limits Strength Lower Extremity Strength Assessment Bilaterally Impaired Comments Strength Comments LLE: 3+/5 RLE 3-/5 M6 PT-IP Treatment Start: 11/23/19 09:08 Freq: NEEDED Status: Discharge Protocol: Document 12/02/19 09:00 SP (Rec: 12/02/19 17:26 SP [email or web address]) Physical Therapy Treatment Exercises Exercises Ankle Pumps,Seated Knee Flexion/Extension M7 PT-IP Assessment and Plan Start: 11/23/19 09:08 Freq: NEEDED Status: Discharge Protocol: Document 12/02/19 09:00 SP (Rec: 12/02/19 17:29 SP [email or web address]) PT Summary Assessment and Plan Potential Rehabilitation Potential Fair Status of Condition at Evaluation Evolving Summary Impairments Pain,ROM,Strength,Balance, Coordination,Sensation,Tone, Cognition,Bed Mobility, Transfers,Gait,Activity Tolerance Progress Towards Goals Progressing Toward Goals Assessment Summary Pt is requiring CGA for sit<> stand, gait and PF step and 3 stair climbing. Pt able to ambulate in collazo ~150ft with cues to stay inside walker during turns to right and foot clearance. Pt completed CG training. Pt progressing with all mobility and may be safe to d/c home with to assist 01/10 when medically stable, recommending HHPT. Goals Bed Mobility Goal Moderate Assistance Transfer Goal Moderate Assistance,Front Wheeled Walker Gait Goal Moderate Assistance,Front Wheel Walker Gait Distance 100 Days to Meet Goals 10 Frequency of Treatment Frequency Of Treatment Twice a Day Treatment Plan Physical Therapy Treatment Plan Bed Mobility Training,Transfer Training,Gait Training, Therapeutic Exercise,Balance Retraining,Post Op Education, Discharge Planning,Hot or Cold Pack,Neuromuscular Re-ed, Coordination Retraining,Manual Therapy Other Recommendations and Next Treatment bed mobility, gait , transfers Focus with improved posture. Recommendations To Nursing Amount of Assist Needed Standby Assistance Discharge Recommendations PT Discharge Recommendations Home with 24/7 Assist,Home Health Transportation Needs at Discharge Private Vehicle
--- NOTE | 2019-12-02 10:27 | CM.DPC ---
DCP Discharge Home with HH Per MD, pt is medically stable to d/c home with spouse assist today and new HH referral. [facility] and faxed additional clinicals, MD orders, F2F and d/c summary to review. Per RN, spouse was bedside and aware of d/c and will transport pt home today and SW updated RN on confirmation of [facility] being set up for discharge today. Plan: Patient to d/c home today via spouse POV and new [facility] referral. SHERRIE Ramos
== END 2019-12-02 10:00 | disposition home health service (06) | DRG 453 ==
LOC: AC 10:21 → ICU 10:26 → AC 11-23 14:39
PROVIDERS: Family Medicine; Internal Medicine; Nurse Practitioner Adult Health; Orthopaedic Surgery Orthopaedic Surgery of the Spine; Student in an Organized Health Care Education/Training Program; Admitting Provider Family Medicine; Family Provider Family Medicine; PCP Family Medicine; Referring Provider Family Medicine; Visit Provider Family Medicine
PROC: 0SG30AJ Fusion of Lumbosacral Joint with Interbody Fusion Device, Posterior Approach, Anterior Column, Open Approach (ICD-10-PCS; principal; 2019-11-20 07:45)
DX: M48.061 Spinal stenosis, lumbar region without neurogenic claudication (principal); R40.2114 Coma scale, eyes open, never, 24 hours or more after hospital admission; R40.2214 Coma scale, best verbal response, none, 24 hours or more after hospital admission; G93.41 Metabolic encephalopathy; J96.01 Acute respiratory failure with hypoxia; J96.02 Acute respiratory failure with hypercapnia; G83.4 Cauda equina syndrome; E87.2 Acidosis; F10.231 Alcohol dependence with withdrawal delirium; I97.191 Other postprocedural cardiac functional disturbances following other surgery; E46 Unspecified protein-calorie malnutrition; E83.39 Other disorders of phosphorus metabolism; I95.9 Hypotension, unspecified; M51.26 Other intervertebral disc displacement, lumbar region; M47.27 Other spondylosis with radiculopathy, lumbosacral region; E86.0 Dehydration; E83.42 Hypomagnesemia; I48.91 Unspecified atrial fibrillation; R40.2354 Coma scale, best motor response, localizes pain, 24 hours or more after hospital admission; G47.33 Obstructive sleep apnea (adult) (pediatric); Z68.32 Body mass index [BMI] 32.0-32.9, adult; M35.3 Polymyalgia rheumatica; E11.9 Type 2 diabetes mellitus without complications; I10 Essential (primary) hypertension; N40.0 Benign prostatic hyperplasia without lower urinary tract symptoms; K21.9 Gastro-esophageal reflux disease without esophagitis; E66.9 Obesity, unspecified; I25.10 Atherosclerotic heart disease of native coronary artery without angina pectoris; Z86.73 Personal history of transient ischemic attack (TIA), and cerebral infarction without residual deficits; Z79.4 Long term (current) use of insulin; Z87.891 Personal history of nicotine dependence; W07.XXXA Fall from chair, initial encounter; Y92.230 Patient room in hospital as the place of occurrence of the external cause
CPT/HCPCS: 36415; 36592; 36600; 70450; 71045; 72100; 72148; 76000; 80048; 80051; 80053; 81001; 82550; 82553; 82805; 82962; 83036; 83735; 83880; 84100; 84443; 84484; 85025; 87040; 87070; 87205; 87635; 87797; 92526; 92610; 93005; 93306; 94002; 94003; 94010; 94640; 94660; 94760; 94762; 94770; 94799; 97110; 97116; 97129; 97162; 97166; 97530; 97535; 99233; C1776; A9270; C9113; C9290; J0282; J0330; J0360; J0690; J1170; J1630; J1650; J2060; J2270; J2310; J2405; J2704; J2920; J3010; J3475; J7613

== ENCOUNTER → 2020-04-08 12:29 | Outpatient (CLI) | payer MEDICARE, OTHER, SELFPAY ==
[2019-11-26 08:53] VITALS: PULSE 79; RESP 15; O2SAT 97
[2020-04-08] MEDS: COVID-19 VACC #1, MRNA(MOD) 100 MCG/0.5 ML VIAL IM (12:33)
== END ==
PROVIDERS: Family Provider Family Medicine; PCP Family Medicine; Visit Provider Internal Medicine
DX: Z23 Encounter for immunization (principal)
CPT/HCPCS: 0011A; 91301

== ENCOUNTER → 2020-05-06 14:53 | Outpatient (CLI) | payer MEDICARE, OTHER, SELFPAY ==
[2019-11-26 08:53] VITALS: PULSE 79; RESP 15; O2SAT 97
[2020-05-06] MEDS: COVID-19 VACC #2, MRNA(MOD) 100 MCG/0.5 ML VIAL IM (15:04)
== END ==
PROVIDERS: Family Provider Family Medicine; PCP Family Medicine; Visit Provider Internal Medicine
DX: Z23 Encounter for immunization (principal)
CPT/HCPCS: 0012A; 91301

== ENCOUNTER → 2021-06-30 12:09 | Outpatient (CLI) | payer MEDICARE, OTHER, SELFPAY ==
[2019-11-26 08:53] VITALS: PULSE 79; RESP 15; O2SAT 97
--- NOTE | 2021-06-30 12:12 | DI.RAD.S_ITS ---
PROCEDURE: XR CHEST 2V INDICATIONS: Fatigue TECHNIQUE: 2 views of the chest were acquired. COMPARISON: [facility], CR, XR CHEST 1V, 11/25/2019, 15:27. [facility], CR, XR CHEST 1V, 11/24/2019, 5:32. [facility], CR, XR CHEST 1V, 11/25/2019, 21:57. FINDINGS: Surgical changes and devices: None. Lungs and pleura: Lungs are clear. No pleural effusions or pneumothorax. Elevated right hemidiaphragm is stable compared to prior exams. Mediastinum: Mediastinal contours are normal. Heart is enlarged. Bones and chest wall: No suspicious bony abnormalities. Soft tissues appear unremarkable. IMPRESSION: No acute cardiopulmonary disease process. Dictated by: Kyleigh Lazo MD, PhD on 06/30/2021 at 16:26 Approved by: Kyleigh Lazo MD, PhD on 06/30/2021 at 16:27
[2021-06-30 13:58] LABS: COVID-19 CEPHEID PCR (VTM/NP) Negative (Negative)
== END ==
PROVIDERS: Family Provider Family Medicine; PCP Family Medicine; Referring Provider Family Medicine; Visit Provider Family Medicine
DX: R53.83 Other fatigue (principal); R06.00 Dyspnea, unspecified; R52 Pain, unspecified; Z20.822 Contact with and (suspected) exposure to COVID-19
CPT/HCPCS: 71046; U0003; U0005

== ENCOUNTER → 2021-07-17 10:58 | Outpatient (CLI) | payer MEDICARE, OTHER, SELFPAY ==
[2019-11-26 08:53] VITALS: PULSE 79; RESP 15; O2SAT 97
[2021-07-17 15:39] LABS: COVID19 -Nasal RAPID Negative (Negative)
== END ==
PROVIDERS: Family Provider Family Medicine; PCP Family Medicine; Visit Provider Family Medicine Sleep Medicine
DX: Z20.822 Contact with and (suspected) exposure to COVID-19 (principal)
CPT/HCPCS: 87635; C9803

== ENCOUNTER 2021-07-19 07:07 | Day surgery (SDC) | payer MEDICARE, OTHER, SELFPAY ==
[2019-11-26 08:53] VITALS: PULSE 79; RESP 15; O2SAT 97
--- NOTE | 2021-07-19 | PATH_ITS ---
[facility] Accession Number: [id number] . 01 Material submitted: . PART A: colon - HEPATIC POLYP PART B: colon - RANDOM BX OF COLON PART C: colon - TRANSVERSE POLYP PART D: colon - SIGMOID POLYP . 01 Clinical history: . REC'D VIAL E (#5), CLIENT INDICATES VIAL IS EMPTY - [facility] 07/24/2021 . 02 Diagnosis: A. Hepatic Polyp: Portions of tubular adenoma x5. . B. Random Biopsy of Colon: Colonic mucosa with no diagnostic abnormality. Negative for active, chronic, and microscopic colitis. Negative for dysplasia and malignancy. . C. Transverse Polyp: Tubular adenoma. . D. Sigmoid Polyp: Tubular adenoma. [facility] 07/25/2021 1344 Local . 02 Electronically signed: . Savannah Gale MD, Pathologist NPI- [id number] . 01 Gross description: . Part A: HEPATIC POLYP: Received in formalin are multiple fragment(s) of fabian, soft tissue measuring 0.1 x 0.1 x 0.1 cm to 0.5 x 0.3 x 0.3 cm submitted entirely in 1 cassette(s) Part B: RANDOM BX OF COLON: Received in formalin are multiple fragment(s) of fabian, soft tissue measuring 0.1 x 0.1 x 0.1 cm to 0.3 x 0.3 x 0.2 cm submitted entirely in 1 cassette(s) Part C: TRANSVERSE POLYP: Received in formalin is 1 fragment(s) of fabian, soft tissue measuring 0.6 x 0.3 x 0.3 cm submitted entirely in 1 cassette(s) Part D: SIGMOID POLYP: Received in formalin is 1 fragment(s) of fabian, soft tissue measuring 0.6 x 0.3 x 0.3 cm submitted entirely in 1 cassette(s) /BENNIE 07/24/2021 1842 Local . 02 Pathologist provided ICD-10: K63.5 . 02 CPT . 344829, 411270, 763577, [id number] Specimen Comment: A courtesy copy of this report has been sent to [phone] Performed at: 01 [facility] [address] [place] [address], [place], [place] [id number] MD Tobias Ceballos MD Phone: [phone] Performed at: 02 [facility] [address] [place], [place] [id number] MD Inga Sanz MD Phone: [phone]
[2021-07-19 07:31] VITALS: BMI 34.4
[2021-07-19 07:44] VITALS: BP 158/84; PULSE 67; RESP 16; TEMP 36.7; O2SAT 94
[2021-07-19] MEDS: SODIUM CHLORIDE 0.9% 1,000 ML 84 ML IV (07:54)
--- NOTE | 2021-07-19 08:34 | PM.HP.1 ---
History of Present Illness History of Present Illness Chief complaint: DX COLONOSCOPY W/POSS BX Narrative: History of persistent diarrhea Patient History Medical History Back pain Diabetes mellitus GERD (gastroesophageal reflux disease) High cholesterol Hypertension PMR (polymyalgia rheumatica) Surgical History History of appendectomy Status post total left knee replacement Family & Social History Social History: household members spouse Tobacco & Substance use: Smoking Status Former smoker alcohol intake current alcohol intake frequency 3 or more drinks per day Substance Use Type does not use Meds Home Medications and Allergies Home Medications Medication Instructions Recorded Confirmed Type omeprazole 20 mg capsule,delayed 20 mg PO DAILY #0 02/24/10 07/19/21 History release pravastatin 20 mg tablet 20 mg PO BEDTIME #0 02/24/10 07/19/21 History doxazosin 8 mg tablet 8 mg PO DAILY 11/19/19 07/19/21 History insulin glargine 100 unit/mL (3 15 unit SUBCUT BID 11/19/19 07/18/21 History mL) subcutaneous pen (Lantus Solostar U-100 Insulin) prednisone 10 mg tablet 15 mg PO DAILY 11/19/19 07/19/21 History tramadol 50 mg tablet 100 mg PO Q6H PRN 11/19/19 07/19/21 History amiodarone 200 mg tablet 200 mg PO DAILY #30 tab 12/02/19 07/19/21 Rx apixaban 5 mg tablet (Eliquis) 5 mg PO BID 07/18/21 07/18/21 History enoxaparin 100 mg/mL subcutaneous 100 mg SUBCUT BID 07/18/21 07/18/21 History syringe furosemide 20 mg tablet 20 mg PO DAILY 07/18/21 07/18/21 History metoprolol tartrate 25 mg tablet 25 mg PO BID 07/18/21 07/18/21 History Allergies Allergy/AdvReac Type Severity Reaction Status Date / Time No Known Drug Allergies Allergy Verified 07/19/21 07:30 Exam Vital Signs (past 8 hours): - 07/19/21 07:44 Temperature 98.1 F Pulse Rate 67 Respiratory Rate 16 Blood Pressure 158/84 H Pulse Oximetry 94 Oxygen Delivery Method Room Air Narrative Exam Narrative: Oropharynx free of lesions Chest clear to auscultation percussion Cardiac exam reveals no S3 or murmur Assessment & Plan Assessment & Plan narrative: History of persistent diarrhea with no other clear-cut cause. Need for colonoscopy to rule out microscopic colitis. Risks, benefits, alternatives have been explained. Time Spent With Patient Critical Care time: I spent a total of [] minutes of critical care time on this patient's care today; this time is exclusive of procedural time.
--- NOTE | 2021-07-19 08:56 | PM.OP.COLON ---
Operative Date/Time/Diagnoses Date of procedure: 07/19/21 Pre-op diagnosis: See indication and findings Procedure & Clinicians Study performed: Colonoscopy Indications: Chronic diarrhea of unknown origin Surgeon: Zohra Carnes Procedure Notes Procedure in detail: After informed consent was obtained the patient was placed in left lateral decubitus position. The video colonoscope was introduced the rectum slowly advanced to the cecum. Ic valve was identified and intubated. On slow withdrawal mucosa was carefully examined. The scope was removed. The patient tolerated procedure well. Blood loss none Complications none Sedation mac Findings 1. Normal terminal ileum 2. Mild decrease in vascular pattern throughout without clear erythema. Multiple random biopsies taken to rule out microscopic colitis 3. Rare scattered diverticula in the sigmoid colon 4. 6 mm polyp in the hepatic flexure cold snared and removed completely 5. 8 mm polyp in the mid transverse colon cold snared and removed completely 6. 5 mm polyp in the sigmoid colon cold snared and removed completely 7. Otherwise negative colonoscopy to cecum Patient will go back on his Eliquis in 2-3 days. Will keep a close eye on bowel movements for any signs of bleeding. This should be his last colonoscopy but we will be in touch regarding the polyp findings. Likewise will be in touch regarding his colon biopsies and whether they confirm microscopic colitis.
[2021-07-19 09:00] VITALS: BP 129/65; PULSE 66; RESP 17; TEMP 37.4; O2SAT 94
[2021-07-19 09:05] VITALS: BP 146/85; PULSE 62; RESP 14; O2SAT 93
[2021-07-19 09:10] VITALS: BP 159/86; PULSE 65; RESP 22; O2SAT 96
[2021-07-19 09:14] VITALS: BP 161/85; PULSE 60; RESP 10; TEMP 36.8; O2SAT 96
[2021-07-19 09:19] VITALS: BP 168/89; PULSE 63; RESP 14; TEMP 36.7; O2SAT 95
--- NOTE | 2021-07-19 09:22 | SUR.PHASEII ---
Instructed patient to wear his cpap today & wrote it on his instructions. informed that he is to start anticoag in 2-3 days per MD.
== END 2021-07-19 09:27 | disposition home or self-care (01) ==
PROVIDERS: Family Provider Family Medicine; PCP Family Medicine; Referring Provider Internal Medicine Gastroenterology; Visit Provider Internal Medicine Gastroenterology
PROC: 0DJD8ZZ Inspection of Lower Intestinal Tract, Via Natural or Artificial Opening Endoscopic (ICD-10-PCS; CPT 45378; principal; 2021-07-19 08:30)
DX: R19.7 Diarrhea, unspecified (principal); E11.9 Type 2 diabetes mellitus without complications; I48.91 Unspecified atrial fibrillation; R12 Heartburn; M35.3 Polymyalgia rheumatica; Z79.4 Long term (current) use of insulin; Z86.73 Personal history of transient ischemic attack (TIA), and cerebral infarction without residual deficits; D12.3 Benign neoplasm of transverse colon; D12.5 Benign neoplasm of sigmoid colon
CPT/HCPCS: 45385; 45380; 82962; J2704

== ENCOUNTER 2022-04-12 11:42 | Emergency (ER) | payer MEDICARE, OTHER, SELFPAY ==
[2019-11-26 08:53] VITALS: PULSE 79; RESP 15; O2SAT 97
[2022-04-12] VITALS (15 sets, daily range): BP systolic 112–134; BP diastolic 57–78; PULSE 85–97; RESP 15–22; TEMP 36.4; O2SAT 91–95; BMI 34.7
--- NOTE | 2022-04-12 11:58 | DI.RAD.S_ITS ---
PROCEDURE: XR CHEST 2V INDICATIONS: sob and cough TECHNIQUE: 2 views of the chest were acquired. COMPARISON: [facility], CR, XR CHEST 2V, 06/30/2021, 12:18. FINDINGS: Surgical changes and devices: None. Lungs and pleura: Lungs are clear. No pleural effusions or pneumothorax. Mediastinum: Mediastinal contours are normal. Heart size is enlarged. Bones and chest wall: No suspicious bony abnormalities. Soft tissues appear unremarkable. IMPRESSION: No acute cardiopulmonary pathology. Dictated by: Asher Hansen M.D. on 04/12/2022 at 12:18 Approved by: Asher Hansen M.D. on 04/12/2022 at 12:19
[2022-04-12 12:36] LABS: COVID-19 CEPHEID 4-PLEX PCR Negative (Negative); Influenza A - CEPHEID Flu A NEGATIVE (NEGATIVE); Influenza B - CEPHEID Flu B NEGATIVE (NEGATIVE); Respiratory Syncytial Virus Negative (Negative)
--- NOTE | 2022-04-12 14:44 | ED.SOB ---
HPI - SOB/Dyspnea General Chief Complaint: Shortness of Breath/Dyspnea Stated Complaint: rudy low blood oxygen Time Seen by Provider: 04/12/22 14:39 Source: patient and family () Mode of arrival: Wheelchair Limitations: no limitations History of Present Illness HPI Narrative: This is an 82-year-old male history of AFib is on Eliquis daily as well as amiodarone, metoprolol for atrial fibrillation takes Lasix 20 mg daily and prednisone daily for polymyalgia rheumatica, diabetes and chronic tobacco use. Patient presents with complaint of nasal congestion that went very quickly does chest over the last several days. Patient went to the doctor's office to have an appointment was found to have low oxygen. When he arrived here ambulatory pulse ox was in the low to mid 90s with no hypoxia noted. Patient states he has chronic lung issues spent decades in a very re[place] environment and smoked for several decades as well. He no longer smokes. Patient and his state no fevers or chills. Had an episode of left-sided chest discomfort he describes as a small twinge last night with none persisting or reoccurring. He is had some shortness of breath that has been persistent and chronic over the past 6 months but not significantly worse in the past 2 or 3 days. He and his state he coughed up a large brownish trunk of sputum after he ambulated in the department and he feels a lot better afterwards. He is had audible wheezing at home they do not appreciate a currently. Patient has not had any syncope. No nausea or vomiting. No diaphoresis. No numbness, tingling or weakness. No new swelling in extremities in his states his lower extremity swelling is significantly better than normal. He does check his weight is intermittently and has not been increasing in weight according to the patient and his . No recent medication changes. He did have a cardioversion for AFib a long time ago prior to back surgery and had a knee replacement remotely. He is a former smoker, does drink alcohol daily, no illicit. Dr. Gallo is his primary care physician. Related Data Home Medications Medication Instructions Recorded Confirmed omeprazole 20 mg capsule,delayed 20 mg PO DAILY ##0 02/24/10 07/19/21 release pravastatin 20 mg tablet 20 mg PO BEDTIME ##0 02/24/10 07/19/21 doxazosin 8 mg tablet 8 mg PO DAILY 11/19/19 07/19/21 insulin glargine 100 unit/mL (3 15 unit SUBCUT BID 11/19/19 07/18/21 mL) subcutaneous pen (Lantus Solostar U-100 Insulin) prednisone 10 mg tablet 15 mg PO DAILY 11/19/19 07/19/21 tramadol 50 mg tablet 100 mg PO Q6H PRN Pain (Scale 11/19/19 07/19/21 Score 1-3) apixaban 5 mg tablet (Eliquis) 5 mg PO BID 07/18/21 07/18/21 enoxaparin 100 mg/mL subcutaneous 100 mg SUBCUT BID 07/18/21 07/18/21 syringe furosemide 20 mg tablet 20 mg PO DAILY 07/18/21 07/18/21 metoprolol tartrate 25 mg tablet 25 mg PO BID 07/18/21 07/18/21 Previous Rx's Medication Instructions Recorded amiodarone 200 mg tablet 200 mg PO DAILY #30 tabs 12/02/19 Allergies Allergy/AdvReac Type Severity Reaction Status Date / Time No Known Drug Allergies Allergy Verified 04/12/22 11:46 Review of Systems Review of Systems ROS Unobtainable: All systems reviewed & are unremarkable except as noted in HPI and below Patient History Medical History (Updated 04/12/22 @ 16:38 by Rosanna Palomares DO) Back pain Diabetes mellitus GERD (gastroesophageal reflux disease) High cholesterol Hypertension PMR (polymyalgia rheumatica) Surgical History History of appendectomy Status post total left knee replacement Social History household members: spouse Smoking Status: Former smoker alcohol intake: current Smoking Status: Former smoker alcohol intake frequency: 3 or more drinks per day Substance Use Type: does not use Exam Narrative Exam Narrative: GENERAL: Alert and oriented x three, elderly male in mild distress. HEENT: Head normocephalic, atraumatic, EOMI, patient has mild discharge bilateral eyes several small tiny spots which patient and state are his normal. No injection of the conjunctiva. Pupils reactive, face symmetric, moist mucous membranes NECK: Supple, full range of motion CARDIOVASCULAR: Regular rate and rhythm without murmurs, rubs or gallops. JVD. No swelling bilateral lower extremities. RESPIRATORY: Breath sounds equal bilaterally, no wheezes rales or rhonchi. No tachypnea accessory muscle use. Speaks in full sentences. ABDOMEN: Soft, nontender. Normoactive bowel sounds all 4 quadrants. No guarding or rebound, rigidity, no mass : No CVA tenderness EXTREMITIES: Normal range of motion, no clubbing or edema. Neurovascularly intact NEUROLOGICAL: Cranial nerves II through XII grossly intact. Moving all extremities SKIN: Warm, dry, no petechiae, no rashes or lesions. Initial Vital Signs Initial Vital Signs: Vital Signs Temperature 97.5 F L 04/12/22 11:46 Pulse Rate 95 H 04/12/22 11:46 Respiratory Rate 15 04/12/22 11:46 Blood Pressure 120/58 L 04/12/22 11:46 Pulse Oximetry 95 04/12/22 11:46 Oxygen Delivery Method 04/12/22 11:46 Course Orders Ordered: ED Orders 04/12/22 11:52 Covid-19 + FLU A/B + RSV - PCR Stat 04/12/22 11:58 Chest [XR chest 2V] Stat 04/12/22 12:31 RT Consult Eval and Treat NOW 04/12/22 15:07 EKG-12 Lead Stat 04/12/22 15:30 Complete Blood Count AUTO DIFF Stat Comprehensive Metabolic Panel Stat Hemoglobin A1C% w Est Avg Glu Stat Lipase Stat NT-proBNP (BNP-Adult 18+) Stat Partial Thromboplastin Time Stat Prothrombin Time INR Stat Troponin & CK Cardiac Panel Stat Vital Signs Vital signs: Vital Signs - 8 hr 04/12/22 11:46 04/12/22 11:51 04/12/22 12:10 Temperature 97.5 F L Pulse Rate 95 H 97 H 90 Respiratory Rate 15 Blood Pressure 120/58 L Pulse Oximetry 95 93 91 Oxygen Delivery Method Room Air 04/12/22 12:16 04/12/22 12:16 04/12/22 12:30 Temperature Pulse Rate 90 Respiratory Rate 17 Blood Pressure 119/63 129/57 L Pulse Oximetry 92 Oxygen Delivery Method 04/12/22 12:30 04/12/22 13:00 04/12/22 13:00 Temperature Pulse Rate 95 H 89 Respiratory Rate 19 19 Blood Pressure 112/58 L Pulse Oximetry 92 91 Oxygen Delivery Method 04/12/22 13:35 04/12/22 13:38 04/12/22 13:38 Temperature Pulse Rate 95 H 88 Respiratory Rate 17 Blood Pressure 126/61 Pulse Oximetry 92 Oxygen Delivery Method 04/12/22 14:00 04/12/22 14:00 04/12/22 14:30 Temperature Pulse Rate 90 Respiratory Rate 20 Blood Pressure 129/66 134/64 Pulse Oximetry 92 Oxygen Delivery Method 04/12/22 14:30 04/12/22 15:00 04/12/22 15:00 Temperature Pulse Rate 89 87 Respiratory Rate 21 20 Blood Pressure 132/78 Pulse Oximetry 93 94 Oxygen Delivery Method 04/12/22 15:30 04/12/22 15:30 04/12/22 16:00 Temperature Pulse Rate 89 85 Respiratory Rate 22 20 Blood Pressure 132/73 Pulse Oximetry 93 93 Oxygen Delivery Method 04/12/22 16:01 04/12/22 16:01 04/12/22 16:30 Temperature Pulse Rate 92 H Respiratory Rate Blood Pressure 123/68 123/71 Pulse Oximetry 93 Oxygen Delivery Method Room Air 04/12/22 16:30 Temperature Pulse Rate 91 H Respiratory Rate 20 Blood Pressure Pulse Oximetry 94 Oxygen Delivery Method MDM - SOB/Dyspnea Lab Data 04/12/22 15:30 04/12/22 15:30 Labs: Lab Results 04/12/22 04/12/22 04/12/22 Range/Units 11:52 15:30 15:30 WBC 9.4 (4.5-11.0) X10^3/uL RBC 4.96 (4.5-5.9) X10^6/uL Hgb 15.3 (13.5-17.5) g/dL Hct 45.0 (41-53) % MCV 90.7 (80-100) fL MCH 30.9 (26-34) PG MCHC 34.1 (30-36) % RDW 13.6 (11.6-14.8) % Plt Count 180 (150-400) X10^3/uL Neut % (Auto) 76.4 H (50-75) % Lymph % (Auto) 10.6 L (25-40) % Rapides % (Auto) 11.2 (3-14) % Eos % (Auto) 1.3 L (2-4) % Baso % (Auto) 0.5 (0-2) % Neut # (Auto) 7200 H (1060-2859) /uL Lymph # (Auto) 1000 L (3174-2625) /uL Rapides # (Auto) 1000 H (0-900) /uL Eos # (Auto) 100 (0-450) /uL Baso # (Auto) 0 (0-100) /uL PT 18.7 H (10.1-12.7) SECONDS INR 1.6 H (0.9-1.3) APTT 33 (26-36) SECONDS Sodium (137-145) mmol/L Potassium (3.4-5.1) mmol/L Chloride (98-107) mmol/L Carbon Dioxide (22-32) mmol/L BUN (9-20) mg/dL Creatinine (0.66-1.25) mg/dL Estimated GFR (>60) mL/min BUN/Creatinine Ratio (6-22) Glucose (80-110) mg/dL Hemoglobin A1c (4.0-6.0) % Calcium (8.4-10.2) mg/dL Total Bilirubin (0.2-1.3) mg/dL AST (17-59) IU/L ALT (<50) IU/L Alkaline Phosphatase (38-126) U/L Total Creatine Kinase (55-170) U/L CK-MB (CK-2) (<2.37) ng/mL CK-MB (CK-2) Rel Index (1.5-5.0) % Troponin I (0.01-0.034) ng/mL NT-Pro-B Natriuret Pep (<450) pg/mL Total Protein (6.3-8.2) g/dL Albumin (3.5-5.0) g/dL Globulin (1.7-4.1) g/dL Albumin/Globulin Ratio (1.0-2.8) Lipase (23-300) U/L SARS-CoV-2 (PCR) Negative (Negative) Influenza A (RT-PCR) Flu a negative (NEGATIVE) Influenza B (RT-PCR) Flu b negative (NEGATIVE) RSV (PCR) Negative (Negative) 04/12/22 04/12/22 Range/Units 15:30 15:30 WBC (4.5-11.0) X10^3/uL RBC (4.5-5.9) X10^6/uL Hgb (13.5-17.5) g/dL Hct (41-53) % MCV (80-100) fL MCH (26-34) PG MCHC (30-36) % RDW (11.6-14.8) % Plt Count (150-400) X10^3/uL Neut % (Auto) (50-75) % Lymph % (Auto) (25-40) % Rapides % (Auto) (3-14) % Eos % (Auto) (2-4) % Baso % (Auto) (0-2) % Neut # (Auto) (3933-0145) /uL Lymph # (Auto) (8612-0034) /uL Rapides # (Auto) (0-900) /uL Eos # (Auto) (0-450) /uL Baso # (Auto) (0-100) /uL PT (10.1-12.7) SECONDS INR (0.9-1.3) APTT (26-36) SECONDS Sodium 138 (137-145) mmol/L Potassium 3.7 (3.4-5.1) mmol/L Chloride 96 L (98-107) mmol/L Carbon Dioxide 32 (22-32) mmol/L BUN 12 (9-20) mg/dL Creatinine 0.91 (0.66-1.25) mg/dL Estimated GFR > 60 (>60) mL/min BUN/Creatinine Ratio 13.2 (6-22) Glucose 134 H (80-110) mg/dL Hemoglobin A1c 8.0 H (4.0-6.0) % Calcium 9.2 (8.4-10.2) mg/dL Total Bilirubin 0.9 (0.2-1.3) mg/dL AST 29 (17-59) IU/L ALT 30 (<50) IU/L Alkaline Phosphatase 68 (38-126) U/L Total Creatine Kinase 140 (55-170) U/L CK-MB (CK-2) 2.50 H (<2.37) ng/mL CK-MB (CK-2) Rel Index 1.8 (1.5-5.0) % Troponin I < 0.012 (0.01-0.034) ng/mL NT-Pro-B Natriuret Pep 585 H (<450) pg/mL Total Protein 7.9 (6.3-8.2) g/dL Albumin 4.5 (3.5-5.0) g/dL Globulin 3.4 (1.7-4.1) g/dL Albumin/Globulin Ratio 1.3 (1.0-2.8) Lipase 25 (23-300) U/L SARS-CoV-2 (PCR) (Negative) Influenza A (RT-PCR) (NEGATIVE) Influenza B (RT-PCR) (NEGATIVE) RSV (PCR) (Negative) Imaging Data Chest x-ray: Radiologist's Impression: [address] [address] XRay Report Signed Patient: Octavio Salmon MR#: [id number] : 1940 Acct:[id number] Age/Sex: 82 / M Date of Service: 04/12/22 Loc: ED Accession Number: [id number] ?? Procedure: XR chest 2V Ordering Provider: Rosanna Palomares D.O. PROCEDURE:? XR CHEST 2V ? INDICATIONS:? sob and cough ? TECHNIQUE:? 2 views of the chest were acquired.? ? COMPARISON:? [facility], CR, XR CHEST 2V, 06/30/2021, 12:18. ? FINDINGS:? ? Surgical changes and devices:? None.? ? Lungs and pleura:? Lungs are clear.? No pleural effusions or pneumothorax.? ? Mediastinum:? Mediastinal contours are normal.? Heart size is enlarged.? ? Bones and chest wall:? No suspicious bony abnormalities.? Soft tissues appear unremarkable.? ? IMPRESSION:? No acute cardiopulmonary pathology. ? ? Dictated by: Asher Hansen M.D. on 04/12/2022 at 12:18 ? ? Approved by: Asher Hansen M.D. on 04/12/2022 at 12:19?? ECG Data Attestation: I personally reviewed and interpreted this ECG as follows: Prior ECG tracings: available for review Interpretation: Three AFib rate of 90 QRS is 76 QTC of 437. Patient has prior from 11/21/[address] segments. MDM Narrative Medical decision making narrative: This is an 82-year-old male sent for low O2 sat he notes he has been having some chest congestion. Patient's oxygenation was appropriate here in the department he has not persistent hypoxia or with exertion. Patient's chest x-ray is negative, RSV/COVID/influenza is negative. Patient has multiple medical issues including CHF, likely COPD, palm myalgia rheumatica, AFib and after discussion plan for CBC, CMP troponin and BNP to assess for other sources besides possible viral infection worsening his breathing. Patient's chest x-ray shows no acute change, labs including CBC do not show significant change possible small leftward shift. Creatinine and electrolytes are normal, troponin is negative it has been greater than 12 hours since he had any discomfort. BNP slightly elevated he is not had his peak in the past but this could be contributing to his symptoms. He does have an echo from November 2019 which was reviewed and showed an EF got time of 50-55% with left ventricular wall being mildly thickened. Patient has a history of AFib his family was not aware that he has been in it recently. He appears to be rate controlled. Had moderately dilated left atrium. Discussed with patient and family I went increase his Lasix for several days to see if this improves his symptoms. Continue him on his home prednisone dose at this time and follow up with Dr. Gallo for recheck. Patient has not appointment the following week and had requested hemoglobin A1c so they have this available for his follow-up appointment. Discharge Plan Departure Patient Disposition: Home Clinical Impression: CHF (congestive heart failure) Activity Restrictions/Additional Instructions: Follow-up with Dr. Gallo at your follow-up appointment. Your hemoglobin A1c is pending but should be resulted later today should be available for your follow-up appointment. I would recommend increasing your furosemide to 40 mg daily for the next 5 days to see if this improves your symptoms. Please return if you are having worsening chest pain, shortness of breath, increasing swelling in her extremities, lightheadedness or passing out or other new or concerning changes. Prescriptions: No Action omeprazole 20 mg Capsule,Delayed Release(Dr/Ec) 20 mg PO DAILY Qty: 0 pravastatin 20 mg Tablet 20 mg PO BEDTIME Qty: 0 prednisone 10 mg Tablet 15 mg PO DAILY tramadol 50 mg Tablet 100 mg PO Q6H PRN (Reason: Pain (Scale Score 1-3)) Rx Instructions: take 2 tablets by mouth 4 times a day as needed for pain doxazosin 8 mg tablet 8 mg PO DAILY Lantus Solostar U-100 Insulin 100 unit/mL (3 mL) Insulin Pen 15 unit SUBCUT BID amiodarone 200 mg Tablet 200 mg PO DAILY Qty: 30 1RF metoprolol tartrate 25 mg tablet 25 mg PO BID Label Comments: TAKE 1 TABLET BY MOUTH TWICE DAILY Eliquis 5 mg tablet 5 mg PO BID furosemide 20 mg tablet 20 mg PO DAILY Label Comments: TAKE 1 TABLET BY MOUTH EVERY DAY FOR SWELLING enoxaparin 100 mg/mL syringe 100 mg SUBCUT BID Label Comments: INJECT 1 ML UNDER THE SKIN TWICE DAILY STARTING ONE WEEK BEFORE PROCEDURE. STOP ON DAY OF PROCEDURE. Referrals: Octavio Gallo MD [Primary Care Provider] - Stand Alone Forms: Patient Portal/API
[2022-04-12 15:57] LABS: Add Manual Diff / Slide Review NO; Basophils Absolute Auto 0 /uL (0-100); Basophils Percent Auto 0.5 % (0-2); Eosinophils Absolute Auto 100 /uL (0-450); Eosinophils Percent Auto 1.3 % (2-4); Hemoglobin 15.3 g/dL (13.5-17.5); Lymphocytes Absolute Auto 1000 /uL (1100-4500); Lymphocytes Percent Auto 10.6 % (25-40); Mean Corpuscular HGB Conc 34.1 % (30-36); Mean Corpuscular Hemoglobin 30.9 PG (26-34); Mean Corpuscular Volume 90.7 fL (80-100); Monocytes Absolute Auto 1000 /uL (0-900); Monocytes Percent Auto 11.2 % (3-14); Neutrophils Absolute Auto 7200 /uL (1500-7000); Neutrophils Percent Auto 76.4 % (50-75); Platelet Count 180 X10^3/uL (150-400); Red Blood Cell Count 4.96 X10^6/uL (4.5-5.9); Red Cell Distribution Width 13.6 % (11.6-14.8); White Blood Cell Count 9.4 X10^3/uL (4.5-11.0)
[2022-04-12 15:58] LABS: INR 1.6 (0.9-1.3); Prothrombin Time 18.7 SECONDS (10.1-12.7)
[2022-04-12 16:00] LABS: PTT Partial Thromboplastin Tim 33 SECONDS (26-36)
[2022-04-12 16:05] LABS: Alanine Aminotransferase 30 IU/L (<50); Albumin 4.5 g/dL (3.5-5.0); Albumin Globulin Ratio 1.3 (1.0-2.8); Alkaline Phosphatase 68 U/L (38-126); Aspartate Aminotransferase 29 IU/L (17-59); BUN Creatinine Ratio 13.2 (6-22); Bilirubin Total 0.9 mg/dL (0.2-1.3); Blood Urea Nitrogen 12 mg/dL (9-20); Calcium 9.2 mg/dL (8.4-10.2); Carbon Dioxide 32 mmol/L (22-32); Chloride 96 mmol/L (98-107); Creatine Kinase 140 U/L (55-170); Estimated Glomerular Filt Rate > 60 mL/min (>60); Globulin 3.4 g/dL (1.7-4.1); Glucose 134 mg/dL (80-110); HEMOLYSIS < 15 (0-50); Lipase 25 U/L (23-300); Potassium 3.7 mmol/L (3.4-5.1); Sodium 138 mmol/L (137-145); Total Protein 7.9 g/dL (6.3-8.2)
[2022-04-12 16:16] LABS: NT-proBNP (BNP-Adult 18+) 585 pg/mL (<450); Troponin I < 0.012 ng/mL (0.01-0.034)
[2022-04-12 16:21] LABS: CKMB % Relative Index 1.8 % (1.5-5.0)
== END 2022-04-12 17:05 | disposition home or self-care (01) ==
PROVIDERS: Emergency Provider Emergency Medicine; Family Provider Family Medicine; PCP Family Medicine
DX: I50.9 Heart failure, unspecified (principal); R06.02 Shortness of breath; Z79.01 Long term (current) use of anticoagulants; Z79.899 Other long term (current) drug therapy; Z20.822 Contact with and (suspected) exposure to COVID-19
CPT/HCPCS: 0241U; 36415; 71046; 80053; 82550; 82553; 83036; 83690; 83880; 84484; 85025; 85610; 85730; 93005; 99284

== ENCOUNTER → 2022-04-18 13:26 | Outpatient (CLI) | payer MEDICARE, OTHER, SELFPAY ==
[2019-11-26 08:53] VITALS: PULSE 79; RESP 15; O2SAT 97
--- NOTE | 2022-04-18 | DI.CT.S_ITS ---
PROCEDURE: CT CHEST W CON INDICATIONS: SOB/HEART FAILURE/COPD/AFIB TECHNIQUE: After the administration of intravenous contrast, 5 mm thick sections acquired from the pulmonary apices to the posterior costophrenic angles. 1 mm axial lung, 5 mm thick coronal and sagittal reformats and 7 mm axial MIP were acquired. For radiation dose reduction, the following was used: automated exposure control, adjustment of mA and/or kV according to patient size. COMPARISON: [facility], CR, XR CHEST 2V, 04/12/2022, 12:00. FINDINGS: Image quality: Excellent. Lungs and pleura: There are several irregular subsolid nodular densities involving the right perihilar area, superior segment of the right lower lobe, and the right lung base, most likely secondary to pneumonia. No acute air space opacities. No pleural effusions or pneumothorax. Central and peripheral airways are patent and normal in caliber. Mediastinum: Heart size is normal. There is moderate coronary artery calcification. No pericardial effusion. No mediastinal or hilar adenopathy by size criteria. Thoracic aorta and central pulmonary arteries are normal in size. Esophagus is normal in caliber. No hiatal hernia. Bones and chest wall: No suspicious bony lesions. No vertebral body compression fractures. No axillary or supraclavicular adenopathy by size criteria. Thyroid gland is normal. Abdomen: Mild hepatic steatosis. Visualized upper abdominal solid organs appear normal. Upper abdominal bowel loops are normal in caliber. IMPRESSION: 1. Irregular subsolid densities in the right lung, most likely secondary to pneumonia. Recommend a short-term follow-up CT in 3 months to ensure resolution. 2. Moderate coronary artery atherosclerosis. Dictated by: Steffi Leigh M.D. on 04/18/2022 at 15:39 Approved by: Steffi Leigh M.D. on 04/18/2022 at 15:54
== END ==
PROVIDERS: Family Provider Family Medicine; PCP Family Medicine; Referring Provider Family Medicine; Visit Provider Family Medicine
DX: I50.9 Heart failure, unspecified (principal); J44.9 Chronic obstructive pulmonary disease, unspecified; R06.02 Shortness of breath; I48.91 Unspecified atrial fibrillation; I25.10 Atherosclerotic heart disease of native coronary artery without angina pectoris; K76.0 Fatty (change of) liver, not elsewhere classified; R91.8 Other nonspecific abnormal finding of lung field
CPT/HCPCS: 71260; Q9967

== ENCOUNTER → 2022-05-03 10:15 | Outpatient (CLI) | payer MEDICARE, OTHER, SELFPAY ==
[2019-11-26 08:53] VITALS: PULSE 79; RESP 15; O2SAT 97
--- NOTE | 2022-05-03 | DI.ECHO.S_ITS ---
[facility] +[facility]+ : : [address] : : : : [id number] : : : : Phone: [phone]+ Echocardiogram Report + + :Name: SAMUELMITZI Yen Study Date: 05/03/2022 Height: 66 in : :[facility] ReadingLocation: Weight: 220 lb : : Gender: Male BSA: 2.1 m2 : :: 1940 Age: 82 yrs BP: 124/86 mmHg: :Reason For Study: Shortness of breath, atrial fibrillation, : :heart failure : :Ordering Physician: CHUCKIE, : :MITZI Performed By: Lola Pérez : :Referring: MITZI NOGUERA : + + Interpretation Summary The left ventricle is normal in size. Left ventricular ejection fraction is estimated to be 60 +/- 5%. Previously LVEF 50 to 55%. The right ventricle is normal in size and function. There is mild to moderate tricuspid regurgitation. Compared to the prior echo exam, there has been an increase in TR severity. The right ventricular systolic pressure is estimated to be at least 28.4 mmHg based on an estimated right atrial pressure of 3 mm Hg. The ascending aorta is mildly enlarged. 4.0 cm in diameter. November 21, 2019, 3.5 cm as per the echo report. Procedure: A two-dimensional transthoracic echocardiogram with color flow and Doppler was performed in limited views only. The study quality was technically adequate. Aside from an increase in Ascending Aorta diameter there are no significant changes compared to prior echocardiogram. The patient was in atrial fibrillation with heart rates between 55-86 bpm during the exam. Left Ventricle: The left ventricle is normal in size. There is mild-moderate concentric left ventricular hypertrophy. There is moderate proximal septal thickening noted. There is no echo evidence for significant left ventricular outflow tract obstruction. There is no thrombus. Left ventricular ejection fraction is estimated to be 60 +/- 5%. There are no focal wall motion abnormalities. Diastolic function could not be accurately assessed due to atrial fibrillation. E/E' med: 12.5. Right Ventricle: The right ventricle is normal in size and function. Atria: The left atrium is severely dilated. The left atrium has mildly increased in size since the prior echo exam. The right atrium is moderately dilated. There is no Doppler evidence for an interatrial shunt. Mitral Valve: The mitral valve leaflets are mildly calcified. There is mild to moderate mitral annular calcification. There is mild mitral regurgitation. Aortic Valve: The aortic valve is slightly calcified. The aortic valve is trileaflet. There is no aortic valve stenosis. There is trace aortic regurgitation. Tricuspid Valve: The tricuspid valve is normal. There is mild to moderate tricuspid regurgitation. The right ventricular systolic pressure is estimated to be at least 28.4 mmHg based on an estimated right atrial pressure of 3 mm Hg. Compared to the prior echo exam, there has been an increase in TR severity. Pulmonic Valve: The pulmonic valve leaflets are thin and pliable; valve motion is normal. There is a trace or physiologic amount of pulmonic regurgitation. Great Vessels: The aortic root is normal size. The ascending aorta is mildly enlarged. This is an increase compared to the previous study. The pulmonary is not well visualized. The IVC is of normal diameter and collapses greater than 50% with a sniff. This suggests a low right atrial pressure of 3 mm Hg. Pericardium/ Pleura There is no pericardial effusion. There is no pleural effusion. MMode/2D Measurements & Calculations LVIDd: 4.2 cm LVOT diam: 2.0 cm LVIDs: 2.7 cm Ao root diam: 3.3 cm FS: 35.7 % asc Aorta Diam: 4.0 cm EPSS: 0.40 cm IVSd: 1.6 cm LVPWd: 1.3 cm LV teixeira. diameter/BSA (cm/m^2): 2.0 LV sys. diameter/BSA (cm/m^2): 1.3 LA dimension: 5.4 cm RA long axis: 6.0 cm LA A2 area: 27.3 cm2 RA area: 23.7 cm2 LA A4 area: 28.5 cm2 RA vol: 79.3 ml LA length (vol): 6.4 cm RA : 38.1 ml/m2 LA vol: 102.6 ml IVC diam: 1.9 cm LA vol index: 49.2 ml/m2 RVD1 (basal): 4.1 cm LVLs ap4: 5.5 cm LVLd ap2: 6.3 cm TAPSE_phl: 1.9 cm LVLs ap2: 5.2 cm Doppler Measurements & Calculations Ao V2 max: 91.5 cm/sec LVOT Max Timothy: 69.2 cm/sec Ao V2 mean: 71.6 cm/sec LV V1 max P.9 mmHg Ao max P.0 mmHg LV V1 VTI: 13.3 cm Ao mean P.3 mmHg MADISON(I,D): 2.4 cm2 Ao V2 VTI: 17.4 cm MADISON(V,D): 2.4 cm2 sev ratio: 0.76 MADISON indexed to BSA (cm^2/m^2): 1.2 MV E max timothy: 99.9 cm/sec TR max timothy: 252.0 cm/sec Med Peak E' Timothy: 8.0 cm/sec TR max P.4 mmHg E/E' med: 12.5 PA V2 max: 72.2 cm/sec Lat Peak E' Timothy: 6.4 cm/sec PA V2 mean: 52.6 cm/sec E/E' lat: 15.7 PA mean P.0 mmHg E/e' average: 14.1 MV dec time: 0.21 sec MVA(VTI): 1.6 cm2 MV V2 mean: 59.7 cm/sec SV(LVOT): 41.8 ml MV mean P.0 mmHg MV V2 VTI: 26.8 cm AV VR_phl: 0.76 MADISON(VTI)/BSA_phl: 1.1 Reading Physician:03:36 PM
== END ==
PROVIDERS: Family Provider Family Medicine; PCP Family Medicine; Referring Provider Family Medicine; Visit Provider Family Medicine
DX: I48.91 Unspecified atrial fibrillation (principal); I50.9 Heart failure, unspecified; I77.89 Other specified disorders of arteries and arterioles; I08.1 Rheumatic disorders of both mitral and tricuspid valves; R06.02 Shortness of breath; J44.9 Chronic obstructive pulmonary disease, unspecified
CPT/HCPCS: 93306

== ENCOUNTER 2022-08-28 07:35 | Day surgery (SDC) | payer MEDICARE, OTHER, SELFPAY ==
[2019-11-26 08:53] VITALS: PULSE 79; RESP 15; O2SAT 97
[2022-08-23 14:00] VITALS: BMI 35.5
[2022-08-28 08:06] VITALS: BP 173/83; PULSE 91; RESP 16; TEMP 36.3; O2SAT 94; BMI 35.5
[2022-08-28] MEDS: LACTATED RINGERS 1,000 ML 21 ML IV (08:11)
--- NOTE | 2022-08-28 08:45 | PM.PREOP ---
Pre-operative Note COVID-19 COVID-19 status: Not tested Criteria for continued procedure: Delay expected to result in less-positive ultimate med/surg outcome and Non-surgical alternatives not available or appropriate per current SOC Interval Note History & Physical reviewed/Exam performed by Physician: Yes Changes to H&P: No
[2022-08-28] MEDS: CEFAZOLIN 2 GM/100 ML PREMIX 100 ML IV (09:10)
--- NOTE | 2022-08-28 09:54 | SUR.OPER ---
Lithotomy on padded OR bed, head on pillow, arms secured on padded arm boards at <90 degrees abduction. Legs secured in padded yellow fins stirrups.
--- NOTE | 2022-08-28 10:20 | P.OP_ITS ---
Procedure & Clinicians Procedure: Photo vaporization prostatic regrowth Same procedure as scheduled: Yes Indications: This 82-year-old male presented with complaints of recurrent lower urinary tract symptoms. The patient has a history of Transurethral resection of prostate in it flexible cystoscopy was found to have a nodular regrowth based on the bright prostate. He also had some regrowth at the left apex. He presents this time for photo vaporization to relieve his outlet obstruction. Surgeon: Ivan Vallecillo Click Yes if Unassisted: Yes Anesthesia Type: Spinal Operative Notes Findings: Urethral meatus is normal, urethra is normal to the sphincter which is well coapted. Again on the right side of the prostate there was a nodular regrowth which fills the prostatic fossa. At the apex on the left there is also a nodular regrowth. Within the bladder there severe trabeculation and cellules. Ureteral orifices in normal position with clear efflux and were intact at the end of the procedure. The patient received total laser energy of 86,182 joules, and a total time of 8 minutes 43 seconds with this prostatic fossa was then widely patent and at the end of the procedure with a full bladder the patient had a vigorous stream. Closure Type: not applicable Specimen(s): none sent Applied: catheter (Twenty-two Wallisian [address] Reza catheter with 14 cc in the balloon) Estimated Blood Loss (mL): 10 Blood products transfused: none Procedure in detail: Procedure in detail: After informed consent was obtained, the patient was identified and brought to the operating room where a spinal block was performed by anesthesia. The patient was then transitioned to the supine and then lithotomy position and the adequacy of the block was check. Once it was deemed to be adequate the patient was prepped, draped, prepared for Transurethral procedure. After prepping draping ensuring an adequate level of spinal anesthesia time-out was held and the laser resectoscope was passed through the urethra prostate and in the bladder under direct vision. Cystoscopy was performed. The laser fiber was inserted and the level of the verumontanum was marked on the lateral tyson and resection begun. Attention was 1st given to the nodular regrowth at the left apex which was resected down. Then attention was turned to the right-sided larger nodule which was sequentially resected down. Again other areas that were impinging on the channel were also vaporized till a total laser energy of 86,182 joules was given in the total laser time of 8 minut es 43 seconds performed. At this point the bladder was filled the scope was removed and a vigorous stream was observed. The 22 Wallisian 5 cc Reza catheter was passed through the urethra and into the bladder without difficulty. The balloon was inflated to 14 cc with sterile water and placed to gravity drainage. The patient was then transferred to the [facility] and then to the postanesthesia care unit for recovery. Patient will be discharged home with a Reza catheter to follow up my office in the morning for catheter removal. Patient tolerated the procedure well and there were no complications. Complications: none Post-operative Condition: stable Disposition: PACU Plan for aftercare: Patient to be discharge to home follow-up my office in the morning for catheter removal and voiding trial.
[2022-08-28 10:22] VITALS: BP 156/106; PULSE 92; RESP 13; TEMP 36.2; O2SAT 92
[2022-08-28 10:34] VITALS: BP 142/76; PULSE 94; RESP 14; O2SAT 93
[2022-08-28 10:35] VITALS: BP 134/85; PULSE 91; RESP 14; O2SAT 93
[2022-08-28 10:46] VITALS: BP 138/86; PULSE 90; RESP 17; TEMP 36.3; O2SAT 92
[2022-08-28 13:09] VITALS: BP 145/79; PULSE 89; RESP 20; TEMP 36.4; O2SAT 98
== END 2022-08-28 13:13 | disposition home or self-care (01) ==
PROVIDERS: Family Provider Family Medicine; PCP Family Medicine; Referring Provider Urology; Visit Provider Urology
PROC: (CPT 52648; principal; 2022-08-28 09:15)
DX: N40.1 Benign prostatic hyperplasia with lower urinary tract symptoms (principal); N13.9 Obstructive and reflux uropathy, unspecified
CPT/HCPCS: 52648; 82962; J0690; J2250; J3010

== ENCOUNTER → 2022-08-30 08:15 | Outpatient (CLI) | payer MEDICARE, OTHER, SELFPAY ==
[2019-11-26 08:53] VITALS: PULSE 79; RESP 15; O2SAT 97
== END ==
PROVIDERS: Family Provider Family Medicine; PCP Family Medicine; Visit Provider Urology
DX: N39.43 Post-void dribbling (principal); R39.9 Unspecified symptoms and signs involving the genitourinary system; Z98.890 Other specified postprocedural states; Z90.79 Acquired absence of other genital organ(s)
CPT/HCPCS: 51798; 81002; 87086

== ENCOUNTER → 2022-09-19 12:55 | Outpatient (CLI) | payer MEDICARE, OTHER, SELFPAY ==
[2019-11-26 08:53] VITALS: PULSE 79; RESP 15; O2SAT 97
== END ==
PROVIDERS: Family Provider Family Medicine; PCP Family Medicine; Visit Provider Urology
DX: N40.1 Benign prostatic hyperplasia with lower urinary tract symptoms (principal); R35.1 Nocturia; N39.43 Post-void dribbling; R39.9 Unspecified symptoms and signs involving the genitourinary system; Z98.890 Other specified postprocedural states; Z90.79 Acquired absence of other genital organ(s); Z87.891 Personal history of nicotine dependence
CPT/HCPCS: 51798; 81002; 87077; 87086; 87186

== ENCOUNTER → 2022-09-21 11:48 | Outpatient (CLI) | payer MEDICARE, OTHER, SELFPAY ==
[2019-11-26 08:53] VITALS: PULSE 79; RESP 15; O2SAT 97
--- NOTE | 2022-09-26 10:08 | P.PFT.S_ITS ---
Pulmonary Function Test Referral & Results Date Patient Seen: 09/21/22 Results: The?spirometry?demonstrates?an?FVC?of?1.57?L?which?is?48%?of?predicted. The?FEV1?was?measured?at?1.21?L?which?is?53%?of?predicted. The?FEV1/FVC?ratio?was?77?which?is?107%?of?predicted. Following?the?admin istration?of?bronchodilator?there?was?a?57%?improvement?in?FEF?25-75%. Lung?volumes?show?an?SVC?of?2.15?L?which?is?56%?of?predicted. The?diffusing?capacity?was?measured?at?18.19?which?is?67%?of?pred icted.??No?hemoglobin?value?was?provided,?so?no?correction?for?potential?anemia? could?be?made,?if?appropriate. The?maximum?voluntary?ventilation?was?reduced Interpretation: This?study?demonstrates?moderate?obstructive?lung?disease?based?on?reduction?FEV 1?although?FEV1/FVC?ratio?is?preserved.??There?is?evidence?of?benefit?primarily? to?small?airway?flow?post?bronchodilator?as?demonstrated?by?the?improvement?in?t he?FEF?25-75%?as?above? 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 Diffusing?capacity?i s?also?moderately?reduced?suggesting?the?presence?of?disease?at?the?capillary?al veolar?level Compared?to?PFTs?performed?in?January?2012,?current?study?shows?decline?in?FEV1 ?lung?volumes?and?diffusing?capacity Clinical?correlation?suggested
--- NOTE | 2022-09-26 10:08 | PM.PFT.1 ---
Pulmonary Function Test Referral & Results Date Patient Seen: 09/21/22 Results: The?spirometry?demonstrates?an?FVC?of?1.57?L?which?is?48%?of?predicted. The?FEV1?was?measured?at?1.21?L?which?is?53%?of?predicted. The?FEV1/FVC?ratio?was?77?which?is?107%?of?predicted. Following?the?administration?of?bronchodilator?there?was?a?57%?improvement?in?FEF?25-75%. Lung?volumes?show?an?SVC?of?2.15?L?which?is?56%?of?predicted. The?diffusing?capacity?was?measured?at?18.19?which?is?67%?of?predicted.??No?hemoglobin?value?was?provided,?so?no?correction?for?potential?anemia?could?be?made,?if?appropriate. The?maximum?voluntary?ventilation?was?reduced Interpretation: This?study?demonstrates?moderate?obstructive?lung?disease?based?on?reduction?FEV1?although?FEV1/FVC?ratio?is?preserved.??There?is?evidence?of?benefit?primarily?to?small?airway?flow?post?bronchodilator?as?demonstrated?by?the?improvement?in?the?FEF?25- 75%?as?above? 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 Diffusing?capacity?is?also?moderately?reduced?suggesting?the?presence?of?disease?at?the?capillary?alveolar?level Compared?to?PFTs?performed?in?January?2012,?current?study?shows?decline?in?FEV1?lung?volumes?and?diffusing?capacity Clinical?correlation?suggested
== END ==
PROVIDERS: Family Provider Family Medicine; PCP Family Medicine; Referring Provider Family Medicine; Visit Provider Family Medicine
DX: J43.8 Other emphysema (principal); Z87.891 Personal history of nicotine dependence; J98.8 Other specified respiratory disorders
CPT/HCPCS: 94060; 94726; 94729

== ENCOUNTER 2022-10-01 17:14 | Inpatient (IN) | payer MEDICARE, OTHER, SELFPAY ==
[2019-11-26 08:53] VITALS: PULSE 79; RESP 15; O2SAT 97
[2022-10-01 17:29] VITALS: BMI 35.0
--- NOTE | 2022-10-01 17:29 | DI.RAD.S_ITS ---
PROCEDURE: XR CHEST 1V INDICATIONS: COPD TECHNIQUE: One view of the chest was acquired. COMPARISON: [facility], CR, XR CHEST 2V, 04/12/2022, 12:00. FINDINGS: Surgical changes and devices: None. Lungs and pleura: Lungs are clear. No pleural effusions or pneumothorax. Mediastinum: Mediastinal contours appear normal. Heart size is enlarged. Bones and chest wall: No suspicious bony lesions. Overlying soft tissues appear unremarkable. IMPRESSION: No acute pulmonary process. Dictated by: Riddhi Rodríguez M.D. on 10/01/2022 at 17:58 Approved by: Riddhi Rodríguez M.D. on 10/01/2022 at 18:00
[2022-10-01 17:30] VITALS: BP 153/78; PULSE 109; RESP 23; TEMP 36.8; O2SAT 97
[2022-10-01 17:51] LABS: Add Manual Diff / Slide Review NO; Basophils Absolute Auto 0 /uL (0-100); Basophils Percent Auto 0.3 % (0-2); Eosinophils Absolute Auto 100 /uL (0-450); Eosinophils Percent Auto 1.5 % (2-4); Hematocrit 42.2 % (41-53); Hemoglobin 14.4 g/dL (13.5-17.5); Lymphocytes Absolute Auto 400 /uL (1100-4500); Lymphocytes Percent Auto 4.9 % (25-40); Mean Corpuscular Volume 91.1 fL (80-100); Monocytes Absolute Auto 400 /uL (0-900); Monocytes Percent Auto 4.6 % (3-14); Neutrophils Absolute Auto 7700 /uL (1500-7000); Neutrophils Percent Auto 88.7 % (50-75); Platelet Count 180 X10^3/uL (150-400); Red Blood Cell Count 4.63 X10^6/uL (4.5-5.9); Red Cell Distribution Width 13.2 % (11.6-14.8); White Blood Cell Count 8.7 X10^3/uL (4.5-11.0)
[2022-10-01 18:04] LABS: Alanine Aminotransferase 30 IU/L (<50); Albumin 4.3 g/dL (3.5-5.0); Albumin Globulin Ratio 1.3 (1.0-2.8); Alkaline Phosphatase 65 U/L (38-126); Aspartate Aminotransferase 33 IU/L (17-59); Bilirubin Total 0.7 mg/dL (0.2-1.3); Blood Urea Nitrogen 19 mg/dL (9-20); Calcium 9.1 mg/dL (8.4-10.2); Carbon Dioxide 30 mmol/L (22-32); Chloride 95 mmol/L (98-107); Estimated Glomerular Filt Rate > 60 mL/min (>60); Globulin 3.2 g/dL (1.7-4.1); Glucose 232 mg/dL (80-110); HEMOLYSIS < 15 (0-50); Potassium 4.6 mmol/L (3.4-5.1); Sodium 133 mmol/L (137-145); Total Protein 7.5 g/dL (6.3-8.2)
[2022-10-01 18:06] LABS: Creatine Kinase 170 U/L (55-170); Creatine Kinase 172 U/L (55-170)
[2022-10-01 18:16] LABS: Troponin I < 0.012 ng/mL (0.01-0.034)
[2022-10-01 18:42] LABS: NT-proBNP (BNP-Adult 18+) 634 pg/mL (<450)
--- NOTE | 2022-10-01 18:43 | PC.NURSE ---
Admit: Pt arrived via wheelchair with clinic staff member, spouse, and family member at approximately 1715. Pt assisted into the bed SBA, gown placed on pt, vital signs obtained, RT obtained EKG, IV started, blood drawn. Pt reports SOB with exertion, reports improvement with sitting up in bed. Pt A&Ox4, spouse at bedside. Pt tachycardic, other VSS. Care ongoing.
[2022-10-01] MEDS: FUROSEMIDE 20 MG/2 ML VIAL IV (19:04)
[2022-10-01] MEDS: ACETAMINOPHEN 325 MG TABLET 650 MG PO (19:04)
[2022-10-01] MEDS: levoFLOXacin 750 MG/150 ML PIGGYBACK 100 MG IV (19:13)
--- NOTE | 2022-10-01 19:27 | P.HP_ITS ---
History of Present Illness History of Present Illness Date Patient Seen: 10/01/22 Time Patient Seen: 19:27 Date of Onset of Symptoms: 09/26/22 Chief complaint: Hypoxia, COPD Narrative: Patient is a 82-year-old male well known to me who has been short of breath for some time. Has a history of COPD. Recently has been increasing short of breath but not hypoxic. Patient over the last 5 days has become increasingly hypoxic. Patient has had fevers over the last 24 hours. His sats have dropped into the low 80s. He is had a feeling of being somewhat crusted around his chest. With no other significant change. He is had some intermittent fevers and has been chilled. He is had no headaches no visual symptoms no other significant change. Sugars have been stable. He is not feeling like his AFib has been out of control. They do not think he has been gaining weight. No definitive chest pain except for this band around his chest. He is had no orthopnea or PND. Does feel like he gets better when he wears his CPAP. But otherwise no changes. Patient has had no abdominal pain. Change in his bowel movements urinary changes. No joint complaint or problem. [facility] Medical History (Updated 09/24/22 @ 14:09 by Ivan Vallecillo MD) Anesthesia complication Atrial fibrillation Back pain Benign prostatic hyperplasia Chronic anticoagulation Consumes caffeine from carbonated beverages Diabetes mellitus GERD (gastroesophageal reflux disease) High cholesterol History of atrial fibrillation History of tobacco use Hx of urinary frequency Hypertension Lower urinary tract symptoms PMR (polymyalgia rheumatica) Post-void dribbling Sleep apnea Uses continuous positive airway pressure (CPAP) ventilation at home UTI (urinary tract infection) Surgical History History of appendectomy History of transurethral resection of prostate Hx of vasectomy Status post total left knee replacement Family History Father Cancer Mother Cancer Social History household members: spouse 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 Smoking Status: Former smoker alcohol intake: current caffeine: Yes Meds Home Medications and Allergies Home Medications Medication Instructions Recorded Confirmed Type omeprazole 20 mg capsule,delayed 20 mg PO DAILY ##0 02/24/10 10/01/22 History release doxazosin 8 mg tablet 8 mg PO DAILY 11/19/19 10/01/22 History insulin glargine 100 unit/mL (3 15 unit SUBCUT BID 11/19/19 10/01/22 History mL) subcutaneous pen (Lantus Solostar U-100 Insulin) apixaban 5 mg tablet (Eliquis) 5 mg PO BID 07/18/21 10/01/22 History furosemide 20 mg tablet 20 mg PO DAILY 07/18/21 10/01/22 History metoprolol tartrate 25 mg tablet 25 mg PO BID 07/18/21 10/01/22 History acetaminophen 500 mg tablet 1,000 mg PO Q6H 08/03/22 10/01/22 History (Tylenol Extra Strength) pravastatin 20 mg tablet 10 mg PO DAILY #0 tabs 08/03/22 10/01/22 History dorzolamide 22.3 mg-timolol 6.8 1 drp DAILY 08/28/22 10/01/22 History mg/mL eye drops sulfamethoxazole 800 1 tab PO BID #20 tabs 09/24/22 10/01/22 Rx mg-trimethoprim 160 mg tablet (Bactrim DS) tramadol 50 mg tablet 50 mg PO BID 10/01/22 10/01/22 History Allergies Allergy/AdvReac Type Severity Reaction Status Date / Time No Known Drug Allergies Allergy Verified 09/19/22 13:05 Review of Systems Constitutional Comments: Negative other than above. Exam Vital Signs (past 8 hours): - 10/01/22 17:30 10/01/22 18:38 Temperature 98.2 F Pulse Rate 109 H Respiratory Rate 23 Blood Pressure 153/78 H Pulse Oximetry 97 Oxygen Delivery Method Oximask Oxygen Flow Rate 2 Oxygen Delivery Method Oximask Oxygen Flow Rate 2 Narrative Exam Narrative: Alert elderly male in no acute distress fatigued in appearance HEENT shows he does have what feels like some swelling around his eyelids. Neck is supple without adenopathy. Does not appear to have a lot of JVD. Lungs decreased breath sounds throughout. Heart is irregular but controlled rate. No murmurs clicks rubs or gallops. Abdomen was obese soft positive bowel sounds nontender extremities without significant edema. Neurologic exam is nonfocal. Objective Labs 10/01/22 17:46 10/01/22 17:46 Labs: Laboratory Results - last 24 hr 10/01/22 10/01/22 10/01/22 17:46 17:46 17:46 WBC 8.7 RBC 4.63 Hgb 14.4 Hct 42.2 MCV 91.1 MCH 31.0 MCHC 34.0 RDW 13.2 Plt Count 180 Neut % (Auto) 88.7 H Lymph % (Auto) 4.9 L [place] % (Auto) 4.6 Eos % (Auto) 1.5 L Baso % (Auto) 0.3 Neut # (Auto) 7700 H Lymph # (Auto) 400 L [place] # (Auto) 400 Eos # (Auto) 100 Baso # (Auto) 0 Sodium 133 L Potassium 4.6 Chloride 95 L Carbon Dioxide 30 BUN 19 Creatinine 1.12 Estimated GFR > 60 BUN/Creatinine Ratio 17.0 Glucose 232 H Calcium 9.1 Total Bilirubin 0.7 AST 33 ALT 30 Alkaline Phosphatase 65 Total Creatine Kinase 172 H Troponin I NT-Pro-B Natriuret Pep Total Protein 7.5 Albumin 4.3 Globulin 3.2 Albumin/Globulin Ratio 1.3 10/01/22 10/01/22 17:46 17:46 WBC RBC Hgb Hct MCV MCH MCHC RDW Plt Count Neut % (Auto) Lymph % (Auto) [place] % (Auto) Eos % (Auto) Baso % (Auto) Neut # (Auto) Lymph # (Auto) [place] # (Auto) Eos # (Auto) Baso # (Auto) Sodium Potassium Chloride Carbon Dioxide BUN Creatinine Estimated GFR BUN/Creatinine Ratio Glucose Calcium Total Bilirubin AST ALT Alkaline Phosphatase Total Creatine Kinase 170 Troponin I < 0.012 NT-Pro-B Natriuret Pep 634 H Total Protein Albumin Globulin Albumin/Globulin Ratio Assessment & Plan Assessment & Plan narrative: Acute on chronic respiratory failure. Etiology is somewhat unclear. Probably COPD exacerbation. Chest x-ray shows no abnormality. BNP is mildly elevated could this be related to some mild congestive heart failure. Does have some mi ld febrile episodes. Could be infection. Despite the fact that it is not on treatment. May show up in other treatment options. I think a CT scan is going to be required and we will get that tomorrow. Recent PFT shows significant abnormality and some restrictive disease. Will need CT scan to clarify that. Also low risk but will check for PEs. At this point will give Lasix. IV steroids. IV antibiotics. Nebulization and re-evaluate in a.m.. He understands. Questions answered. O2 will be required. Maybe required long- term. Unclear at this time. COPD with COPD exacerbation. Antibiotics as above. IV steroids respiratory therapy. With nebulization. Does not appear to have active pneumonia although question whether or not his fluid status is positive or not. I feel like he is probably positive. Will obtain respiratory panel to clarify any viral impact. Congestive heart failure. Rate control seems good. I do not think we need an echo at this time but this seems overall more related to his pulmonary issues but will see how he does. May need an echo to define heart relation. Atrial fibrillation. Rate control is good. Will follow. Not an issue at this time. Hypertension. Blood pressure stable continue follow usual medicine BPH. Recently placed on Bactrim for postprocedure treatment. Levaquin should be adequate which is we are going to treat with here. So I do not think we need any definitive other treatment. Will follow his urine output and proceed from there. Do not think we have to consult his urologist at this time. Seems to be stable. Type 2 diabetes. Continue his usual meds and sliding scale. Follow as usual. Code status full. DVT prophylaxis already on anticoagulation. Disposition. Hoping over the next 48 hours we can get him settled down get home O2 and discharged home. He understands questions answered. Patient will clearly have life-threatening issues if he were not admitted today.
[2022-10-01 19:30] VITALS: BP 146/52; PULSE 104; RESP 18; TEMP 36; O2SAT 94
--- NOTE | 2022-10-01 19:40 | DI.CT.S_ITS ---
PROCEDURE: CT ANGIO CHEST PE PROTOCOL INDICATIONS: acute resp failure TECHNIQUE: After the administration of intravenous contrast, 2 mm thick sections acquired from the pulmonary apices to the posterior costophrenic angles. 3-dimensional maximum intensity projection (MIP) coronal and sagittal reformats were then acquired through the thorax. For radiation dose reduction, the following was used: automated exposure control, adjustment of mA and/or kV according to patient size. COMPARISON: [facility], CT, CT CHEST W CON, 04/18/2022, 13:36. FINDINGS: Image quality: Excellent. Pulmonary arteries: Pulmonary arteries are normal in size, and demonstrate no intraluminal filling defects to suggest central pulmonary embolism. Lower Neck: No lymphadenopathy by size criteria. Thyroid: Visualized thyroid demonstrates no discrete nodules. Axillae: No lymphadenopathy by size criteria. Chest Wall: Unremarkable. Bones: Visualized osseous structures demonstrate no suspicious lesions. Lungs and Airways: There are bilateral patchy areas of ground-glass opacity with septal thickening with a predominance in the right upper lobe. The trachea and central airways are patent. Pleura: No pneumothorax or pleural effusions. Heart: Heart size is normal. No pericardial effusion. Thoracic Vessels: The thoracic aorta is normal in size. Mediastinum and Katie: No lymphadenopathy by size criteria. Esophagus: No wall thickening. No hiatal hernia. Abdomen: Visualized upper abdomen demonstrates dependent densities within the gallbladder consistent with gallstones. No wall thickening or pericholecystic fluid. IMPRESSION: 1. No evidence of pulmonary embolism. 2. Bilateral patchy areas of ground-glass opacity with septal thickening. The findings are nonspecific but likely represent an atypical pneumonia. The differential includes inflammatory processes such as hypersensitivity pneumonitis. Dictated by: Tobias Hawthorne M.D. on 10/01/2022 at 20:15 Approved by: Tobias Hawthorne M.D. on 10/01/2022 at 20:22
[2022-10-01] MEDS: INSULIN GLARGINE 100 UNIT/ML 3ML PEN 15 UNIT SUBCUT (21:23)
[2022-10-01] MEDS: APIXABAN 5 MG TABLET PO (21:24)
[2022-10-01] MEDS: METOPROLOL IR 25 MG TABLET PO (21:24)
[2022-10-01] MEDS: TRAMADOL 50 MG TABLET PO (21:24)
[2022-10-02] VITALS (7 sets, daily range): BP systolic 110–137; BP diastolic 59–78; PULSE 84–115; RESP 18–20; TEMP 35.6–36.3; O2SAT 91–95
[2022-10-02 00:05] LABS: Adenovirus Not Detected (Not Detect); B. parapertussis Not Detected (Not Detecte); Bordetella pertussis Not Detected (Not Detecte); Chlamydophila pneumoniae Not Detected (Not Detect); Coronavirus 229E Not Detected (Not Detect); Coronavirus HKU1 Not Detected (Not Detect); Coronavirus NL 63 Not Detected (Not Detect); Coronavirus OC43 Not Detected (Not Detect); Human Metapneumovirus Not Detected (Not Detect); Human Rhinovirus/Enterovirus Not Detected (Not Detect); Influenza A Not Detected (Not Detect); Influenza B Not Detected (Not Detect); Mycoplasma pneumoniae Not Detected (Not Detect); Parainfluenza Virus 1 Not Detected (Not Detect); Parainfluenza Virus 2 Not Detected (Not Detect); Parainfluenza Virus 3 Not Detected (Not Detect); Parainfluenza Virus 4 Not Detected (Not Detect); Respiratory Syncytial Virus Not Detected (Not Detect); SARS- CoV-2 Not Detected (Not Detecte)
[2022-10-02] MEDS: HYDROCODONE/ACET 5/325 TABLET 1 TAB PO (01:00)
[2022-10-02 06:30] LABS: Add Manual Diff / Slide Review NO; Basophils Absolute Auto 0 /uL (0-100); Basophils Percent Auto 0.3 % (0-2); Eosinophils Absolute Auto 0 /uL (0-450); Eosinophils Percent Auto 0.1 % (2-4); Hematocrit 41.8 % (41-53); Hemoglobin 14.1 g/dL (13.5-17.5); Lymphocytes Absolute Auto 300 /uL (1100-4500); Lymphocytes Percent Auto 3.4 % (25-40); Mean Corpuscular HGB Conc 33.8 % (30-36); Mean Corpuscular Hemoglobin 30.6 PG (26-34); Mean Corpuscular Volume 90.8 fL (80-100); Monocytes Absolute Auto 200 /uL (0-900); Monocytes Percent Auto 2.2 % (3-14); Neutrophils Absolute Auto 7600 /uL (1500-7000); Platelet Count 169 X10^3/uL (150-400); Red Cell Distribution Width 13.3 % (11.6-14.8); White Blood Cell Count 8.1 X10^3/uL (4.5-11.0)
[2022-10-02 06:31] LABS: Alanine Aminotransferase 25 IU/L (<50); Albumin 4.1 g/dL (3.5-5.0); Albumin Globulin Ratio 1.4 (1.0-2.8); Alkaline Phosphatase 61 U/L (38-126); Aspartate Aminotransferase 31 IU/L (17-59); BUN Creatinine Ratio 20.7 (6-22); Bilirubin Total 0.8 mg/dL (0.2-1.3); Blood Urea Nitrogen 19 mg/dL (9-20); Carbon Dioxide 29 mmol/L (22-32); Chloride 97 mmol/L (98-107); Estimated Glomerular Filt Rate > 60 mL/min (>60); Glucose 227 mg/dL (80-110); HEMOLYSIS 19 (0-50); Potassium 4.8 mmol/L (3.4-5.1); Sodium 133 mmol/L (137-145); Total Protein 7.1 g/dL (6.3-8.2)
[2022-10-02] MEDS: PANTOPRAZOLE DR 20 MG TABLET PO (06:51)
[2022-10-02] MEDS: INSULIN LISPRO 100 UNIT/ML 3ML VIAL SUBCUT ×4 (08:28→20:56)
[2022-10-02] MEDS: INSULIN GLARGINE 100 UNIT/ML 3ML PEN 15 UNIT SUBCUT ×2 (08:28→20:48)
--- NOTE | 2022-10-02 08:28 | P.PN_ITS ---
Subjective Subjective Date Patient Seen: 10/02/22 Time Patient Seen: 08:29 Interval history: patient overall is feeling better today. Does not have the band of discomfort around his chest. No chest pain. No other changes. Slightly short of breath. 85% morning when he took it off to eat. Pains. Does not feel any fast heart rates. Tele has been showing heart rate in the 160s last night down to the 130s to 40s today. Does not feel like this has been happening at home but does not really know. Exam Vital Signs (past 8 hours): - 10/02/22 02:14 10/02/22 04:43 Temperature 96.2 F L Pulse Rate 89 Respiratory Rate 18 Blood Pressure 125/67 Pulse Oximetry 94 Oxygen Delivery Method Nasal Cannula Oxygen Flow Rate 2 2 Fraction of Inspired Oxygen 28 Fraction of Inspired Oxygen 28 Oxygen Delivery Method Nasal Cannula Oxygen Flow Rate 2 Narrative Exam Narrative: See HEENT exam is unremarkable neck supple without adenopathy lungs decreased breath sounds but no rhonchi or wheeze heart is irregular with rubs or gallops. Abdomen is obese soft positive bowel sounds extremities without edema. Neurologic exam is nonfocalr Objective Labs 10/02/22 06:05 10/02/22 06:05 Labs: Laboratory Results - last 24 hr 10/01/22 10/01/22 10/01/22 17:46 17:46 17:46 WBC 8.7 RBC 4.63 Hgb 14.4 Hct 42.2 MCV 91.1 MCH 31.0 MCHC 34.0 RDW 13.2 Plt Count 180 Neut % (Auto) 88.7 H Lymph % (Auto) 4.9 L [place] % (Auto) 4.6 Eos % (Auto) 1.5 L Baso % (Auto) 0.3 Neut # (Auto) 7700 H Lymph # (Auto) 400 L [place] # (Auto) 400 Eos # (Auto) 100 Baso # (Auto) 0 Sodium 133 L Potassium 4.6 Chloride 95 L Carbon Dioxide 30 BUN 19 Creatinine 1.12 Estimated GFR > 60 BUN/Creatinine Ratio 17.0 Glucose 232 H Calcium 9.1 Total Bilirubin 0.7 AST 33 ALT 30 Alkaline Phosphatase 65 Total Creatine Kinase 172 H Troponin I NT-Pro-B Natriuret Pep Total Protein 7.5 Albumin 4.3 Globulin 3.2 Albumin/Globulin Ratio 1.3 Chlamy pneumoniae PCR Adenovirus (PCR) B. pertussis DNA (PCR) B.parapertussis DNA PCR Coronavirus OC43 (PCR) Coronavirus HKU1 (PCR) Coronavirus 229E (PCR) SARS-CoV-2 (PCR) Coronavirus NL63 (PCR) Human Metapneumovir PCR Influenza Type A (PCR) Influenza Type B (PCR) M. pneumoniae (PCR) Parainfluenza 1 (PCR) Parainfluenza 2 (PCR) Parainfluenza 3 (PCR) Parainfluenza 4 (PCR) RSV (PCR) Entero/Rhino (PCR) 10/01/22 10/01/22 10/01/22 17:46 17:46 21:30 WBC RBC Hgb Hct MCV MCH MCHC RDW Plt Count Neut % (Auto) Lymph % (Auto) [place] % (Auto) Eos % (Auto) Baso % (Auto) Neut # (Auto) Lymph # (Auto) [place] # (Auto) Eos # (Auto) Baso # (Auto) Sodium Potassium Chloride Carbon Dioxide BUN Creatinine Estimated GFR BUN/Creatinine Ratio Glucose Calcium Total Bilirubin AST ALT Alkaline Phosphatase Total Creatine Kinase 170 Troponin I < 0.012 NT-Pro-B Natriuret Pep 634 H Total Protein Albumin Globulin Albumin/Globulin Ratio Chlamy pneumoniae PCR Not detected Adenovirus (PCR) Not detected B. pertussis DNA (PCR) Not detected B.parapertussis DNA PCR Not detected Coronavirus OC43 (PCR) Not detected Coronavirus HKU1 (PCR) Not detected Coronavirus 229E (PCR) Not detected SARS-CoV-2 (PCR) Not detected Coronavirus NL63 (PCR) Not detected Human Metapneumovir PCR Not detected Influenza Type A (PCR) Not detected Influenza Type B (PCR) Not detected M. pneumoniae (PCR) Not detected Parainfluenza 1 (PCR) Not detected Parainfluenza 2 (PCR) Not detected Parainfluenza 3 (PCR) Not detected Parainfluenza 4 (PCR) Not detected RSV (PCR) Not detected Entero/Rhino (PCR) Not detected 10/02/22 10/02/22 06:05 06:05 WBC 8.1 RBC 4.60 Hgb 14.1 Hct 41.8 MCV 90.8 MCH 30.6 MCHC 33.8 RDW 13.3 Plt Count 169 Neut % (Auto) 94.0 H Lymph % (Auto) 3.4 L [place] % (Auto) 2.2 L Eos % (Auto) 0.1 L Baso % (Auto) 0.3 Neut # (Auto) 7600 H Lymph # (Auto) 300 L [place] # (Auto) 200 Eos # (Auto) 0 Baso # (Auto) 0 Sodium 133 L Potassium 4.8 Chloride 97 L Carbon Dioxide 29 BUN 19 Creatinine 0.92 Estimated GFR > 60 BUN/Creatinine Ratio 20.7 Glucose 227 H Calcium 9.0 Total Bilirubin 0.8 AST 31 ALT 25 Alkaline Phosphatase 61 Total Creatine Kinase Troponin I NT-Pro-B Natriuret Pep Total Protein 7.1 Albumin 4.1 Globulin 3.0 Albumin/Globulin Ratio 1.4 Chlamy pneumoniae PCR Adenovirus (PCR) B. pertussis DNA (PCR) B.parapertussis DNA PCR Coronavirus OC43 (PCR) Coronavirus HKU1 (PCR) Coronavirus 229E (PCR) SARS-CoV-2 (PCR) Coronavirus NL63 (PCR) Human Metapneumovir PCR Influenza Type A (PCR) Influenza Type B (PCR) M. pneumoniae (PCR) Parainfluenza 1 (PCR) Parainfluenza 2 (PCR) Parainfluenza 3 (PCR) Parainfluenza 4 (PCR) RSV (PCR) Entero/Rhino (PCR) [facility] Medical History (Updated 09/24/22 @ 14:09 by Ivan Vallecillo MD) Anesthesia complication Atrial fibrillation Back pain Benign prostatic hyperplasia Chronic anticoagulation Consumes caffeine from carbonated beverages Diabetes mellitus GERD (gastroesophageal reflux disease) High cholesterol History of atrial fibrillation History of tobacco use Hx of urinary frequency Hypertension Lower urinary tract symptoms PMR (polymyalgia rheumatica) Post-void dribbling Sleep apnea Uses continuous positive airway pressure (CPAP) ventilation at home UTI (urinary tract infection) Surgical History History of appendectomy History of transurethral resection of prostate Hx of vasectomy Status post total left knee replacement Family History Father Cancer Mother Cancer Social History household members: spouse 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 Smoking Status: Former smoker alcohol intake: current caffeine: Yes Assessment & Plan Assessment & Plan narrative: fibrillation with RVR. This is part of some of his problem. Although it maybe a relative rate issues secondary to his hypoxia. Unclear. At this point will increase his metoprolol to 50 b.i.d. and re-evaluate at that time. Acute on chronic respiratory failure. Still significantly hypoxic. Probably at this point COPD exacerbation although CT scan does show possible atypical infiltration. Will continue Levaquin add Zithromax. No evidence of other issues other than possible infection. And will continue things as is. Will need to go home with home O2. Certainly not going home today. Congestive heart failure. Rate control certainly is not good. His output was okay. I am going to hold Lasix for today and will see how things go. Re- evaluate. Certainly feeling better. Hypertension. Mildly elevated but will be increasing his metoprolol. And re- evaluate. BPH. Stable. Urinating okay. Type 2 diabetes. Poorly controlled currently on current medication will continue with sliding scale may need to increase to higher level. Code status full. DVT prophylaxis on anticoagulation. Disposition. Maybe tomorrow consider going home will get home O2 set up and follow from there. 60 minutes spent with the patient reviewing imaging nursing dictation orders
[2022-10-02] MEDS: AZITHROMYCIN 500 MG in DEXTROSE 5% IN WATER 250 ML 250 MG IV (08:48)
[2022-10-02] MEDS: DOXAZOSIN 2 MG TABLET 8 MG PO (08:58)
[2022-10-02] MEDS: PRAVASTATIN 20 MG TABLET 10 MG PO (08:58)
[2022-10-02] MEDS: TRAMADOL 50 MG TABLET PO ×2 (08:59→20:48)
[2022-10-02] MEDS: APIXABAN 5 MG TABLET PO ×2 (08:59→20:48)
[2022-10-02] MEDS: METOPROLOL IR 25 MG TABLET 50 MG PO ×2 (09:00→20:48)
[2022-10-02] MEDS: DORZOLAMIDE/TIMOLOL OPHTH 10 ML 1 DROPS EYE-BOTH (09:00)
[2022-10-02] MEDS: ALBUTEROL 2.5 MG/3 ML NEB (ADULT) INH ×2 (09:13→20:53)
--- NOTE | 2022-10-02 11:47 | CM.DANOTE ---
DCP: Case received, EMR reviewed and met with patient. Introduced self and role. Was able to obtain information regarding patient's baseline activity status at home prior to hospitalization. DCP assessment completed with information currently available. Patient is an 82 year old male who admitted yesterday afternoon to the care of the hospitalist team. PCP: Dr. Gallo. Payer: confirmed: Medicare/[employer]. Patient came to the hospital via direct admission secondary to having increased shortness of breath for the last few days. Patient was noted to have some hypoxia. Patient has history of COPD, but is not on home oxygen. Patient does have a CPAP. Patient holds diagnosis of acute on chronic respiratory failure. Met with patient in his room. He is alert, confirmed that he resides in [place] with spouse, Niya, who is a nurse. He is not on oxygen at baseline. Dr. Gallo came by the office and indicated that he may be ordering home oxygen for patient. Let him know he will need to put in RT consult for home oxygen. Asked patient about home health services, does not feel that he needs this, his is a nurse. P: DCP to continue to follow. Patient should be able to go home when deemed medically stable, may need home oxygen. Jihan Doherty RN/Telegraph Office Telephone Clerk Discharge Planning/Care Management CM Discharge Assessment Start: 10/02/22 11:34 Freq: Status: Active Protocol: Document 10/02/22 11:34 (Rec: 10/02/22 11:36 [id number]) Discharge Planning Assessment Assigned Hot Dip Galvanizer Jihan Doherty RN/Telegraph Office Telephone Clerk Advance Directives? Yes: POLST Advance Directives on File No History Provided By Patient,Family Member,Medical Record Prior Living Arrangements House Household Members spouse Type of transporation used prior to Drives own vehicle admit Independent with ADL's Yes Is patient alert and oriented? Yes Barriers to Discharge No Discharge Plan Home Transportation Arrangement Spouse Referrals Initiated None needed Whiteboard Updated in Patient Room with Yes name and ext. # of Hot Dip Galvanizer Review Status In Process Next Review Type Continued Stay Review
[2022-10-02] MEDS: ACETAMINOPHEN 325 MG TABLET 650 MG PO (13:27)
[2022-10-02] MEDS: levoFLOXacin 750 MG/150 ML PIGGYBACK 100 MG IV (18:59)
[2022-10-03 00:58] VITALS: BP 125/67; PULSE 85; RESP 18; TEMP 36; O2SAT 94
[2022-10-03 04:52] VITALS: BP 124/74; PULSE 89; RESP 18; TEMP 35.7; O2SAT 90
[2022-10-03] MEDS: ACETAMINOPHEN 325 MG TABLET 650 MG PO (06:09)
[2022-10-03] MEDS: PANTOPRAZOLE DR 20 MG TABLET PO (06:09)
[2022-10-03 06:39] LABS: Add Manual Diff / Slide Review NO; Basophils Absolute Auto 0 /uL (0-100); Basophils Percent Auto 0.3 % (0-2); Eosinophils Absolute Auto 0 /uL (0-450); Hematocrit 41.9 % (41-53); Hemoglobin 14.1 g/dL (13.5-17.5); Lymphocytes Absolute Auto 500 /uL (1100-4500); Mean Corpuscular HGB Conc 33.6 % (30-36); Mean Corpuscular Hemoglobin 30.8 PG (26-34); Mean Corpuscular Volume 91.7 fL (80-100); Monocytes Absolute Auto 300 /uL (0-900); Monocytes Percent Auto 2.7 % (3-14); Neutrophils Absolute Auto 10500 /uL (1500-7000); Platelet Count 208 X10^3/uL (150-400); Red Blood Cell Count 4.57 X10^6/uL (4.5-5.9); Red Cell Distribution Width 13.5 % (11.6-14.8); White Blood Cell Count 11.3 X10^3/uL (4.5-11.0)
[2022-10-03 06:41] LABS: Alanine Aminotransferase 29 IU/L (<50); Albumin 4.1 g/dL (3.5-5.0); Albumin Globulin Ratio 1.2 (1.0-2.8); Alkaline Phosphatase 66 U/L (38-126); Aspartate Aminotransferase 26 IU/L (17-59); BUN Creatinine Ratio 32.3 (6-22); Bilirubin Total 0.5 mg/dL (0.2-1.3); Blood Urea Nitrogen 30 mg/dL (9-20); Calcium 9.2 mg/dL (8.4-10.2); Carbon Dioxide 29 mmol/L (22-32); Chloride 97 mmol/L (98-107); Estimated Glomerular Filt Rate > 60 mL/min (>60); Globulin 3.3 g/dL (1.7-4.1); Glucose 312 mg/dL (80-110); HEMOLYSIS < 15 (0-50); Potassium 4.5 mmol/L (3.4-5.1); Sodium 134 mmol/L (137-145); Total Protein 7.4 g/dL (6.3-8.2)
[2022-10-03 07:12] VITALS: PULSE 63; RESP 16; O2SAT 92
[2022-10-03] MEDS: ALBUTEROL 2.5 MG/3 ML NEB (ADULT) INH (07:12)
[2022-10-03 07:30] VITALS: BP 132/61; PULSE 69; RESP 16; TEMP 35.9; O2SAT 95
[2022-10-03] MEDS: DORZOLAMIDE/TIMOLOL OPHTH 10 ML 1 DROPS EYE-BOTH (07:47)
[2022-10-03] MEDS: INSULIN GLARGINE 100 UNIT/ML 3ML PEN 15 UNIT SUBCUT (07:55)
[2022-10-03] MEDS: INSULIN LISPRO 100 UNIT/ML 3ML VIAL SUBCUT (07:56)
[2022-10-03] MEDS: AZITHROMYCIN 500 MG in DEXTROSE 5% IN WATER 250 ML 250 MG IV (08:17)
[2022-10-03] MEDS: APIXABAN 5 MG TABLET PO (08:33)
[2022-10-03] MEDS: METOPROLOL IR 25 MG TABLET 50 MG PO (08:34)
[2022-10-03] MEDS: DOXAZOSIN 2 MG TABLET 8 MG PO (08:34)
--- NOTE | 2022-10-03 08:48 | P.DS_ITS ---
History of Present Illness History of Present Illness Date Patient Seen: 10/03/22 Time Patient Seen: 08:48 Date of Onset of Symptoms: 09/29/22 Chief complaint: Hypoxia, COPD Narrative: Patient is a 82-year-old male well known to me who has been short of breath for some time. Has a history of COPD. Recently has been increasing short of breath but not hypoxic. Patient over the last 5 days has become increasingly hypoxic. Patient has had fevers over the last 24 hours. His sats have dropped into the low 80s. He is had a feeling of being somewhat crusted around his chest. With no other significant change. He is had some intermittent fevers and has been chilled. He is had no headaches no visual symptoms no other significant change. Sugars have been stable. He is not feeling like his AFib has been out of control. They do not think he has been gaining weight. No definitive chest pain except for this band around his chest. He is had no orthopnea or PND. Does feel like he gets better when he wears his CPAP. But otherwise no changes. Patient has had no abdominal pain. Change in his bowel movements urinary changes. No joint complaint or problem. Discharge Providers Provider Date of admission: 10/01/22 17:14 Discharge Date: 10/03/22 Primary care physician: Octavio Gallo MD Discharge provider: Octavio Gallo MD Summary Hospital Course Discharge Diagnosis: Acute on chronic respiratory failure Congestive heart failure Fibrillation atrial with RVR Hypertension BPH Type 2 diabetes Hospital Course: Acute on chronic respiratory failure. Patient was admitted to the hospital with new onset hypoxia pretty significant. He had a chest x-ray which showed no definitive abnormality CT scan which showed possible atypical pneumonia. Mild increase in white count. No fevers. 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 He did have some AFib with AVR but this was unclear whether this is part of the cause. Was slightly swollen and given Lasix. Combination of treatment gave excellent results. He was completely off his oxygen although still borderline by day 2. And doing well. Overall felt to be secondary to probably infection and COPD. Patient will go home on antibiotics usual Lasix and home O2 if needed. And follow-up with me next week. Congestive heart failure. Patient initially was felt to be slightly over compensated and was given IV Lasix x1. Seem to improve and was doing well will be followed. Atrial fibrillation with RVR. Patient's heart rate initially was in the 160s intermittently usually takes 25 of metoprolol was increased to 50 b.i.d. and improved. Combination of probable hypoxia increased workload and poor control. Will see how he does as outpatient on increased dose. May need Zio patch but will be followed. Hypertension stable. BPH with history of UTI. Should be covered with current antibiotics. Will follow. As per urologist. Type 2 diabetes. Poorly controlled throughout course but felt to be secondary to steroids. Will adjust as outpatient. No other changes. Alcohol abuse. Patient was irritated today. Question whether that was from his steroids are from possible withdrawal will have to follow. 40 minutes spent in discharge process Exam Vital Signs (past 8 hours): - 10/03/22 00:58 10/03/22 04:52 10/03/22 07:12 Temperature 96.8 F L 96.3 F L Pulse Rate 85 89 63 Respiratory Rate 18 18 16 Blood Pressure 125/67 124/74 Pulse Oximetry 94 90 L 92 Oxygen Delivery Method Room Air Oxygen Flow Rate 1 0 0 Fraction of Inspired Oxygen 21 10/03/22 07:30 Temperature 96.7 F L Pulse Rate 69 Respiratory Rate 16 Blood Pressure 132/61 Pulse Oximetry 95 Oxygen Delivery Method Oxygen Flow Rate Fraction of Inspired Oxygen Fraction of Inspired Oxygen 21 SaO2/FiO2 Ratio 438 Oxygen Delivery Method Room Air Oxygen Flow Rate 0 Narrative Exam Narrative: Mildly agitated male in no acute distress interactive appropriate Lungs are clear heart is regular rate and rhythm extremities without edema Objective Labs 10/03/22 06:09 10/03/22 06:09 Labs: Laboratory Results - last 24 hr 10/03/22 10/03/22 06:09 06:09 WBC 11.3 H RBC 4.57 Hgb 14.1 Hct 41.9 MCV 91.7 MCH 30.8 MCHC 33.6 RDW 13.5 Plt Count 208 Neut % (Auto) 93.0 H Lymph % (Auto) 4.0 L [place] % (Auto) 2.7 L Eos % (Auto) 0.0 L Baso % (Auto) 0.3 Neut # (Auto) 59785 H Lymph # (Auto) 500 L [place] # (Auto) 300 Eos # (Auto) 0 Baso # (Auto) 0 Sodium 134 L Potassium 4.5 Chloride 97 L Carbon Dioxide 29 BUN 30 H Creatinine 0.93 Estimated GFR > 60 BUN/Creatinine Ratio 32.3 H Glucose 312 H Calcium 9.2 Total Bilirubin 0.5 AST 26 ALT 29 Alkaline Phosphatase 66 Total Protein 7.4 Albumin 4.1 Globulin 3.3 Albumin/Globulin Ratio 1.2 [facility] Medical History (Updated 09/24/22 @ 14:09 by Ivan Vallecillo MD) Anesthesia complication Atrial fibrillation Back pain Benign prostatic hyperplasia Chronic anticoagulation Consumes caffeine from carbonated beverages Diabetes mellitus GERD (gastroesophageal reflux disease) High cholesterol History of atrial fibrillation History of tobacco use Hx of urinary frequency Hypertension Lower urinary tract symptoms PMR (polymyalgia rheumatica) Post-void dribbling Sleep apnea Uses continuous positive airway pressure (CPAP) ventilation at home UTI (urinary tract infection) Surgical History History of appendectomy History of transurethral resection of prostate Hx of vasectomy Status post total left knee replacement Family History Father Cancer Mother Cancer Social History household members: spouse 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 Smoking Status: Former smoker alcohol intake: current caffeine: Yes Discharge Assessment & Plan Assessment and Plan Assessment: Improved Plan of Treatment: Discharge home Discharge Plan Discharge Plan Patient Disposition: Home Discharge orders & Medications Prescriptions: New azithromycin [Zithromax Z-Stanislav] 250 mg Tablet 250 mg PO DAILY Qty: 4 0RF levofloxacin 250 mg Tablet 750 mg PO 0700 Qty: 7 0RF Continued omeprazole 20 mg Capsule,Delayed Release(Dr/Ec) 20 mg PO DAILY Qty: 0 pravastatin 20 mg tablet 10 mg PO DAILY Qty: 0 dorzolamide-timolol 22.3-6.8 mg/mL drops 1 drp DAILY Patient Comments: INSTILL 1 DROP IN BOTH EYES TWICE DAILY doxazosin 8 mg tablet 8 mg PO DAILY insulin glargine [Lantus Solostar U-100 Insulin] 100 unit/mL (3 mL) Insulin Pen 15 unit SUBCUT BID Eliquis 5 mg tablet 5 mg PO BID furosemide 20 mg tablet 20 mg PO DAILY Patient Comments: TAKE 1 TABLET BY MOUTH EVERY DAY FOR SWELLING tramadol 50 mg tablet 50 mg PO BID acetaminophen [Tylenol Extra Strength] 500 mg tablet 1,000 mg PO Q6H Discontinued sulfamethoxazole-trimethoprim [Bactrim DS] 800-160 mg tablet 1 tab PO BID Qty: 20 0RF metoprolol tartrate 25 mg tablet 25 mg PO BID Patient Comments: TAKE 1 TABLET BY MOUTH TWICE DAILY Follow up/Referrals: Octavio Gallo MD [Primary Care Provider] - 3-5 Days (Please call for appointment) Discharge Health Status Multidrug resistant organism: No MDRO Diet/Activity/Treatments Diet: Diet as Tolerated Activity: As tolerated Oxygen: As needed Skin/Wound/Dressing Care Report to your healthcare provider any signs of infection, such as:: chills, fever and night sweats Visit Report/Discharge Packet Stand Alone Forms: Patient Portal/API, Stroke Signs & Symptoms Discharge Data Primary Care Provider: Octavio Gallo
--- NOTE | 2022-10-03 11:29 | PC.NURSE ---
Day shift: Paperwork signed and all questions answered. Pt's Spouse in room for teachings. Pt has all personal belongings. MD scripts sent to Pt's pharmacy electronic. Left unit at approx 1120 via WC. Taken by EMILY Moore via . Pt's SPouse is driving him home. Pt has f/u with Dr Gallo on October 11 2022.
== END 2022-10-03 11:31 | disposition home or self-care (01) | DRG 193 ==
PROVIDERS: Admitting Provider Family Medicine; Family Provider Family Medicine; PCP Family Medicine; Referring Provider Family Medicine; Visit Provider Family Medicine
DX: J18.9 Pneumonia, unspecified organism (principal); J96.21 Acute and chronic respiratory failure with hypoxia; J44.1 Chronic obstructive pulmonary disease with (acute) exacerbation; I48.91 Unspecified atrial fibrillation; N40.0 Benign prostatic hyperplasia without lower urinary tract symptoms; E11.65 Type 2 diabetes mellitus with hyperglycemia; I11.0 Hypertensive heart disease with heart failure; I50.9 Heart failure, unspecified; K21.9 Gastro-esophageal reflux disease without esophagitis; Z79.4 Long term (current) use of insulin; Z79.01 Long term (current) use of anticoagulants; Z87.891 Personal history of nicotine dependence
CPT/HCPCS: 36415; 71045; 71275; 80053; 82550; 82962; 83880; 84484; 85025; 87633; 93005; 94618; 94640; 94762; J1815; J1940; J1956; J2920; J7613; Q9967

== ENCOUNTER → 2022-10-12 11:04 | Outpatient (CLI) | payer MEDICARE, OTHER, SELFPAY ==
[2019-11-26 08:53] VITALS: PULSE 79; RESP 15; O2SAT 97
[2022-10-01 17:29] VITALS: BMI 35.0
[2022-10-12 11:47] LABS: Appearance Urine UA SL CLOUDY; Bilirubin Urine UA NEGATIVE (NEGATIVE); Color Urine UA YELLOW; Glucose Urine UA NEGATIVE (Negative); Ketones Urine UA NEGATIVE (NEGATIVE); Leukocyte Esterase Urine UA 1+ (NEGATIVE); Nitrite Urine UA NEGATIVE (Negative); Occult Blood Urine UA 2+ (Negative); Protein Urine UA 2+ (Negative); Specific Gravity Urine UA >=1.030 (1.000-1.035); Urobilinogen Urine UA 0.2 E.U./dL (0.2); pH Urine UA 5.5 (4.5-8.0)
[2022-10-12 11:55] LABS: Amorphous Sediment Urine 1+; Bacteria Urine Moderate (10-30); Mucus Urine 1+ (Negative); RBC Urine 5-10/HPF (0-5/HPF); Squamous Epithelial Cell Urine None Seen (0-5/HPF); WBC Urine >100/HPF (0-5/HPF)
[2022-10-12 11:56] LABS: Culture Indicated Urine Specimen Cultured
== END ==
PROVIDERS: Family Provider Family Medicine; PCP Family Medicine; Referring Provider Urology; Visit Provider Urology
DX: N39.0 Urinary tract infection, site not specified (principal); N39.43 Post-void dribbling; R39.9 Unspecified symptoms and signs involving the genitourinary system
CPT/HCPCS: 81001; 87077; 87086; 87185; 87186

== ENCOUNTER → 2022-11-08 11:14 | Outpatient (CLI) | payer MEDICARE, OTHER, SELFPAY ==
[2022-10-17 13:55] VITALS: PULSE 79; RESP 15; O2SAT 97; BMI 35.0
--- NOTE | 2022-11-08 11:15 | DI.CT.S_ITS ---
PROCEDURE: CT CHEST WO CON INDICATIONS: follow up Pneumonia TECHNIQUE: Noncontrast 5 mm thick sections acquired from the pulmonary apices to the posterior costophrenic angles. 1 mm lung window, 5 mm thick coronal and sagittal and 7 mm axial MIP reformats were then acquired. For radiation dose reduction, the following was used: automated exposure control, adjustment of mA and/or kV according to patient size. COMPARISON: [facility], CT, CT ANGIO CHEST PE PROTOCOL, 10/01/2022, 19:57. FINDINGS: Image quality: Excellent. Lungs and pleura: Interval resolution of extensive chronic glass opacities, predominantly in the right upper lobe, but with a patchy distribution elsewhere. Lungs are now clear. No pleural effusions or pneumothorax. Central and peripheral airways are patent and normal in caliber. Mediastinum: Heart size is normal. No pericardial effusion. At least moderate coronary artery calcifications. No mediastinal adenopathy by size criteria. Thoracic aorta and central pulmonary arteries are normal in size. Esophagus is normal in caliber. No hiatal hernia. Bones and chest wall: No suspicious bony lesions. No vertebral body compression fractures. No axillary or supraclavicular adenopathy by size criteria. Thyroid gland is unremarkable . Abdomen: Visualized upper abdominal solid organs and bowel loops appear normal in the absence of contrast. IMPRESSION: 1. Resolution of extensive asymmetric ground-glass opacities, consistent with interval clearing of pneumonia versus interval clearing of asymmetric pulmonary edema. 2. At least moderate coronary artery calcifications. Dictated by: Omer Mcduffie M.D. on 11/08/2022 at 13:56 Approved by: Omer Mcduffie M.D. on 11/08/2022 at 14:04
== END ==
PROVIDERS: Family Provider Family Medicine; PCP Family Medicine; Referring Provider Internal Medicine; Visit Provider Internal Medicine
DX: Z87.01 Personal history of pneumonia (recurrent) (principal); Z09 Encounter for follow-up examination after completed treatment for conditions other than malignant neoplasm; I25.10 Atherosclerotic heart disease of native coronary artery without angina pectoris
CPT/HCPCS: 71250

== ENCOUNTER → 2023-04-23 16:47 | Outpatient (CLI) | payer MEDICARE, OTHER, SELFPAY ==
[2022-11-09 09:36] VITALS: PULSE 79; RESP 15; O2SAT 97; BMI 35.0
[2023-04-23 18:59] LABS: Prostate Specific Antigen Scrn 6.12 ng/mL (0.1-4.0)
== END ==
PROVIDERS: Family Provider Family Medicine; PCP Family Medicine; Referring Provider Urology; Visit Provider Urology
DX: Z12.5 Encounter for screening for malignant neoplasm of prostate (principal); R97.20 Elevated prostate specific antigen [PSA]; N40.1 Benign prostatic hyperplasia with lower urinary tract symptoms; R35.1 Nocturia; R39.9 Unspecified symptoms and signs involving the genitourinary system; Z98.890 Other specified postprocedural states; Z90.79 Acquired absence of other genital organ(s)
CPT/HCPCS: 36415; 51798; 81002; 99213; G0103

== ENCOUNTER → 2023-04-25 11:42 | Outpatient (CLI) | payer MEDICARE, OTHER, SELFPAY ==
[2022-11-09 09:36] VITALS: PULSE 79; RESP 15; O2SAT 97; BMI 35.0
[2023-04-28 05:51] LABS: PSA Free % 13.4 % (.)
== END ==
PROVIDERS: Family Provider Family Medicine; PCP Family Medicine; Referring Provider Urology; Visit Provider Urology
DX: R97.20 Elevated prostate specific antigen [PSA] (principal)
CPT/HCPCS: 36415; 84153; 84154

== ENCOUNTER 2023-07-11 12:30 | Outpatient (RCR) | payer MEDICARE, OTHER, SELFPAY ==
[2019-11-26 08:53] VITALS: PULSE 79; RESP 15; O2SAT 97
[2022-11-09 09:36] VITALS: PULSE 79; RESP 15; O2SAT 97; BMI 35.0
== END 2023-07-11 14:30 ==
LOC: PUL 12:30
PROVIDERS: Family Provider Family Medicine; PCP Family Medicine; Referring Provider Family Medicine; Visit Provider Family Medicine
DX: J44.9 Chronic obstructive pulmonary disease, unspecified (principal)
CPT/HCPCS: 94626

== ENCOUNTER → 2024-03-16 13:30 | Outpatient (CLI) | payer MEDICARE, OTHER, SELFPAY ==
[2024-03-09 11:34] VITALS: PULSE 79; RESP 15; O2SAT 97; BMI 35.0
--- NOTE | 2024-03-16 13:33 | DI.ECHO.S_ITS ---
[facility] : : [address] : : [place] : : [id number] : : Phone: [phone] Echocardiogram Report + + :Name: MITZI BAKER Study Date: 03/16/2024 Height: 66.5 in: :[facility] ReadingLocation: Weight: 225 lb : : Gender: Male BSA: 2.1 m2 : :: 1940 Age: 84 yrs BP: 138/86 mmHg: :Reason For Study: CHRONIC SYSTOLIC HEART FAILURE : :Ordering Physician: CHUCKIE, : :MITZI Performed By: Lola Cantu : :Referring: MITZI NOGUERA : + + Interpretation Summary 1. Normal LV contractility with EF > 60%. No WMA. Mild EUGENE without obstruction. Unable to comment on diastolic function. 2. Normal RV contractility. 3. Normal chamber sizes. 4. Mild TR with estimated PSAP 34 mmHg. 5. No obvious intracardiac shunts. 6. No obvious intracardiac masses/thrombi. 7. No hemodynamically significant pericardial effusion. 8. Low right sided filling pressures. 9. Borderline enlargement of ascending aorta without obvious dissection. Conclusion: Normal biventricular systolic function with mild tricuspid regurgitation. No significant changes when compared with previous study. Procedure: A two-dimensional transthoracic echocardiogram with color flow and Doppler was performed. The study quality was technically adequate. Comparison is made with the echocardiogram of 05/03/2022. The patient was in atrial fibrillation with heart rates between 87-107 bpm during the exam. Left Ventricle: Proximal septal thickening is noted. The left ventricle is normal in size. The ejection fraction is estimated to be 60-65%. Diastolic function could not be accurately assessed due to atrial fibrillation. Right Ventricle: The right ventricle is normal in size and function. Atria: The left atrial size is normal. Right atrial size is normal. There is no Doppler evidence for an interatrial shunt. Mitral Valve: The mitral valve leaflets appear borderline thickened, but open well. There is mild mitral annular calcification. There is trace mitral regurgitation. Aortic Valve: The aortic valve is trileaflet. The aortic valve opens well. There is no aortic valve stenosis. There is trace aortic regurgitation. Tricuspid Valve: The tricuspid valve leaflets are thin and pliable. There is mild tricuspid regurgitation. The right ventricular systolic pressure is estimated to be at least 34 mmHg based on an estimated right atrial pressure of 3 mm Hg. Pulmonic Valve: The pulmonic valve leaflets are thin and pliable; valve motion is normal. There is no pulmonic valvular regurgitation. Great Vessels: The aortic root is normal size. The ascending aorta is mildly enlarged. The IVC is of normal diameter and collapses greater than 50% with a sniff. This suggests a low right atrial pressure of 3 mm Hg. Pericardium/ Pleura There is no pericardial effusion. There is no pleural effusion. MMode/2D Measurements & Calculations LVIDd: 5.6 cm LVOT diam: 2.0 cm LVIDs: 3.6 cm Ao root diam: 3.3 cm FS: 35.2 % asc Aorta Diam: 3.9 cm IVSd: 0.93 cm LVPWd: 0.97 cm LV teixeira. diameter/BSA (cm/m^2): 2.6 LV sys. diameter/BSA (cm/m^2): 1.7 LA A2 area: 19.6 cm2 RA long axis: 4.9 cm LA A4 area: 22.4 cm2 RA area: 17.0 cm2 LA length (vol): 5.5 cm RA vol: 50.2 ml LA vol: 68.4 ml RA : 23.7 ml/m2 LA vol index: 32.3 ml/m2 IVC diam: 1.4 cm RVD1 (basal): 3.6 cm TAPSE: 1.9 cm Doppler Measurements & Calculations Ao V2 max: 131.6 cm/sec LVOT Max Timothy: 90.6 cm/sec Ao V2 mean: 93.0 cm/sec LV V1 max P.3 mmHg Ao max P.9 mmHg LV V1 VTI: 16.1 cm Ao mean P.8 mmHg MADISON(I,D): 2.2 cm2 Ao V2 VTI: 23.4 cm MADISON(V,D): 2.2 cm2 sev ratio: 0.69 MADISON indexed to BSA (cm^2/m^2): 1.0 MV E max timothy: 118.8 cm/sec TR max timothy: 276.3 cm/sec MV A max timothy: 0.83 cm/sec TR max P.5 mmHg MV E/A: 143.4 PA V2 max: 90.4 cm/sec Med Peak E' Timothy: 8.1 cm/sec PA V2 mean: 61.6 cm/sec E/E' med: 14.7 PA mean P.7 mmHg Lat Peak E' Timothy: 6.5 cm/sec PA pr(Accel): 40.5 mmHg E/E' lat: 18.1 E/e' average: 16.4 MV dec time: 0.21 sec MVA(VTI): 2.3 cm2 MV V2 mean: 77.7 cm/sec SV(LVOT): 51.7 ml MV mean P.9 mmHg MV V2 VTI: 22.4 cm Reading Physician:
== END ==
PROVIDERS: Family Provider Family Medicine; PCP Family Medicine; Referring Provider Family Medicine; Visit Provider Family Medicine
DX: I34.81 Nonrheumatic mitral (valve) annulus calcification (principal); I07.1 Rheumatic tricuspid insufficiency; I77.89 Other specified disorders of arteries and arterioles; I50.22 Chronic systolic (congestive) heart failure
CPT/HCPCS: 93306

== ENCOUNTER → 2024-04-23 10:37 | Outpatient (CLI) | payer MEDICARE, OTHER, SELFPAY ==
[2024-03-09 11:34] VITALS: PULSE 79; RESP 15; O2SAT 97; BMI 35.0
[2024-04-23 13:01] LABS: Prostate Specific Antigen Scrn 4.93 ng/mL (0.1-4.0)
[2024-04-24 12:10] LABS: PSA Free % 13.7 % (.); PSA, Total 5.2 ng/mL (0.0-4.0)
== END ==
PROVIDERS: Family Provider Family Medicine; PCP Family Medicine; Referring Provider Urology; Visit Provider Urology
DX: Z12.5 Encounter for screening for malignant neoplasm of prostate (principal); R97.20 Elevated prostate specific antigen [PSA]
CPT/HCPCS: 36415; 84153; 84154; G0103

== ENCOUNTER → 2024-08-11 14:55 | Outpatient (CLI) | payer MEDICARE, OTHER, SELFPAY ==
[2024-03-09 11:34] VITALS: PULSE 79; RESP 15; O2SAT 97; BMI 35.0
--- NOTE | 2024-08-11 17:06 | DI.NM.S_ITS ---
DATE OF SERVICE: 08/11/2024 EXERCISE TREADMILL STRESS TEST PROCEDURE: Exercise treadmill stress test without imaging. ORDERING PROVIDER: Dr. Octavio Gallo. INDICATIONS: 1. The patient is an 84-year-old male with permanent atrial fibrillation, diabetes, and recent atypical chest discomfort. The patient presented in a wheelchair on supplemental oxygen and therefore a modified Masood protocol was used. FINDINGS: 1. Using a modified Masood protocol, the patient was able to exercise for 5 minutes 24 seconds, achieving 3.5 METS, suggesting reduced exercise capacity. 2. He had an accelerated heart rate response with a resting heart rate of 100-110 bpm in atrial fibrillation that increased to around 150 bpm after 3 minutes of walking at 1.7 mph at 0% grade, and achieving a maximum heart rate of around 170 bpm (146% of his predicted maximum), although difficult to accurately assess because of significant motion artifact. 3. He had a normal blood pressure response to exercise. 4. He had moderate exertional dyspnea with oxygen saturations of 88% at peak exercise but no chest discomfort or other anginal symptoms. 5. His resting ECG shows atrial fibrillation with fairly normal ST segments. With exercise, there are no obvious significant ST-segment shifts but assessment is challenging because of significant motion artifact. He had rare isolated PVCs in recovery but no other arrhythmias beyond his persistent atrial fibrillation. IMPRESSION: 1. Probable normal exercise stress test but with significantly reduced sensitivity and specificity because of significant motion artifact with exercise but no obvious significant ST-segment shifts with low level exercise. 2. No angina but documented mild hypoxia with exercise with dyspnea. 3. Reduced exercise capacity with presenting atrial fibrillation with a moderately rapid ventricular response and an accentuated heart rate response to exercise. No other arrhythmias except for occasional isolated PVCs. 4. If there is significant clinical concern for ischemic heart disease, consider a stress imaging study such as a pharmacologic myocardial perfusion study. Octavio Salmon - RS/fn/OPERATOR doc#: [id number]/job#: [id number] dd: 08/11/2024 16:40:00 dt: 08/11/2024 16:52:00 DICTATING MD/COPIES TO: Octavio Carroll MD; Octavio Gallo MD COPIES MNE: YONATAN;
== END ==
PROVIDERS: Family Provider Family Medicine; PCP Family Medicine; Referring Provider Family Medicine; Visit Provider Family Medicine
DX: I48.91 Unspecified atrial fibrillation (principal); R06.00 Dyspnea, unspecified; R09.02 Hypoxemia; R07.2 Precordial pain
CPT/HCPCS: 93017

== ENCOUNTER → 2024-12-20 12:51 | Outpatient (CLI) | payer MEDICARE, OTHER, SELFPAY ==
[2024-03-09 11:34] VITALS: PULSE 79; RESP 15; O2SAT 97; BMI 35.0
--- NOTE | 2024-12-20 12:52 | DI.MRI.S_ITS ---
PROCEDURE: MR LUMBAR SPINE WO CON INDICATIONS: Chronic bi back pain; right-sided sciatica TECHNIQUE: Noncontrast sagittal T1 spin echo and T2 fast echo, sagittal STIR, and T2 fast spin echo through the lumbar spine. In cases with scoliosis, additional coronal T2 fast spin echo may be performed. COMPARISON: [facility], , MR LUMBAR SPINE WO CON, 11/18/2019, 13:58. FINDINGS: Image quality: Excellent Posterior fusion instrumentation with interbody spacer at L5-S1, new from prior exam. Grade 1 anterolisthesis of L5 on S1. Marrow signal is grossly normal for age. Multilevel disc desiccation and disc bulge. Conus terminates at the level of T12-L1 and is unremarkable. Right neural foraminal stenosis: Mild at L2-3, moderate at L3-4, severe at L4- 5. Moderate at L5-S1. Left neural foraminal stenosis: Mild at L1-2, moderate at L2-3, L3-4, moderate at L4-5. Moderate at L5-S1. Axial images: T12-L1: Moderate bilateral facet arthropathy. No central canal stenosis. L1-2: Mild right, moderate left facet arthropathy. Mild disc bulge. No central canal stenosis. L2-3: Moderate bilateral facet arthropathy. Mild disc bulge. Epidural lipomatosis. Moderate central canal stenosis. L3-4: Moderate bilateral facet arthropathy. Disc bulge. Epidural lipomatosis. Moderate central canal stenosis. L4-5: Severe bilateral facet arthropathy. Likely laminotomy. Disc bulge. Right paracentral and foraminal disc extrusion, with slight superior extension. Mild central canal stenosis. L5-S1: Posterior disc uncovering. Moderate right, severe left facet arthropathy. No central canal stenosis. Visualized sacrum is intact. No abdominal aortic aneurysm. Multiple right renal cysts, partially visualized. IMPRESSION: 1. Multilevel degenerative changes, most pronounced at L4-5, where there is severe right, and moderate left neural foraminal stenosis. Somewhat limited comparison to prior exam given extensive motion on prior exam. 2. Multilevel central canal stenosis, most pronounced and moderate at L2-3 and L3-4, grossly unchanged. 3. Interval postprocedure changes. Dictated by: Nayely Jane M.D. on 12/21/2024 at 11:13 Approved by: Nayely Jane M.D. on 12/21/2024 at 11:24
== END ==
LOC: MRI 12:52
PROVIDERS: Family Provider Family Medicine; PCP Family Medicine; Referring Provider Family Medicine; Visit Provider Family Medicine
DX: M51.16 Intervertebral disc disorders with radiculopathy, lumbar region (principal); M51.17 Intervertebral disc disorders with radiculopathy, lumbosacral region; M48.061 Spinal stenosis, lumbar region without neurogenic claudication; M48.07 Spinal stenosis, lumbosacral region; M47.26 Other spondylosis with radiculopathy, lumbar region; M47.27 Other spondylosis with radiculopathy, lumbosacral region; G89.29 Other chronic pain; Z98.1 Arthrodesis status
CPT/HCPCS: 72148